=== PATIENT | male | born 1955 | race Caucasian/White ===

== ENCOUNTER → 2022-10-23 14:24 | Outpatient (BNVA) | payer BC, SELFPAY | PROVIDERS: PCP Family Medicine; Visit Provider Family Medicine | DX: E78.2 Mixed hyperlipidemia (principal); E11.9 Type 2 diabetes mellitus without complications; I10 Essential (primary) hypertension; Z76.89 Persons encountering health services in other specified circumstances | CPT/HCPCS: 80053; 80061; 83036; 84153; 85025 ==

== ENCOUNTER 2023-08-19 17:43 | Emergency (ER) | payer MEDICARE, SELFPAY ==
[2023-08-19 17:56] VITALS: BP 171/91; PULSE 72; RESP 17; TEMP 36.4; O2SAT 94; BMI 42.7
[2023-08-19 18:12] LABS: Glucose Point of Care 148 mg/dL (70-110)
--- NOTE | 2023-08-19 19:51 | CTR_ITS ---
PROCEDURE INFORMATION: Exam: CT Head Without Contrast Exam date and time: 08/19/2023 8:36 PM Age: 68 years old Clinical indication: Dizziness; Additional info: Sudden onset vertigo, off balance, lists to left TECHNIQUE: Imaging protocol: Computed tomography of the head without contrast. Radiation optimization: All CT scans at this facility use at least one of these dose optimization techniques: automated exposure control; mA and/or kV adjustment per patient size (includes targeted exams where dose is matched to clinical indication); or iterative reconstruction. REPORTING DATA: Count of CT and Cardiac NM exams in prior 12 months: This patient has received 0 known CTs and 0 known cardiac nuclear medicine studies in the 12 months prior to the current study. COMPARISON: No relevant prior studies available. RADIATION DOSE METRICS: Total DLP (mGy-cm): 1092 FINDINGS: Brain: No hemorrhage. Periventricular white matter lucency representing atherosclerotic encephalopathic changes. No mass effect. Cerebral ventricles: No ventriculomegaly. Ventricular prominence proportionate to the degree of atrophy observed. Paranasal sinuses: Visualized sinuses are unremarkable. No fluid levels. Mastoid air cells: Visualized mastoid air cells are well aerated. Bones/joints: Unremarkable. No acute fracture. Soft tissues: Unremarkable. CT/CT head wo con* [id number] IMPRESSION: No acute intracranial abnormality.
--- NOTE | 2023-08-19 19:51 | ECG_ITS ---
[facility] Test Date: 2023-08-19 Pat Name: Ulisses Bae Department: Room: Gender: Male Glove Stitcher: : 1955 Requested By: Kd Cristina Order Number: [id number] Josh MD: Mia Bhat M.D. Measurements Intervals [place] Rate: 68 P: 223 NM: 146 QRS: 215 QRSD: 89 T: 162 QT: 388 QTc: 415 Interpretive Statements SINUS RHYTHM POSSIBLE RIGHT VENTRICULAR HYPERTROPHY [SOME/ALL OF: PROMINENT R IN V1, LATE TRANSITION, RAD, DOTTIE, SSS] MODERATE ST DEPRESSION [0.05+ mV ST DEPRESSION] No previous ECG available for comparison Electronically Signed On 08-19-2023 23:21:37 JUNIOR BRAND MANAGER by Mia Bhat M.D. [id number]
--- NOTE | 2023-08-19 19:53 | ED_ITS ---
HPI - Dizziness General: Chief Complaint: Dizziness Stated Complaint: dizziness Time Seen by Provider: 08/19/23 19:37 History of Present Illness: HPI Narrative: Patient comes to the ER with complaints of sudden onset dizziness and vertigo when walking or riding his bicycle. Patient says he lists to the left when this happens. Patient says he is a has happened a couple times in the past but went away quickly but this time its been there all day long. Patient said this originally started about 2 to 3 years ago when he had COVID. Patient and his say they have long COVID-like symptoms and are unsure if this has anything to do with this. Patient has no other complaints at this time. Patient denies numbness tingling weakness nausea vomiting diarrhea coughs colds fevers chills etc. Review of Systems General: Reports: 10 or more systems reviewed and unremarkable except in HPI and below PFSH ED PFSH: Social History Smoking and tobacco/nicotine status: never used tobacco/nicotine Alcohol intake: never Substance/Drug Use: never Adopted: No Caregiver/support person: No Lives independently: No Household members: spouse Housing: House Marital status: service: No Physical Exam Const: COMMON NORMALS: no acute distress, average body habitus, patient oriented x3, no limitations, healthy appearing, alert and well nourished HENMT: COMMON NORMALS: normocephalic, atraumatic, hearing grossly normal bilaterally, external ears normal, EAC's normal, Normal external nose present, m oist oral mucous membranes and oropharynx normal; TM's not normal bilaterally (Bilateral serous otitis media) HEAD & SCALP: normocephalic and atraumatic NOSE: Normal external nose present EXTERNAL EAR: Yes external ears normal EXTERNAL AUDITORY CANAL: EAC's normal TYMPANIC MEMBRANE: TM(s) not normal bilaterally (Bilateral serous otitis media) Eye: COMMON NORMALS: Equal, round and reactive pupils present, EOMs intact bilaterally, conjunctivae normal and no scleral icterus CONJUNCTIVA: Yes conjunctivae normal PUPIL: Yes Equal, round and reactive pupils present Neck/C-Spine: COMMON NORMALS: full ROM, no lymphadenopathy, supple, no meningeal signs, no JVD and Thyroid normal THYROID: Thyroid normal Chest: COMMONS NORMALS: normal inspection of the chest and normal palpation of entire chest wall Resp: COMMON NORMALS: normal respiratory effort, No retractions, No use of accessory muscles and clear to auscultation bilaterally AUSCULTATION: clear to auscultation bilaterally Cardio: COMMON NORMALS: no JVD, regular rate, regular rhythm, S1 normal heart sound present, S2 normal heart sound present, No gallops present (Cardio), No clicks present (Cardio), No murmurs present (Cardio) and No rub (Cardio) RATE: regular rate RHYTHM: regular rhythm HEART SOUNDS: S1 normal heart sound present and S2 normal heart sound present GI: COMMON NORMALS: Normal to inspection, nondistended, normoactive bowel sounds present, Soft to palpation, non-tender, No hepatosplenomegaly present and no masses PALPATION: Yes Soft to palpation and Yes No hepatosplenomegaly present Neuro: COMMON NORMALS: patient oriented x3 SENSORIUM/ORIENTATION: Yes alert MENINGEAL SIGNS: Yes no meningeal signs Course Vital Signs: Vital signs: Vital Signs Temperature 97.6 F 08/19/23 17:56 Pulse Rate 66 08/19/23 21:00 Respiratory Rate 17 08/19/23 17:56 Blood Pressure 165/88 08/19/23 21:00 Pulse Oximetry 96 08/19/23 21:00 Oxygen Delivery Me thod Room Air 08/19/23 21:00 MDM - Dizziness Medical Decision Making Patient came to the ER with complaining of vertigo and listing to the left. Patient states had these episodes multiple times before but this time lasted longer. Patient was worked up with blood urine and head CT, EKG all of which are essentially benign and does not show any acute causes of vertigo. Physical exam did show bilateral serous otitis media which could be a cause. Patient will be placed on steroids and referred back to his family physician for further evaluation and treatment. Differential Diagnosis Unlikely adverse reaction to drug, benign paroxysmal positional vertigo, orthostatic hypotension, vertebral basilar insufficiency, cerebrovascular accident, acute vestibular neuronitis or transient cerebral ischemia Medical Records I reviewed the patient's medical records. Lab Data I reviewed the patient's lab results. 08/19/23 20:01 08/19/23 20:[address] 08/19/23 19:51 IMPRESSION: No acute intracranial abnormality. Laboratory Results WBC 10.43 10^3/uL (3.29-11.43) 08/19/23 20:01 RBC 5.70 10^6/uL (3.85-5.65) H 08/19/23 20: Hgb 16.30 g/dL (11.27-16.99) 08/19/23 20: Hct 49.9 % (37-53) 08/19/23 20: MCV 87.5 fl (82-101) 08/19/23 20: MCH 28.6 pg (27-33) 08/19/23 20: MCHC 32.7 g/dL (30-55) 08/19/23 20: RDW 13.5 % (12.1-15.1) 08/19/23 20: Plt Count 233 10^3/cmm (157-399) 08/19/23 20: MPV 9.8 fL (7.4-10.4) 08/19/23 20: Neut % (Auto) 80.1 % 08/19/23 20: Lymph % (Auto) 12.6 % 08/19/23 20: [place] % (Auto) 5.9 % 08/19/23 20: Eos % (Auto) 0.6 % 08/19/23 20: Baso % (Auto) 0.4 % 08/19/23 20: Neut # (Auto) 8.36 10^3/uL (1.8-7.7) H 08/19/23 20: Lymph # (Auto) 1.3 10^3/uL (0.8-4.8) 08/19/23 20: [place] # (Auto) 0.6 10^3/uL (0.2-0.9) 08/19/23 20: Eos # (Auto) 0.1 10^3/uL (0.0-0.8) 08/19/23 20: Baso # (Auto) 0.0 10^3/uL (0.0-0.1) 08/19/23 20: Nucleated RBC % (auto) 0 % 08/19/23 20: Nucleated RBCs # 0.0 /100WBC 08/19/23 20: Sodium 142 mmol/L (136-145) 08/19/23 20: Potassium 4.2 mmol/L (3.5-5.1) 08/19/23 20: Chloride 104 mmol/L (98-107) 08/19/23 20:01 Carbon Dioxide 27 mmol/L (22-29) 08/19/23 20: Anion Gap 15.2 (5-19) 08/19/23 20: BUN 12 mg/dL (8-23) 08/19/23 20: Creatinine 0.8 mg/dL (0.7-1.2) 08/19/23 20: GFR Calculation 96.4 mL/min (90-130) 08/19/23 20: Glucose 163 mg/dL (65-115) H 08/19/23 20: POC Glucose 148 mg/dL (70-110) H 08/19/23 18:09 Calculated Osmolality 297 mOsm/kg (285-295) H 08/19/23 20: Calcium 9.4 mg/dL (8.5-10.5) 08/19/23 20: Total Bilirubin 0.9 mg/dL (0.15-1.2) 08/19/23 20: AST 16 U/L (0-40) 08/19/23 20: ALT 22 U/L (0-41) 08/19/23 20: Alkaline Phosphatase 67 U/L (40-130) 08/19/23 20: Total Protein 7.4 g/dL (6.6-8.7) 08/19/23 20: Albumin 4.4 g/dL (3.5-5.2) 08/19/23 20: Globulin 3.0 g/dL (1.3-4.6) 08/19/23 20: Urine Color Yellow (Yellow) 08/19/23 20: Urine Appearance Clear (CLEAR) 08/19/23 20: Urine pH 6 (5-7) 08/19/23 20: Ur Specific [place] 1.015 (1.005-1.030) 08/19/23 20: Urine Protein Neg (Negative) 08/19/23 20: Urine Glucose (UA) 4+ (Normal) H 08/19/23 20: Urine Ketones 1+ (Negative) H 08/19/23 20: Urine Blood Neg (Negative) 08/19/23 20:22 Urine Nitrate Negative (Negative) 08/19/23 20:22 Urine Bilirubin Neg (Negative) 08/19/23 20:22 Urine Urobilinogen Neg mg/dL (Negative) 08/19/23 20:22 Ur Leukocyte Esterase Negative (Negative) 08/19/23 20:22 All radiology interpretation(s) finalized by discharge EKG Data EKG 1: I personally reviewed and interpreted this EKG as follows: EKG interpretation date: 08/19/23 EKG interpretation time: 20:25 Prior EKG tracings: not available for review Interpretation: EKG showed ventricular rate 60 beats minute, PA interval 146, QRS duration 89, QTc of 406, sinus rhythm, Discharge Plan Discharge Patient Disposition: Home Clinical Impression: Vertigo Bilateral acute serous otitis media Qualifiers: Recurrence: not specified as recurrent Qualified Code(s): H65.03 - Acute serous otitis media, bilateral Condition: Stable Prescriptions: New meclizine 25 mg tablet 25 mg PO QID PRN (Reason: vertigo) Qty: 30 0RF prednisone 20 mg tablet 20 mg PO BID 5 Days Qty: 10 0RF No Action atorvastatin 40 mg tablet 40 mg PO DAILY Qty: 90 2RF glipizide 10 mg tablet 10 mg PO DAILY Qty: 90 3RF lisinopril 20 mg tablet 20 mg PO DAILY Qty: 90 3RF metformin 1,000 mg tablet 1,000 mg PO DAILY Qty: 90 3RF Jardiance 25 mg tablet See Rx Instructions .ROUTE .COMPLEX Qty: 90 0RF Dose Instruction: TAKE 1 TABLET BY MOUTH EVERY DAY Rx Instructions: TAKE 1 TABLET BY MOUTH EVERY DAY Discharge Orders: Discharge ED (Routine); Ordered 08/19/23 Ordered By: Kd Cristina Referrals: Juve Hernandez DO [Primary Care Provider] - 1 week Patient Instructions: Vertigo (DC), Fluid In The Ear (Serous Otitis Media) (ED) Activity Restrictions/Additional Instructions: Please take your prednisone as directed as this will help reduce the inflammation of the inner ear. Please take your meclizine as directed as needed for vertigo. Please follow-up with your family practice physician as you may benefit from further evaluation and treatment. Coding Level of Care Code ED Digital Marketing Program Manager for Chg Yuriy
[2023-08-19 20:08] LABS: Basophils % 0.4 %; Eosinophils # 0.1 10^3/uL (0.0-0.8); Eosinophils % 0.6 %; Hematocrit 49.9 % (37-53); Lymphocytes # 1.3 10^3/uL (0.8-4.8); Lymphocytes % 12.6 %; Mean Corpuscular HGB Conc 32.7 g/dL (30-55); Mean Corpuscular Hemoglobin 28.6 pg (27-33); Mean Corpuscular Volume 87.5 fl (82-101); Mean Platelet Volume 9.8 fL (7.4-10.4); Monocytes # 0.6 10^3/uL (0.2-0.9); Monocytes % 5.9 %; Neutrophils # 8.36 10^3/uL (1.8-7.7); Neutrophils % 80.1 %; Nucleated Red Blood Cells % 0 %; Platelet Count 233 10^3/cmm (157-399); Red Cell Distribution Width 13.5 % (12.1-15.1); White Blood Count 10.43 10^3/uL (3.29-11.43)
[2023-08-19] MEDS: meclizine 25 mg tablet 50 MG PO (20:14)
[2023-08-19] MEDS: dexamethasone 10 mg/mL INJ IM (20:15)
[2023-08-19 20:19] VITALS: BP 179/97; PULSE 70; O2SAT 96
[2023-08-19 20:23] LABS: Alanine Aminotransferase 22 U/L (0-41); Albumin Level 4.4 g/dL (3.5-5.2); Alkaline Phosphatase 67 U/L (40-130); Anion Gap 15.2 (5-19); Aspartate Amino Transferase 16 U/L (0-40); Blood Urea Nitrogen 12 mg/dL (8-23); Calcium 9.4 mg/dL (8.5-10.5); Carbon Dioxide 27 mmol/L (22-29); Chloride 104 mmol/L (98-107); Glomerular Filtration Rate 96.4 mL/min (90-130); Glucose 163 mg/dL (65-115); Osmolality Calculated 297 mOsm/kg (285-295); Potassium 4.2 mmol/L (3.5-5.1); Sodium 142 mmol/L (136-145); Total Bilirubin 0.9 mg/dL (0.15-1.2); Total Protein 7.4 g/dL (6.6-8.7)
[2023-08-19 20:28] LABS: Add Urine Microscopic? NO; Charge for UA Resulting for Rev
[2023-08-19 20:33] LABS: Bilirubin Urine Neg (Negative); Blood Urine Neg (Negative); Glucose Urine UA 4+ (Normal); Ketones Urine 1+ (Negative); Leukocyte Esterase Urine Negative (Negative); Nitrate Urine Negative (Negative); Protein Urine Neg (Negative); Specific Gravity, Urine 1.015 (1.005-1.030); Urine Appearance Clear (CLEAR); Urine Color Yellow (Yellow); Urobilinogen Urine Neg (Negative); pH Urine 6 (5-7)
[2023-08-19 21:00] VITALS: BP 165/88; PULSE 66; O2SAT 96
[2023-08-19 21:21] VITALS: BP 165/88; PULSE 72; RESP 18; TEMP 36.6; O2SAT 96
== END 2023-08-19 21:22 | disposition home or self-care (01) ==
PROVIDERS: Emergency Provider Emergency Medicine; PCP Family Medicine
DX: R42 Dizziness and giddiness (principal); H65.03 Acute serous otitis media, bilateral; Z79.84 Long term (current) use of oral hypoglycemic drugs
CPT/HCPCS: 36415; 36416; 70450; 80053; 81003; 82962; 85025; 93005; 96372; 99285; J1100; J8597

== ENCOUNTER 2023-08-21 12:41 | Inpatient (IN) | payer MEDICARE, SELFPAY ==
[2023-08-21] VITALS (53 sets, daily range): BP systolic 148–203; BP diastolic 67–103; PULSE 75–106; RESP 14–29; TEMP 36.6–37.3; O2SAT 91–100; BMI 41.6
--- NOTE | 2023-08-21 09:57 | USCV_ITS ---
Ulisses Bae Age: 68 Gender: M : 1955 Exam Date: 08/21/2023 22:04 Ordering Phys: Elvi Timmons MD Technologist: IRMA Exam Location: [facility] [place] Indication: stroke. Patient is unresponsive in ICU-7. DM2 x 17 yrs on Metformin. He quit smoking over 40 years ago. Risk Factors: stroke. Patient is unresponsive in ICU-7. DM2 x 17 yrs on Metformin. He quit smoking over 40 years ago. Previous Vascular Surgery: none Right Brachial BP: 161 / 87 Left Brachial BP: / Right Left Velocity (cm/s) Spectral Plaque Velocity (cm/s) Spectral Plaque Syst/Diast Broadening Syst/Diast Broadening 179.90/14.40 None None Prox CCA 114.50/ 8.90 None None 88.10/ 1.80 None None Mid CCA 90.40 / 3.30 None None 102.50/9.00 None None Distal CCA 75.00 / 5.50 None None 68.40/ 7.20 None Homo Prox ICA 57.30 / 6.80 None Hetro 86.30/ 14.40 None None Mid ICA 79.50 / 9.40 None None 150.40/14.60 None None Distal ICA 87.30 / 9.70 None None 154.70 None None ECA 160.00 None None 0.84 ICA/CCA 0.76 Bi- Vertebral Bi- directiona directiona l l 7.70 / 1.00 cm/s 44.10/ 6.60 cm/s Tri Subclavian Tri 91.50 166.2 0 FINDINGS Comparison: none available. Bilateral abnormal waveforms in the carotid arteries, resistive waveform with little diastolic flow. No significant plaque seen. Bidirectional vertebral arteries. CONCLUSIONS Abnormal carotid waveforms without stenosis or plaque. Consider aortic valve stenosis or cardiomyopathy based on the waveform. Echocardigraphy recommended. Also CTA carotid and cerebral arteries for more complete evaluation of distal carotid arteries and COW. Dr. Ileana Esparza DO (Electronically Signed) Final Date: 22 August 2023 09:12 S
--- NOTE | 2023-08-21 12:55 | CT_ITS ---
WS: [id number] CT HEAD TECHNIQUE: Noncontrast CT of the head obtained from the skullbase to the vertex. CLINICAL INFORMATION: AMS COMPARISON: 08/19/2023 DLP: 1129.[address] scans at [facility] use at least one of these dose optimization techniques: automated e xposure control; mA and/or kV adjustment per patient size (includes targeted exams where dose is matc hed to clinical indication); or iterative reconstruction. FINDINGS: No evidence of intracranial hemorrhage or mass effect. Ventricular system and basal cisterns are pizarro nt. Mild small vessel changes with moderate parenchymal volume loss. No extra-axial fluid collections . Intracranial vascular calcification involving the cavernous carotid arteries and basilar artery. No evidence of mass or mass effect. Small amount of low-attenuation change in the anterior RIGHT peralta radiata appears more prominent compared to 08/19/2023 and may represent subacute ischemia. This can be further evaluated with MRI. Mild mucosal thickening in the paranasal sinuses. Mastoid air cells are well aerated. Small amount of fluid in the sphenoid sinuses. Normal posterior nasopharynx. IMPRESSION: 1. No evidence of intracranial hemorrhage or mass effect. 2. Small amount of low-attenuation change in the anterior RIGHT peralta radiata appears more prominen t compared to 08/19/2023 and may represent subacute ischemia. This can be further evaluated with MRI. 3. Intracranial vascular calcification. 4. Mild to moderate small vessel changes with moderate parenchymal volume loss. 5. Sphenoid sinusitis. 6. No acute intracranial findings.
--- NOTE | 2023-08-21 12:55 | XR_ITS ---
WS: [id number] Exam: XR chest 1V portable [id number] Date/Time of Exam: 08/21/2023 12:55 PM Reason For Exam: dyspnea/cough No priors. The lungs are clear and fully expanded. Unremarkable cardiomediastinal silhouette. No pleural effusio ns. Bony structures are intact. IMPRESSION: 1. Negative chest.
--- NOTE | 2023-08-21 12:56 | ED_ITS ---
HPI - General Adult General: Chief complaint: Weakness Stated complaint: Stroke like Time Seen by Provider: 08/21/23 12:47 Source: patient Mode of arrival: ambulatory History of Present Illness: 68-year-old male presents emergency room complaining of generalized weakness and difficulty standing getting around. He was seen 2 days ago and found to have bilateral otitis media. He since then he has continued to have more more di fficulty did not have a specific time where things got worse or concern today he had a stroke. His symptoms do not have a last known well prior to his previous visit according to him EMS could not give a more recent last known well either. Patient denies chest or abdominal pain he is lethargic and needs to be aroused several times during the course of doing his history. Oxygen sats are normal b lood sugar is 193. Onset (ago): minute(s) Relieving factors: none Exacerbating factors: none Associated symptoms: Reports confusion, decreased appetite, malaise and weakness; Deny chest pain, cough, diaphoresis, dyspnea, fevers/chills, headache(s), nausea, rash, palpitations, seizures, short of breath, syncope or vomiting Review of Systems Const: Reports: malaise; Denies: fever(s), chills or diaphoresis Card: Denies: chest pain, palpitations or syncope Resp: Denies: dyspnea GI: Denies: nausea or vomiting : Denies: dysuria, urinary frequency or urinary urgency Musc: Denies: neck pain or back pain Skin/Breast: Denies: rash Neuro: Reports: confusion; Denies: headache(s) [facility] ED PFSH: Social History Smoking and tobacco/nicotine status: never used tobacco/nicotine Alcohol intake: never Substance/Drug Use: never Adopted: No Caregiver/support person: No Lives independently: No Household members: spouse Housing: House Marital status: service: No Physical Exam Const: GENERAL APPEARANCE: cooperative and lethargic ORIENTATION/CONSCIOUS NESS: Yes confused and Yes lethargic HENMT: COMMON NORMALS: normocephalic, atraumatic and hearing grossly normal bilaterally HEAD & SCALP: normocephalic and atraumatic Resp: COMMON NORMALS: normal respiratory effort, No retractions, No use of accessory muscles and clear to auscultation bilaterally AUSCULTATION: clear to auscultation bilaterally Cardio: COMMON NORMALS: regular rate, regular rhythm and No murmurs present (Cardio) RATE: regular rate RHYTHM: regular rhythm GI: COMMON NORMALS: Soft to palpation and No hepatosplenomegaly present AUS CULTATION: Yes normoactive bowel sounds PALPATION: Yes Soft to palpation, No Tenderness to palpation present (GI), No Guarding due to palpation present (GI) and Yes No hepatosplenomegaly present Extremity: COMMON NORMALS: normal to inspection, capillary refill normal, no clubbing, cyanosis or edema, no calf tenderness and no pedal edema Neuro: SENSORIUM/ORIENTATION: Yes lethargic Skin: COMMON NORMALS: no rashes or lesions noted GENERAL SKIN EXAM: no rashes or lesions noted Course Vital Signs: Vital signs: Vital Signs Temperature 98.6 F 09/01/23 04:29 Pulse Rate 67 09/01/23 04:29 Respiratory Rate 16 09/01/23 04:29 Blood Pressure 142/68 09/01/23 04:29 Pulse Oximetry 93 09/01/23 04:29 Oxygen Delivery Me thod Nasal Cannula 08/31/23 21:11 Oxygen Flow Rate 1.5 08/31/23 21:11 Fraction of Inspir ed Oxygen 22 08/29/23 04:00 MDM - General Adult Medical Decision Making Flaccid in his left leg and arm with no last known well time that can be definitively pin down. After discussing with the it has been at least 48 hours. I do suspect he has had a stroke however he is outside the window of any kind of intervention at this point for either thrombolytics or embolectomy. He is hypoxic on arrival and difficult to arouse. Patient was started on BiPAP. CT shows low-attenuation area suggestive for subacute ischemia. Discussed with hospitalist. Medical Records I reviewed the patient's medical records. Lab Data I reviewed the patient's lab results. 09/01/23 05:49 09/01/23 04:37 Radiology Impressions Chest CTA 08/21/23 16:38 IMPRESSION: No acute chest findings. 2 cm right thyroid nodule. Nonemergent thyroid ultrasound recommended for further evaluation. Lumbar Spine CT 08/21/23 17:10 IMPRESSION: Mild degenerative changes without acute findings. Head MRI 08/22/23 09:30 IMPRESSION: Acute/subacute right MCA distribution ischemic changes/infarcts. ADDENDUM: 08/22/23 [id number] THIS REPORT CONTAINS FINDINGS THAT MAY BE CRITICAL TO PATIENT CARE. The findings were verbally communicated via telephone conference at 6:40 PM UNIT CONTROL CLERK on 08/22/2023 with ELVI TIMMONS. The findings were acknowledged and understood. 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 Neck MRA 08/22/23 14:47 IMPRESSION: No severe stenosis or occlusion. REFERENCES: NASCET CRITERIA. The degree of stenosis in the cervical segment of the internal carotid artery is based on NASCET criteria. Normal is no stenosis. Mild is less than 50% stenosis. Moderate is 50-69% stenosis. Severe is 70% to 99% stenosis. Total occlusion is no detectable patent lumen. Chest X-Ray 08/26/23 01:07 IMPRESSION: Linear opacity in the inferior right upper lobe, appears slightly more consolidated on this exam, previously more ground-glass in appearance, could represent layering pleural fluid, consolidation, or atelectasis. Improved aeration of the left retrocardiac lung. No new focal consolidation. Laboratory Results WBC 12.82 10^3/uL (3.29-11.43) H 08/21/23 13:00 RBC 5.92 10^6/uL (3.85-5.65) H 08/21/23 13:00 Hgb 16.90 g/dL (11.27-16.99) 08/21/23 13:00 Hct 52.4 % (37-53) 08/21/23 13:00 MCV 88.5 fl (82-101) 08/21/23 13:00 MCH 28.5 pg (27-33) 08/21/23 13:00 MCHC 32.3 g/dL (30-55) 08/21/23 13:00 RDW 13.7 % (12.1-15.1) 08/21/23 13:00 Plt Count 278 10^3/cmm (157-399) 08/21/23 13:00 MPV 9.8 fL (7.4-10.4) 08/21/23 13:00 Neut % (Auto) 86.7 % 08/21/23 13:00 Lymph % (Auto) 8.0 % 08/21/23 13:00 [place] % (Auto) 4.5 % 08/21/23 13:00 Eos % (Auto) 0.0 % 08/21/23 13:00 Baso % (Auto) 0.2 % 08/21/23 13:00 Neut # (Auto) 11.11 10^3/uL (1.8-7.7) H 08/21/23 13:00 Lymph # (Auto) 1.0 10^3/uL (0.8-4.8) 08/21/23 13:00 [place] # (Auto) 0.6 10^3/uL (0.2-0.9) 08/21/23 13:00 Eos # (Auto) 0.0 10^3/uL (0.0-0.8) 08/21/23 13:00 Baso # (Auto) 0.0 10^3/uL (0.0-0.1) 08/21/23 13:00 Nucleated RBC % (auto) 0 % 08/21/23 13:00 Nucleated RBCs # 0.0 /100WBC 08/21/23 13:00 D-Dimer 0.31 ug/mLFEU (0-0.59) 08/21/23 13:00 Specimen Type Arterial 08/21/23 13:03 Sample Site Radial, left 08/21/23 13:03 ABG pH 7.30 (7.35-7.45) L 08/21/23 13:03 ABG pCO2 32.0 mmHg (35-45) L 08/21/23 13:03 ABG pO2 69.9 mmHg (80.0-100.0) L 08/21/23 13:03 ABG PO2/FiO2 Ratio 0 08/21/23 13:03 ABG HCO3 15.6 mmol/L (22-26) L 08/21/23 13:03 ABG O2 Saturation 93.5 08/21/23 13:03 ABG Base Excess -9.6 mmol/L (-2.0-2.0) L 08/21/23 13:03 Magdiel Test Pos 08/21/23 13:03 A-a O2 Gradient 5.2 mmHg (5-10) 08/21/23 13:03 Hematocrit 50.4 % (42-52) 08/21/23 13:03 Hgb O2 Saturation 92.3 % (95-100) L 08/21/23 13:03 Carboxyhemoglobin 1.0 %THgb (0.4-20.1) 08/21/23 13:03 Methemoglobin 0.3 % (0.4-1.5) L 08/21/23 13:03 Total Hemoglobin 16.4 g/dL (14-18) 08/21/23 13:03 Sodium 139.0 mmol/L (131-143) 08/21/23 13:03 Potassium 4.3 mmol/L (3.5-5.0) 08/21/23 13:03 Glucose 192.0 mg/dL (70-115) H 08/21/23 13:03 Ionized Calcium 1.1 mmol/L (1.1-1.4) 08/21/23 13:03 O2 Delivery Device Room air 08/21/23 13:03 FiO2 21.0 % 08/21/23 13:03 Double Backer ID glc 08/21/23 13:03 Sodium 137 mmol/L (136-145) 08/21/23 13:00 Potassium 4.8 mmol/L (3.5-5.1) 08/21/23 13:00 Chloride 99 mmol/L (98-107) 08/21/23 13:00 Carbon Dioxide 17 mmol/L (22-29) L 08/21/23 13:00 Anion Gap 25.8 (5-19) H 08/21/23 13:00 BUN 15 mg/dL (8-23) 08/21/23 13:00 Creatinine 0.8 mg/dL (0.7-1.2) 08/21/23 13:00 GFR Calculation 96.4 mL/min (90-130) 08/21/23 13:00 Glucose 193 mg/dL (65-115) H 08/21/23 13:00 POC Glucose 178 mg/dL (70-110) H 08/21/23 12:54 Calculated Osmolality 290 mOsm/kg (285-295) 08/21/23 13:00 Lactic Acid 2.2 mmol/L (0.5-2.2) 08/21/23 13:00 Calcium 9.0 mg/dL (8.5-10.5) 08/21/23 13:00 Magnesium 2.2 mg/dL (1.7-2.3) 08/21/23 13:00 Total Bilirubin 1.4 mg/dL (0.15-1.2) H 08/21/23 13:00 AST 17 U/L (0-40) 08/21/23 13:00 ALT 22 U/L (0-41) 08/21/23 13:00 Alkaline Phosphatase 73 U/L (40-130) 08/21/23 13:00 Creatine Kinase 151 U/L (39-308) 08/21/23 13:00 Troponin T Baseline 18 ng/L (0-15) H 08/21/23 13:00 NT-Pro-B Natriuret Pep 334 pg/mL (0-125) H 08/21/23 13:00 Total Protein 7.9 g/dL (6.6-8.7) 08/21/23 13:00 Albumin 4.6 g/dL (3.5-5.2) 08/21/23 13:00 Globulin 3.3 g/dL (1.3-4.6) 08/21/23 13:00 Lipase 18 U/L (13-60) 08/21/23 13:00 TSH 1.72 uIU/mL (0.27-4.20) 08/21/23 13:00 Salicylates < 0.3 mg/dL (3-10) L 08/21/23 13:00 Acetaminophen < 5.0 ug/mL (10-30) L 08/21/23 13:00 Ethyl Alcohol < 10 mg/dL (0-10) 08/21/23 13:00 Serum Ketones Negative (Negative) 08/21/23 13:00 All radiology interpretation(s) finalized by discharge Discharge Plan Discharge Patient Disposition: Admitted As Inpatient Admit Provider: Elvi Timmons Clinical Impression: Stroke, Essential hypertension, Atrial fibrillation Condition: Stable Coding Level of Care Code ED Staff Climate Scientist for Reeseg Yuriy
[2023-08-21 13:05] LABS: Glucose Point of Care 178 mg/dL (70-110)
[2023-08-21 13:12] LABS: Alveolar-Arterial Oxygen Gradi 5.2 mmHg (5-10); Arterial Blood Gas Hematocrit 50.4 % (42-52); Base Excess ABG -9.6 mmol/L (-2.0-2.0); Blood Gas Allen Test Pos; Blood Gas Operator Identificat glc; Blood Gas Sample Site Radial, left; Blood Gas Sample Type Arterial; HCO3 ABG 15.6 mmol/L (22-26); HGB O2 Sat 92.3 % (95-100); Ionized Calcium Level - ABG 1.1 mmol/L (1.1-1.4); Methemoglobin 0.3 % (0.4-1.5); Oxygen Device ROOM AIR; Oxygen Saturation ABG 93.5; PO2 ABG 69.9 mmHg (80.0-100.0); PO2 FiO2 Ratio Arterial Blood 0; Potassium Level - ABG 4.3 mmol/L (3.5-5.0); Total Hemoglobin 16.4 g/dL (14-18)
[2023-08-21 13:14] LABS: Basophils % 0.2 %; Hematocrit 52.4 % (37-53); Mean Corpuscular HGB Conc 32.3 g/dL (30-55); Mean Corpuscular Hemoglobin 28.5 pg (27-33); Mean Corpuscular Volume 88.5 fl (82-101); Mean Platelet Volume 9.8 fL (7.4-10.4); Monocytes # 0.6 10^3/uL (0.2-0.9); Monocytes % 4.5 %; Neutrophils # 11.11 10^3/uL (1.8-7.7); Neutrophils % 86.7 %; Nucleated Red Blood Cells % 0 %; Platelet Count 278 10^3/cmm (157-399); Red Blood Count 5.92 10^6/uL (3.85-5.65); Red Cell Distribution Width 13.7 % (12.1-15.1); White Blood Count 12.82 10^3/uL (3.29-11.43)
[2023-08-21 13:26] LABS: Ketone (Acetest) Serum Negative (Negative)
[2023-08-21 13:37] LABS: Alanine Aminotransferase 22 U/L (0-41); Albumin Level 4.6 g/dL (3.5-5.2); Alkaline Phosphatase 73 U/L (40-130); Anion Gap 25.8 (5-19); Aspartate Amino Transferase 17 U/L (0-40); Blood Urea Nitrogen 15 mg/dL (8-23); Carbon Dioxide 17 mmol/L (22-29); Chloride 99 mmol/L (98-107); Globulin 3.3 g/dL (1.3-4.6); Glomerular Filtration Rate 96.4 mL/min (90-130); Glucose 193 mg/dL (65-115); Lipase 18 U/L (13-60); Magnesium 2.2 mg/dL (1.7-2.3); Osmolality Calculated 290 mOsm/kg (285-295); Potassium 4.8 mmol/L (3.5-5.1); Sodium 137 mmol/L (136-145); Total Bilirubin 1.4 mg/dL (0.15-1.2); Total Protein 7.9 g/dL (6.6-8.7)
[2023-08-21 13:38] LABS: Lactic Sepsis W/Reflex 2.2 mmol/L (0.5-2.2)
[2023-08-21 13:39] LABS: Troponin(5th) Baseline 18 ng/L (0-15)
--- NOTE | 2023-08-21 13:40 | ECG_ITS ---
[facility] Test Date: 2023-08-21 Pat Name: Ulisses Bae Department: Room: Gender: Male Corporation Secretary: : 1955 Requested By: Bebeto Azar Order Number: [id number] Reading MD: Fernando Harmon M.D. Measurements Intervals [place] Rate: 81 P: 52 OK: 156 QRS: -31 QRSD: 102 T: 49 QT: 365 QTc: 424 Interpretive Statements SINUS RHYTHM LEFT AXIS DEVIATION [QRS AXIS < -30] LOW QRS VOLTAGE IN PRECORDIAL LEADS [QRS DEFLECTION < 1.0 mV IN CHEST LEADS] Possible INFERIOR MYOCARDIAL INFARCTION , PROBABLY OLD [40+ ms Q WAVE AND/OR ST/T ABNORMALITY IN II/aVF] Compared to ECG 08/19/2023 20:25:10 Left-axis deviation now present Low QRS voltage now present Myocardial infarct finding now present Atrial abnormality no longer present ST (T wave) deviation no longer present Electronically Signed On 08-22-2023 14:12:38 MOLD CHANGER by Fernando Harmon M.D. [id number]
[2023-08-21] MEDS: promethazine 25 mg/mL SDV 1 mL IM (14:15)
[2023-08-21 14:51] LABS: Creatine Phosphokinase 151 U/L (39-308)
[2023-08-21 14:52] LABS: Salicylate < 0.3 mg/dL (3-10)
[2023-08-21 14:53] LABS: Acetaminophen < 5.0 ug/mL (10-30)
[2023-08-21] MEDS: levofloxacin-dextrose 5 % 750 MG/150 ML PREMIX 100 MG IV (14:56)
[2023-08-21 14:59] LABS: Reflex Lactate Order REFLEX LACTIC ORDERD
[2023-08-21 15:31] LABS: Troponin 5 2HR 13.83 ng/L (0-15); Troponin 5 2HR Delta -4.17 ABS# (0-10)
[2023-08-21 15:32] LABS: Influenza A by IFA negative (Negative); Influenza B by IFA negative (Negative)
--- NOTE | 2023-08-21 15:33 | ECG_ITS ---
[facility] Test Date: 2023-08-21 Pat Name: Ulisses Bae Department: Room: [facility] Gender: Male Director Of Assessing: : 1955 Requested By: Bebeto Azar Order Number: [id number] Reading MD: Fernando Harmon M.D. Measurements Intervals [place] Rate: 69 P: -7 KS: 130 QRS: -20 QRSD: 106 T: 66 QT: 385 QTc: 415 Interpretive Statements SINUS RHYTHM LOW QRS VOLTAGE IN PRECORDIAL LEADS [QRS DEFLECTION < 1.0 mV IN CHEST LEADS] PROBABLE INFERIOR MYOCARDIAL INFARCTION , OF INDETERMINATE AGE [35 ms Q WAVE IN II/aVF] Compared to ECG 08/21/2023 13:40:19 Left-axis deviation no longer present Myocardial infarct finding still present Electronically Signed On 08-22-2023 14:20:16 ROPING MACHINE TENDER by Fernando Harmon M.D. [email or web address].[email or web address]/store/[id number]
--- NOTE | 2023-08-21 16:38 | CTR_ITS ---
PROCEDURE INFORMATION: Exam: CTA Chest With Contrast Exam date and time: 08/21/2023 5:08 PM Age: 68 years old Clinical indication: Shortness of breath; Additional info: Evaluate for pe TECHNIQUE: Imaging protocol: Computed tomographic angiography of the chest with contrast. Exam focused on the arteries. 3D rendering (Not supervised by radiologist): MIP and/or 3D reconstructed images were created by the technologist. Radiation optimization: All CT scans at this facility use at least one of these dose optimization techniques: automated exposure control; mA and/or kV adjustment per patient size (includes targeted exams where dose is matched to clinical indication); or iterative reconstruction. Contrast material: OMNI 350; Contrast volume: 100 ml; Contrast route: INTRAVENOUS (IV); REPORTING DATA: Count of CT and Cardiac NM exams in prior 12 months: This patient has received [address] and 0 known cardiac nuclear medicine studies in the 12 months prior to the current study. COMPARISON: CR XR chest 1V portable [id number] 08/21/2023 2:17 PM RADIATION DOSE METRICS: Total DLP (mGy-cm): 505 FINDINGS: Pulmonary arteries: No central or segmental pulmonary emboli. Aorta: No aortic aneurysm or dissection. Lungs: No consolidation. Pleural spaces: No pneumothorax. No pleural effusion. Heart: Coronary calcifications. No pericardial effusion. Lymph nodes: No enlarged lymph nodes. Bones/joints: No acute findings. Soft tissues: 2 cm right thyroid nodule with calcification. Cholelithiasis. CT/CT angio chest PE protcl [id number] IMPRESSION: No acute chest findings. 2 cm right thyroid nodule. Nonemergent thyroid ultrasound recommended for further evaluation.
--- NOTE | 2023-08-21 16:46 | P.HP_ITS ---
Providers/Chief Complaint Admitting Physician: Elvi Timmons MD Primary Care Provider: Juve Hernandez DO Chief Complaint: Stroke like History of Present Illness Ulisses Bae is a 68 year old male with a past medical history of diabetes mellitus, hypertension, dyslipidemia was brought to the emergency room today with chief complaints of ataxia, dizziness and then developed altered mental status. History is obtained mainly by talking to the as patient is currently confused. Per patient's .Patient was reportedly in his baseline state of health until the morning of August 19, 2023. They were out riding their bike and he developed worsened dizziness. She noticed that he was having a hard time maintaining balance on the bike. By the time she got home he needed assistance with additional people to hold him up. He complained of dizziness and vertigo. It appears patient has some past medical history of dizziness as well which his family attributes to having long COVID however it was much worse on 08/19/2023. He presented to the ER with these complaints and was diagnosed with bilateral otitis media. He received a prescription for meclizine and prednisone and was discharged home. After he returned home his states that patient sustained a fall while going to the bathroom. She was afraid that because of his dizziness he will have multiple falls and she laid a mattress next to him on the floor where he lived for 2 days. Today he started to complain of his left arm feeling tingly and numb. Never concern for a stroke and came to the ER. Per his he attempted to get up on multiple occasions over the past 2 days however was unable to do the same and kept falling back. He complained of Weick pain over his back. Denies any complains of headache. Has not had any noted fever at home. Per he was alert awake and oriented at his baseline mentation although while he was at home. Even when EMS brought him to the ER he was apparently able to talk and joke with them. At the time of my assessment, patient is no longer able to do this. He was unable to answer any questions. It was very difficult to awaken him. He was on a BiPAP reportedly as he was hypoxic initially upon presentation. His ABG did show PO2 of 60 PCO2 of 32. No past history of known COPD. Per his he does have a history of sleep apnea however does not use a CPAP. Last night she did notice episodes of apnea which started after almost 15 years. She reports that because of his constant dizziness he has been laying with his head usually dropping backwards below the level of the bed. No complaints of chest pain dyspnea palpitations or loss of consciousness around the time of onset of symptoms. His blood pressure today is noted to be uncontrolled in the 170s range. Patient states that at home it is normally well controlled with lisinopril 20 mg daily. Review of Systems General: Reports: 10 or more systems reviewed and unremarkable except in HPI and below Const: Denies: fever(s), chills or body aches Eyes: Denies: change in vision, blurry vision or photophobia ENMT: Reports: hoarseness; Denies: throat pain, enlarged tonsils, odynophagia or nasal congestion Card: Denies: chest pain, palpitations, irregular heart rhythm, edema, swel ling of feet/ankles, lightheadedness, pre-syncope, dyspnea on exertion or orthopnea Resp: Denies: dyspnea, productive cough, non-productive cough, wheezing, stridor, pain on inspiration, change in phlegm color, hemoptysis or chest congestion GI: Denies: abdominal pain, nausea, vomiting, hematemesis, coffee ground emesis, dysphagia, heartburn, diarrhea, constipation, GI cramping, change in stool character, hematochezia or melena : Denies: flank pain, dysuria, urinary frequency, urinary urgency, urinary h esitancy or hematuria Musc: Denies: neck pain, back pain, extremity pain, joint swelling, joint warmth or deformity Neuro: Denies: headache(s), numbness in extremities, weakness in extremities, sensory changes, difficulty walking, frequent falls, dizziness, vertigo, behavioral changes, Slurred speech present or seizure-like activity Psych: Denies: anxiety, depression, suicidal ideation or homicidal ideation Endo: Denies: polyuria, polydipsia, tired all the time, cold intolerance or hot flashes Sanya/Lymph: Denies: easy bruising or easy bleeding Medications/Allergies Home Medications Medication Instructions Recorded Confirmed Last Taken Type atorvastatin 40 mg tablet 40 mg PO DAILY #90 tabs 10/23/22 08/21/23 Unknown Rx glipizide 10 mg tablet 10 mg PO DAILY #90 tabs 10/23/22 08/21/23 Unknown Rx lisinopril 20 mg tablet 20 mg PO DAILY #90 tabs 10/23/22 08/21/23 Unknown Rx metformin 1,000 mg tablet 1,000 mg PO DAILY #90 tabs 10/23/22 08/21/23 Unknown Rx meclizine 25 mg tablet 25 mg PO QID PRN vertigo #30 tabs 08/19/23 08/21/23 Unknown Rx prednisone 20 mg tablet 20 mg PO BID 5 days #10 tabs 08/19/23 08/21/23 Unknown Rx empagliflozin 25 mg tablet 25 mg PO DAILY 08/21/23 08/21/23 Unknown History (Jardiance) Allergies Allergy/AdvReac Type Severity Reaction Status Date / Time No Known Allergies Allergy Verified 08/21/23 13:08 PFSH Acute PFSH: Social History Smoking and tobacco/nicotine status: never used tobacco/nicotine Alcohol intake: never Substance/Drug Use: never Adopted: No Caregiver/support person: No Lives independently: No Household members: spouse Housing: House Marital status: service: No Vitals/I&O/Wt Last Vital Signs Pulse 76 08/21/23 16:06 Resp 24 H 08/21/23 16:06 BP 161/87 08/21/23 16:06 Pulse Ox 96 08/21/23 16:06 O2 Del Method BiPAP 08/21/23 16:06 FiO2 40 08/21/23 14:55 Physical Exam Narrative: General: Currently on a BiPAP at the time of assessment in the emergency room. Unable to answer any questions. He is very drowsy. Uncertain if he received any opiates in route to the ER. HEENT: PERRLA, pupils bilaterally equal and reactive, pallors not present Chest: Normal vesicular breath sounds, no added sounds, equal good air entry bilaterally CVS: S1-S2 regular, no murmurs, no tachycardia, no gallops, no rubs Abdomen: Soft, nontender, no organomegaly, bowel sounds present Neuro: Unable to assess at this time as patient is not following any commands. Per he was not moving his left upper extremity and has not been able to get off the floor for the past 2 days. Data 08/21/23 13:00 08/21/23 13:00 Other Labs: Radiology Impressions Chest CTA 08/21/23 16:38 IMPRESSION: No acute chest findings. 2 cm right thyroid nodule. Nonemergent thyroid ultrasound recommended for further evaluation. Lumbar Spine CT 08/21/23 17:10 IMPRESSION: Mild degenerative changes without acute findings. Laboratory Results WBC 12.82 10^3/uL (3.29-11.43) H 08/21/23 13:00 RBC 5.92 10^6/uL (3.85-5.65) H 08/21/23 13:00 Hgb 16.90 g/dL (11.27-16.99) 08/21/23 13:00 Hct 52.4 % (37-53) 08/21/23 13:00 MCV 88.5 fl (82-101) 08/21/23 13:00 MCH 28.5 pg (27-33) 08/21/23 13:00 MCHC 32.3 g/dL (30-55) 08/21/23 13:00 RDW 13.7 % (12.1-15.1) 08/21/23 13:00 Plt Count 278 10^3/cmm (157-399) 08/21/23 13:00 MPV 9.8 fL (7.4-10.4) 08/21/23 13:00 Neut % (Auto) 86.7 % 08/21/23 13:00 Lymph % (Auto) 8.0 % 08/21/23 13:00 Anderson % (Auto) 4.5 % 08/21/23 13:00 Eos % (Auto) 0.0 % 08/21/23 13:00 Baso % (Auto) 0.2 % 08/21/23 13:00 Neut # (Auto) 11.11 10^3/uL (1.8-7.7) H 08/21/23 13:00 Lymph # (Auto) 1.0 10^3/uL (0.8-4.8) 08/21/23 13:00 Anderson # (Auto) 0.6 10^3/uL (0.2-0.9) 08/21/23 13:00 Eos # (Auto) 0.0 10^3/uL (0.0-0.8) 08/21/23 13:00 Baso # (Auto) 0.0 10^3/uL (0.0-0.1) 08/21/23 13:00 Nucleated RBC % (auto) 0 % 08/21/23 13:00 Nucleated RBCs # 0.0 /100WBC 08/21/23 13:00 D-Dimer 0.31 ug/mLFEU (0-0.59) 08/21/23 13:00 Specimen Type Arterial 08/21/23 17:25 Sample Site Radial, right 08/21/23 17:25 ABG pH 7.24 (7.35-7.45) L 08/21/23 17:25 ABG pCO2 33.4 mmHg (35-45) L 08/21/23 17:25 ABG pO2 147.0 mmHg (80.0-100.0) H 08/21/23 17:25 ABG PO2/FiO2 Ratio 0 08/21/23 17:25 ABG HCO3 14.2 mmol/L (22-26) L 08/21/23 17:25 ABG O2 Saturation 93.5 08/21/23 13:03 ABG Base Excess -12.1 mmol/L (-2.0-2.0) L 08/21/23 17:25 Magdiel Test Pos 08/21/23 17:25 A-a O2 Gradient 5.2 mmHg (5-10) 08/21/23 13:03 Hematocrit 49.3 % (42-52) 08/21/23 17:25 Hgb O2 Saturation 92.3 % (95-100) L 08/21/23 13:03 Carboxyhemoglobin 1.0 %THgb (0.4-20.1) 08/21/23 13:03 Methemoglobin 0.3 % (0.4-1.5) L 08/21/23 13:03 Total Hemoglobin 16.4 g/dL (14-18) 08/21/23 13:03 Sodium 139.0 mmol/L (131-143) 08/21/23 13:03 Potassium 4.3 mmol/L (3.5-5.0) 08/21/23 13:03 Glucose 192.0 mg/dL (70-115) H 08/21/23 13:03 Ionized Calcium 1.1 mmol/L (1.1-1.4) 08/21/23 13:03 O2 Delivery Device Bipap 08/21/23 17:25 FiO2 40.0 % 08/21/23 17:25 Clinical Psychology Teacher ID Gd 08/21/23 17:25 Sodium 137 mmol/L (136-145) 08/21/23 13:00 Potassium 4.8 mmol/L (3.5-5.1) 08/21/23 13:00 Chloride 99 mmol/L (98-107) 08/21/23 13:00 Carbon Dioxide 17 mmol/L (22-29) L 08/21/23 13:00 Anion Gap 25.8 (5-19) H 08/21/23 13:00 BUN 15 mg/dL (8-23) 08/21/23 13:00 Creatinine 0.8 mg/dL (0.7-1.2) 08/21/23 13:00 GFR Calculation 96.4 mL/min (90-130) 08/21/23 13:00 Glucose 193 mg/dL (65-115) H 08/21/23 13:00 POC Glucose 178 mg/dL (70-110) H 08/21/23 12:54 Calculated Osmolality 290 mOsm/kg (285-295) 08/21/23 13:00 Lactic Acid 2.2 mmol/L (0.5-2.2) 08/21/23 13:00 Lactic Acid (Sepsis) 2.1 mmol/L (0.5-2.2) 08/21/23 16:14 Calcium 9.0 mg/dL (8.5-10.5) 08/21/23 13:00 Magnesium 2.2 mg/dL (1.7-2.3) 08/21/23 13:00 Total Bilirubin 1.4 mg/dL (0.15-1.2) H 08/21/23 13:00 AST 17 U/L (0-40) 08/21/23 13:00 ALT 22 U/L (0-41) 08/21/23 13:00 Alkaline Phosphatase 73 U/L (40-130) 08/21/23 13:00 Creatine Kinase 151 U/L (39-308) 08/21/23 13:00 Troponin T Baseline 18 ng/L (0-15) H 08/21/23 13:00 Troponin T 120 Minute 13.83 ng/L (0-15) 08/21/23 14:55 Delta Troponin T -4.17 ABS# (0-10) L 08/21/23 14:55 NT-Pro-B Natriuret Pep 334 pg/mL (0-125) H 08/21/23 13:00 Total Protein 7.9 g/dL (6.6-8.7) 08/21/23 13:00 Albumin 4.6 g/dL (3.5-5.2) 08/21/23 13:00 Globulin 3.3 g/dL (1.3-4.6) 08/21/23 13:00 Lipase 18 U/L (13-60) 08/21/23 13:00 TSH 1.72 uIU/mL (0.27-4.20) 08/21/23 13:00 Salicylates < 0.3 mg/dL (3-10) L 08/21/23 13:00 Acetaminophen < 5.0 ug/mL (10-30) L 08/21/23 13:00 Ethyl Alcohol < 10 mg/dL (0-10) 08/21/23 13:00 Serum Ketones Negative (Negative) 08/21/23 13:00 Coronavirus 229E (PCR) Not detected (NOT DETECT) 08/21/23 15:04 Influenza Type A Ag negative (Negative) 08/21/23 15:04 Influenza Type B Ag negative (Negative) 08/21/23 15:04 SARS-CoV-2 (PCR) Not detected (NOT DETECT) 08/21/23 15:04 Micro: Microbiology 08/21/23 14:55 Blood Culture - Preliminary Blood SPECIMEN COLLECTED 08/21/23 14:52 Blood Culture - Preliminary Blood SPECIMEN COLLECTED A&P Assessment and plan (1) Stroke: As noted on CT scan. It appears at home patient was complaining of left-sided upper extremity we akness and also noted slurred speech through the day yesterday. Patient however had remained alert awake and oriented x3 at home. CT head performed today shows low-attenuation change in the anterior right coronary radiata more prominent compared to CT scan from 08/19/2023. MRI is recommended. It appears patient may have had a stroke in evolution over the past 2 days He is not a tPA candidate due As he is well past the treatment window Continue telemetry monitoring on the unit to evaluate for underlying arrhythmias. Echocardiogram ordered and pending Carotid Doppler ordered Start aspirin 81 mg daily Atorvastatin 40 mg daily Resume home dose of antihypertensives to maintain BP PT OT speech therapy assessment (2) Altered mental status: Altered mental status, unclear cause currently. Mid brain stroke can sometimes be a cause of increased somnolence, however earl rothman's CT shows small stroke in the coronary radiator which does not necessarily correlate with his alteration in mental status. Possible differentials at this time include sleep apnea, ABG does show some minor hypoxia, however does not appear significant enough to explain his degree of confusion at this time. He is currently on a BiPAP. We will repeat ABG and reassess Check TSH, ammonia, stat Ethyl alcohol level, urine drug screen, serum acetaminophen and salicylate level. No localizing signs or symptoms of infection currently. Patient has been afebrile. Low suspicion for meningitis at this time. PRES remains a possibility, control BP, check MRI in am check UA CXR without infiltrate blood cx taken and pending (3) Metabolic acidosis: Again unclear cause currently. Fingerstick is at 190. Ketones are negative. Unlikely DKA or HHS. Lactate is normal. Check Ethyl alcohol level, salicylate and acetaminophen levels. Pending urine drug screen. (4) Hypoxia: Check CTA to evaluate for possible PE Suspect this may be related to underlying sleep apnea. Patient has been putting his head below the level of bed rather than being propped up recently to see if it will help with his dizziness. Repeat ABG, attempt to wean off BiPAP. (5) Dizziness: MRI tomorrow to evaluate for possible posterior circulation stroke which would explain his persisting dizziness. Plan DVT ppx: lovenox Attestations Medical Necessity Statement*: Greater than 2 midnight admission is anticipated Coding Level of Care Code Acute Code for g Fwd Diagnoses Stroke I63.9 Altered mental status R41.82 Metabolic acidosis E87.20 Hypoxia R09.02 Dizziness R42
[2023-08-21 16:58] LABS: Adenovirus Not Detected (NOT DETECT); Chlamydia Pneumoniae Not Detected (NOT DETECT); Coronavirus 229E,HKU1,NL63,OC4 Not Detected (NOT DETECT); Human Metapneumovirus Not Detected (NOT DETECT); Human Rhinovirus/Enterovirus Not Detected (NOT DETECT); Influenza A Not Detected (NOT DETECT); Influenza A H1 Not Detected (NOT DETECT); Influenza A H1-2009 Not Detected (NOT DETECT); Influenza A H3 Not Detected (NOT DETECT); Influenza B Not Detected (NOT DETECT); Mycoplasma Pneumoniae Not Detected (NOT DETECT); Parainfluenza Virus Type 1 Not Detected (NOT DETECT); Parainfluenza Virus Type 2 Not Detected (NOT DETECT); Parainfluenza Virus Type 3 Not Detected (NOT DETECT); Parainfluenza Virus Type 4 Not Detected (NOT DETECT); Respiratory Syncytial Virus A Not Detected (NOT DETECT); Respiratory Syncytial Virus B Not Detected (NOT DETECT); SARS-COV-2 Not Detected (NOT DETECT)
[2023-08-21 16:59] LABS: Lactic Acid level (Lactate) 2.1 mmol/L (0.5-2.2)
[2023-08-21 17:00] LABS: D Dimer 0.31 ug/mLFEU (0-0.59)
--- NOTE | 2023-08-21 17:10 | CTR_ITS ---
PROCEDURE INFORMATION: Exam: CT Lumbar Spine Without Contrast Exam date and time: 08/21/2023 5:12 PM Age: 68 years old Clinical indication: Injury or trauma; Fall; Blunt trauma (contusions or hematomas); Additional info: Evaluate for fracture TECHNIQUE: Imaging protocol: Computed tomography of the lumbar spine without contrast. Radiation optimization: All CT scans at this facility use at least one of these dose optimization techniques: automated exposure control; mA and/or kV adjustment per patient size (includes targeted exams where dose is matched to clinical indication); or iterative reconstruction. REPORTING DATA: Count of CT and Cardiac NM exams in prior 12 months: This patient has received [address] and 0 known cardiac nuclear medicine studies in the 12 months prior to the current study. COMPARISON: No relevant prior studies available. RADIATION DOSE METRICS: Total DLP (mGy-cm): 1543 FINDINGS: Bones/joints: Alignment and vertebral body heights are grossly maintained. Mild multilevel spondylosis with marginal osteophytes and anterior vertebral body wedging. No severe canal stenosis. Soft tissues: No acute findings. CT/CT lumbar spine wo con* [id number] IMPRESSION: Mild degenerative changes without acute findings.
[2023-08-21] MEDS: iohexol 350 mg/mL 500 mL Btl (per mL) IV (17:25)
[2023-08-21 17:30] LABS: Alcohol Level < 10 mg/dL (0-10); NT Pro B Type Natriuretic Pept 334 pg/mL (0-125); Thyroid Stimulating Hormone 1.72 uIU/mL (0.27-4.20)
[2023-08-21 17:42] LABS: ABG PCO2 33.4 mmHg (35-45); ABG PH Result 7.24 (7.35-7.45); Arterial Blood Gas Hematocrit 49.3 % (42-52); Base Excess ABG -12.1 mmol/L (-2.0-2.0); Blood Gas Allen Test Pos; Blood Gas Operator Identificat GD; Blood Gas Sample Site Radial, right; Blood Gas Sample Type Arterial; HCO3 ABG 14.2 mmol/L (22-26); Oxygen Device BIPAP; PO2 FiO2 Ratio Arterial Blood 0
--- NOTE | 2023-08-21 17:42 | USCV_ITS ---
Ulisses Bae Age: 68 Gender: M : 1955 Exam Date: 08/21/2023 18:29 Ordering Phys: Elvi Timmons MD Technologist: RAFI [place]am Location[place] [facility] [place] Indication: stroke, weakness, ataxia BP: 161 / 87 HR: 76 Rhythm: Sinus Technical Quality: Adequate with OPTISON MEASUREMENTS (Male / Female) Normal Values 2D ECHO LV Diastolic Diameter PLAX 4.2 cm 4.2 - 5.9 / 3.9 - 5.3 cm LV Systolic Diameter PLAX 2.7 cm IVS Diastolic Thickness 1.6 cm 0.6 - 1.0 / 0.6 - 0.9 cm IVS Systolic Thickness 2.8 cm LVPW Diastolic Thickness 1.8 cm 0.6 - 1.0 / 0.6 - 0.9 cm LVPW Systolic Thickness 2.0 cm LVOT Diameter 2.3 cm LV Ejection Fraction 2D Teich 64.8 % LV Ejection Fraction MOD 2C 57.9 % LV Ejection Fraction 2C AL 58.1 % LA Diameter 4.7 cm LA Width 3.8 cm LA Height 5.2 cm RA Width 4.0 cm RA Height 4.0 cm Aorta at Sinotubular Diameter 3.3 cm IVC Diameter 1.4 cm M-MODE Aortic Annulus Diameter 3.9 cm LA Ao Ratio MM 1.2 MV E Point Septal Separation 0.7 cm DOPPLER AV Peak Velocity 160.0 cm/s LVOT Peak Velocity 117.0 cm/s AV Area Cont Eq vti 2.8 cm squared AV Area Cont Eq pk 3.0 cm squared MV Peak Velocity 103.0 cm/s MV Area PHT 2.9 cm squared Mitral E to A Ratio 0.9 MV E' Velocity 46.0 cm/s Mitral E to MV E' Ratio 12.0 Mitral E to LV E' Lateral Ratio 11.1 Mitral E to LV E' Septal Ratio 13.4 TV Peak E Velocity 47.0 cm/s PV Peak Velocity 113.0 cm/s RV Acceleration Time 0.2 s RV Ejection Time 0.4 s RV AcT/ET 0.4 FINDINGS Left Ventricle The study is poor in quality. Echo contrast was used. The ventricle appears normal in size and function. There are no obvious wall motion disturbances. Grade 1 diastolic dysfunction. Estimated ejection fraction 60%. Right Ventricle Normal right ventricular size and systolic function. Right Atrium The right atrium is normal in size. Left Atrium The left atrium is normal in size. Mitral Valve Mitral valve not adequately seen. No obvious regurgitation or stenosis. Aortic Valve Aortic valve not adequately seen. No obvious stenosis or regurgitation. Tricuspid Valve Structurally normal tricuspid valve. Tricuspid valve not well visualized. No tricuspid valve regurgitation. Pulmonic Valve Pulmonic valve not well visualized. Pericardium Normal pericardium without effusion. Aorta Aorta not well visualized. IVC Inferior vena cava not visualized. CONCLUSIONS The study is poor in quality. Echo contrast was used. The ventricle appears normal in size and function. There are no obvious wall motion disturbances. Grade 1 diastolic dysfunction. Estimated ejection fraction 60%. There are no prior echocardiogram studies to compare. Dr. Fernando Harmon MD (Electronically Signed) Final Date: 22 August 2023 12:38 S
[2023-08-21 17:54] LABS: Glucose Point of Care 208 mg/dL (70-110)
[2023-08-21] MEDS: insulin lispro 100 unit/1 mL SUBCUT ×2 (17:59→20:54)
[2023-08-21] MEDS: enoxaparin 40 mg/0.4 mL Syringe SUBCUT (17:59)
[2023-08-21] MEDS: sodium chloride 0.9% 1,000 ML 100 ML IV (18:25)
--- NOTE | 2023-08-21 18:55 | ECG_ITS ---
[facility] Test Date: 2023-08-21 Pat Name: Ulisses Bae Department: Room: [facility]07 Gender: Male Line Maintainer: : 1955 Requested By: Bebeto Azar Order Number: [id number] Josh MD: Fernando Harmon M.D. Measurements Intervals [place] Rate: 79 P: 52 WI: 150 QRS: -15 QRSD: 91 T: 68 QT: 371 QTc: 428 Interpretive Statements SINUS RHYTHM Compared to ECG 08/21/2023 15:33:56 Myocardial infarct finding no longer present Electronically Signed On 08-22-2023 14:20:37 PAYABLE REPRESENTATIVE by Fernando Harmon M.D. [id number]
[2023-08-21 19:19] LABS: Add Urine Microscopic? YES; Bilirubin Urine Neg (Negative); Blood Urine Neg (Negative); Glucose Urine UA 4+ (Normal); Ketones Urine 3+ (Negative); Leukocyte Esterase Urine Negative (Negative); Nitrate Urine Negative (Negative); Protein Urine Trace (Negative); Urine Appearance Clear (CLEAR); Urine Color Yellow (Yellow); Urobilinogen Urine Norm (Negative); pH Urine 5 (5-7)
[2023-08-21 19:26] LABS: Add Urine Culture? No; Mucus Urine TRACE /hpf; RBC Urine RARE /hpf (0-2); Squamous Epithelial Cell Urine RARE /hpf (0-5)
[2023-08-21 19:30] LABS: Amphetamines Screen Urine Negative (Negative); Barbiturates Screen Urine Negative (Negative); Benzodiazepines Screen Urine Negative (Negative); Cocaine Screen Urine Negative (Negative); Opiate Screen Urine Negative (Negative); PCP Screen Urine Negative (Negative); THC Screen Urine Negative (Negative)
[2023-08-21] MEDS: ondansetron 2 mg/ML SDV 2 mL 4 MG IVP (19:40)
[2023-08-21] MEDS: hyDRALAzine 20 mg/mL INJ 1 mL 10 MG IVP (19:46)
--- NOTE | 2023-08-21 19:50 | PC.NURSE ---
received patient from ER staff at 1735. Patient is alert to self and place. Scores 17 on NIHSS. BP: 173/77, HR: 76, RR: 17, SPO2: 1+97% on room air. BG checked and is 208.
[2023-08-21 20:02] LABS: Troponin 5 6HR 12.81 ng/L (0-15); Troponin 5 6HR Delta -5.19 ng/L (0-12)
[2023-08-21 20:08] LABS: Procalcitonin 0.04 ng/mL (0-0.5)
[2023-08-21 20:21] LABS: Glucose Point of Care 201 mg/dL (70-110)
[2023-08-21 20:51] LABS: Ammonia 16 umol/L (16-60)
[2023-08-22] VITALS (22 sets, daily range): BP systolic 144–194; BP diastolic 63–99; PULSE 76–103; RESP 18–27; TEMP 36.5–37.7; O2SAT 91–97
[2023-08-22] MEDS: pantoprazole 40 mg SDV IVP ×2 (00:11→12:19)
[2023-08-22] MEDS: sodium chloride 0.9% 1,000 ML 100 ML IV ×2 (04:00→14:42)
[2023-08-22 04:55] LABS: Basophils % 0.1 %; Hematocrit 52.6 % (37-53); Lymphocytes # 0.8 10^3/uL (0.8-4.8); Lymphocytes % 4.3 %; Mean Corpuscular HGB Conc 31.2 g/dL (30-55); Mean Corpuscular Hemoglobin 28.6 pg (27-33); Mean Corpuscular Volume 91.6 fl (82-101); Monocytes # 1.9 10^3/uL (0.2-0.9); Monocytes % 10.7 %; Neutrophils # 14.74 10^3/uL (1.8-7.7); Neutrophils % 84.5 %; Nucleated Red Blood Cells % 0 %; Platelet Count 256 10^3/cmm (157-399); Red Blood Count 5.74 10^6/uL (3.85-5.65); Red Cell Distribution Width 14.2 % (12.1-15.1); White Blood Count 17.44 10^3/uL (3.29-11.43)
[2023-08-22 05:19] LABS: Alanine Aminotransferase 20 U/L (0-41); Albumin Level 3.9 g/dL (3.5-5.2); Alkaline Phosphatase 67 U/L (40-130); Anion Gap 27.6 (5-19); Aspartate Amino Transferase 21 U/L (0-40); Blood Urea Nitrogen 19 mg/dL (8-23); Calcium 8.7 mg/dL (8.5-10.5); Carbon Dioxide 12 mmol/L (22-29); Chloride 106 mmol/L (98-107); Globulin 3.1 g/dL (1.3-4.6); Glomerular Filtration Rate 74.5 mL/min (90-130); Glucose 248 mg/dL (65-115); Magnesium 2.4 mg/dL (1.7-2.3); Osmolality Calculated 303 mOsm/kg (285-295); Potassium 4.6 mmol/L (3.5-5.1); Sodium 141 mmol/L (136-145)
[2023-08-22 05:24] LABS: Estmated Average Glucose 192; Hemoglobin A1C 8.3 % (4.0-6.0)
[2023-08-22 05:28] LABS: Chol HDL Ratio 3.19 mg/dL (1.0-5.00); Cholesterol 137 mg/dL (0-200); HDL Cholesterol 43 mg/dL (60-100); LDL Cholesterol Calculated 63 mg/dL (50-129); LDL HDL Ratio 1.47 RATIO (0.00-3.22); Triglycerides 155 mg/dL (0-150)
[2023-08-22] MEDS: perflutren protein-a microsphr 0.22 mg/mL SDV 3 mL IV (05:52)
[2023-08-22] MEDS: hyDRALAzine 20 mg/mL INJ 1 mL 10 MG IVP ×2 (07:51→13:45)
[2023-08-22 08:08] LABS: Glucose Point of Care 216 mg/dL (70-110)
[2023-08-22] MEDS: insulin lispro 100 unit/1 mL SUBCUT ×2 (08:14→12:39)
--- NOTE | 2023-08-22 09:26 | PC.SOCIAL ---
Pg 2 IMM Explained to pt & spouse Pg 2 IMM. No questions voiced. Provided pt a copy. Initialed, dated, & timed a copy & placed in chart.
--- NOTE | 2023-08-22 09:30 | MRR_ITS ---
PROCEDURE INFORMATION: Exam: MR Head Without Contrast Exam date and time: 08/22/2023 4:41 PM Age: 68 years old Clinical indication: Weakness, extremity and weakness, facial; Left; Additional info: Suspect pres, AMS, ataxia, subacute over 2 days TECHNIQUE: Imaging protocol: Magnetic resonance imaging of the head without contrast. COMPARISON: CT head wo con* [id number] 08/21/2023 1:20 PM FINDINGS: Brain: Acute/subacute right MCA territory ischemic changes. Mild chronic white matter changes. Cerebral ventricles: No ventriculomegaly. Bones/joints: No acute findings. Paranasal sinuses: No acute sinusitis. Mastoid air cells: No mastoid effusion. Orbital cavities: Unremarkable. Soft tissues: Unremarkable. MR/MR head wo con* [id number] IMPRESSION: Acute/subacute right MCA distribution ischemic changes/infarcts.
[2023-08-22 12:43] LABS: Glucose Point of Care 244 mg/dL (70-110)
--- NOTE | 2023-08-22 14:00 | PM.PN ---
Subjective Subjective: Patient is able to wake up today to calling name. Correctly tells me his name is Ulisses, tells me his correct date of , recognizes his at bedside. He is able to state that he is in the ICU. Unable to have an extended conversation, however tells me that they had a discussion about finances and which credit card to use this morning. Per nursing report, he was able to sit up at side of bed. At the time of my assessment he is very lethargic. While he is able to answer some simple questions, he goes right back to sleep. Unable to talk in long sentences. It appears his lethargy to some extent is waxing and waning. He is able to follow commands today. He does not move his left upper or lower extremity. 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 He moves his lower extremity on the right side at the level of ankle and knee. Unable to lift right lower extremity at the hip at this time. Shrugs his shoulders but only able to lift the right side. He has noticeable facial asymmetry, unable to complete tongue movements, unable to stay awake long enough for me to assess his ocular movements at this time. Leukocytosis increasing to 17,000. Tmax 100 Fahrenheit. Anion gap worsening at 27, bicarb down to 12. Medications: Reviewed: Yes Vitals/I&O/Wt Last Vital Signs Temp 99.8 F H 08/22/23 16:00 Pulse 97 08/22/23 16:00 Resp 21 H 08/22/23 16:00 BP 161/90 08/22/23 16:00 Pulse Ox 96 08/22/23 16:00 O2 Del Method Room Air 08/22/23 16:00 FiO2 40 08/21/23 17:37 08/22/23 08/22/23 08/22/23 06:59 14:59 22:59 Intake Total 958.333 / 8926.253 9311 / 1000 Output Total 1150 / 1750 675 / 675 Balance -191.667 / -641.667 325 / 325 Weight last 48 hrs Weight 132.993 kg Weight 135.488 kg Physical Exam Narrative: General: Somnolent, able to answer basic questions correctly, unable to hold a conversation, speech is slurred. HEENT: PERRLA, pupils bilaterally equal and reactive, pallors not present Chest: Normal vesicular breath sounds, no added sounds, equal good air entry bilaterally CVS: S1-S2 regular, no murmurs, no tachycardia, no gallops, no rubs Abdomen: Soft, nontender, no organomegaly, bowel sounds present Neuro: As noted above in subjective Urinary Catheter Management: Vuong: Cath Placed During This Visit: yes Reason for Continuing Indwelling Catheter: Acute Urinary Retention or Obstruction Urinary Catheter Date of Insertion: 08/21/23 Urinary Catheter Time of Insertion: 19:35 Data 08/22/23 04:10 08/22/23 04:10 Micro: Microbiology 08/21/23 14:55 Blood Culture - Preliminary Blood NEGATIVE TO DATE 08/21/23 14:52 Blood Culture - Preliminary Blood NEGATIVE TO DATE A&P Assessment and plan (1) Stroke: As noted on CT scan. Today patient follows commands, noted to have dense left hemiplegia with inability to move LUE and LLE, facial asymmetry, dysarthria, inability to swallow CT head showed low-attenuation change in the anterior right coronary radiata MRI pending today, concern forpotential midbrain involvement given patient's degree of somnolence. Neurology consult Patient was not a tPA candidate as onset of symptoms appeared to have been since 08/19/2023 per 's description. Continue telemetry monitoring on the unit to evaluate for underlying arrhythmias. None encountered so far Echocardiogram grossly normal Carotid Doppler ordered, pending Unable to take oral aspirin, changed to rectal aspirin 150 mg daily Atorvastatin 40 mg daily when able to swallow. If continues to fail swallow evaluations may need to consider PEG. Unable to tolerate oral antihypertensives. Currently using hydralazine as needed. PT OT speech therapy assessment (2) Altered mental status: Altered mental status, unclear cause currently. MRI today to assess for potential midbrain involvement. Noted to have hypoxia with PaO2 60 initially upon presentation, CTA ruled out PE. BiPAP did improve oxygenation however did not correlate with improvement in mentation. Weaned off of BiPAP so as not to cause respiratory alkalosis. Normal TSH, ammonia; negative Ethyl alcohol level, urine drug screen, serum acetaminophen and salicylate level. No localizing signs or symptoms of infection currently, however now noted to have low grade fever and also increasing leukocytosis Recently diagnosed with Otitis media therefore possibility of meningitis considered, start empiric coverage with ceftriaxone 2g iv q12h, vancomycin and acyclovir 1mg/kg every 8 hrs. Low probability of Listeria meningitis, holding off on ampicillin for now. Focal stroke symptoms with fever may potentially be associated with VZV vasculopathy, started on empiric antivirals for now. Will await MRI results and neurology assessment before deciding on LP. MRA head/neck in addition to MRI brain today. Check CXR to assess for aspiration UA not consistent with UTI no focal abdominal symptoms. (3) Metabolic acidosis: Again unclear cause. worsening serum bicarb at 12, increasing anion gap at 27, thought to be related to dehydration from poor po intake over past 2-3 days while he was on the floor, however has not corrected with iv hydration ? possibly could be euglycemic DKA given ketones+ on urine , fingersticks less than 250, worsening metabolci acidosis and patient on Jardiance. Negative alcohol, drug and salicylate screen. Start insulin infusion along side D5 NS and assess for correction Lactate is normal. (4) Hypoxia: weaned off bipap, 96% on RA today Plan DVT ppx: lovenox Attestations Medical Necessity Statement*: continued admission for multiple issues as above Coding Level of Care Code Acute Code for Chg Fwd High MDM includes number and complexity of problems actively addressed during encounter, amount and/or complexity of data reviewed/ordered and described risk of complication, morbidity or mortality of management as documented Diagnoses Stroke I63.9 Altered mental status R41.82 Metabolic acidosis E87.20 Hypoxia R09.02
--- NOTE | 2023-08-22 14:47 | MRR_ITS ---
PROCEDURE INFORMATION: Exam: MRA Neck With Contrast Exam date and time: 08/22/2023 5:06 PM Age: 68 years old Clinical indication: Weakness; Additional info: Stroke TECHNIQUE: Imaging protocol: Magnetic resonance angiography of the neck with contrast. Angiographic sequences such as Lgei-rr-lvrzyq (TOF) or Time-resolved contrast techniques were performed. Contrast material: MULTIHANCE; Contrast volume: 20 ml; Contrast route: INTRAVENOUS (IV); COMPARISON: MR angio head wo con [id number] 08/22/2023 4:55 PM FINDINGS: Right common carotid artery: No stenosis. No dissection or occlusion. Right internal carotid artery: No stenosis of the extracranial segment. No dissection or occlusion. Right external carotid artery: No stenosis. No dissection or occlusion of the origin. Right vertebral artery: No stenosis. No dissection or occlusion. Left common carotid artery: No stenosis. No dissection or occlusion. Left internal carotid artery: No stenosis of the extracranial segment. No dissection or occlusion. Left external carotid artery: No stenosis. No dissection or occlusion of the origin. Left vertebral artery: No stenosis. No dissection or occlusion. MR/MR angio neck w con* [id number] IMPRESSION: No severe stenosis or occlusion. REFERENCES: NASCET CRITERIA. The degree of stenosis in the cervical segment of the internal carotid artery is based on NASCET criteria. Normal is no stenosis. Mild is less than 50% stenosis. Moderate is 50-69% stenosis. Severe is 70% to 99% stenosis. Total occlusion is no detectable patent lumen.
--- NOTE | 2023-08-22 14:47 | MRR_ITS ---
PROCEDURE INFORMATION: Exam: MRA Head Without Contrast; Arteriography Exam date and time: 08/22/2023 4:55 PM Age: 68 years old Clinical indication: Weakness; Additional info: Stroke TECHNIQUE: Imaging protocol: Magnetic resonance angiography head without contrast. Ehqq-bx-gpcpau (TOF) technique was utilized for this exam. Exam focused on the arteries. COMPARISON: MR head wo con* [id number] 08/22/2023 4:41 PM FINDINGS: ANTERIOR CIRCULATION: Right internal carotid artery: Intracranial segment is patent with no significant stenosis. No aneurysm. Right middle cerebral artery: Near-complete occlusion of the M1 and M2 segments with asymmetric paucity of contrast enhancement in the right MCA distribution. Right anterior cerebral artery: No occlusion or significant stenosis. No aneurysm. Left internal carotid artery: Intracranial segment is patent with no significant stenosis. No aneurysm. Left middle cerebral artery: No occlusion or significant stenosis. No aneurysm. Left anterior cerebral artery: No occlusion or significant stenosis. No aneurysm. POSTERIOR CIRCULATION: Right vertebral artery: No occlusion or significant stenosis. No aneurysm. Left vertebral artery: No occlusion or significant stenosis. No aneurysm. Basilar artery: No occlusion or significant stenosis. No aneurysm. Right posterior cerebral artery: No occlusion or significant stenosis. No aneurysm. Left posterior cerebral artery: No occlusion or significant stenosis. No aneurysm. MR/MR angio head wo con [id number] IMPRESSION: Near complete occlusion of the right M1/M2 segment MCA with paucity of enhancement distally suggesting at least some level of residual or reperfusion.
--- NOTE | 2023-08-22 14:49 | XR_ITS ---
WS: [id number] Exam: XR chest 1V portable [id number] Date/Time of Exam: 08/22/2023 2:55 PM Reason For Exam: evaluate for aspiration Comparison 08/21/2023. Findings: The lungs are clear and fully expanded. Costophrenic angles are sharp. No infiltrates. Bronchovascula r relief appears normal. Cardiac silhouette is unremarkable. Bony elements are intact. IMPRESSION: Unremarkable chest radiograph.
[2023-08-22] MEDS: acyclovir 1,000 MG in sodium chloride 0.9% 250 ML 270 MG IV ×2 (15:26→22:13)
--- NOTE | 2023-08-22 15:57 | PC.PHAR ---
Pharmacokinetic dosing service Date: 08/22/23 Time: 1600 Objective: Patient: Ulisses Bae Floor: ICU-7 Age: 68 yo Serum creatinine: 1.0 mg/dL Height: 71.0 Inches Weight (kg): 132.993 Diagnosis: Relevant medical/social history: Cultures and sensitivities: Other labs: Assessment: IBW (kg): 75.30 Dosing wt(kg): 132.993 Estimated Creatinine clearance (ml/min): 76.3 CRCL method: Cockcroft and Gault using ibw(default). Drug selected: Vancomycin Loading dose (mg): 0 Vd (liters): 119.7 (factor used: 0.9 L/kg) Lee (hr-1): 0.068 Half life (hrs): 10.19 Recommended dose: 2000 mg Interval: 12 hrs Infusion time (hrs): 1.5 Predicted peak (mcg/mL): 28.5 Predicted trough (mcg/mL): 13.96 Total body weight is being used for vancomycin dosing. Renal function is stable [ ] /unstable [ ] Recommendations: Give Vancomycin 2000 mg q 12 hrs with an expected Cpeak of 28.5 mcg/ml and an expected Ctrough of 13.96 mcg/ml Renal dosing of other antibiotics (review renal dosing of other medications and list guidelines here): Thank you for the consult, will continue to follow. Signature: Lexi Rockwell [facility]
--- NOTE | 2023-08-22 16:49 | PC.NURSE ---
Shift Summary: Uneventful shift. Patient has been very tired, sleeping most of the day. SPeech has improved compared to last night and he has been making his needs known (thirsty, hot/cold, etc). Is able to answer person, place, time, and situation questions, BUt he cannot seem to stay awake for more than 15-20 seconds at a time. Falls asleep in the middle of sentences, could not advance to a diet due to falling asleep in the middle of speech evals and swallow tests. Unable to safely eat or drink as he falls asleep with food or drink in mouth. Patient rested in bed throughout the day. Physical therapy did have patient sitting on side of bed, but only briefly due to flaccid left side and falling asleep during evaluation. Patient taken to MRI, results pending at the time of this note.
[2023-08-22 18:30] LABS: Anion Gap 23.4 (5-19); Blood Urea Nitrogen 24 mg/dL (8-23); Calcium 8.7 mg/dL (8.5-10.5); Carbon Dioxide 13 mmol/L (22-29); Chloride 112 mmol/L (98-107); Glomerular Filtration Rate 74.5 mL/min (90-130); Glucose 230 mg/dL (65-115); Osmolality Calculated 309 mOsm/kg (285-295); Potassium 4.4 mmol/L (3.5-5.1); Sodium 144 mmol/L (136-145)
--- NOTE | 2023-08-22 18:32 | ECG_ITS ---
[facility] Test Date: 2023-08-22 Pat Name: Ulisses Bae Department: Room: ICU07 Gender: Male [employer]: : [id number] Requested By: Elvi Timmons Order Number: [id number] Josh MD: Mia Bhat M.D. Measurements Intervals Paul Rate: 149 P: 0 CT: 0 QRS: -47 QRSD: 93 T: 73 QT: 289 QTc: 455 Interpretive Statements ATRIAL FIBRILLATION WITH RAPID VENTRICULAR RESPONSE PATTERN CONSISTENT WITH PULMONARY DISEASE LEFT ANTERIOR FASCICULAR BLOCK [QRS AXIS <= -45, QR IN I, RS IN II] MODERATE ST DEPRESSION [0.05+ mV ST DEPRESSION] Compared to ECG 08/21/2023 18:12:00 Left anterior fascicular block now present ST (T wave) deviation now present Sinus rhythm no longer present Electronically Signed On 08-23-2023 15:15:24 CHIEF DIVERSITY OFFICER by Mia Bhat M.D. [id number]
[2023-08-22] MEDS: metoprolol tartrate 1 mg/1 mL SDV 5 mL 5 MG IVP (18:35)
[2023-08-22] MEDS: cefTRIAXone 2,000 MG in sodium chloride 0.9% (plus) 50 ML 100 MG IV (19:07)
[2023-08-22] MEDS: vancomycin 2,000 MG/400 ML PIGGYBACK 200 MG IV (19:10)
[2023-08-22] MEDS: enoxaparin 40 mg/0.4 mL Syringe SUBCUT (19:11)
[2023-08-22] MEDS: amiodarone 150 MG/100 ML PREMIX 400 MG IV (19:12)
[2023-08-22] MEDS: dextrose 5%-sod chloride 0.9% 1,000 ML 100 ML IV (19:21)
[2023-08-22 19:37] LABS: Glucose Point of Care 229 mg/dL (70-110)
--- NOTE | 2023-08-22 19:53 | PC.NURSE ---
Upon arrival back in ICU from [facility] at 1830, patient was hooked back up to cardiac monitoring. Cardiac monitoring not available during MRI. Patient found to be in SVT, BLood pressure 108 systolic, compared to 170 systolic before going to MRI. NUrse alerted DR sotomayor and received orders for metoprolol push and EKG. EKG shows afib with RVR. Metoprolol reduced heart rate to 140's still afib with RVR. Recieved orders to start amiodarone. After completion of amiodarone load, rhythm converted to normal sinus. Nurse alerted Dr sotomayor to rhythm conversion. [facility] also called with results, nurse verified with Dr sotomayor that she spoke to [facility].
[2023-08-22] MEDS: insulin regular-human 250 UNIT in sodium chloride 0.9% 250 ML 13.13 UNIT IV (20:04)
[2023-08-22 21:01] LABS: Glucose Point of Care 205 mg/dL (70-110)
[2023-08-22 21:41] LABS: Blood Urea Nitrogen 25 mg/dL (8-23); Calcium 8.6 mg/dL (8.5-10.5); Carbon Dioxide 13 mmol/L (22-29); Chloride 113 mmol/L (98-107); Glomerular Filtration Rate 74.5 mL/min (90-130); Glucose 223 mg/dL (65-115); Osmolality Calculated 307 mOsm/kg (285-295); Sodium 143 mmol/L (136-145)
[2023-08-22 21:43] LABS: Anion Gap 21.3 (5-19); Potassium 4.3 mmol/L (3.5-5.1)
[2023-08-22 22:02] LABS: Glucose Point of Care 179 mg/dL (70-110)
[2023-08-22 22:59] LABS: Glucose Point of Care 165 mg/dL (70-110)
[2023-08-23] VITALS (37 sets, daily range): BP systolic 100–181; BP diastolic 58–98; PULSE 68–137; RESP 19–31; TEMP 36.8–37.3; O2SAT 89–96
[2023-08-23 00:01] LABS: Glucose Point of Care 148 mg/dL (70-110)
[2023-08-23 01:06] LABS: Glucose Point of Care 230 mg/dL (70-110)
[2023-08-23 01:06] LABS: Glucose Point of Care 203 mg/dL (70-110)
[2023-08-23 01:50] LABS: Glucose Point of Care 191 mg/dL (70-110)
[2023-08-23] MEDS: hyDRALAzine 20 mg/mL INJ 1 mL 10 MG IVP ×3 (02:05→17:54)
[2023-08-23 02:19] LABS: Blood Urea Nitrogen 24 mg/dL (8-23); Calcium 8.6 mg/dL (8.5-10.5); Carbon Dioxide 14 mmol/L (22-29); Chloride 115 mmol/L (98-107); Glomerular Filtration Rate 66.8 mL/min (90-130); Glucose 207 mg/dL (65-115); Magnesium 2.7 mg/dL (1.7-2.3); Osmolality Calculated 314 mOsm/kg (285-295); Phosphorus 2.3 mg/dL (2.5-4.5); Sodium 147 mmol/L (136-145)
[2023-08-23 03:08] LABS: Glucose Point of Care 238 mg/dL (70-110)
[2023-08-23] MEDS: cefTRIAXone 2,000 MG in sodium chloride 0.9% (plus) 50 ML 100 MG IV ×2 (03:16→16:20)
[2023-08-23] MEDS: vancomycin 2,000 MG/400 ML PIGGYBACK 200 MG IV ×2 (03:18→16:20)
[2023-08-23] MEDS: dextrose 5%-sod chloride 0.9% 1,000 ML 100 ML IV (03:20)
[2023-08-23 04:09] LABS: Glucose Point of Care 215 mg/dL (70-110)
[2023-08-23 04:18] LABS: Basophils % 0.1 %; Hematocrit 48.8 % (37-53); Lymphocytes # 0.9 10^3/uL (0.8-4.8); Lymphocytes % 6.6 %; Mean Corpuscular HGB Conc 31.8 g/dL (30-55); Mean Corpuscular Hemoglobin 28.9 pg (27-33); Mean Corpuscular Volume 90.9 fl (82-101); Mean Platelet Volume 9.9 fL (7.4-10.4); Monocytes # 1.8 10^3/uL (0.2-0.9); Monocytes % 12.7 %; Neutrophils # 11.26 10^3/uL (1.8-7.7); Neutrophils % 79.8 %; Nucleated Red Blood Cells % 0 %; Platelet Count 258 10^3/cmm (157-399); Red Blood Count 5.37 10^6/uL (3.85-5.65); Red Cell Distribution Width 14.7 % (12.1-15.1); White Blood Count 14.12 10^3/uL (3.29-11.43)
[2023-08-23 04:43] LABS: Magnesium 2.7 mg/dL (1.7-2.3); Phosphorus 2.2 mg/dL (2.5-4.5)
[2023-08-23 05:25] LABS: Glucose Point of Care 220 mg/dL (70-110)
[2023-08-23 05:59] LABS: Glucose Point of Care 204 mg/dL (70-110)
[2023-08-23] MEDS: acyclovir 1,000 MG in sodium chloride 0.9% 250 ML 270 MG IV (06:27)
[2023-08-23 07:05] LABS: Blood Urea Nitrogen 24 mg/dL (8-23); Calcium 8.7 mg/dL (8.5-10.5); Carbon Dioxide 14 mmol/L (22-29); Chloride 114 mmol/L (98-107); Glomerular Filtration Rate 74.5 mL/min (90-130); Glucose 236 mg/dL (65-115); Osmolality Calculated 312 mOsm/kg (285-295); Sodium 145 mmol/L (136-145)
[2023-08-23 07:19] LABS: Anion Gap 20.9 (5-19); Potassium 3.9 mmol/L (3.5-5.1)
[2023-08-23 08:17] LABS: Glucose Point of Care 196 mg/dL (70-110)
[2023-08-23 08:17] LABS: Glucose Point of Care 187 mg/dL (70-110)
[2023-08-23] MEDS: pantoprazole 40 mg SDV IVP (08:25)
[2023-08-23 09:13] LABS: Glucose Point of Care 217 mg/dL (70-110)
[2023-08-23] MEDS: aspirin 300 mg Supp 150 MG PR (10:08)
[2023-08-23 10:21] LABS: Anion Gap 25.1 (5-19); Blood Urea Nitrogen 23 mg/dL (8-23); Calcium 8.4 mg/dL (8.5-10.5); Carbon Dioxide 10 mmol/L (22-29); Chloride 118 mmol/L (98-107); Glomerular Filtration Rate 74.5 mL/min (90-130); Glucose 243 mg/dL (65-115); Osmolality Calculated 320 mOsm/kg (285-295); Potassium 4.1 mmol/L (3.5-5.1); Sodium 149 mmol/L (136-145)
[2023-08-23 10:33] LABS: Magnesium 2.6 mg/dL (1.7-2.3); Phosphorus 2.5 mg/dL (2.5-4.5)
[2023-08-23] MEDS: metoprolol tartrate 1 mg/1 mL SDV 5 mL 5 MG IVP ×3 (11:00→21:30)
--- NOTE | 2023-08-23 11:00 | PC.NURSE ---
Insulin gtt kept at 1unit/hour. Per protocol not to turn off until other insulin on board.
--- NOTE | 2023-08-23 11:10 | PC.NURSE ---
SVT 140-170's noted. Dr Timmons speaking with aware. Metoprolol 5mg IV admin as ordered. Pt converted back to sinus rhythm within 15minutes.
--- NOTE | 2023-08-23 11:16 | P.CONIM_ITS ---
Providers/Reason For Consult Consulting Physician/Specialty*: Dr. Elvi Timmons Reason for Consult*: stroke Attending Physician: Elvi Timmons MD Primary Care Provider: Juve Hernandez DO History of Present Illness History of Present Illness Ulisses Bae is a 68 year old male who initially presented here 10/16/2022 complaining of several days of dizziness. He was seen at urgent care and at that time was urged to go to the ER for symptoms of stroke and he refused. His blood pressure was out of control. He came here 08/19/[address] Cristina. He said that he was dizzy and experienced vertigo while riding his bicycle. He described that his symptoms had happened previously as documented at the urgent care. At that time he was not experiencing any numbness or weakness. His CT of the head was unremarkable. He had bilateral changes suggesting otitis media and Dr. Cristina thought he might have acute vestibular neuronitis. He was concerned about it TIA. The patient was sent home on antibiotics. Over the course of the ensuing several days he became lethargic and less able to move. He presented here at 1247 on 08/21/2023 with confusion and diffuse weakness and he was sleepy. Apparently when he arrived with EMS he was alert and able to speak but by the time he was evaluated by Dr. Timmons, he was hemiplegic on the left. He was not following any commands. He was far past any treatment window by that time as his symptoms have been fluctuating for several days and he been unable to stand up. He was still lethargic yesterday. MR angiogram of the neck vessels with contrast showed no stenosis or occlusion. MR angiogram showed near complete occlusion of the right M1 and M2 segments of the MCA with paucity of enhancement distally suggesting at least some level of residual perfusion. MRI brain performed yesterday showed a right MCA infarct. The most dense involvement is posterior branch right MCA including arcuate fibers. since arrival, he has been found to be in atrial fibrillation Review of Systems General: Reports: 10 or more systems reviewed and unremarkable except in HPI and below Const: Denies: fever(s), chills or body aches Eyes: Denies: change in vision, blurry vision or photophobia ENMT: Reports: hoarseness; Denies: throat pain, enlarged tonsils, odynophagia or nasal congestion Card: Denies: chest pain, palpitations, irregular heart rhythm, edema, swelling of feet/ankles, lightheadedness, pre-syncope, dyspnea on exertion or orthopnea Resp: Denies: dyspnea, productive cough, non-productive cough, wheezing, stridor, pain on inspiration, change in phlegm color, hemoptysis or chest conges tion GI: Denies: abdominal pain, nausea, vomiting, hematemesis, coffee ground emesis, dysphagia, heartburn, diarrhea, constipation, GI cramping, change in stool character, hematochezia or melena : Denies: flank pain, dysuria, urinary frequency, urinary urgency, urinary hesitancy or hematuria Musc: Denies: neck pain, back pain, extremity pain, joint swelling, joint warmth or deformity Neuro: Reports: numbness in extremities, weakness in extremities, difficulty walking, dizziness, vertigo and behavioral changes; Denies: headache(s), sensory changes, frequent falls, Slurred speech present or seizure-like activity Psych: Denies: anxiety, depression, suicidal ideation or homicidal ideation Endo: Denies: polyuria, polydipsia, tired all the time, cold intolerance or hot flashes Sanya/Lymph: Denies: easy bruising or easy bleeding Medications/Allergies Home Medications Medication Instructions Recorded Confirmed Last Taken Type atorvastatin 40 mg tablet 40 mg PO DAILY #90 tabs 10/23/22 08/21/23 Unknown Rx glipizide 10 mg tablet 10 mg PO DAILY #90 tabs 10/23/22 08/21/23 Unknown Rx lisinopril 20 mg tablet 20 mg PO DAILY #90 tabs 10/23/22 08/21/23 Unknown Rx metformin 1,000 mg tablet 1,000 mg PO DAILY #90 tabs 10/23/22 08/21/23 Unknown Rx meclizine 25 mg tablet 25 mg PO QID PRN vertigo #30 tabs 08/19/23 08/21/23 Unknown Rx prednisone 20 mg tablet 20 mg PO BID 5 days #10 tabs 08/19/23 08/21/23 Unknown Rx empagliflozin 25 mg tablet 25 mg PO DAILY 08/21/23 08/21/23 Unknown History (Jardiance) Allergies Allergy/AdvReac Type Severity Reaction Status Date / Time No Known Allergies Allergy Verified 08/21/23 13:08 Current Medications Generic Name Dose Route Start Last Admin Trade Name Freq PRN Reason Stop Dose Admin Aspirin 150 mg 08/23/23 09:00 08/23/23 10:08 Aspirin 300 Mg Supp VT 150 mg DAILY MARK Administration Atorvastatin Calcium 40 mg 08/21/23 21:00 08/22/23 20:14 Atorvastatin 40 Mg Tablet PO Not Given BEDTIME MARK Enoxaparin Sodium 40 mg 08/21/23 16:45 08/22/23 19:11 Enoxaparin 40 Mg/0.4 Ml Syringe SUBCUT 40 mg Q24H MARK Administration Hydralazine HCl 10 mg 08/21/23 17:56 08/23/23 06:07 Hydralazine 20 Mg/Ml Inj 1 Ml IVP 10 mg Q4H PRN Administration SBP > 160 Ceftriaxone Sodium 2,000 mg/ 50 mls @ 100 mls/hr 08/22/23 16:00 08/23/23 0 4:10 Sodium Chloride IV Infused Q12H MARK Infusion Protocol Acyclovir 1,000 mg/ Sodium 270 mls @ 270 mls/hr 08/22/23 15:00 08/23/23 08:16 Chloride IV Infused Q8H MARK Infusion Vancomycin/PEG/NADA/Lysine/Water 2,000 mg in 400 mls @ 200 mls/hr 08/22/23 16:00 08/23/23 05:30 Vancocin IV Infused Q12H MARK Infusion Dextrose/Sodium Chloride 1,000 mls @ 100 mls/hr 08/22/23 17:45 08/23/23 03:20 Dextrose 5%-Sod Chloride 0.9% IV 100 mls/hr .Q10H MARK Administration Insulin Human Regular 250 unit 252.5 mls @ 0 mls/hr 08/22/23 17:45 08/23/23 10:05 / Sodium Chloride IV 1 unit/hr .Q0M MARK 1.01 mls/hr Titration Protocol Per Protocol Metoprolol Tartrate 5 mg 08/23/23 10:30 08/23/23 11:00 Metoprolol Tartrate 1 Mg/1 Ml Sdv 5 Ml IVP 5 mg Q6H MARK Administration Ondansetron HCl 4 mg 08/21/23 17:36 08/21/23 19:40 Ondansetron 2 Mg/Ml Sdv 2 Ml IVP 4 mg Q6H PRN Administration NAUSEA AND VOMITING Pantoprazole Sodium 40 mg 08/22/23 11:30 08/23/23 08:25 Pantoprazole 40 Mg Sdv IVP 40 mg DAILY MARK Administration PFSH Acute PFSH: Social History Smoking and tobacco/nicotine status: never used tobacco/nicotine Alcohol intake: never Substance/Drug Use: never Adopted: No Caregiver/support person: No Lives independently: No Household members: spouse Housing: House Marital status: service: No Vitals/I&O/Wt Last Vital Signs Temp 98.2 F 08/23/23 08:00 Pulse 92 08/23/23 09:30 Resp 26 H 08/23/23 09:30 BP 153/64 08/23/23 09:30 Pulse Ox 90 08/23/23 09:30 O2 Del Method Room Air 08/23/23 09:30 O2 Flow Rate 10 08/23/23 08:00 FiO2 40 08/21/23 17:37 08/22/23 08/23/23 08/23/23 22:59 06:59 14:59 Intake Total 1844.947 / 2844.947 1726.782 / 4571.729 280.930 / 280.930 Output Total 850 / 1525 1000 / 2525 Balance 994.947 / 1319.947 726.782 / 2046.729 280.930 / 280.930 Weight last 48 hrs Weight 292 lb 1.6 oz Weight 293 lb 3.2 oz Weight 298 lb 11.2 oz Physical Exam Narrative: GENERAL: The patient was morbidly obese supine in the ICU bed. MENTAL STATUS: He is severely drowsy. After persistent attention and pinching and moving him about, sitting him up at the edge of the bed, he was able to speak with dysarthric speech. CRANIAL NERVES: No response to threat on the left. He responds appropriately to threat on the right. Spontaneously he looks to the right. He would reach the midline with doll's eyes. Left facial weakness. MOTOR: He has dense left hemiparesis with flaccid left arm. He is not alert enough to identify his left arm but he identified his left leg as belonging to him. No voluntary movement on the left but tone is better in the left leg many days in the arm. SENSATION: He does not respond to nailbed pressure on the left or pinching of the skin of his left chest. COORDINATION: No specific cerebellar signs. DEEP TENDON REFLEXES: Left toe upgoing HEENT: Normocephalic without dysmorphic features. Conjunctivae were not injected and sclerae were nonicteric. NECK: Carotid upstroke was strong bilaterally without bruits. The thyroid was not enlarged and there were no palpable lymph nodes. CHEST: Clear to auscultation. CARDIOVASCULAR: The heart sounds were normal without murmur or gallop. Regular rate and rhythm. He is currently in sinus rhythm. EXTREMITIES: There was no edema or cyanosis. The skin was unremarkable. The spine exhibited normal thoracic kyphosis and normal lumbar lordosis without deformities. Urinary Catheter Management: Vuong: Cath Placed During This Visit: yes Reason for Continuing Indwelling Catheter: Accurate Measurement of Urinary Output in Critically Ill Patients Urinary Catheter Date of Insertion: 08/21/23 Urinary Catheter Time of Insertion: 19:35 Data 08/23/23 03:37 08/23/23 09:54 Micro: Microbiology 08/21/23 14:52 Blood Culture - Preliminary Blood 08/21/23 14:55 Blood Culture - Preliminary Blood NEGATIVE TO DATE A&P Assessment and plan (1) Acute right arterial ischemic stroke, middle cerebral artery (MCA): Unfortunate 68-year-old man who developed stepwise onset of a right middle cerebral artery stroke in the setting of hypertension and diabetes. He has now been discovered to have atrial fibrillation which is presumed to be the cause of his embolic stroke. Current recommendation for initiation of DOAC after stroke with atrial fibrillation in large infarct as this patient has would be 1 to 2 weeks. There was a recent publication from [place] in which patients were treated earlier within day 6 or 7 after a moderate stroke or day 12 through 14 after a major stroke and there was improvement in outcome with earlier treatment. Note that 12 to 14 days after a major stroke was considered to be ea rlier treatment and that would be the case for this patient. ([place] Journal of Medicine 2022; 388: 2411?2421). I took time to talk with his and explained the stroke to her, explaining his symptoms including his dense left homonymous hemianopsia and left-sided neglect. I explained the process of rehab. She has already excepted that he is going to need to gastrostomy tube almost certainly and that will be done on Friday if all goes well. Plan on starting DOAC 12 to 14 days. (2) Atrial fibrillation: (3) Non-insulin dependent type 2 diabetes mellitus: (4) Essential hypertension: Coding Level of Care Code 36710 Diagnoses Acute right arterial ischemic stroke, middle cerebral artery (MCA) I63.511 Atrial fibrillation I48.91 Non-insulin dependent type 2 diabetes mellitus E11.9 Essential hypertension I10
--- NOTE | 2023-08-23 11:21 | PC.SLP ---
Came to see patient 08/23/23 at 11:00AM for bedside swallow evaluation, however patient was unable to alert for speech therapist or nurse. Patient's requested to come in early in the morning when he is more alert. Will return tomorrow 08/24/23 to try swallow study again.
--- NOTE | 2023-08-23 11:22 | PC.NURSE ---
Insulin gtt and D5/0.45NS stopped as ordered by Dr Timmons, whom is at bedside.
[2023-08-23 11:30] LABS: Glucose Point of Care 214 mg/dL (70-110)
[2023-08-23 11:36] LABS: Glucose Point of Care 219 mg/dL (70-110)
--- NOTE | 2023-08-23 12:17 | XRR_ITS ---
PROCEDURE INFORMATION: Exam: XR Chest Exam date and time: 08/23/2023 1:34 PM Age: 68 years old Clinical indication: Device placement; Patient HX: Ng tube confirmation only TECHNIQUE: Imaging protocol: Radiologic exam of the chest. Views: 1 view. COMPARISON: CR XR chest 1V portable [id number] 08/22/2023 4:00 PM FINDINGS: Lungs: The included portions of the lung bases appear clear Pleural spaces: Unremarkable. No pleural effusion. No pneumothorax. Heart/Mediastinum: Unremarkable. No cardiomegaly. Bones/joints: Unremarkable. Intraperitoneal space: Study only includes the upper portion of the abdomen. There is an NG tube present. The tip appears to be in the region of the gastric fundus and the side port is just distal to the GE junction. Gastrointestinal tract: Mildly dilated loops of colon are visible. XR/XR chest 1V portable [id number] IMPRESSION: NG tube as described.
[2023-08-23] MEDS: sodium bicarbonate 150 MEQ in dextrose 5% 1,000 ML 100 MEQ IV (12:42)
[2023-08-23] MEDS: acetaminophen 325 mg Tablet 650 MG PO (15:57)
[2023-08-23] MEDS: enoxaparin 40 mg/0.4 mL Syringe SUBCUT (16:19)
[2023-08-23 17:38] LABS: Glucose Point of Care 237 mg/dL (70-110)
[2023-08-23] MEDS: insulin lispro 100 unit/1 mL SUBCUT ×2 (17:42→21:31)
--- NOTE | 2023-08-23 17:45 | PM.PN ---
Subjective Subjective: Patient continues to be lethargic, extremely somnolent. states that he was able to wake up this morning, had few brief sentences in conversation with her. However speech continues to be slurred and dysarthric. Today he is able to tell me his name is Ulisses but otherwise remains very Somnolent. MRI performed yesterday with right MCA territory infarct. Afebrile. Leukocytosis is currently improving. Interim findings of A-fib with RVR on 08/22/2023 which has been intermittent. He did require initiation of amiodarone infusion to control his heart rate. At this time his heart rate is in sinus rhythm at 74 bpm. Amiodarone infusion has been stopped and transitioned to p.o. metoprolol. Suspect that patient may have had longstanding intermittent atrial fibrillation which may have predisposed him to the stroke and may potentially be an explanation for his dizziness, however no way to be certain of this. Patient's states that he wears a smart watch at most times and has never encountered his heart rate to be more than 110. Medications: Reviewed: Yes Vitals/I&O/Wt Last Vital Signs Temp 98.2 F 08/23/23 08:00 Pulse 80 08/23/23 14:00 Resp 26 H 08/23/23 11:00 BP 153/64 08/23/23 11:00 Pulse Ox 90 08/23/23 09:30 O2 Del Method Room Air 08/23/23 09:30 O2 Flow Rate 10 08/23/23 08:00 FiO2 40 08/21/23 17:37 08/23/23 08/23/23 08/23/23 06:59 14:59 22:59 Intake Total 1726.782 / 4571.729 1087.351 / 1087.351 Output Total 1000 / 2525 Balance 726.782 / 2046.729 1087.351 / 1087.351 Weight last 48 hrs Weight 132.494 kg Weight 132.993 kg Weight 135.488 kg Physical Exam Narrative: General: Somnolent, only able to tell me his name today. Too somnolent to have an extended conversation. Speech is dysarthric. HEENT: PERRLA, pupils bilaterally equal and reactive, pallors not present Chest: Normal vesicular breath sounds, no added sounds, equal good air entry bilaterally CVS: S1-S2 regular, no murmurs, no tachycardia, no gallops, no rubs Abdomen: Soft, nontender, no organomegaly, bowel sounds present Neuro: Left hemiplegia. Urinary Catheter Management: Vuong: Cath Placed During This Visit: yes Reason for Continuing Indwelling Catheter: Accurate Measurement of Urinary Output in Critically Ill Patients Urinary Catheter Date of Insertion: 08/21/23 Urinary Catheter Time of Insertion: 19:35 Data 08/24/23 06:17 08/24/23 06:17 Micro: Microbiology 08/21/23 14:52 Blood Culture - Preliminary Blood 08/21/23 14:55 Blood Culture - Preliminary Blood NEGATIVE TO DATE Other data: Exam: MR Head Without Contrast Exam date and time: 08/22/2023 4:41 PM MR/MR head wo con* [id number] IMPRESSION: Acute/subacute right MCA distribution ischemic changes/infarcts. MR/MR angio head wo con [id number] IMPRESSION: Near complete occlusion of the right M1/M2 segment MCA with paucity of enhancement distally suggesting at least some level of residual or reperfusion. MR/MR angio neck w con* [id number] IMPRESSION: No severe stenosis or occlusion. XR/XR chest 1V portable [id number] IMPRESSION: NG tube as described. FINDINGS: Lungs: The included portions of the lung bases appear clear Pleural spaces: Unremarkable. No pleural effusion. No pneumothorax. Heart/Mediastinum: Unremarkable. No cardiomegaly. Bones/joints: Unremarkable. Intraperitoneal space: Study only includes the upper portion of the abdomen. There is an NG tube present. The tip appears to be in the region of the gastric fundus and the side port is just distal to the GE junction. Gastrointestinal tract: Mildly dilated loops of colon are visible. A&P Assessment and plan (1) Stroke: Near complete occlusion of the right M1/M2 segment MCA Dense left hemiplegia on exam Patient was not a tPA candidate as onset of symptoms appeared to have been since 08/19/2023 per 's description. Telemetry revealed A-fib with RVR on 08/22/2023. He required amiodarone infusion overnight. Heart rate is better controlled today. Patient is in sinus rhythm. Discontinue amiodarone infusion, start metoprolol 5 mg IV every 6 hours. Echocardiogram grossly normal MRA neck without any significant occlusion Unable to take oral aspirin, changed to rectal aspirin 150 mg daily Atorvastatin 40 mg daily when able to swallow. PEG placement on Friday, place NGT in the interim today Unable to tolerate oral antihypertensives. Currently using hydralazine as needed. PT OT speech therapy assessment appreciated. Neurology consult (2) Altered mental status: Altered mental status, likely related to acute stroke. MRI findings as above Normal TSH, ammonia; negative Ethyl alcohol level, urine drug screen, serum acetaminophen and salicylate level. No localizing signs of infection, however noted to have low grade fever and also increasing leukocytosis for which she has been placed on empiric antibiotic coverage with ceftriaxone and vancomycin. Blood culture from 08/21 showing 1 out of 4 positive for GPC's in clusters, unknown at this time if this is Staphylococcus or not. Continue to follow blood cultures, repeat blood cultures tomorrow to ensure clearance. Suspect it may be contamination if turns out to be coag negative staph. He was also on acyclovir to cover for possible meningitis, however this is appearing to be unlikely now given MRI findings revealing acute MCA stroke. Discontinue acyclovir. CXR negative for aspiration UA not consistent with UTI no focal abdominal symptoms. (3) Metabolic acidosis: Unclear cause. Initial consideration for euglycemic DKA likely related to Jardiance. He was on insulin drip on 08/22/2023 through the evening and nighttime. However bicarb continued to worsen at 10 today, without significant improvement in anion high anion gap. Less likely to be DKA given no improvement with insulin. Discontinue insulin drip. Discontinue D5 normal saline given also development of hypernatremia. Start bicarb infusion today and continue serial BMP monitoring. (4) Hypoxia: Likely related to underlying known sleep apnea. Patient does not typically wear a CPAP at night however has noticed increased apneic episodes at home recently. Chest x-ray without consolidation. CTA chest negative for PE. BNP not significantly elevated, echocardiogram without signs of CHF. (5) Hypernatremia: Place NGT today, start free water flushes 500 cc every 6 hrs (6) Diabetes: discontinue insulin drip. transition to sliding scale insulin every 4 hrs Plan DVT ppx: lovenox , will likely need to start full dose anticoagulation once okay per neurology given now interim development of atrial fibrillation and concern for cardioembolic stroke. Full code All updates discussed with at bedside. Attestations Medical Necessity Statement*: Continued admission for poststroke care, A-fib with RVR, needed amiodarone infusion,monitoring HR, control A fib, transitioning to IV medications, bicarb infusion for metabolic acidosis. Critical Care Time: The high probability of a clinically significant, sudden or life threatening deterioration of the patient's [cardiovascular, respiratory, neurology] system(s) required my full and direct attention, intervention and personal management. The critical care time is as shown. This time is in addition to time spent performing any reported procedures but includes the following: [x] Data and vital sign review and interpretation [x] Patient assessment, examination and intervention [x] Documentation [x] Medication orders and management Critical Care Time (min): 50 Coding Level of Care Code Acute Code for [facility] Fwd Diagnoses Stroke I63.9 Altered mental status R41.82 Metabolic acidosis E87.20 Hypoxia R09.02 Hypernatremia E87.0 Diabetes E11.9
[2023-08-23 18:01] LABS: Anion Gap 24.9 (5-19); Blood Urea Nitrogen 23 mg/dL (8-23); Calcium 8.4 mg/dL (8.5-10.5); Carbon Dioxide 12 mmol/L (22-29); Chloride 116 mmol/L (98-107); Glomerular Filtration Rate 74.5 mL/min (90-130); Glucose 255 mg/dL (65-115); Magnesium 2.6 mg/dL (1.7-2.3); Osmolality Calculated 320 mOsm/kg (285-295); Phosphorus 2.9 mg/dL (2.5-4.5); Potassium 3.9 mmol/L (3.5-5.1); Sodium 149 mmol/L (136-145)
--- NOTE | 2023-08-23 18:06 | P.CONIM_ITS ---
Providers/Reason For Consult Consulting Physician/Specialty*: General surgery Reason for Consult*: PEG tube placement Attending Physician: Elvi Timmons MD Primary Care Provider: Juve Hernandez DO History of Present Illness History of Present Illness Ulisses Bae is a 68 year old male with history of recent stroke, on the MCA territory. Patient currently lethargic, with poor mental status, which prevents evaluation of swallowing capacity. Due to focal neurological exam I have been asked to evaluate the patient for possible PEG tube placement. I have seen of the patient at the bedside, currently he is sedated, lethargic. is at the bedside, according to her patient wakes up and is able to communicate briefly. Review of Systems General: Reports: ROS unobtainable due to medical condition Medications/Allergies Home Medications Medication Instructions Recorded Confirmed Last Taken Type atorvastatin 40 mg tablet 40 mg PO DAILY #90 tabs 10/23/22 08/21/23 Unknown Rx glipizide 10 mg tablet 10 mg PO DAILY #90 tabs 10/23/22 08/21/23 Unknown Rx lisinopril 20 mg tablet 20 mg PO DAILY #90 tabs 10/23/22 08/21/23 Unknown Rx metformin 1,000 mg tablet 1,000 mg PO DAILY #90 tabs 10/23/22 08/21/23 Unknown Rx meclizine 25 mg tablet 25 mg PO QID PRN vertigo #30 tabs 08/19/23 08/21/23 Unknown Rx prednisone 20 mg tablet 20 mg PO BID 5 days #10 tabs 08/19/23 08/21/23 Unknown Rx empagliflozin 25 mg tablet 25 mg PO DAILY 08/21/23 08/21/23 Unknown History (Jardiance) Allergies Allergy/AdvReac Type Severity Reaction Status Date / Time No Known Allergies Allergy Verified 08/21/23 13:08 Current Medications Generic Name Dose Route Start Last Admin Trade Name Freq PRN Reason Stop Dose Admin Acetaminophen 650 mg 08/21/23 16:38 08/23/23 15:57 Acetaminophen 325 Mg Tablet PO 650 mg Q6H PRN Administration Mild/Mod Pain Or Temp >/= 101 Aspirin 150 mg 08/23/23 09:00 08/23/23 10:08 Aspirin 300 Mg Supp CO 150 mg DAILY MARK Administration Enoxaparin Sodium 40 mg 08/21/23 16:45 08/23/23 16:19 Enoxaparin 40 Mg/0.4 Ml Syringe SUBCUT 40 mg Q24H MARK Administration Hydralazine HCl 10 mg 08/21/23 17:56 08/23/23 17:54 Hydralazine 20 Mg/Ml Inj 1 Ml IVP 10 mg Q4H PRN Administration SBP > 160 Ceftriaxone Sodium 2,000 mg/ 50 mls @ 100 mls/hr 08/22/23 16:00 08/23/23 16:50 Sodium Chloride IV Infused Q12H MARK Infusion Protocol Vancomycin/PEG/NADA/Lysine/Water 2,000 mg in 400 mls @ 200 mls/hr 08/22/23 16:00 08/23/23 16:20 Vancocin IV 200 mls/hr Q12H MARK Administration Insulin Human Regular 250 unit 252.5 mls @ 0 mls/hr 08/22/23 17:45 08/23/23 12:26 / Sodium Chloride IV Infused .Q0M MARK Titration Protocol Per Protocol Sodium Bicarbonate 150 meq/ 1,150 mls @ 100 mls/hr 08/23/23 11:30 08/23/23 1 2:42 Dextrose IV 100 mls/hr .[id number] MARK Administration Insulin Human Lispro 0 unit 08/23/23 18:00 08/23/23 17:42 Insulin Lispro 100 Unit/1 Ml SUBCUT 8 unit WM&BEDTIME MARK Administration Protocol Metoprolol Tartrate 5 mg 08/23/23 10:30 08/23/23 16:19 Metoprolol Tartrate 1 Mg/1 Ml Sdv 5 Ml IVP 5 mg Q6H MARK Administration Ondansetron HCl 4 mg 08/21/23 17:36 08/21/23 19:40 Ondansetron 2 Mg/Ml Sdv 2 Ml IVP 4 mg Q6H PRN Administration NAUSEA AND VOMITING Pantoprazole Sodium 40 mg 08/22/23 11:30 08/23/23 08:25 Pantoprazole 40 Mg Sdv IVP 40 mg DAILY MARK Administration PFSH Acute PFSH: Social History Smoking and tobacco/nicotine status: never used tobacco/nicotine Alcohol intake: never Substance/Drug Use: never Adopted: No Caregiver/support person: No Lives independently: No Household members: spouse Housing: House Marital status: service: No Vitals/I&O/Wt Last Vital Signs Temp 98.2 F 08/23/23 08:00 Pulse 80 08/23/23 14:00 Resp 26 H 08/23/23 11:00 BP 153/64 08/23/23 11:00 Pulse Ox 90 08/23/23 09:30 O2 Del Method Room Air 08/23/23 09:30 O2 Flow Rate 10 08/23/23 08:00 FiO2 40 08/21/23 17:37 08/23/23 08/23/23 08/23/23 06:59 14:59 22:59 Intake Total 1726.782 / 4571.729 1087.351 / 1087.351 50 / 1137.351 Output Total 1000 / 2525 Balance 726.782 / 2046.729 1087.351 / 1087.351 50 / 1137.351 Weight last 48 hrs Weight 292 lb 1.6 oz Weight 293 lb 3.2 oz Weight 298 lb 11.2 oz Physical Exam Narrative: General : Patient is lethargic Head : Normal cephalic, a-traumatic. Nose : Mucous membranes are without erythema. Lungs : Equal chest rise bilaterally, no use of accessory muscles, trachea is midline. CV : Rate and rhythm are normal. Abdomen : Soft, ND, NT, no g/r/m Urinary Catheter Management: Vuong: Cath Placed During This Visit: yes Reason for Continuing Indwelling Catheter: Accurate Measurement of Urinary Output in Critically Ill Patients Urinary Catheter Date of Insertion: 08/21/23 Urinary Catheter Time of Insertion: 19:35 Data 08/23/23 03:37 08/23/23 17:30 Micro: Microbiology 08/21/23 14:52 Blood Culture - Preliminary Blood 08/21/23 14:55 Blood Culture - Preliminary Blood NEGATIVE TO DATE A&P Assessment and plan (1) Acute right arterial ischemic stroke, middle cerebral artery (MCA): (2) Atrial fibrillation: (3) Metabolic acidosis: (4) Altered mental status: Plan After complete history, physical examination and review of all the current clinical data the following is my assessment. If patient neurological status does not improve, I agree that PEG tube placement will be necessary. I will plan to do this on Friday, in the meantime we will monitor patient clinical status and I will discuss progression with neurology and ICU team. I have discussed all the risk benefits of the PEG tube placement with the family member including the risks of colocutaneous fistula, early displacement of the PEG tube, buried bumper syndrome, PEG tube leakage, infection of the PEG tube site leading to necrotizing soft tissue infection, injury to other intra-abdominal organs. I have also explained to the family member that due to patient increased BMI there is an increased risk of failure which will mandate for an operative gastrostomy tube placement if that is the case. Patient's agrees with the clinical assessment and wishes to proceed. Coding Level of Care Code 60058 Diagnoses Acute right arterial ischemic stroke, middle cerebral artery (MCA) I63.511 Atrial fibrillation I48.91 Metabolic acidosis E87.20 Altered mental status R41.82
--- NOTE | 2023-08-23 18:18 | PC.NURSE ---
Shift summary: Pt has rested in bed throughout shift. PT was able to briefly work with him assisted him to sitting on side of bed. He tolerated for a few minutes. He would speak, mostly in a mumble , to staff but he did not open his eyes during PT. He has snoring respirations. He does arouse to voice and answer occasionally. He responds to his better than staff. He did not awake enough to have a speech eval. NG inserted in to left nostril today, he tolerated that well. He is receiving free water flushes every 6 hours. His anion gap had increased to 25.1 this afternoon. Insulin gtt and amio gtt stopped today. IV fluids changed, bicarb added. Monitor showed sinus rhythm for most of the shift except for the brief SVT episode. No BM or flatulence noted this shift. He did have 1800ml of yellow with sediment urinary output.
[2023-08-23 20:20] LABS: Potassium, Radom Urine 46 mmol/L; Urine Random Sodium 39 mmol/L
[2023-08-23 20:21] LABS: Urine Random Chloride 11 mmol/L
[2023-08-23 20:24] LABS: Add Urine Microscopic? YES; Bilirubin Urine Neg (Negative); Blood Urine 3+ (Negative); Glucose Urine UA 4+ (Normal); Ketones Urine 3+ (Negative); Leukocyte Esterase Urine Negative (Negative); Nitrate Urine Negative (Negative); Protein Urine 1+ (Negative); Squamous Epithelial Cell Urine RARE /hpf (0-5); Urine Appearance Clear (CLEAR); Urine Color Colorless (Yellow); Urobilinogen Urine Neg (Negative); WBC Urine RARE /hpf (0-5); pH Urine 5 (5-7)
[2023-08-23 20:25] LABS: Add Urine Culture? No; Amorphous Sediment Urine 1+ /hpf
[2023-08-23] MEDS: atorvastatin 40 mg Tablet NG-TUBE (20:32)
[2023-08-23 20:54] LABS: Glucose Point of Care 248 mg/dL (70-110)
--- NOTE | 2023-08-23 21:06 | PC.NURSE ---
Dr. Robison wanted 400 ml of free flow water into the NG tube at 2100.
[2023-08-23 23:25] LABS: NT Pro B Type Natriuretic Pept 482 pg/mL (0-125)
[2023-08-23] MEDS: sodium bicarbonate 150 MEQ in dextrose 5% 1,000 ML 125 MEQ IV (23:26)
[2023-08-24] VITALS (45 sets, daily range): BP systolic 120–195; BP diastolic 52–106; PULSE 66–166; RESP 20–39; TEMP 37.1–37.7; O2SAT 88–95
[2023-08-24] MEDS: hyDRALAzine 20 mg/mL INJ 1 mL 10 MG IVP ×2 (00:48→04:52)
[2023-08-24 02:17] LABS: Magnesium 2.7 mg/dL (1.7-2.3); Phosphorus 1.7 mg/dL (2.5-4.5)
[2023-08-24 02:18] LABS: Anion Gap 19.6 (5-19); Blood Urea Nitrogen 21 mg/dL (8-23); Calcium 8.8 mg/dL (8.5-10.5); Carbon Dioxide 19 mmol/L (22-29); Chloride 115 mmol/L (98-107); Glomerular Filtration Rate 74.5 mL/min (90-130); Glucose 213 mg/dL (65-115); Osmolality Calculated 319 mOsm/kg (285-295); Potassium 3.6 mmol/L (3.5-5.1); Sodium 150 mmol/L (136-145)
[2023-08-24] MEDS: cefTRIAXone 2,000 MG in sodium chloride 0.9% (plus) 50 ML 100 MG IV (03:34)
[2023-08-24] MEDS: metoprolol tartrate 1 mg/1 mL SDV 5 mL 5 MG IVP ×5 (03:35→22:07)
[2023-08-24] MEDS: vancomycin 2,000 MG/400 ML PIGGYBACK 200 MG IV ×2 (03:35→16:58)
[2023-08-24 06:43] LABS: Basophils % 0.2 %; Hematocrit 45.2 % (37-53); Lymphocytes % 8.1 %; Mean Corpuscular HGB Conc 32.7 g/dL (30-55); Mean Corpuscular Hemoglobin 28.9 pg (27-33); Mean Corpuscular Volume 88.3 fl (82-101); Mean Platelet Volume 9.6 fL (7.4-10.4); Monocytes # 1.5 10^3/uL (0.2-0.9); Monocytes % 12.4 %; Neutrophils # 9.73 10^3/uL (1.8-7.7); Neutrophils % 78.5 %; Nucleated Red Blood Cells % 0 %; Platelet Count 246 10^3/cmm (157-399); Red Blood Count 5.12 10^6/uL (3.85-5.65); Red Cell Distribution Width 15.2 % (12.1-15.1); White Blood Count 12.39 10^3/uL (3.29-11.43)
[2023-08-24 07:01] LABS: Alanine Aminotransferase 14 U/L (0-41); Albumin Level 3.4 g/dL (3.5-5.2); Alkaline Phosphatase 66 U/L (40-130); Anion Gap 19.3 (5-19); Aspartate Amino Transferase 19 U/L (0-40); Blood Urea Nitrogen 21 mg/dL (8-23); Calcium 8.5 mg/dL (8.5-10.5); Carbon Dioxide 19 mmol/L (22-29); Chloride 113 mmol/L (98-107); Glomerular Filtration Rate 96.4 mL/min (90-130); Glucose 228 mg/dL (65-115); Osmolality Calculated 316 mOsm/kg (285-295); Potassium 3.3 mmol/L (3.5-5.1); Sodium 148 mmol/L (136-145); Total Bilirubin 0.5 mg/dL (0.15-1.2); Total Protein 6.4 g/dL (6.6-8.7)
--- NOTE | 2023-08-24 07:47 | PC.NURSE ---
Pt more alert this am. He answered name, , and month. He was aware of his left hand being touched. He lifted his right arm and waved at this nurse and mumbled 'good morning in reply to nurse's good morning.
[2023-08-24 08:21] LABS: Glucose Point of Care 194 mg/dL (70-110)
[2023-08-24] MEDS: aspirin 300 mg Supp 150 MG PR (09:23)
[2023-08-24] MEDS: insulin lispro 100 unit/1 mL SUBCUT ×4 (09:36→20:18)
[2023-08-24] MEDS: pantoprazole 40 mg SDV IVP (09:45)
--- NOTE | 2023-08-24 10:19 | PM.PN ---
Subjective Subjective: Afebrile, leukocytosis trending down, GPC's from 08/21 identified as coag negative staph. Medications: Reviewed: Yes Vitals/I&O/Wt Last Vital Signs Temp 98.8 F 08/24/23 08:00 Pulse 81 08/24/23 08:00 Resp 22 H 08/24/23 08:00 BP 169/64 08/24/23 08:00 Pulse Ox 94 08/24/23 07:30 O2 Del Method Room Air 08/24/23 07:30 08/23/23 08/24/23 08/24/23 22:59 06:59 14:59 Intake Total 1988.333 / 3075.684 1361.667 / 4437.351 Output Total 2750 / 2750 1450 / 4200 Balance -761.667 / 325.684 -88.333 / 237.351 Weight last 48 hrs Weight 136.078 kg Weight 132.494 kg Physical Exam Narrative: General: No acute distress, AO x3 HEENT: PERRLA, pupils bilaterally equal and reactive, pallors not present Chest: Normal vesicular breath sounds, no added sounds, equal good air entry bilaterally CVS: S1-S2 regular, no murmurs, no tachycardia, no gallops, no rubs Abdomen: Soft, nontender, no organomegaly, bowel sounds present Neuro: No focal deficits, no facial deformity, AO x3, power 5/5 in all limbs Urinary Catheter Management: Vuong: Cath Placed During This Visit: yes Reason for Continuing Indwelling Catheter: Accurate Measurement of Urinary Output in Critically Ill Patients Urinary Catheter Date of Insertion: 08/21/23 Urinary Catheter Time of Insertion: 19:35 Data 08/24/23 06:17 08/24/23 06:17 Micro: Microbiology 08/21/23 14:52 Blood Culture - Preliminary Blood Coagulase negativ staphylococc A&P Assessment and plan (1) Stroke: Near complete occlusion of the right M1/M2 segment MCA Dense left hemiplegia on exam Patient was not a tPA candidate as onset of symptoms appeared to have been since 08/19/2023 per 's description. Telemetry revealed A-fib with RVR on 08/22/2023.Currenlt rate controlled Echocardiogram grossly normal MRA neck without any significant occlusion ASA 81 and Atorvastatin 40 mg daily via NG Start a/c after 12-14 days per neuro recommendations, okay to continue ppx dosing for now PEG placement on Friday, currently NGT in the interim starting glucerna tube feeding today Neurology consult appreciated (2) Atrial fibrillation with RVR: now rate controlled continue metorpolol 5mg iv every 6 hrs holding off a/c next 12-14 days to minimize risk of hemorrhagic conversion (3) Hypertension: start amlodipine 10 mg daily can likely resume lisinopril over next 24 hrs continue prn hydralazine (4) Altered mental status: Altered mental status, likely related to acute stroke. MRI findings as above Normal TSH, ammonia; negative Ethyl alcohol level, urine drug screen, serum acetaminophen and salicylate level. No localizing signs of infection, however noted to have low grade fever and also increasing leukocytosis for which she has been placed on empiric antibiotic coverage with ceftriaxone and vancomycin which can continue for now Blood culture from 08/21 showing 1 out of 4 positive for GPC's in clusters,now identified as CONS, likely contaminant Continue to follow blood cultures, repeat blood cultures tomorrow to ensure clearance. Suspect it may be. CXR negative for aspiration UA not consistent with UTI no focal abdominal symptoms. (5) Metabolic acidosis: Unclear cause. Initial consideration for euglycemic DKA likely related to Jardiance. He was on insulin drip on 08/22/2023 through the evening and nighttime. However bicarb continued to worsen without significant improvement in anion high anion gap. Less likely to be DKA given no improvement with insulin. May be 2/2 dehydration Currently on bicarb infusion, to continue, aim to check CMP this evening and likely D/c bicarb drip given hypernatremia (6) Hypoxia: Likely related to underlying known sleep apnea. Patient does not typically wear a CPAP at night however has noticed increased apneic episodes at home recently. Chest x-ray without consolidation. CTA chest negative for PE. BNP not significantly elevated, echocardiogram without signs of CHF. (7) Hypernatremia: continue free water flushes via NGT (8) Diabetes: moderate insulin sliding scale Plan DVT ppx: lovenox , will likely need to start full dose anticoagulation once okay per neurology given now interim development of atrial fibrillation and concern for cardioembolic stroke. PEG tube on friday Full code All updates discussed with at bedside. Attestations Medical Necessity Statement*: Planned PEG, monitor HR, continue bicarb infusion, closely monitor neuro status Coding Level of Care Code Acute Code for [facility] Fwd High MDM includes number and complexity of problems actively addressed during encounter, amount and/or complexity of data reviewed/ordered and described risk of complication, morbidity or mortality of management as documented Diagnoses Stroke I63.9 Atrial fibrillation with RVR I48.91 Hypertension I10 Altered mental status R41.82 Metabolic acidosis E87.20 Hypoxia R09.02 Hypernatremia E87.0 Diabetes E11.9
[2023-08-24 10:43] LABS: Anion Gap 24.1 (5-19); Blood Urea Nitrogen 20 mg/dL (8-23); Calcium 8.4 mg/dL (8.5-10.5); Carbon Dioxide 16 mmol/L (22-29); Chloride 113 mmol/L (98-107); Glomerular Filtration Rate 96.4 mL/min (90-130); Glucose 239 mg/dL (65-115); Magnesium 2.6 mg/dL (1.7-2.3); Osmolality Calculated 320 mOsm/kg (285-295); Phosphorus 2.3 mg/dL (2.5-4.5); Potassium 3.1 mmol/L (3.5-5.1); Sodium 150 mmol/L (136-145)
--- NOTE | 2023-08-24 10:47 | PC.NUTR ---
For tube feed regimen, see most recent RD assessment
[2023-08-24 11:59] LABS: Glucose Point of Care 196 mg/dL (70-110)
[2023-08-24] MEDS: amlodipine 10 mg Tablet PO (11:59)
[2023-08-24] MEDS: cefTRIAXone 1,000 MG in sodium chloride 0.9% (plus) 50 ML 100 MG IV (11:59)
[2023-08-24] MEDS: sodium bicarbonate 150 MEQ in dextrose 5% 1,000 ML 125 MEQ IV (12:00)
[2023-08-24 15:46] LABS: Alanine Aminotransferase 14 U/L (0-41); Albumin Level 3.2 g/dL (3.5-5.2); Alkaline Phosphatase 68 U/L (40-130); Aspartate Amino Transferase 18 U/L (0-40); Blood Urea Nitrogen 20 mg/dL (8-23); Calcium 8.6 mg/dL (8.5-10.5); Carbon Dioxide 18 mmol/L (22-29); Chloride 116 mmol/L (98-107); Globulin 3.1 g/dL (1.3-4.6); Glomerular Filtration Rate 96.4 mL/min (90-130); Glucose 170 mg/dL (65-115); Osmolality Calculated 319 mOsm/kg (285-295); Sodium 151 mmol/L (136-145); Total Bilirubin 0.7 mg/dL (0.15-1.2); Total Protein 6.3 g/dL (6.6-8.7); Vancomycin Trough 13.5 ug/mL (10-15)
[2023-08-24] MEDS: enoxaparin 40 mg/0.4 mL Syringe SUBCUT (16:59)
[2023-08-24 17:37] LABS: Glucose Point of Care 186 mg/dL (70-110)
--- NOTE | 2023-08-24 18:49 | PC.NURSE ---
[facility] notified at 1832, immediately after order enter that this needs verified for elevated heart rate.
--- NOTE | 2023-08-24 18:52 | PC.NURSE ---
Pt converted to sinus rhtyhm, heart rate of 89. No Cardizem admin.
--- NOTE | 2023-08-24 19:44 | PC.NURSE ---
Shift summary: Pt rested in bed throughout the shift. He still rested with his eyes closed most of the shift but he is much more responsive verbally today. PT was able to help him sit on side of bed and patient tried to participate but tired quickly. He was even teasing his per the . He still mumbles at times, with his thick accent it is difficulty to understand at times. He helped bathe his abdomen today. He was started on Glucerna tube feedings at 10ml/hr, to have no change in rate. He is to have PEG placement tomorrow. He is still having bicarb IVF infusing. His sodium level has increased to 151. He has had 1200ml of clear yellow urine output. NO Bowel movements noted. He had a run of SVT, right at the time of scheduled metoprolol IVP, that was gvien but no heart rhythm/rate change. Dr Timmons notified, another 5mg Metoprolol IVP admin, it did not seem to hel at 25minutes later, notifshabana again and an order ofr IVP Cardizem 10mg received. While awaiting verification from pharmacy, pt finally converted back to sinus rhtyhm. Pt denies pain through this episode. Dr Timmons aware.
[2023-08-24 19:52] LABS: Glucose Point of Care 144 mg/dL (70-110)
[2023-08-24] MEDS: amiodarone 200 mg Tablet 400 MG PO (20:17)
[2023-08-24] MEDS: atorvastatin 40 mg Tablet NG-TUBE (20:18)
[2023-08-24] MEDS: dextrose 5% 1,000 ML 75 ML IV (20:18)
[2023-08-24] MEDS: lidocaine 1% 5 ML in potassium chloride premix 100 ML 26.25 ML IV (22:12)
[2023-08-24 23:55] LABS: Glucose Point of Care 165 mg/dL (70-110)
[2023-08-25] VITALS (52 sets, daily range): BP systolic 111–188; BP diastolic 49–120; PULSE 79–118; RESP 19–46; TEMP 37–38.3; O2SAT 84–98
[2023-08-25] MEDS: hyDRALAzine 20 mg/mL INJ 1 mL 10 MG IVP ×2 (03:06→18:35)
[2023-08-25] MEDS: lidocaine 1% 5 ML in potassium chloride premix 100 ML 26.25 ML IV (03:06)
[2023-08-25] MEDS: metoprolol tartrate 1 mg/1 mL SDV 5 mL 5 MG IVP ×5 (03:54→22:40)
[2023-08-25] MEDS: vancomycin 2,000 MG/400 ML PIGGYBACK 200 MG IV ×2 (04:01→16:49)
[2023-08-25 05:31] LABS: Basophils % 0.3 %; Hematocrit 48.1 % (37-53); Lymphocytes # 0.8 10^3/uL (0.8-4.8); Lymphocytes % 7.8 %; Mean Corpuscular Hemoglobin 28.7 pg (27-33); Mean Corpuscular Volume 89.7 fl (82-101); Monocytes % 9.9 %; Neutrophils # 7.99 10^3/uL (1.8-7.7); Neutrophils % 80.9 %; Nucleated Red Blood Cells % 0 %; Platelet Count 264 10^3/cmm (157-399); Red Blood Count 5.36 10^6/uL (3.85-5.65); Red Cell Distribution Width 15.4 % (12.1-15.1); White Blood Count 9.88 10^3/uL (3.29-11.43)
[2023-08-25 05:50] LABS: Alanine Aminotransferase 13 U/L (0-41); Albumin Level 3.3 g/dL (3.5-5.2); Alkaline Phosphatase 76 U/L (40-130); Anion Gap 26.5 (5-19); Aspartate Amino Transferase 20 U/L (0-40); Blood Urea Nitrogen 22 mg/dL (8-23); Calcium 8.4 mg/dL (8.5-10.5); Carbon Dioxide 16 mmol/L (22-29); Chloride 112 mmol/L (98-107); Globulin 3.1 g/dL (1.3-4.6); Glomerular Filtration Rate 96.4 mL/min (90-130); Glucose 239 mg/dL (65-115); Osmolality Calculated 323 mOsm/kg (285-295); Potassium 3.5 mmol/L (3.5-5.1); Sodium 151 mmol/L (136-145); Total Bilirubin 0.9 mg/dL (0.15-1.2); Total Protein 6.4 g/dL (6.6-8.7)
[2023-08-25 06:36] LABS: Glucose Point of Care 218 mg/dL (70-110)
[2023-08-25] MEDS: amiodarone 200 mg Tablet 400 MG PO ×2 (06:43→18:35)
[2023-08-25] MEDS: acetaminophen 325 mg Tablet 650 MG PO (06:54)
--- NOTE | 2023-08-25 08:41 | PM.PN ---
Subjective Subjective: Is a 68-year-old male with a MCA territory stroke who is known to my service for possible PEG tube placement. Patient was planned for PEG tube this morning, I evaluated patient at the bedside today, per bedside nursing report and family report patient has been noted to be severely lethargic, with increased work of breathing and febrile. Vitals/I&O/Wt Last Vital Signs Temp 98.6 F 08/25/23 08:00 Pulse 93 08/25/23 08:36 Resp 38 H 08/25/23 08:00 BP 124/49 08/25/23 08:00 Pulse Ox 91 08/25/23 08:36 O2 Del Method Nasal Cannula 08/25/23 08:36 O2 Flow Rate 2 08/25/23 08:36 FiO2 40 08/21/23 17:37 08/24/23 08/25/23 08/25/23 22:59 06:59 14:59 Intake Total 400 / 2800 621 / 3421 Output Total 1200 / 1200 2850 / 4050 Balance -800 / 1600 -2229 / -629 Weight last 48 hrs Weight 295 lb 6.4 oz Weight 300 lb Physical Exam Narrative: Patient is lethargic, nonresponsive to stimuli at the moment, he is tachypneic, with increased work of breathing. Noted to be febrile and tachycardic on phototypesetting equipment monitor. Urinary Catheter Management: Vuong: Cath Placed During This Visit: yes Reason for Continuing Indwelling Catheter: Accurate Measurement of Urinary Output in Critically Ill Patients Urinary Catheter Date of Insertion: 08/21/23 Urinary Catheter Time of Insertion: 19:35 Data 08/25/23 04:45 08/25/23 04:45 Micro: Microbiology 08/24/23 10:22 Blood Culture - Preliminary Blood SPECIMEN COLLECTED 08/24/23 10:27 Blood Culture - Preliminary Blood SPECIMEN COLLECTED 08/21/23 14:52 Blood Culture - Preliminary Blood Coagulase negativ staphylococc A&P Assessment and plan (1) Atrial fibrillation with RVR: (2) Acute right arterial ischemic stroke, middle cerebral artery (MCA): Plan After a complete history physical examination and review of all new clinical data the following is my assessment. Patient noted to have deterioration of his clinical status, at this point and after discussion with primary team we have decided to defer PEG tube placement until clinical status improves and work-up is done. In the meantime primary team can continue to feeding through NG tube. General surgery will remain available and we can plan on percutaneous gastrostomy at the later date once patient is stable. Attestations Medical Necessity Statement*: Patient will continue to require hospital care due to acute stroke, this is anticipated to be more than 2 midnight Coding Level of Care Code 08605 Diagnoses Atrial fibrillation with RVR I48.91 Acute right arterial ischemic stroke, middle cerebral artery (MCA) I63.511
--- NOTE | 2023-08-25 08:45 | PC.NURSE ---
SVT ate 170's noted on monitor. Dr Fajardo notified. Orders for metoprolol 5mg IVP received and admin. Approx 15 min later pateint converted back to sinus rhythm.
[2023-08-25] MEDS: insulin lispro 100 unit/1 mL SUBCUT (09:08)
[2023-08-25] MEDS: pantoprazole 40 mg SDV IVP ×2 (09:08→20:40)
[2023-08-25] MEDS: citric acid-sodium citrate 30 mL UDC PEG-TUBE ×4 (09:15→20:40)
[2023-08-25] MEDS: aspirin 81 mg Chew Tablet NG-TUBE (09:15)
--- NOTE | 2023-08-25 09:30 | PC.NURSE ---
Pt have short runs of SVT again, flipping in and out of SVT to sinus rhythm. Dr nunes notified that pt just received his 1030 dose of metoprolol 5mg IVP. He is sustaining snus rhythm now. Pt's O2 sats dropped to 84% suddenly, RT was notified.Respiratory rate high. He is doing worse. Dr Nunes to enter orders.
--- NOTE | 2023-08-25 09:39 | XRR_ITS ---
PROCEDURE INFORMATION: Exam: XR Chest Exam date and time: 08/25/2023 10:46 AM Age: 68 years old Clinical indication: Other: Hypoxia TECHNIQUE: Imaging protocol: Radiologic exam of the chest. Views: 1 view. COMPARISON: Chest x-ray August 22, 2023. FINDINGS: Lungs: New right upper lung and left lower lung pneumonia. New NG tube terminates in the body of the stomach. Pleural spaces: Unremarkable. No pleural effusion. No pneumothorax. Heart/Mediastinum: Unremarkable. No cardiomegaly. Bones/joints: Unchanged mild multilevel spondylosis. XR/XR chest 1V portable [id number] IMPRESSION: New right upper lung and left lower lung pneumonia.
[2023-08-25] MEDS: levalbuterol 0.63 mg/3 mL Neb INHALATION (09:52)
[2023-08-25 10:13] LABS: ABG PCO2 44.1 mmHg (35-45); Alveolar-Arterial Oxygen Gradi 2.4 mmHg (5-10); Arterial Blood Gas Hematocrit 47.7 % (42-52); Base Excess ABG -12.7 mmol/L (-2.0-2.0); Blood Gas Allen Test Pos; Blood Gas Operator Identificat GD; Blood Gas Sample Site Radial, left; Blood Gas Sample Type Arterial; Carboxyhemoglobin 0.9 %THgb (0.4-20.1); HCO3 ABG 15.8 mmol/L (22-26); HGB O2 Sat 91.6 % (95-100); Ionized Calcium Level - ABG 1.2 mmol/L (1.1-1.4); Methemoglobin 0.6 % (0.4-1.5); Oxygen Device OXY MASK; PO2 ABG 75.9 mmHg (80.0-100.0); Potassium Level - ABG 3.8 mmol/L (3.5-5.0); Total Hemoglobin 15.6 g/dL (14-18)
[2023-08-25 10:14] LABS: ABG PH Result 7.16 (7.35-7.45)
--- NOTE | 2023-08-25 10:22 | PC.SLP ---
Attempted WEB CONTENT DIRECTOR evaluation. Nursing stated on hold due to high heart rate; No therapy requested today.
[2023-08-25] MEDS: dextrose 5% 1,000 ML 75 ML IV (10:25)
[2023-08-25 10:28] LABS: Urine Appearance SL Hazy (CLEAR); Urine Color Yellow (Yellow)
[2023-08-25 10:29] LABS: Add Urine Microscopic? YES; Bilirubin Urine Neg (Negative); Blood Urine 3+ (Negative); Glucose Urine UA 4+ (Normal); Ketones Urine 2+ (Negative); Leukocyte Esterase Urine Negative (Negative); Nitrate Urine Negative (Negative); Protein Urine Trace (Negative); Specific Gravity, Urine 1.015 (1.005-1.030); Urobilinogen Urine Norm (Negative); pH Urine 5 (5-7)
[2023-08-25 10:32] LABS: Add Urine Culture? No; Amorphous Sediment Urine 1+ /hpf; Bacteria Urine TRACE /hpf; Hyaline Casts Urine 0-4 /lpf; Mucus Urine 1+ /hpf; Squamous Epithelial Cell Urine RARE /hpf (0-5); WBC Urine RARE /hpf (0-5)
[2023-08-25] MEDS: piperacillin-tazobactam 3.375 GM in sodium chloride 0.9% (plus) 50 ML IV (10:45)
[2023-08-25 11:11] LABS: Magnesium 2.7 mg/dL (1.7-2.3)
[2023-08-25 11:18] LABS: Glucose Point of Care 304 mg/dL (70-110)
[2023-08-25] MEDS: potassium chloride premix 100 ML 25 MEQ IV ×2 (11:30→20:40)
[2023-08-25] MEDS: insulin regular-human 250 UNIT in sodium chloride 0.9% 250 ML 13.13 UNIT IV (11:33)
--- NOTE | 2023-08-25 11:58 | PM.CONSULT ---
Providers/Reason For Consult Consulting Physician/Specialty*: Deepa Mays DO, telenephrology Reason for Consult*: Metabolic acidosis, hypernatremia Attending Physician: William Fajardo Primary Care Provider: Juve Hernandez DO History of Present Illness History of Present Illness Ulisses Bae is a 68 year old male admitted with CVA. + acidosis on admission. History of DM, on SGLT2i Review of Systems Narrative: unable to obtain Medications/Allergies Home Medications Medication Instructions Recorded Confirmed Last Taken Type atorvastatin 40 mg tablet 40 mg PO DAILY #90 tabs 10/23/22 08/21/23 Unknown Rx glipizide 10 mg tablet 10 mg PO DAILY #90 tabs 10/23/22 08/21/23 Unknown Rx lisinopril 20 mg tablet 20 mg PO DAILY #90 tabs 10/23/22 08/21/23 Unknown Rx metformin 1,000 mg tablet 1,000 mg PO DAILY #90 tabs 10/23/22 08/21/23 Unknown Rx meclizine 25 mg tablet 25 mg PO QID PRN vertigo #30 tabs 08/19/23 08/21/23 Unknown Rx prednisone 20 mg tablet 20 mg PO BID 5 days #10 tabs 08/19/23 08/21/23 Unknown Rx empagliflozin 25 mg tablet 25 mg PO DAILY 08/21/23 08/21/23 Unknown History (Jardiance) Allergies Allergy/AdvReac Type Severity Reaction Status Date / Time No Known Allergies Allergy Verified 08/21/23 13:08 Current Medications Generic Name Dose Route Start Last Admin Trade Name Freq PRN Reason Stop Dose Admin Acetaminophen 650 mg 08/21/23 16:38 08/25/23 06:54 Acetaminophen 325 Mg Tablet PO 650 mg Q6H PRN Administration Mild/Mod Pain Or Temp >/= 101 Amiodarone HCl 400 mg 08/24/23 19:00 08/25/23 06:43 Amiodarone 200 Mg Tablet PO 400 mg Q12H MARK Administration Amlodipine Besylate 10 mg 08/24/23 10:40 08/25/23 08:12 Amlodipine 10 Mg Tablet PO Not Given DAILY MARK Aspirin 81 mg 08/25/23 09:00 08/25/23 09:15 Aspirin 81 Mg Chew Tablet NG-TUBE 81 mg DAILY MARK Administration Atorvastatin Calcium 40 mg 08/23/23 21:00 08/24/23 20:18 Atorvastatin 40 Mg Tablet NG-TUBE 40 mg BEDTIME MARK Administration Citric Acid/Sodium Citrate 30 ml 08/25/23 09:00 08/25/23 09:15 Citric Acid-Sodium Citrate 30 Ml Udc PEG-TUBE 30 ml QID MARK Administration Enoxaparin Sodium 40 mg 08/21/23 16:45 08/24/23 16:59 Enoxaparin 40 Mg/0.4 Ml Syringe SUBCUT 40 mg Q24H MARK Administration Hydralazine HCl 10 mg 08/21/23 17:56 08/25/23 03:06 Hydralazine 20 Mg/Ml Inj 1 Ml IVP 10 mg Q4H PRN Administration SBP > 160 Vancomycin/PEG/NADA/Lysine/Water 2,000 mg in 400 mls @ 200 mls/hr 08/22/23 16:00 08/25/23 07:10 Vancocin IV Infused Q12H MARK Infusion Dextrose 1,000 mls @ 75 mls/hr 08/24/23 19:00 08/25/23 10:25 D5w IV 75 mls/hr .[id number] MARK Administration Piperacillin Sod/Tazobactam 50 mls @ 12.5 mls/hr 08/25/23 09:45 08/25/23 10:45 Sod 3.375 gm/ Sodium Chloride IV 08/25/23 14:45 12.5 mls/hr Q8H MARK Administration Protocol Insulin Human Regular 250 unit 252.5 mls @ 0 mls/hr 08/25/23 11:00 08/25/23 11:33 / Sodium Chloride IV 13 unit/hr .Q0M MARK 13.13 mls/hr Administration Protocol Per Protocol Potassium Chloride 100 mls @ 25 mls/hr 08/25/23 10:48 08/25/23 11:30 K-Conor IV 08/25/23 14:47 25 mls/hr ONCE ONE Administration Insulin Human Lispro 0 unit 08/23/23 18:00 08/25/23 09:08 Insulin Lispro 100 Unit/1 Ml SUBCUT 6 unit WM&BEDTIME MARK Administration Protocol Levalbuterol HCl 0.63 mg 08/25/23 09:41 08/25/23 09:52 Levalbuterol 0.63 Mg/3 Ml Neb INHALATION 0.63 mg Q4H.RESPIRATORY PRN Administration SHORTNESS OF BREATH Metoprolol Tartrate 5 mg 08/23/23 10:30 08/25/23 09:31 Metoprolol Tartrate 1 Mg/1 Ml Sdv 5 Ml IVP 5 mg Q6H MARK Administration Ondansetron HCl 4 mg 08/21/23 17:36 08/21/23 19:40 Ondansetron 2 Mg/Ml Sdv 2 Ml IVP 4 mg Q6H PRN Administration NAUSEA AND VOMITING Pantoprazole Sodium 40 mg 08/22/23 11:30 08/25/23 09:08 Pantoprazole 40 Mg Sdv IVP 40 mg DAILY MARK Administration PFSH Acute PFSH: Social History Smoking and tobacco/nicotine status: never used tobacco/nicotine Alcohol intake: never Substance/Drug Use: never Adopted: No Caregiver/support person: No Lives independently: No Household members: spouse Housing: House Marital status: service: No Vitals/I&O/Wt Last Vital Signs Temp 98.6 F 08/25/23 08:00 Pulse 84 08/25/23 10:06 Resp 31 H 08/25/23 09:50 BP 124/49 08/25/23 08:00 Pulse Ox 98 08/25/23 09:50 O2 Del Method Oxymask 08/25/23 09:50 O2 Flow Rate 10 08/25/23 09:50 FiO2 40 08/21/23 17:37 08/24/23 08/25/23 08/25/23 22:59 06:59 14:59 Intake Total 400 / 2800 621 / 3421 1400 / 1400 Output Total 1200 / 1200 2850 / 4050 Balance -800 / 1600 -2229 / -629 1400 / 1400 Weight last 48 hrs Weight 133.991 kg Weight 136.078 kg Physical Exam Const: OTHER: opens eyes Extremity: COMMON NORMALS: no pedal edema Urinary Catheter Management: Vuong: Cath Placed During This Visit: yes Reason for Continuing Indwelling Catheter: Accurate Measurement of Urinary Output in Critically Ill Patients Urinary Catheter Date of Insertion: 08/21/23 Urinary Catheter Time of Insertion: 19:35 Data 08/25/23 04:45 08/25/23 04:45 Other Labs: + serum and urine ketones lactate 1.8 alb 3.3, Ca 8.4, phos 2.3, Mg 2.7 Micro: Microbiology 08/24/23 10:22 Blood Culture - Preliminary Blood NEGATIVE TO DATE 08/24/23 10:27 Blood Culture - Preliminary Blood NEGATIVE TO DATE 08/21/23 14:52 Blood Culture - Preliminary Blood Coagulase negativ staphylococc ABG Interpretation 1: 08/21/23 08/21/23 08/25/23 13:03 17:25 10:00 ABG pH 7.30 L 7.24 L 7.16 L* ABG pCO2 32.0 L 33.4 L 44.1 ABG pO2 69.9 L 147.0 H 75.9 L ABG HCO3 15.6 L 14.2 L 15.8 L ABG O2 Saturation 93.5 93.0 ABG Base Excess -9.6 L -12.1 L -12.7 L My Interpretation: combination metabolic and respiratory acidosis Other data: seen via telemedicine with assistance of RN at bedside A&P Assessment and plan (1) Hypernatremia: Plan 1. Increased anion gap metabolic acidosis at this time appears to be due to diabetic ketoacidosis. 2. Respiratory acidosis, pneumonia 3. Hypernatremia due to administration IV sodium bicarbonate. Currently on D5W and insulin infusion. Repeat BMP this afternoon 4. Hypokalemia improved, replace as Kphos if additional K riders needed Rec: resume water via NGT if no contraindication. Started on bicitra 30 ml QID. Repeat labs, may need to add bicarbonate to IV D5W Consult Attestations Medical Necessity Statement: see above Time Spent in Patient Care: 16 - 35 minutes Coding Level of Care Code Acute Code for g Fwd Diagnoses Hypernatremia E87.0
[2023-08-25 12:25] LABS: Lactate (Lactic Acid level) 1.8 mmol/L (0.5-2.2)
[2023-08-25 12:26] LABS: Ketone (Acetest) Serum Positive (Negative)
[2023-08-25 12:36] LABS: Glucose Point of Care 291 mg/dL (70-110)
--- NOTE | 2023-08-25 12:48 | P.PN_ITS ---
Subjective Subjective: This morning tachypnea, and a fever spike. Lethargic. Vitals/I&O/Wt Last Vital Signs Temp 98.6 F 08/25/23 08:00 Pulse 84 08/25/23 10:06 Resp 31 H 08/25/23 09:50 BP 124/49 08/25/23 08:00 Pulse Ox 98 08/25/23 09:50 O2 Del Method Oxymask 08/25/23 09:50 O2 Flow Rate 10 08/25/23 09:50 FiO2 40 08/21/23 17:37 08/24/23 08/25/23 08/25/23 22:59 06:59 14:59 Intake Total 400 / 2800 621 / 3421 1415.318 / 1415.318 Output Total 1200 / 1200 2850 / 4050 Balance -800 / 1600 -2229 / -629 1415.318 / 1415.318 Weight last 48 hrs Weight 133.991 kg Weight 136.078 kg Physical Exam Const: GENERAL APPEARANCE: lethargic; not cooperative ORIENTATION/CONSCIOUSNESS: Yes lethargic; not awake HENMT: COMMON NORMALS: oropharynx normal Neck/C-Spine: COMMON NORMALS: no JVD Resp: COMMON NORMALS: normal respiratory effort and clear to auscultation bilaterally EFFORT & INSPECTION: Yes tachypneic AUSCULTATION: clear to auscultation bilaterally Cardio: COMMON NORMALS: no JVD, regular rhythm, S1 normal heart sound present, S2 normal heart sound present and No murmurs present (Cardio) RHYTHM: regular rhythm HEART SOUNDS: S1 normal heart sound present and S2 normal heart sound present GI: COMMON NORMALS: Normal to inspection, nondistended, normoactive bowel sounds present, Soft to palpation and non-tender PALPATION: Yes Soft to palpation Extremity: COMMON NORMALS: no joint enlargement and no pedal edema Neuro: COMMON NORMALS: moves all extremities SENSORIUM/ORIENTATION: Yes lethargic Skin: COMMON NORMALS: no rashes or lesions noted GENERAL SKIN EXAM: no rashes or lesions noted Urinary Catheter Management: Vuong: Cath Placed During This Visit: no Data 08/25/23 04:45 08/25/23 04:45 Micro: Microbiology 08/24/23 10:22 Blood Culture - Preliminary Blood NEGATIVE TO DATE 08/24/23 10:27 Blood Culture - Preliminary Blood NEGATIVE TO DATE 08/21/23 14:52 Blood Culture - Preliminary Blood Coagulase negativ staphylococc A&P Assessment and plan (1) Metabolic acidosis: This morning tachypnea, Persistent acidosis, noted to anion gap, bicarb decreased, ABG obtained, noted metabolic acidosis 7.16/44.1/75.9. Serum awesome 323. Requested lactic acid, ketones, UA, chest x-ray. Noted in persistent ketoacidosis/HHS. Discussed his condition with his . Discussed difficult condition, risk of additional complications. Risk of mortality. Discussed restarting insulin drip. She is agreeable. Replace potassium. Resume insulin drip. Recheck chemistry. Appreciate nephrology reassessment, input. He has been started on citric acid. (2) Altered mental status: Acute metabolic encephalopathy with persistent metabolic acidosis, DKA, HHS. As well as CVA. Currently also noted pneumonia. Broaden antibiotic coverage to Zosyn, vancomycin. UA repeated. (3) Hypoxia: Noted some worsening hypoxia today, required increase in oxygen supply. Additi onally persistent metabolic encephalopathy. Worsened acidosis today. Fever this morning 100.9 Fahrenheit. Chest x-ray obtained, noted new opacity suggestive of pneumonia. Broaden antibiotic coverage with Zosyn and vancomycin. Stop ceftriaxone. Collect MRSA PCR. Collect urine bacterial antigens. Legionella antigen. Likely related to underlying known sleep apnea. Patient does not typically wear a CPAP at night however has noticed increased apneic episodes at home recently. Chest x-ray without consolidation. CTA chest negative for PE. BNP not significantly elevated, echocardiogram without signs of CHF. (4) Atrial fibrillation with RVR: 2 episodes of SVT this morning, responsive to IV metoprolol push 5 mg. Magnesium requested. Supplement potassium. Treat pneumonia. Treat DKA/HHS. Monitor on telemetry. Holding off a/c next 12-14 days to minimize risk of hemorrhagic conversion (5) Stroke: Near complete occlusion of the right M1/M2 segment MCA Dense left hemiplegia on exam Patient was not a tPA candidate as onset of symptoms appeared to have been since 08/19/2023 per 's description. Telemetry revealed A-fib with RVR on 08/22/2023.Currenlt rate controlled Echocardiogram grossly normal MRA neck without any significant occlusion ASA 81 and Atorvastatin 40 mg daily via NG Start a/c after 12-14 days per neuro recommendations, okay to continue ppx dosing for now PEG placement on Friday, currently NGT in the interim starting glucerna tube feeding today Follow-up with neuro after discharge. (6) Hypertension: Amlodipine 10 mg daily can likely resume lisinopril over next 24 hrs continue prn hydralazine (7) Hypernatremia: continue free water flushes via NGT (8) Diabetes: moderate insulin sliding scale (9) Goals of care, counseling/discussion: On goals of care discussion with his , she states that he had previously stated and had documents signed that he would not want CPR in case of c ardiopulmonary arrest. She feels in case of arrhythmia defibrillation would be appropriate if needed. Plan DVT ppx: lovenox , will likely need to start full dose anticoagulation once okay per neurology given now interim development of atrial fibrillation and concern for cardioembolic stroke. PEG tube postponed for now due to worsening his condition. Discussed with surgery. Full code Discussed with at bedside. Attestations Medical Necessity Statement*: Continue admission for assessment management of metabolic acidosis, pneumonia, DKA/HHS, acute encephalopathy, SVT, other medical problems. Coding Level of Care Code Critical Care >/= 30 minutes Critical care time (in minutes): 45 The high probability of a clinically significant, sudden or life threatening deterioration, as referenced in this documentation, required my full and direct attention, intervention and personal management. The critical care time shown is in addition to time spent performing any reported separately billable procedures and includes the following: [x] Data and vital sign review and interpretation [x ] Patient assessment, examination and intervention [x] Medication orders and management [x] Patient/Family updates as able [x] Care Coordination and Documentation. Diagnoses Metabolic acidosis E87.20 Altered mental status R41.82 Hypoxia R09.02 Atrial fibrillation with RVR I48.91 Stroke I63.9 Hypertension I10 Hypernatremia E87.0 Diabetes E11.9 Goals of care, counseling/discussion Z71.89
--- NOTE | 2023-08-25 13:29 | PC.SOCIAL ---
IMM Update pg 2 of IMM updated and reviewed w/ patient. Copy provided and copy dated, initialed and placed in chart.
[2023-08-25 13:38] LABS: Glucose Point of Care 252 mg/dL (70-110)
--- NOTE | 2023-08-25 14:18 | PC.OT ---
HOLD OT AT THIS TIME DUE TO WORSENING PATIENT CONDITION PER CHART. WILL ATTEMPT AGAIN TOMORROW.
--- NOTE | 2023-08-25 14:46 | PC.NURSE ---
Insulin gtt: no change in rate.
[2023-08-25 14:57] LABS: Glucose Point of Care 201 mg/dL (70-110)
[2023-08-25 15:46] LABS: Glucose Point of Care 162 mg/dL (70-110)
[2023-08-25] MEDS: enoxaparin 40 mg/0.4 mL Syringe SUBCUT (16:49)
[2023-08-25 16:53] LABS: Glucose Point of Care 151 mg/dL (70-110)
--- NOTE | 2023-08-25 17:30 | PC.NURSE ---
Dr Fajardo notified that pt is stirring around, he said oww when lab here working with him. His last blood sugar was 151mg/dl. HIs i nsulin is at the lowest rate of 1u/hour. Lab had difficulty drawing his BMP.
--- NOTE | 2023-08-25 17:39 | PC.NURSE ---
Insulin gtt 137mg/dl. Rate already 1u/hour. Dr Fajardo notified.
[2023-08-25 17:53] LABS: Glucose Point of Care 137 mg/dL (70-110)
[2023-08-25 18:03] LABS: Anion Gap 17.4 (5-19); Blood Urea Nitrogen 27 mg/dL (8-23); Calcium 8.7 mg/dL (8.5-10.5); Carbon Dioxide 22 mmol/L (22-29); Chloride 120 mmol/L (98-107); Glomerular Filtration Rate 74.5 mL/min (90-130); Glucose 153 mg/dL (65-115); Osmolality Calculated 330 mOsm/kg (285-295); Potassium 3.4 mmol/L (3.5-5.1); Sodium 156 mmol/L (136-145)
[2023-08-25 18:31] LABS: Glucose Point of Care 133 mg/dL (70-110)
[2023-08-25] MEDS: D5-NS 0.45% + KCL 20 mEq 20 MEQ/1,000 ML BAG 75 MEQ IV (18:34)
[2023-08-25] MEDS: piperacillin-tazobactam 3.375 GM in dextrose 5% (plus) 50 ML IV (18:35)
--- NOTE | 2023-08-25 18:52 | PC.NURSE ---
Dr Fajardo notified pt has reddish brown drainage in NG, it looks bloody. This is this nurse's third day with patient and he has not had a bowel movement yet. thanked nurse.
[2023-08-25 19:28] LABS: Anion Gap 15.4 (5-19); Blood Urea Nitrogen 25 mg/dL (8-23); Calcium 8.4 mg/dL (8.5-10.5); Carbon Dioxide 23 mmol/L (22-29); Chloride 119 mmol/L (98-107); Glomerular Filtration Rate 84.2 mL/min (90-130); Glucose 131 mg/dL (65-115); Osmolality Calculated 324 mOsm/kg (285-295); Potassium 3.4 mmol/L (3.5-5.1); Sodium 154 mmol/L (136-145)
[2023-08-25 19:34] LABS: Glucose Point of Care 140 mg/dL (70-110)
[2023-08-25] MEDS: lactulose oral liq 20 gm/30 mL UDC PO (20:40)
[2023-08-25] MEDS: bisacodyl 10 mg Supp PR (20:40)
[2023-08-25] MEDS: atorvastatin 40 mg Tablet NG-TUBE (20:41)
[2023-08-25 21:35] LABS: Glucose Point of Care 204 mg/dL (70-110)
[2023-08-25 22:30] LABS: Glucose Point of Care 233 mg/dL (70-110)
[2023-08-25 23:07] LABS: Glucose Point of Care 228 mg/dL (70-110)
[2023-08-26] VITALS (45 sets, daily range): BP systolic 117–181; BP diastolic 60–112; PULSE 63–167; RESP 13–37; TEMP 37.1–37.2; O2SAT 84–100
[2023-08-26 00:07] LABS: Glucose Point of Care 274 mg/dL (70-110)
--- NOTE | 2023-08-26 01:07 | XRR_ITS ---
PROCEDURE INFORMATION: Exam: XR Chest Exam date and time: 08/26/2023 2:37 AM Age: 68 years old Clinical indication: Shortness of breath; Additional info: Respiratory decline TECHNIQUE: Imaging protocol: Radiologic exam of the chest. Views: 1 view. COMPARISON: CR (CHEST, ) 08/25/2023 10:46 AM FINDINGS: Tubes, catheters and devices: Nasogastric tube with side hole just distal to the gastroesophageal junction and tip in the stomach. Lungs: Linear opacity in the inferior right upper lobe, appears slightly more consolidated on this exam, previously more ground-glass in appearance. Improved aeration of the left retrocardiac lung. No new focal consolidation. Pleural spaces: No large pleural effusion. No pneumothorax. Heart/Mediastinum: Unremarkable cardiomediastinal silhouette. Bones/joints: No acute abnormality. XR/XR chest 1V portable [id number] IMPRESSION: Linear opacity in the inferior right upper lobe, appears slightly more consolidated on this exam, previously more ground-glass in appearance, could represent layering pleural fluid, consolidation, or atelectasis. Improved aeration of the left retrocardiac lung. No new focal consolidation.
[2023-08-26 01:14] LABS: Glucose Point of Care 224 mg/dL (70-110)
[2023-08-26 02:15] LABS: Glucose Point of Care 245 mg/dL (70-110)
[2023-08-26] MEDS: piperacillin-tazobactam 3.375 GM in dextrose 5% (plus) 50 ML IV ×3 (02:42→18:11)
[2023-08-26] MEDS: lactulose oral liq 20 gm/30 mL UDC PO ×4 (02:43→18:11)
[2023-08-26 03:12] LABS: Glucose Point of Care 223 mg/dL (70-110)
[2023-08-26 04:17] LABS: Glucose Point of Care 203 mg/dL (70-110)
[2023-08-26] MEDS: metoprolol tartrate 1 mg/1 mL SDV 5 mL 5 MG IVP ×4 (04:26→23:11)
[2023-08-26] MEDS: vancomycin 2,000 MG/400 ML PIGGYBACK 200 MG IV ×2 (04:26→16:43)
[2023-08-26 05:04] LABS: ABG PCO2 45.8 mmHg (35-45); Alveolar-Arterial Oxygen Gradi 14.5 mmHg (5-10); Arterial Blood Gas Hematocrit 45.4 % (42-52); Base Excess ABG 2.6 mmol/L (-2.0-2.0); Blood Gas Allen Test Pos; Blood Gas Sample Site Radial, left; Blood Gas Sample Type Arterial; Carboxyhemoglobin 0.8 %THgb (0.4-20.1); HCO3 ABG 28.2 mmol/L (22-26); HGB O2 Sat 98.2 % (95-100); Ionized Calcium Level - ABG 1.2 mmol/L (1.1-1.4); Oxygen Device BIPAP; Oxygen Saturation ABG 98.9; PO2 FiO2 Ratio Arterial Blood 0; Potassium Level - ABG 3.9 mmol/L (3.5-5.0); Total Hemoglobin 14.8 g/dL (14-18)
[2023-08-26 05:14] LABS: Glucose Point of Care 196 mg/dL (70-110)
[2023-08-26 05:53] LABS: Basophils % 0.2 %; Hematocrit 46.7 % (37-53); Lymphocytes # 0.8 10^3/uL (0.8-4.8); Lymphocytes % 8.1 %; Mean Corpuscular HGB Conc 31.3 g/dL (30-55); Mean Corpuscular Hemoglobin 28.8 pg (27-33); Mean Corpuscular Volume 92.1 fl (82-101); Mean Platelet Volume 9.7 fL (7.4-10.4); Monocytes # 1.1 10^3/uL (0.2-0.9); Monocytes % 11.6 %; Neutrophils % 79.2 %; Nucleated Red Blood Cells % 0 %; Platelet Count 209 10^3/cmm (157-399); Red Blood Count 5.07 10^6/uL (3.85-5.65); Red Cell Distribution Width 15.9 % (12.1-15.1)
[2023-08-26 06:14] LABS: Glucose Point of Care 200 mg/dL (70-110)
[2023-08-26] MEDS: amiodarone 200 mg Tablet 400 MG PO ×2 (06:23→18:10)
[2023-08-26 06:35] LABS: Alanine Aminotransferase 27 U/L (0-41); Albumin Level 2.9 g/dL (3.5-5.2); Alkaline Phosphatase 59 U/L (40-130); Anion Gap 18.2 (5-19); Aspartate Amino Transferase 59 U/L (0-40); Blood Urea Nitrogen 26 mg/dL (8-23); Calcium 8.1 mg/dL (8.5-10.5); Carbon Dioxide 21 mmol/L (22-29); Chloride 123 mmol/L (98-107); Globulin 2.1 g/dL (1.3-4.6); Glomerular Filtration Rate 84.2 mL/min (90-130); Glucose 251 mg/dL (65-115); Magnesium 2.7 mg/dL (1.7-2.3); Osmolality Calculated 339 mOsm/kg (285-295); Potassium 4.2 mmol/L (3.5-5.1); Sodium 158 mmol/L (136-145); Total Bilirubin 0.6 mg/dL (0.15-1.2)
[2023-08-26 07:19] LABS: Glucose Point of Care 186 mg/dL (70-110)
--- NOTE | 2023-08-26 08:00 | PC.NURSE ---
No electrolyte replacements indicated by labs at this time.
[2023-08-26 08:10] LABS: Glucose Point of Care 208 mg/dL (70-110)
[2023-08-26] MEDS: amlodipine 10 mg Tablet PO (09:00)
[2023-08-26] MEDS: citric acid-sodium citrate 30 mL UDC PEG-TUBE ×2 (09:00→14:02)
[2023-08-26] MEDS: aspirin 81 mg Chew Tablet NG-TUBE (09:00)
[2023-08-26] MEDS: pantoprazole 40 mg SDV IVP ×2 (09:00→18:11)
[2023-08-26 09:08] LABS: Glucose Point of Care 205 mg/dL (70-110)
[2023-08-26] MEDS: dextrose 10% 1,000 ML 50 ML IV (09:50)
[2023-08-26 10:13] LABS: Glucose Point of Care 216 mg/dL (70-110)
[2023-08-26 11:10] LABS: Glucose Point of Care 221 mg/dL (70-110)
[2023-08-26 12:07] LABS: Glucose Point of Care 209 mg/dL (70-110)
[2023-08-26 13:07] LABS: Glucose Point of Care 242 mg/dL (70-110)
--- NOTE | 2023-08-26 13:15 | PC.NURSE ---
Blood sugar since 0800 remaining between 201-250. NO change indicated to rate.
[2023-08-26 14:18] LABS: Glucose Point of Care 234 mg/dL (70-110)
[2023-08-26 14:35] LABS: Anion Gap 19.8 (5-19); Blood Urea Nitrogen 25 mg/dL (8-23); Calcium 8.6 mg/dL (8.5-10.5); Carbon Dioxide 23 mmol/L (22-29); Chloride 125 mmol/L (98-107); Glomerular Filtration Rate 74.5 mL/min (90-130); Glucose 287 mg/dL (65-115); Osmolality Calculated 353 mOsm/kg (285-295); Potassium 3.8 mmol/L (3.5-5.1)
[2023-08-26 14:39] LABS: Sodium 164 mmol/L (136-145)
[2023-08-26 15:23] LABS: Glucose Point of Care 230 mg/dL (70-110)
--- NOTE | 2023-08-26 15:48 | PM.PN ---
Subjective Subjective: no significant clnical change Vitals/I&O/Wt Last Vital Signs Temp 98.6 F 08/25/23 08:00 Pulse 87 08/26/23 15:01 Resp 24 H 08/26/23 04:00 BP 164/85 08/26/23 04:00 Pulse Ox 99 08/26/23 15:01 O2 Del Method Oxymask 08/25/23 17:00 O2 Flow Rate 10 08/25/23 17:00 FiO2 40 08/26/23 15:01 08/26/23 08/26/23 08/26/23 06:59 14:59 22:59 Intake Total 467.473 / 2420.850 2.256 / 2.256 Output Total 1700 / 3000 Balance -1232.527 / -579.150 2.256 / 2.256 urine output today 1500 ml/10 hrs 1/O neg about 1500 ml/3 days Weight last 48 hrs Weight 133.81 kg Weight 133.991 kg Physical Exam Urinary Catheter Management: Vuong: Cath Placed During This Visit: yes Reason for Continuing Indwelling Catheter: Accurate Measurement of Urinary Output in Critically Ill Patients Urinary Catheter Date of Insertion: 08/21/23 Urinary Catheter Time of Insertion: 19:35 Data 08/26/23 05:05 08/26/23 14:07 Other Labs: phos 2, Mg 2.7, Ca 8.6 Micro: Microbiology 08/21/23 14:55 Blood Culture - Final Blood NO GROWTH AFTER 5 DAYS 08/25/23 14:52 Bacterial Antigens - Final Urine,Clean Catch 08/25/23 09:51 Legionella Urinary Antigen - Final Urine Catheterized 08/24/23 10:22 Blood Culture - Preliminary Blood NEGATIVE TO DATE 08/24/23 10:27 Blood Culture - Preliminary Blood NEGATIVE TO DATE ABG Interpretation 1: 08/21/23 08/21/23 08/25/23 13:03 17:25 10:00 ABG pH 7.30 L 7.24 L 7.16 L* ABG pCO2 32.0 L 33.4 L 44.1 ABG pO2 69.9 L 147.0 H 75.9 L ABG HCO3 15.6 L 14.2 L 15.8 L ABG O2 Saturation 93.5 93.0 ABG Base Excess -9.6 L -12.1 L -12.7 L 08/26/23 04:45 ABG pH 7.40 ABG pCO2 45.8 H ABG pO2 116.0 H ABG HCO3 28.2 H ABG O2 Saturation 98.9 ABG Base Excess 2.6 H Other data: seen via telemedicine with assistance of RN at bedside A&P Assessment and plan (1) Hypernatremia: Plan 1.Hypernatremia, worse. He has not achieved positive fluid balance with hypotonic fluid. Resume water via NGT 200 ml Q4h, change IVF to d5W 250 ml bolus, then 125 ml/hr. Unlikely to have diabetes insipidus. May have osmotic diuresis due to hyperglycemia. BS much better today on insulin drip. Unable to obtain real-time urine or serum osmolality. vasopressin is available if polyuria worsens. 2. Increased anion gap metabolic acidosis, resolved, discontinue bicitra 3. Hypokalemia improved, hypophosphatemia, improved. continue replacement as needed Q8 hour BMP Attestations Medical Necessity Statement*: see above Time Spent in Patient Care: 16 - 35 minutes Coding Level of Care Code Acute Code for Chg Fwd Diagnoses Hypernatremia E87.0
[2023-08-26 16:16] LABS: Glucose Point of Care 232 mg/dL (70-110)
[2023-08-26] MEDS: enoxaparin 40 mg/0.4 mL Syringe SUBCUT (16:42)
[2023-08-26] MEDS: dextrose 5% 1,000 ML 150 ML IV ×2 (16:43→23:22)
[2023-08-26 17:13] LABS: Osmolality Urine 814 mOsm/kg (50-1200)
[2023-08-26 17:20] LABS: Glucose Point of Care 230 mg/dL (70-110)
[2023-08-26 18:10] LABS: Glucose Point of Care 215 mg/dL (70-110)
[2023-08-26] MEDS: hyDRALAzine 20 mg/mL INJ 1 mL 10 MG IVP (18:11)
--- NOTE | 2023-08-26 18:22 | P.PN_ITS ---
Subjective Subjective: He is more alert this morning. Squeezes his right hand. Attempts to open eyes. Nods that he can hear me. Still lethargic, falling back asleep. Vitals/I&O/Wt Last Vital Signs Temp 98.6 F 08/25/23 08:00 Pulse 87 08/26/23 15:01 Resp 24 H 08/26/23 04:00 BP 164/85 08/26/23 04:00 Pulse Ox 99 08/26/23 15:01 O2 Del Method Oxymask 08/25/23 17:00 O2 Flow Rate 10 08/25/23 17:00 FiO2 40 08/26/23 15:01 08/26/23 08/26/23 08/26/23 06:59 14:59 22:59 Intake Total 467.473 / 2420.850 1002.256 / 1002.256 395 / 1397.256 Output Total 1700 / 3000 Balance -1232.527 / -905.719 2341.256 / 1002.256 395 / 1397.256 Weight last 48 hrs Weight 133.81 kg Weight 133.991 kg Physical Exam Const: GENERAL APPEARANCE: cooperative and lethargic ORIENTATION/CONSCIOUSNESS: Yes lethargic; not awake HENMT: COMMON NORMALS: oropharynx normal Neck/C-Spine: COMMON NORMALS: no JVD Resp: COMMON NORMALS: normal respiratory effort and clear to auscultation bilaterally EFFORT & INSPECTION: Yes tachypneic AUSCULTATION: clear to auscultation bilaterally Cardio: COMMON NORMALS: no JVD, regular rhythm, S1 normal heart sound present, S2 normal heart sound present and No murmurs present (Cardio) RHYTHM: regular rhythm HEART SOUNDS: S1 normal heart sound present and S2 normal heart sound present GI: COMMON NORMALS: Normal to inspection, nondistended, normoactive bowel sounds present, Soft to palpation and non-tender PALPATION: Yes Soft to palpation Extremity: COMMON NORMALS: no joint enlargement and no pedal edema Neuro: COMMON NORMALS: moves all extremities SENSORIUM/ORIENTATION: Yes lethargic Skin: COMMON NORMALS: no rashes or lesions noted GENERAL SKIN EXAM: no rashes or lesions noted Urinary Catheter Management: Vuong: Cath Placed During This Visit: yes Reason for Continuing Indwelling Catheter: Accurate Measurement of Urinary Output in Critically Ill Patients Urinary Catheter Date of Insertion: 08/21/23 Urinary Catheter Time of Insertion: 19:35 Data 08/26/23 05:05 08/26/23 14:07 Micro: Microbiology 08/21/23 14:55 Blood Culture - Final Blood NO GROWTH AFTER 5 DAYS 08/25/23 14:52 Bacterial Antigens - Final Urine,Clean Catch 08/25/23 09:51 Legionella Urinary Antigen - Final Urine Catheterized A&P Assessment and plan (1) Hypernatremia: This morning hyponatremia slightly worse up to 159, stop [id number], switch ed fluid to D10 to reduce sodium load. Chemistry followed up, additional worsening of sodium up to 164. Discussed with nephrology, discussed noted to have quite robust urine output, 3000 mL. Possible component of DI, appreciate nephrology assessment, note reviewed, considered unlikely at the moment, but monitor. IV fluids switched to D5. Follow-up chemistries requested. Follow-up for the morning as well. (2) Altered mental status: Mental status with slight improvement today, lethargic but now responding to some queries. Squeezing his right hand. Trying to open his eyes. DKA appears has resolved. Still suspected possible component of HHS. Multifactorial suspected secondary to acute metabolic encephalopathy. Continue management as above and below. Acute metabolic encephalopathy with persistent metabolic acidosis, DKA, HHS. Hypernatremia. As well as CVA. Also noted pneumonia. Broadeed antibiotic coverage to Zosyn, vancomycin. UA repeated, reviewed, not suggestive of UTI. (3) Metabolic acidosis: Improved. DKA resolved. Continue insulin drip for now. ABG reviewed. Acidosis is resolved. Did not start bicarbonate drip. Has been on citric acid. Noted in persistent ketoacidosis/HHS. Discussed his condition with his . Discussed difficult condition, risk of additional complications. Risk of mortality. Discussed restarting insulin drip. She is agreeable. Replace potassium. Resume insulin drip. Recheck chemistry. Appreciate nephrology reassessment, input. (4) Hypoxia: Overnight started on BiPAP, however, this morning he is waking up a bit more. Transition to OxyMask. BiPAP with sleep. Continue to treat pneumonia. DVT prophylaxis. PPI prophylaxis. Requested MRSA PCR. Reviewed urine bacterial antigens. Reviewed legionella antigen. Negative. Likely related to underlying known sleep apnea. Patient does not typically wear a CPAP at night however has noticed increased apneic episodes at home recently. Chest x-ray without consolidation. CTA chest negative for PE. BNP not significantly elevated, echocardiogram without signs of CHF. (5) Atrial fibrillation with RVR: Heart rates improved with improvement in metabolic acidosis. Magnesium reviewed. Received potassium. Repeat potassium 3.8. Treat pneumonia. Treat DKA/HHS. Monitor on telemetry. Holding off a/c next 12-14 days to minimize risk of hemorrhagic conversion (6) Stroke: Near complete occlusion of the right M1/M2 segment MCA Dense left hemiplegia on exam Patient was not a tPA candidate as onset of symptoms appeared to have been since 08/19/2023 per 's description. Telemetry revealed A-fib with RVR on 08/22/2023.Currenlt rate controlled Echocardiogram grossly normal MRA neck without any significant occlusion ASA 81 and Atorvastatin 40 mg daily via NG Start a/c after 12-14 days per neuro recommendations, okay to continue ppx dosing for now PEG placement on Friday, currently NGT in the interim starting glucerna tube feeding today Follow-up with neuro after discharge. (7) Hypertension: Blood pressure is better today. Continue to monitor. BiPAP with sleep. Amlodipine 10 mg daily continue prn hydralazine (8) Diabetes: moderate insulin sliding scale (9) Goals of care, counseling/discussion: On goals of care discussion with his , she states that he had previously stated and had documents signed that he would not want CPR in case of cardiopulmonary arrest. She feels in case of arrhythmia defibrillation would be appropriate if needed. Plan DVT ppx: lovenox , will likely need to start full dose anticoagulation once okay per neurology given now interim development of atrial fibrillation and concern for cardioembolic stroke. PEG tube postponed for now due to worsening his condition. Discussed with surgery. Attestations Medical Necessity Statement*: Continue admission for assessment management of acute encephalopathy, severe hyponatremia, possible HHS, pneumonia, status post CVA. Coding Level of Care Code Critical Care >/= 30 minutes Critical care time (in minutes): 40 The high probability of a clinically significant, sudden or life threatening deterioration, as referenced in this documentation, required my full and direct attention, intervention and personal management. The critical care time shown is in addition to time spent performing any reported separately billable procedures and includes the following: [x] Data and vital sign review and interpretation [x ] Patient assessment, examination and intervention [x] Medication orders and management [x] Patient/Family updates as able [x] Care Coordination and Documentation. Diagnoses Hypernatremia E87.0 Altered mental status R41.82 Metabolic acidosis E87.20 Hypoxia R09.02 Atrial fibrillation with RVR I48.91 Stroke I63.9 Hypertension I10 Diabetes E11.9 Goals of care, counseling/discussion Z71.89
[2023-08-26 19:13] LABS: Glucose Point of Care 229 mg/dL (70-110)
--- NOTE | 2023-08-26 19:50 | PC.NURSE ---
Shift summary: Pt continued to ret in bed throughout shift the shift. He communicated by squeezing hands today, mostly his 's hand. He remains on insulin gtt with D5% infusing. Free water NG flushes restarted. Lactulose started. He has used the BiPap at 40% for most of the shift. He was placed on Nasal cannula at end of shift, his resp rate did increased at shift change. His lung sounds were extremely diminished this am. He only needed the PRn hydralazine at brad of shift. He has maintained sinus rhythm throughout this shift. He has had 2050 ml urinary otuput. No bowel movements noted.
[2023-08-26 20:06] LABS: Glucose Point of Care 255 mg/dL (70-110)
[2023-08-26] MEDS: atorvastatin 40 mg Tablet NG-TUBE (21:07)
--- NOTE | 2023-08-26 21:14 | ECG_ITS ---
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 Measurements Intervals [place] Rate: 173 P: 0 DE: 0 QRS: -41 QRSD: 88 T: 99 QT: 218 QTc: 370 Interpretive Statements ATRIAL FIBRILLATION WITH RAPID VENTRICULAR RESPONSE WITH ABERRANT CONDUCTION OR VENTRICULAR PREMATURE COMPLEXES LEFT AXIS DEVIATION [QRS AXIS < -30] Nonspecific ST changes Compared to ECG 08/22/2023 18:36:00 Ventricular premature complex(es) now present Aberrant conduction of supraventricular beat(s) now present Electronically Signed On 08-28-2023 13:27:55 SOLE ROUGHER by Genevieve Sanchez M.D. [email or web address]
[2023-08-26] MEDS: dilTIAZem 5 mg/mL SDV 5 mL IVP (21:21)
[2023-08-26 21:24] LABS: Anion Gap 19.5 (5-19); Blood Urea Nitrogen 23 mg/dL (8-23); Calcium 8.7 mg/dL (8.5-10.5); Carbon Dioxide 23 mmol/L (22-29); Chloride 124 mmol/L (98-107); Glomerular Filtration Rate 84.2 mL/min (90-130); Glucose 288 mg/dL (65-115); Osmolality Calculated 350 mOsm/kg (285-295); Potassium 3.5 mmol/L (3.5-5.1)
[2023-08-26 21:25] LABS: Sodium 163 mmol/L (136-145)
[2023-08-26] MEDS: amiodarone 150 MG/100 ML PREMIX 400 MG IV (21:44)
[2023-08-26 22:06] LABS: Glucose Point of Care 278 mg/dL (70-110)
--- NOTE | 2023-08-26 22:09 | PC.NURSE ---
HR 180: At approximately 2114 Hr increased to 180 on monitor. No verbal response but pt will open eyes to verbal command. Zoll pads placed on chest and crash cart brought to bedside. BiPAP at bedside placed. Dr. Garcia called shortly after. New order for 5mg IVP Cardizem to be given NOW and obtain EKG. EKG taken @2118, HR 173. Cardizem given @2120. Dr. Garcia called @2125 to update on HR, BP, and critically high sodium. New order for Amio drip w/ 150 loading dose first. Order to called nephrology w/ sodium. Dr. Mays called @2128. New order for 250ml D5 to be given over 1hr and continue current D5 drip @150ml/hr. See MAR for administration of medication. at bedside.
[2023-08-26 22:17] LABS: Glucose Point of Care 247 mg/dL (70-110)
[2023-08-26 23:00] LABS: Glucose Point of Care 272 mg/dL (70-110)
[2023-08-26] MEDS: dextrose 5% 250 ML IV (23:27)
[2023-08-27] VITALS (98 sets, daily range): BP systolic 112–218; BP diastolic 54–116; PULSE 57–106; RESP 11–40; TEMP 37–37.5; O2SAT 87–100
[2023-08-27 00:03] LABS: Glucose Point of Care 225 mg/dL (70-110)
[2023-08-27] MEDS: lactulose oral liq 20 gm/30 mL UDC PO ×3 (00:10→13:10)
[2023-08-27 01:05] LABS: Glucose Point of Care 267 mg/dL (70-110)
[2023-08-27 02:10] LABS: Glucose Point of Care 268 mg/dL (70-110)
[2023-08-27] MEDS: piperacillin-tazobactam 3.375 GM in dextrose 5% (plus) 50 ML IV ×3 (02:10→18:36)
[2023-08-27 02:18] LABS: Basophils % 0.2 %; Hematocrit 48.5 % (37-53); Lymphocytes % 10.3 %; Mean Corpuscular HGB Conc 30.7 g/dL (30-55); Mean Corpuscular Hemoglobin 28.7 pg (27-33); Mean Corpuscular Volume 93.4 fl (82-101); Mean Platelet Volume 10.1 fL (7.4-10.4); Monocytes # 1.1 10^3/uL (0.2-0.9); Monocytes % 10.7 %; Neutrophils # 7.62 10^3/uL (1.8-7.7); Nucleated Red Blood Cells % 0 %; Platelet Count 207 10^3/cmm (157-399); Red Blood Count 5.19 10^6/uL (3.85-5.65); White Blood Count 9.78 10^3/uL (3.29-11.43)
[2023-08-27 02:39] LABS: Anion Gap 16.3 (5-19); Blood Urea Nitrogen 23 mg/dL (8-23); Calcium 8.6 mg/dL (8.5-10.5); Carbon Dioxide 24 mmol/L (22-29); Chloride 124 mmol/L (98-107); Glomerular Filtration Rate 74.5 mL/min (90-130); Glucose 286 mg/dL (65-115); Osmolality Calculated 346 mOsm/kg (285-295); Potassium 3.3 mmol/L (3.5-5.1)
[2023-08-27 02:48] LABS: Sodium 161 mmol/L (136-145)
[2023-08-27 03:02] LABS: Glucose Point of Care 217 mg/dL (70-110)
[2023-08-27] MEDS: vancomycin 2,000 MG/400 ML PIGGYBACK 200 MG IV ×2 (03:35→16:58)
--- NOTE | 2023-08-27 03:44 | PC.NURSE ---
Addendum entered by Donna Boateng RN 08/27/23 03:50: Additional order @0349 to decreased d5 @150ml/hr to 100ml/hr. Original Note: Stop insulin drip: New order from Dr. Garcia @0340 to stop insulin drip and give 40meq IV Potassium.
[2023-08-27 04:09] LABS: Glucose Point of Care 216 mg/dL (70-110)
[2023-08-27] MEDS: metoprolol tartrate 1 mg/1 mL SDV 5 mL 5 MG IVP ×4 (04:09→22:15)
[2023-08-27] MEDS: lidocaine 1% 5 ML in potassium chloride premix 100 ML 26.25 ML IV ×2 (04:27→23:57)
[2023-08-27 05:11] LABS: Glucose Point of Care 268 mg/dL (70-110)
[2023-08-27 06:00] LABS: Alanine Aminotransferase 23 U/L (0-41); Alkaline Phosphatase 66 U/L (40-130); Anion Gap 15.5 (5-19); Aspartate Amino Transferase 29 U/L (0-40); Blood Urea Nitrogen 21 mg/dL (8-23); Calcium 8.5 mg/dL (8.5-10.5); Carbon Dioxide 26 mmol/L (22-29); Globulin 2.7 g/dL (1.3-4.6); Potassium 3.5 mmol/L (3.5-5.1); Total Bilirubin 0.6 mg/dL (0.15-1.2)
[2023-08-27 06:03] LABS: Albumin Level 2.8 g/dL (3.5-5.2); Chloride 123 mmol/L (98-107); Glucose 271 mg/dL (65-115); Osmolality Calculated 345 mOsm/kg (285-295); Total Protein 5.5 g/dL (6.6-8.7)
[2023-08-27 06:06] LABS: Glomerular Filtration Rate 84.2 mL/min (90-130)
[2023-08-27 06:07] LABS: Glucose Point of Care 243 mg/dL (70-110)
[2023-08-27 06:07] LABS: Sodium 161 mmol/L (136-145)
--- NOTE | 2023-08-27 06:10 | PC.NURSE ---
Dr. Mays called unit for update on pt. New order to increase D5 from 100ml/hr to 150ml/hr.
[2023-08-27] MEDS: dextrose 5% 1,000 ML 150 ML IV ×3 (06:31→20:17)
--- NOTE | 2023-08-27 08:11 | PC.OT ---
HOLD OT TREATMENT THIS DATE DUE TO DECLINE IN STATUS. WILL CONTINUE TO MONITOR
[2023-08-27] MEDS: aspirin 81 mg Chew Tablet NG-TUBE (08:25)
[2023-08-27] MEDS: amlodipine 10 mg Tablet PO (08:25)
[2023-08-27] MEDS: pantoprazole 40 mg SDV IVP ×2 (08:26→18:36)
[2023-08-27 08:46] LABS: Glucose Point of Care 235 mg/dL (70-110)
--- NOTE | 2023-08-27 09:01 | PC.SOCIAL ---
IMM Update pg 2 of IMM updated w/ patients . Copy provided and Copy dated, initialed and placed in chart.
[2023-08-27] MEDS: insulin lispro 100 unit/1 mL SUBCUT ×3 (09:51→18:36)
[2023-08-27] MEDS: insulin glargine 100 units/1 mL 25 UNIT SUBCUT (09:52)
--- NOTE | 2023-08-27 10:19 | P.PN_ITS ---
Subjective Subjective: I have alerted the patient at the bedside during the last 2 days, has been improvement on his clinical status, he is no longer tachycardic and is more responsive. Despite this he continues to require BiPAP 100% of the time, yesterday a holiday was planned but patient shows symptoms of systemic d ecompensation with increased heart rate and therefore BiPAP had to be reinstated. At the moment we continue to hold on of PEG tube placement until clinical status improves or decision to proceed with intubation is made. Vitals/I&O/Wt Last Vital Signs Temp 99.2 F 08/27/23 04:30 Pulse 89 08/27/23 10:00 Resp 20 H 08/27/23 07:36 BP 127/57 08/27/23 07:36 Pulse Ox 99 08/27/23 10:00 O2 Del Method BiPAP 08/27/23 06:00 O2 Flow Rate 4 08/26/23 21:15 FiO2 30 08/27/23 10:00 08/26/23 08/27/23 08/27/23 22:59 06:59 14:59 Intake Total 2364.351 / 3456.607 2457.307 / 5913.914 400 / 400 Output Total 2049 / 2049 2150 / 4200 Balance 314.351 / 1406.607 307.307 / 1713.914 400 / 400 Weight last 48 hrs Weight 294 lb 4.8 oz Weight 295 lb Physical Exam Narrative: Patient continues to be somnolent, obeys basic commands, is able to open the eyes, is able to squeeze my hand with the right upper extremity. Abdominal exam is benign. Urinary Catheter Management: Vuong: Cath Placed During This Visit: yes Reason for Continuing Indwelling Catheter: Accurate Measurement of Urinary Output in Critically Ill Patients Urinary Catheter Date of Insertion: 08/21/23 Urinary Catheter Time of Insertion: 19:35 Data 08/27/23 02:08 08/27/23 05:10 Micro: Microbiology 08/21/23 14:55 Blood Culture - Final Blood NO GROWTH AFTER 5 DAYS 08/25/23 14:52 Bacterial Antigens - Final Urine,Clean Catch A&P Assessment and plan (1) Stroke: Plan I have reassessed the patient this morning for the possible PEG tube placement. His clinical condition appears to be improving, but he is still requires BiPAP 100% of the time. I will be willing to proceed with PEG tube placement once the patient considered to be stable from the medical standpoint and the respiratory Standpoint. This can be either improvement of his symptoms allowing for discontinuation of the BiPAP or decision to intubate for airway protection. All other management per medical ICU team. Attestations Medical Necessity Statement*: Length of stay to be determined by ICU team. Coding Level of Care Code Acute Code for [facility] Diagnoses Stroke I63.9
[2023-08-27 11:50] LABS: Glucose Point of Care 270 mg/dL (70-110)
--- NOTE | 2023-08-27 12:11 | PM.PN ---
Subjective Subjective: A fib, rapid rate last evening more alert today Vitals/I&O/Wt Last Vital Signs Temp 99.2 F 08/27/23 04:30 Pulse 89 08/27/23 10:00 Resp 20 H 08/27/23 07:36 BP 127/57 08/27/23 07:36 Pulse Ox 99 08/27/23 10:00 O2 Del Method BiPAP 08/27/23 06:00 O2 Flow Rate 4 08/26/23 21:15 FiO2 30 08/27/23 10:00 08/26/23 08/27/23 08/27/23 22:59 06:59 14:59 Intake Total 2364.351 / 3456.607 2457.307 / 5913.914 400 / 400 Output Total 2049 / 2049 2150 / 4200 Balance 314.351 / 1406.607 307.307 / 1713.914 400 / 400 Weight last 48 hrs Weight 133.492 kg Weight 133.81 kg Physical Exam Urinary Catheter Management: Vuong: Cath Placed During This Visit: yes Reason for Continuing Indwelling Catheter: Accurate Measurement of Urinary Output in Critically Ill Patients Urinary Catheter Date of Insertion: 08/21/23 Urinary Catheter Time of Insertion: 19:35 Data 08/27/23 02:08 08/27/23 13:17 Micro: Microbiology 08/21/23 14:55 Blood Culture - Final Blood NO GROWTH AFTER 5 DAYS 08/25/23 14:52 Bacterial Antigens - Final Urine,Clean Catch Other data: seen via telemedicine with assistance of RN at bedside A&P Assessment and plan (1) Hypernatremia: Plan 1. Hypernatremia. positive fluid balance yesterday 1 liter. urine output 4200. Remains hyperglycemic. Recommend continue insulin gtt, goal BS < 200, continue D5W 150 ml/hr, increase water to 250 ml Q4h. desmopressin 2 mcg SC x 1 dose, Q4 h electrolytes. Unlikely to have diabetes insipidus. May have osmotic diuresis due to hyperglycemia. Unable to obtain real-time urine or serum osmolality. vasopressin is available if polyuria worsens. 2. Hypokalemia improved, hypophosphatemia, improved. continue replacement as needed Q8 hour BMP Attestations Medical Necessity Statement*: see above Time Spent in Patient Care: Greater than 35 minutes Coding Level of Care Code Acute Code for [facility] Diagnoses Hypernatremia E87.0
--- NOTE | 2023-08-27 12:25 | PC.NUTR ---
Begin protein modular supplementation of 60ml ProSource q6 with FWFs via NG
[2023-08-27] MEDS: desmopressin 4 mcg/mL INJ 2 MCG SUBCUT (13:11)
[2023-08-27 13:42] LABS: Anion Gap 16.4 (5-19); Blood Urea Nitrogen 23 mg/dL (8-23); Calcium 8.4 mg/dL (8.5-10.5); Carbon Dioxide 23 mmol/L (22-29); Chloride 123 mmol/L (98-107); Glomerular Filtration Rate 84.2 mL/min (90-130); Glucose 297 mg/dL (65-115); Magnesium 2.8 mg/dL (1.7-2.3); Osmolality Calculated 343 mOsm/kg (285-295); Phosphorus 3.2 mg/dL (2.5-4.5); Potassium 3.4 mmol/L (3.5-5.1); Sodium 159 mmol/L (136-145)
[2023-08-27] MEDS: hyDRALAzine 20 mg/mL INJ 1 mL 10 MG IVP (14:03)
[2023-08-27] MEDS: enoxaparin 40 mg/0.4 mL Syringe SUBCUT (16:58)
[2023-08-27 17:57] LABS: Glucose Point of Care 256 mg/dL (70-110)
--- NOTE | 2023-08-27 18:53 | PM.PN ---
Subjective Subjective: More alert this morning. Answering yes/no questions. Denies pain. Not answering orientation questions. Follows directions. Vitals/I&O/Wt Last Vital Signs Temp 99.5 F 08/27/23 13:15 Pulse 72 08/27/23 17:15 Resp 23 H 08/27/23 17:15 BP 167/86 08/27/23 17:15 Pulse Ox 99 08/27/23 17:15 O2 Del Method BiPAP 08/27/23 17:15 O2 Flow Rate 4 08/27/23 16:15 FiO2 40 08/27/23 17:15 08/27/23 08/27/23 08/27/23 06:59 14:59 22:59 Intake Total 2457.307 / 5913.914 1800 / 1800 217.216 / 2017.216 Output Total 2150 / 4200 1800 / 1800 Balance 307.307 / 2230.445 0437 / 1800 -1582.784 / 217.216 Weight last 48 hrs Weight 133.492 kg Weight 133.81 kg Physical Exam Const: GENERAL APPEARANCE: cooperative ORIENTATION/CONSCIOUSNESS: Yes awake HENMT: COMMON NORMALS: oropharynx normal Neck/C-Spine: COMMON NORMALS: no JVD Resp: COMMON NORMALS: normal respiratory effort and clear to auscultation bilaterally EFFORT & INSPECTION: Yes tachypneic AUSCULTATION: clear to auscultation bilaterally Cardio: COMMON NORMALS: no JVD, regular rhythm, S1 normal heart sound present, S2 normal heart sound present and No murmurs present (Cardio) RHYTHM: regular rhythm HEART SOUNDS: S1 normal heart sound present and S2 normal heart sound present GI: COMMON NORMALS: Normal to inspection, nondistended, normoactive bowel sounds present, Soft to palpation and non-tender PALPATION: Yes Soft to palpation Extremity: COMMON NORMALS: no joint enlargement and no pedal edema Neuro: OTHER: L side hemiplegia. Skin: COMMON NORMALS: no rashes or lesions noted GENERAL SKIN EXAM: no rashes or lesions noted Urinary Catheter Management: Vuong: Cath Placed During This Visit: yes Reason for Continuing Indwelling Catheter: Accurate Measurement of Urinary Output in Critically Ill Patients Urinary Catheter Date of Insertion: 08/21/23 Urinary Catheter Time of Insertion: 19:35 Data 08/27/23 02:08 08/27/23 13:17 Micro: Microbiology 08/21/23 14:55 Blood Culture - Final Blood NO GROWTH AFTER 5 DAYS A&P Assessment and plan (1) Hypernatremia: This morning noted IV was adjusted with increase the rate of D5. Recheck sodium reviewed with the afternoon, noted with some improvement down to 159. Reviewed nephrology documentation. Concern for increased diuresis secondary to hyperglycemia with recommendation to continue insulin drip. This morning was transition to subcu insulin, held, discussed with nursing staff resume insulin drip. No initial bolus. Reassess chemistry tonight and in the morning. (2) Altered mental status: With improvement, improving metabolic encephalopathy, he is more alert, following directions. Answers yes/no questions. Not answering orientation questions. Continue to treat metabolic abnormalities. Continue to reorient. Worked with PT today. Discussed with physical therapist. Discussed with showcase trimmer. DKA appears has resolved. Multifactorial suspected secondary to acute metabolic encephalopathy. Continue management as above and below. Acute metabolic encephalopathy with persistent metabolic acidosis, DKA, HHS. Hypernatremia. As well as CVA. Also noted pneumonia. Broadeed antibiotic coverage to Zosyn, vancomycin. UA repeated, reviewed, not suggestive of UTI. (3) Metabolic acidosis: Improved. DKA resolved. Continue insulin drip for now as per nephrology recommendation. Noted in persistent ketoacidosis/HHS. Discussed his condition with his . Discussed difficult condition, risk of additional complications. Risk of mortality. Discussed restarting insulin drip. She is agreeable. Replace potassium. Resume insulin drip. Recheck chemistry. Appreciate nephrology reassessment, input. (4) Hypoxia: Continue treatment of pneumonia. Continue oxygen support. BiPAP with sleep. Continue to treat pneumonia. DVT prophylaxis. PPI prophylaxis. Requested MRSA PCR. Reviewed urine bacterial antigens. Reviewed legionella antigen. Negative. Likely related to underlying known sleep apnea. Patient does not typically wear a CPAP at night however has noticed increased apneic episodes at home recently. Chest x-ray without consolidation. CTA chest negative for PE. BNP not significantly elevated, echocardiogram without signs of CHF. (5) Atrial fibrillation with RVR: A-fib with RVR overnight, started on amiodarone drip. Held p.o. amnio for now. Continue drip. Treat pneumonia. Treat DKA/HHS. Monitor on telemetry. Holding off a/c next 12-14 days to minimize risk of hemorrhagic conversion (6) Stroke: Near complete occlusion of the right M1/M2 segment MCA Dense left hemiplegia on exam Patient was not a tPA candidate as onset of symptoms appeared to have been since 08/19/2023 per 's description. Telemetry revealed A-fib with RVR on 08/22/2023.Currenlt rate controlled Echocardiogram grossly normal MRA neck without any significant occlusion ASA 81 and Atorvastatin 40 mg daily via NG Start a/c after 12-14 days per neuro recommendations, okay to continue ppx dosing for now PEG placement on Friday, currently NGT in the interim starting glucerna tube feeding today Follow-up with neuro after discharge. (7) Hypertension: Blood pressure is better today. Continue to monitor. BiPAP with sleep. Amlodipine 10 mg daily continue prn hydralazine (8) Diabetes: moderate insulin sliding scale (9) Goals of care, counseling/discussion: On goals of care discussion with his , she states that he had previously stated and had documents signed that he would not want CPR in case of cardiopulmonary arrest. She feels in case of arrhythmia defibrillation would be appropriate if needed. Plan DVT ppx: lovenox , will likely need to start full dose anticoagulation once okay per neurology given now interim development of atrial fibrillation and concern for cardioembolic stroke. PEG tube postponed for now due to worsening his condition. Discussed with surgery. Attestations Medical Necessity Statement*: Continue admission for assessment management of acute encephalopathy, severe hyponatremia, possible HHS, pneumonia, status post CVA. Coding Level of Care Code Critical Care >/= 30 minutes Critical care time (in minutes): 40 The high probability of a clinically significant, sudden or life threatening deterioration, as referenced in this documentation, required my full and direct attention, intervention and personal management. The critical care time shown is in addition to time spent performing any reported separately billable procedures and includes the following: [x] Data and vital sign review and interpretation [x] Patient assessment, examination and intervention [x] Medication orders and management [x] Patient/Family updates as able [x] Care Coordination and Documentation. Diagnoses Hypernatremia E87.0 Altered mental status R41.82 Metabolic acidosis E87.20 Hypoxia R09.02 Atrial fibrillation with RVR I48.91 Stroke I63.9 Hypertension I10 Diabetes E11.9 Goals of care, counseling/discussion Z71.89
--- NOTE | 2023-08-27 19:32 | PC.NURSE ---
Insulin Drip: Dr. Fajardo called unit @4810, new order to restart insulin drip per protocol. Pharmacy notified of need for drip @1930. Pharmacy reported they will deliver drip to the unit.
[2023-08-27 19:42] LABS: Glucose Point of Care 251 mg/dL (70-110)
[2023-08-27] MEDS: insulin regular-human 250 UNIT in sodium chloride 0.9% 250 ML 5.05 UNIT IV (19:46)
[2023-08-27] MEDS: atorvastatin 40 mg Tablet NG-TUBE (20:11)
--- NOTE | 2023-08-27 20:12 | PC.NURSE ---
Shift summary: Pt rested in bed throughout the shift. He used BiPap in the morning, was place on 4 lpm/NC. He was able to use NC until around 1500. His respirations were in the 30's, his heart rate and BP elevated. The PRN hydralazine did not seem to help. Putting him back on BiPap, his heart rate, respirations slowed down and his BP improved. The free water flushes per NG were increased to 250ml and a protein source was stare every 6 hours. The insulin gtt was off at beginning of shift. He was started on Lantus and a sliding scale, see MAR. Desmopressin admin today. He remains on an amiodarone gtt that was started last night. No ectopy or elevated rates noted this shift. He has had 2 pasty bowel movements this shift. Lactulose discontinued. Urinary output of 1800 noted. has remained attentive at the beside hs entire stay in ICU. He had a bath an 2 linen changes today.
[2023-08-27 20:55] LABS: Glucose Point of Care 222 mg/dL (70-110)
[2023-08-27 21:55] LABS: Glucose Point of Care 222 mg/dL (70-110)
[2023-08-27 22:37] LABS: Anion Gap 12.4 (5-19); Blood Urea Nitrogen 24 mg/dL (8-23); Calcium 8.4 mg/dL (8.5-10.5); Carbon Dioxide 27 mmol/L (22-29); Chloride 121 mmol/L (98-107); Glomerular Filtration Rate 96.4 mL/min (90-130); Glucose 268 mg/dL (65-115); Osmolality Calculated 337 mOsm/kg (285-295); Potassium 3.4 mmol/L (3.5-5.1); Sodium 157 mmol/L (136-145)
--- NOTE | 2023-08-27 22:56 | PC.NURSE ---
Addendum entered by Donna Boateng RN 08/28/23 02:40: 0200 BMP resulted, K+ 3.8, New order to resume insulin drip. Original Note: Pause Insulin Drip: Notified Dr. Garcia of Potassium 3.4 on insulin drip. New order to give 40Meq IV Potassium and pause insulin drip until new 0200 BMP results.
[2023-08-27 22:57] LABS: Glucose Point of Care 211 mg/dL (70-110)
[2023-08-28] VITALS (92 sets, daily range): BP systolic 124–184; BP diastolic 58–111; PULSE 55–82; RESP 7–32; TEMP 37–37.5; O2SAT 93–99
[2023-08-28 00:40] LABS: Glucose Point of Care 220 mg/dL (70-110)
[2023-08-28] MEDS: piperacillin-tazobactam 3.375 GM in dextrose 5% (plus) 50 ML IV ×3 (02:29→17:33)
[2023-08-28 02:38] LABS: Anion Gap 12.8 (5-19); Blood Urea Nitrogen 26 mg/dL (8-23); Calcium 8.2 mg/dL (8.5-10.5); Carbon Dioxide 27 mmol/L (22-29); Chloride 118 mmol/L (98-107); Glomerular Filtration Rate 96.4 mL/min (90-130); Glucose 285 mg/dL (65-115); Osmolality Calculated 333 mOsm/kg (285-295); Potassium 3.8 mmol/L (3.5-5.1); Sodium 154 mmol/L (136-145)
[2023-08-28 02:50] LABS: Glucose Point of Care 276 mg/dL (70-110)
[2023-08-28] MEDS: dextrose 5% 1,000 ML 150 ML IV ×2 (03:26→09:31)
[2023-08-28 03:53] LABS: Glucose Point of Care 254 mg/dL (70-110)
--- NOTE | 2023-08-28 03:59 | PC.NURSE ---
Addendum entered by Donna Boateng RN 08/28/23 05:50: Reported vanc trough of 19 to Nicole, pharmacist. Nicole recommended to given this dose of vanc and reported she will enter next vanc trough. Original Note: Vanc Trough: Contacted pharmacy @[phone] with concerns of need for vanc trough. Pharmacy reported that they will look into this and to hold off on giving vanc dose.
[2023-08-28] MEDS: metoprolol tartrate 1 mg/1 mL SDV 5 mL 5 MG IVP ×4 (04:32→21:50)
[2023-08-28 04:57] LABS: Glucose Point of Care 267 mg/dL (70-110)
[2023-08-28 05:41] LABS: Alanine Aminotransferase 20 U/L (0-41); Albumin Level 2.8 g/dL (3.5-5.2); Alkaline Phosphatase 61 U/L (40-130); Anion Gap 15.2 (5-19); Aspartate Amino Transferase 21 U/L (0-40); Blood Urea Nitrogen 28 mg/dL (8-23); Carbon Dioxide 23 mmol/L (22-29); Chloride 119 mmol/L (98-107); Globulin 2.1 g/dL (1.3-4.6); Glomerular Filtration Rate 96.4 mL/min (90-130); Glucose 292 mg/dL (65-115); Osmolality Calculated 332 mOsm/kg (285-295); Potassium 4.2 mmol/L (3.5-5.1); Sodium 153 mmol/L (136-145); Total Bilirubin 0.8 mg/dL (0.15-1.2); Total Protein 4.9 g/dL (6.6-8.7)
[2023-08-28] MEDS: vancomycin 2,000 MG/400 ML PIGGYBACK 200 MG IV ×2 (06:01→19:21)
[2023-08-28 06:18] LABS: Glucose Point of Care 243 mg/dL (70-110)
[2023-08-28 06:28] LABS: Basophils % 0.3 %; Eosinophils % 0.3 %; Hematocrit 44.4 % (37-53); Lymphocytes # 1.6 10^3/uL (0.8-4.8); Lymphocytes % 19.6 %; Mean Corpuscular HGB Conc 30.6 g/dL (30-55); Mean Corpuscular Hemoglobin 28.7 pg (27-33); Mean Corpuscular Volume 93.7 fl (82-101); Monocytes # 0.7 10^3/uL (0.2-0.9); Monocytes % 9.3 %; Neutrophils # 5.51 10^3/uL (1.8-7.7); Neutrophils % 69.7 %; Nucleated Red Blood Cells % 0 %; Platelet Count 152 10^3/cmm (157-399); Red Blood Count 4.74 10^6/uL (3.85-5.65); Red Cell Distribution Width 15.8 % (12.1-15.1); White Blood Count 7.89 10^3/uL (3.29-11.43)
[2023-08-28 07:09] LABS: Glucose Point of Care 222 mg/dL (70-110)
[2023-08-28] MEDS: aspirin 81 mg Chew Tablet NG-TUBE (08:13)
[2023-08-28] MEDS: amlodipine 10 mg Tablet PO (08:13)
[2023-08-28] MEDS: pantoprazole 40 mg SDV IVP ×2 (08:19→17:33)
[2023-08-28 08:42] LABS: Glucose Point of Care 176 mg/dL (70-110)
[2023-08-28 09:22] LABS: Anion Gap 11.5 (5-19); Blood Urea Nitrogen 26 mg/dL (8-23); Calcium 8.2 mg/dL (8.5-10.5); Carbon Dioxide 28 mmol/L (22-29); Chloride 118 mmol/L (98-107); Glomerular Filtration Rate 112.5 mL/min (90-130); Glucose 209 mg/dL (65-115); Osmolality Calculated 329 mOsm/kg (285-295); Potassium 3.5 mmol/L (3.5-5.1); Sodium 154 mmol/L (136-145)
[2023-08-28 09:29] LABS: Glucose Point of Care 161 mg/dL (70-110)
[2023-08-28] MEDS: acetaminophen 325 mg Tablet 650 MG PO (11:19)
[2023-08-28 12:26] LABS: Glucose Point of Care 201 mg/dL (70-110)
[2023-08-28 14:00] LABS: Methicillin-Resist S.aureu PCR NOT DETECTED (NOT DETECTED)
[2023-08-28 14:23] LABS: Glucose Point of Care 190 mg/dL (70-110)
[2023-08-28] MEDS: enoxaparin 40 mg/0.4 mL Syringe SUBCUT (15:38)
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
[2023-08-28 15:50] LABS: Glucose Point of Care 198 mg/dL (70-110)
[2023-08-28] MEDS: dextrose 5% 1,000 ML 100 ML IV (17:33)
[2023-08-28 17:44] LABS: Glucose Point of Care 200 mg/dL (70-110)
[2023-08-28 19:14] LABS: Glucose Point of Care 207 mg/dL (70-110)
--- NOTE | 2023-08-28 19:49 | PM.PN ---
Subjective Subjective: more alert, on NC oxygen Vitals/I&O/Wt Last Vital Signs Temp 98.9 F 08/28/23 19:17 Pulse 76 08/28/23 19:17 Resp 28 H 08/28/23 19:17 BP 154/77 08/28/23 19:17 Pulse Ox 97 08/28/23 19:17 O2 Del Method Nasal Cannula 08/28/23 19:17 O2 Flow Rate 2 08/28/23 19:17 FiO2 30 08/28/23 11:10 08/28/23 08/28/23 08/28/23 06:59 14:59 22:59 Intake Total 2117.258 / 6433.381 1939.194 / 2223.863 3897.133 / 2983.327 Output Total 1300 / 3100 1650 / 1650 Balance 817.258 / 3333.381 1939.194 / 1939.194 -605.867 / 1333.327 Weight last 48 hrs Weight 134.173 kg Weight 133.492 kg Physical Exam Urinary Catheter Management: Vuong: Cath Placed During This Visit: yes Reason for Continuing Indwelling Catheter: Accurate Measurement of Urinary Output in Critically Ill Patients Urinary Catheter Date of Insertion: 08/21/23 Urinary Catheter Time of Insertion: 19:35 Data 08/28/23 06:16 08/28/23 08:47 Micro: Microbiology 08/21/23 14:52 Blood Culture - Final Blood Staph capitis sub ureolyticus Other data: seen via telemedicine with assitance of RN at bedside A&P Assessment and plan (1) Hypernatremia: Plan 1. Hypernatremia. Improving, continue insulin gtt, goal BS < 200, continue D5W 100 ml/hr, NGT water 250 ml Q4h. Unable to obtain real-time urine or serum osmolality. vasopressin is available if polyuria worsens. 2. Hypokalemia improved, hypophosphatemia, improved. continue replacement as needed Attestations Medical Necessity Statement*: see above Time Spent in Patient Care: 16 - 35 minutes Coding Level of Care Code Acute Code for Chg Fwd Diagnoses Hypernatremia E87.0
[2023-08-28 20:11] LABS: Glucose Point of Care 194 mg/dL (70-110)
[2023-08-28] MEDS: atorvastatin 40 mg Tablet NG-TUBE (20:15)
[2023-08-28] MEDS: hyDRALAzine 20 mg/mL INJ 1 mL 10 MG IVP (20:16)
[2023-08-28] MEDS: potassium chloride oral liq 20 mEq/15 mL UDC PO (20:16)
[2023-08-28 20:56] LABS: Blood Urea Nitrogen 20 mg/dL (8-23); Calcium 7.9 mg/dL (8.5-10.5); Carbon Dioxide 25 mmol/L (22-29); Chloride 115 mmol/L (98-107); Glomerular Filtration Rate 165.9 mL/min (90-130); Glucose 232 mg/dL (65-115); Magnesium 2.4 mg/dL (1.7-2.3); Osmolality Calculated 324 mOsm/kg (285-295); Phosphorus 3.3 mg/dL (2.5-4.5); Sodium 152 mmol/L (136-145)
[2023-08-28 20:57] LABS: Anion Gap 15.6 (5-19); Potassium 3.6 mmol/L (3.5-5.1)
[2023-08-28 21:08] LABS: Glucose Point of Care 204 mg/dL (70-110)
[2023-08-28 22:05] LABS: Glucose Point of Care 198 mg/dL (70-110)
[2023-08-28 23:09] LABS: Glucose Point of Care 203 mg/dL (70-110)
[2023-08-28 23:58] LABS: Glucose Point of Care 189 mg/dL (70-110)
[2023-08-29] VITALS (27 sets, daily range): BP systolic 136–176; BP diastolic 59–94; PULSE 55–76; RESP 17–28; TEMP 36.6–37.4; O2SAT 94–98
[2023-08-29 01:03] LABS: Glucose Point of Care 195 mg/dL (70-110)
[2023-08-29] MEDS: piperacillin-tazobactam 3.375 GM in dextrose 5% (plus) 50 ML IV ×3 (02:07→17:01)
[2023-08-29 02:13] LABS: Glucose Point of Care 184 mg/dL (70-110)
[2023-08-29] MEDS: dextrose 5% 1,000 ML 100 ML IV ×2 (03:04→14:34)
[2023-08-29 03:09] LABS: Glucose Point of Care 176 mg/dL (70-110)
[2023-08-29] MEDS: metoprolol tartrate 1 mg/1 mL SDV 5 mL 5 MG IVP ×4 (03:59→22:11)
[2023-08-29 04:10] LABS: Glucose Point of Care 172 mg/dL (70-110)
[2023-08-29 05:07] LABS: Glucose Point of Care 197 mg/dL (70-110)
[2023-08-29 05:57] LABS: Basophils % 0.3 %; Eosinophils # 0.1 10^3/uL (0.0-0.8); Eosinophils % 1.4 %; Hematocrit 42.8 % (37-53); Lymphocytes # 1.7 10^3/uL (0.8-4.8); Lymphocytes % 18.3 %; Mean Corpuscular HGB Conc 31.3 g/dL (30-55); Mean Corpuscular Hemoglobin 28.7 pg (27-33); Mean Corpuscular Volume 91.6 fl (82-101); Mean Platelet Volume 10.7 fL (7.4-10.4); Monocytes # 0.7 10^3/uL (0.2-0.9); Neutrophils % 71.1 %; Nucleated Red Blood Cells % 0 %; Platelet Count 154 10^3/cmm (157-399); Red Blood Count 4.67 10^6/uL (3.85-5.65); Red Cell Distribution Width 14.6 % (12.1-15.1); White Blood Count 9.01 10^3/uL (3.29-11.43)
[2023-08-29 06:03] LABS: Glucose Point of Care 216 mg/dL (70-110)
[2023-08-29] MEDS: vancomycin 2,000 MG/400 ML PIGGYBACK 200 MG IV ×2 (06:04→19:25)
[2023-08-29] MEDS: hyDRALAzine 20 mg/mL INJ 1 mL 10 MG IVP (06:05)
[2023-08-29 06:10] LABS: Alanine Aminotransferase 16 U/L (0-41); Albumin Level 2.6 g/dL (3.5-5.2); Alkaline Phosphatase 56 U/L (40-130); Anion Gap 14.8 (5-19); Aspartate Amino Transferase 18 U/L (0-40); Blood Urea Nitrogen 18 mg/dL (8-23); Calcium 7.8 mg/dL (8.5-10.5); Carbon Dioxide 25 mmol/L (22-29); Chloride 112 mmol/L (98-107); Globulin 2.3 g/dL (1.3-4.6); Glomerular Filtration Rate 165.9 mL/min (90-130); Glucose 216 mg/dL (65-115); Osmolality Calculated 314 mOsm/kg (285-295); Phosphorus 3.4 mg/dL (2.5-4.5); Potassium 3.8 mmol/L (3.5-5.1); Sodium 148 mmol/L (136-145); Total Bilirubin 1.1 mg/dL (0.15-1.2); Total Protein 4.9 g/dL (6.6-8.7)
[2023-08-29 07:23] LABS: Glucose Point of Care 182 mg/dL (70-110)
[2023-08-29 07:53] LABS: Glucose Point of Care 181 mg/dL (70-110)
--- NOTE | 2023-08-29 07:58 | PC.NURSE ---
repositioned at this time in room responds with few verbal response no c/o pain at this time
[2023-08-29] MEDS: potassium chloride oral liq 20 mEq/15 mL UDC PO (08:06)
[2023-08-29] MEDS: amlodipine 10 mg Tablet PO (08:06)
[2023-08-29] MEDS: pantoprazole 40 mg SDV IVP ×2 (08:06→17:01)
[2023-08-29] MEDS: aspirin 81 mg Chew Tablet NG-TUBE (08:06)
--- NOTE | 2023-08-29 08:56 | PC.SOCIAL ---
IMM Update pg 2 of IMM updated and reviewed w/ patient's . Copy provided and copy dated, initialed and placed in chart.
[2023-08-29 09:02] LABS: Glucose Point of Care 208 mg/dL (70-110)
--- NOTE | 2023-08-29 09:08 | P.PN_ITS ---
Subjective Subjective: na improving Medications: Reviewed: Yes Vitals/I&O/Wt Last Vital Signs Temp 98.3 F 08/29/23 04:00 Pulse 65 08/29/23 08:23 Resp 25 H 08/29/23 08:00 BP 145/63 08/29/23 08:00 Pulse Ox 96 08/29/23 08:23 O2 Del Method Nasal Cannula 08/29/23 08:23 O2 Flow Rate 2 08/29/23 08:23 FiO2 22 08/29/23 04:00 08/28/23 08/29/23 08/29/23 22:59 06:59 14:59 Intake Total 1494.133 / 3433.327 1738.093 / 5171.420 450 / 450 Output Total 2350 / 2350 900 / 3250 Balance -855.867 / 1083.327 838.093 / 1921.420 450 / 450 Weight last 48 hrs Weight 136.985 kg Weight 134.173 kg Physical Exam Narrative: no distress Urinary Catheter Management: Vuong: Cath Placed During This Visit: yes Reason for Continuing Indwelling Catheter: Accurate Measurement of Urinary Output in Critically Ill Patients Urinary Catheter Date of Insertion: 08/21/23 Urinary Catheter Time of Insertion: 19:35 Data 08/29/23 05:00 08/29/23 05:00 Micro: Microbiology 08/21/23 14:52 Blood Culture - Final Blood Staph capitis sub ureolyticus A&P Assessment and plan (1) Hypernatremia: Plan 1. Hypernatremia. Improving, on insulin gtt for goal BS < 200, on D5W 100 ml/hr- decrease to 75 cc/hr , NGT water 250 ml Q4h. Unable to obtain real-time urine or serum osmolality. s/p SC vasopressin on 08/27. Can give another dose vasopressin if polyuria worsens. 2. Hypokalemia improved, hypophosphatemia, improved. continue replacement as nee ded 3. AMS 4. CVA 5. s/p DKA Attestations Medical Necessity Statement*: per medicien team Coding Level of Care Code Acute Code for Chg Fwd Diagnoses Hypernatremia E87.0
[2023-08-29 09:54] LABS: Glucose Point of Care 210 mg/dL (70-110)
[2023-08-29] MEDS: amiodarone 200 mg Tablet 400 MG NG-TUBE ×2 (10:21→17:02)
--- NOTE | 2023-08-29 11:16 | PM.PN ---
Subjective Subjective: Except to voice. Nods answers to questions. Denies pain or discomfort. Vitals/I&O/Wt Last Vital Signs Temp 98.3 F 08/29/23 04:00 Pulse 76 08/29/23 10:00 Resp 22 H 08/29/23 10:00 BP 150/64 08/29/23 10:00 Pulse Ox 98 08/29/23 10:00 O2 Del Method Nasal Cannula 08/29/23 08:23 O2 Flow Rate 2 08/29/23 08:23 FiO2 22 08/29/23 04:00 08/28/23 08/29/23 08/29/23 22:59 06:59 14:59 Intake Total 1494.133 / 3433.327 1738.093 / 5171.420 690 / 690 Output Total 2350 / 2350 900 / 3250 Balance -855.867 / 1083.327 838.093 / 1921.420 690 / 690 Weight last 48 hrs Weight 136.985 kg Weight 134.173 kg Physical Exam Narrative: Accompanied by his at bedside. Const: GENERAL APPEARANCE: cooperative and lethargic ORIENTATION/CONSCIOUSNESS: Yes awake and Yes lethargic HENMT: COMMON NORMALS: oropharynx normal Neck/C-Spine: COMMON NORMALS: no JVD Resp: COMMON NORMALS: normal respiratory effort and clear to auscultation bilaterally EFFORT & INSPECTION: Yes tachypneic AUSCULTATION: clear to auscultation bilaterally Cardio: COMMON NORMALS: no JVD, regular rhythm, S1 normal heart sound present, S2 normal heart sound present and No murmurs present (Cardio) RHYTHM: regular rhythm HEART SOUNDS: S1 normal heart sound present and S2 normal heart sound present GI: COMMON NORMALS: Normal to inspection, nondistended, normoactive bowel sounds present, Soft to palpation and non-tender PALPATION: Yes Soft to palpation Extremity: COMMON NORMALS: no joint enlargement and no pedal edema NARRATIVE EXTREMITY EXAM: Swelling of the right forearm, hand, elevated on pillow. Neuro: COMMON NORMALS: moves all extremities SENSORIUM/ORIENTATION: Yes lethargic OTHER: L side hemiplegia. Skin: COMMON NORMALS: no rashes or lesions noted GENERAL SKIN EXAM: no rashes or lesions noted Urinary Catheter Management: Vuong: Cath Placed During This Visit: yes Reason for Continuing Indwelling Catheter: Accurate Measurement of Urinary Output in Critically Ill Patients Urinary Catheter Date of Insertion: 08/21/23 Urinary Catheter Time of Insertion: 19:35 Data 08/29/23 05:00 08/29/23 05:00 Micro: Microbiology 08/24/23 10:22 Blood Culture - Final Blood NO GROWTH AFTER 5 DAYS 08/24/23 10:27 Blood Culture - Final Blood NO GROWTH AFTER 5 DAYS 08/21/23 14:52 Blood Culture - Final Blood Staph capitis sub ureolyticus A&P Assessment and plan (1) Hypernatremia: With no improvement. Still with polyuria. Appreciate nephrology assessment, reviewed documentation. Given desmopressin. Continue to monitor urine output. Reassess chemistries. Insulin demand has come down, currently down to 1 unit/h. Will switch to subcutaneous insulin at this time. Continue to monitor blood glucose. Reviewed vitals, CBC, CMP. Reviewed nephrology documentation. Continues with D5W. Increased urine output. Risk of fluid overload, risk of hyponatremia. Monitor electrolytes. Volume status. (2) Altered mental status: With improvement, improving metabolic encephalopathy, he is more alert, following directions. Metabolic abnormalities have been gradually improving, although not yet ready for discharge. Needing significant support. Discussed with case management director, working on plans for placement after hospitalization. Answers yes/no questions. Not answering orientation questions. Continue to treat metabolic abnormalities. Continue to reorient. Continue treatment of severe hypernatremia, pneumonia. DKA appears has resolved. Multifactorial suspected secondary to acute metabolic encephalopathy. Continue management as above and below. Acute metabolic encephalopathy with persistent metabolic acidosis, DKA, HHS. Hypernatremia. As well as CVA. Also noted pneumonia. Broadeed antibiotic coverage to Zosyn, vancomycin. UA repeated, reviewed, not suggestive of UTI. (3) Metabolic acidosis: Improved. DKA resolved. Continue insulin drip for now as per nephrology recommendation. Noted in persistent ketoacidosis/HHS. Discussed his condition with his . Discussed difficult condition, risk of additional complications. Risk of mortality. Discussed restarting insulin drip. She is agreeable. Replace potassium. Resume insulin drip. Recheck chemistry. Appreciate nephrology reassessment, input. (4) Hypoxia: Continue treatment of pneumonia. Continue oxygen support. BiPAP with sleep. Continue to treat pneumonia. DVT prophylaxis. PPI prophylaxis. Requested MRSA PCR. Reviewed urine bacterial antigens. Reviewed legionella antigen. Negative. Likely related to underlying known sleep apnea. Patient does not typically wear a CPAP at night however has noticed increased apneic episodes at home recently. Chest x-ray without consolidation. CTA chest negative for PE. BNP not significantly elevated, echocardiogram without signs of CHF. (5) Atrial fibrillation with RVR: A-fib with RVR on amiodarone drip. Held p.o. amnio for now. Continue drip. Treat pneumonia and metabolic abnormality. Monitor on telemetry. Holding off a/c next 12-14 days to minimize risk of hemorrhagic conversion (6) Stroke: Unable to tolerate oral intake at this time. Discussed with e business consultantJustin via NGT. 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 Telemetry revealed A-fib with RVR on 08/22/2023.Currenlt rate controlled Echocardiogram grossly normal MRA neck without any significant occlusion ASA 81 and Atorvastatin 40 mg daily via NG Start a/c after 12-14 days per neuro recommendations, okay to continue ppx dosing for now PEG placement on Friday, currently NGT in the interim starting glucerna tube feeding today Follow-up with neuro after discharge. (7) Hypertension: Blood pressure is better today. Continue to monitor. BiPAP with sleep. Amlodipine 10 mg daily continue prn hydralazine (8) Diabetes: moderate insulin sliding scale (9) Goals of care, counseling/discussion: On goals of care discussion with his , she states that he had previously stated and had documents signed that he would not want CPR in case of cardiopulmonary arrest. She feels in case of arrhythmia defibrillation would be appropriate if needed. Plan DVT ppx: lovenox , will likely need to start full dose anticoagulation once okay per neurology given now interim development of atrial fibrillation and concern for cardioembolic stroke. Reassessed by surgery, PEG tube has been for now postponed. Reviewed surgery documentation. Attestations Medical Necessity Statement*: Continue admission for assessment management of acute encephalopathy, severe hyponatremia, possible HHS, pneumonia, status post CVA. Diagnoses Hypernatremia E87.0 Altered mental status R41.82 Metabolic acidosis E87.20 Hypoxia R09.02 Atrial fibrillation with RVR I48.91 Stroke I63.9 Hypertension I10 Diabetes E11.9 Goals of care, counseling/discussion Z71.89
[2023-08-29 11:24] LABS: Glucose Point of Care 202 mg/dL (70-110)
[2023-08-29] MEDS: insulin glargine 100 units/1 mL 25 UNIT SUBCUT (11:50)
[2023-08-29 13:16] LABS: Glucose Point of Care 197 mg/dL (70-110)
[2023-08-29 14:13] LABS: Glucose Point of Care 192 mg/dL (70-110)
--- NOTE | 2023-08-29 14:45 | PC.NURSE ---
repositioned and linen changed under pt pablo care done at this time noted discolored areas on bottom optifoam applied to help prevent pressure to area urine emptied one liter out... ammio gtt off and monitor blood sugars at this time at bedside and lotion applied to dry areas legs
[2023-08-29 16:06] LABS: Anion Gap 14.8 (5-19); Blood Urea Nitrogen 17 mg/dL (8-23); Calcium 8.1 mg/dL (8.5-10.5); Carbon Dioxide 23 mmol/L (22-29); Chloride 110 mmol/L (98-107); Glomerular Filtration Rate 165.9 mL/min (90-130); Glucose 219 mg/dL (65-115); Osmolality Calculated 306 mOsm/kg (285-295); Potassium 3.8 mmol/L (3.5-5.1); Sodium 144 mmol/L (136-145)
[2023-08-29] MEDS: enoxaparin 40 mg/0.4 mL Syringe SUBCUT (17:02)
[2023-08-29 17:17] LABS: Glucose Point of Care 184 mg/dL (70-110)
[2023-08-29] MEDS: insulin lispro 100 unit/1 mL SUBCUT ×2 (18:22→23:11)
[2023-08-29 19:34] LABS: Vancomycin Trough 14.9 ug/mL (10-15)
[2023-08-29] MEDS: atorvastatin 40 mg Tablet NG-TUBE (20:54)
[2023-08-30] VITALS (21 sets, daily range): BP systolic 143–174; BP diastolic 70–79; PULSE 59–83; RESP 16–31; TEMP 36.3–36.9; O2SAT 93–97
[2023-08-30] MEDS: piperacillin-tazobactam 3.375 GM in dextrose 5% (plus) 50 ML IV ×3 (01:05→19:02)
[2023-08-30] MEDS: dextrose 5% 1,000 ML 100 ML IV ×2 (01:06→13:42)
[2023-08-30] MEDS: metoprolol tartrate 1 mg/1 mL SDV 5 mL 5 MG IVP ×3 (04:01→16:26)
[2023-08-30 04:09] LABS: Basophils % 0.3 %; Eosinophils # 0.2 10^3/uL (0.0-0.8); Eosinophils % 2.6 %; Hematocrit 42.2 % (37-53); Lymphocytes # 1.7 10^3/uL (0.8-4.8); Mean Corpuscular HGB Conc 32.5 g/dL (30-55); Mean Corpuscular Hemoglobin 28.7 pg (27-33); Mean Corpuscular Volume 88.3 fl (82-101); Mean Platelet Volume 10.2 fL (7.4-10.4); Monocytes # 0.8 10^3/uL (0.2-0.9); Monocytes % 8.8 %; Neutrophils # 5.94 10^3/uL (1.8-7.7); Neutrophils % 67.5 %; Nucleated Red Blood Cells % 0 %; Platelet Count 151 10^3/cmm (157-399); Red Blood Count 4.78 10^6/uL (3.85-5.65); Red Cell Distribution Width 14.1 % (12.1-15.1); White Blood Count 8.82 10^3/uL (3.29-11.43)
[2023-08-30 04:29] LABS: Blood Urea Nitrogen 15 mg/dL (8-23); Carbon Dioxide 24 mmol/L (22-29); Chloride 109 mmol/L (98-107); Glomerular Filtration Rate 165.9 mL/min (90-130); Glucose 161 mg/dL (65-115); Osmolality Calculated 302 mOsm/kg (285-295); Sodium 144 mmol/L (136-145)
[2023-08-30 04:31] LABS: Anion Gap 14.5 (5-19); Potassium 3.5 mmol/L (3.5-5.1)
[2023-08-30 04:34] LABS: Magnesium 2.4 mg/dL (1.7-2.3)
[2023-08-30 05:59] LABS: Glucose Point of Care 143 mg/dL (70-110)
[2023-08-30] MEDS: vancomycin 2,000 MG/400 ML PIGGYBACK 200 MG IV ×2 (06:03→19:03)
[2023-08-30] MEDS: insulin lispro 100 unit/1 mL SUBCUT ×3 (06:03→18:37)
[2023-08-30] MEDS: aspirin 81 mg Chew Tablet NG-TUBE (08:49)
[2023-08-30] MEDS: amiodarone 200 mg Tablet 400 MG NG-TUBE ×2 (08:49→18:37)
[2023-08-30] MEDS: amlodipine 10 mg Tablet PO (08:49)
[2023-08-30] MEDS: potassium chloride oral liq 20 mEq/15 mL UDC PO (08:49)
[2023-08-30] MEDS: pantoprazole 40 mg SDV IVP ×2 (08:50→18:44)
--- NOTE | 2023-08-30 10:50 | PM.PN ---
Subjective Subjective: pt stable Medications: Reviewed: Yes Vitals/I&O/Wt Last Vital Signs Temp 98.5 F 08/30/23 08:00 Pulse 68 08/30/23 10:00 Resp 26 H 08/30/23 10:00 BP 161/71 08/30/23 10:00 Pulse Ox 97 08/30/23 10:00 O2 Del Method Nasal Cannula 08/30/23 09:36 O2 Flow Rate 2 08/30/23 09:36 FiO2 22 08/29/23 04:00 08/29/23 08/30/23 08/30/23 22:59 06:59 14:59 Intake Total 1025.469 / 3015.469 1800 / 4815.469 400 / 400 Output Total 1600 / 1600 1000 / 2600 Balance -574.531 / 1415.469 800 / 2215.469 400 / 400 Weight last 48 hrs Weight 138.981 kg Weight 136.985 kg Weight 140.977 kg Physical Exam Narrative: no distress Urinary Catheter Management: Vuong: Cath Placed During This Visit: yes Reason for Continuing Indwelling Catheter: Accurate Measurement of Urinary Output in Critically Ill Patients Urinary Catheter Date of Insertion: 08/21/23 Urinary Catheter Time of Insertion: 19:35 Data 08/30/23 03:33 08/30/23 03:33 Micro: Microbiology 08/24/23 10:22 Blood Culture - Final Blood NO GROWTH AFTER 5 DAYS 08/24/23 10:27 Blood Culture - Final Blood NO GROWTH AFTER 5 DAYS A&P Assessment and plan (1) Hypernatremia: Plan 1. Hypernatremia. Improving, on insulin gtt for goal BS < 200, on D5W 75 cc/hr , NGT water 250 ml Q4h. Unable to obtain real-time urine or serum osmolality. s/p SC vasopressin on 08/27. Can give another dose vasopressin if polyuria worsens. 2. Hypokalemia improved, hypophosphatemia, improved. continue replacement as needed 3. AMS 4. CVA 5. s/p DKA Attestations Medical Necessity Statement*: per medicine team Coding Level of Care Code Acute Code for Chg Fwd Diagnoses Hypernatremia E87.0
[2023-08-30 12:06] LABS: Glucose Point of Care 144 mg/dL (70-110)
--- NOTE | 2023-08-30 15:35 | PC.NURSE ---
report given to 2nd floor and transfered to 262 on bed
[2023-08-30] MEDS: enoxaparin 40 mg/0.4 mL Syringe SUBCUT (16:25)
[2023-08-30 17:15] LABS: Glucose Point of Care 142 mg/dL (70-110)
[2023-08-30 20:00] LABS: Glucose Point of Care 150 mg/dL (70-110)
[2023-08-30 21:17] LABS: Glucose Point of Care 328 mg/dL (70-110)
[2023-08-30] MEDS: atorvastatin 40 mg Tablet NG-TUBE (21:36)
--- NOTE | 2023-08-30 22:39 | P.PN_ITS ---
Subjective Subjective: Wakes up to voice. Denies pain or discomfort other than feels some pain in his right ear, feels like he may be developing an ear infection. Vitals/I&O/Wt Last Vital Signs Temp 97.9 F 08/30/23 19:32 Pulse 60 08/30/23 19:32 Resp 16 08/30/23 19:32 BP 151/72 08/30/23 19:32 Pulse Ox 93 08/30/23 19:32 O2 Del Method Nasal Cannula 08/30/23 19:32 O2 Flow Rate 1 08/30/23 19:32 FiO2 22 08/29/23 04:00 08/30/23 08/30/23 08/30/23 06:59 14:59 22:59 Intake Total 1800 / 4815.469 2690 / 2690 580 / 3270 Output Total 1000 / 2600 1600 / 1600 850 / 2450 Balance 800 / 2215.469 1090 / 1090 -270 / 820 Weight last 48 hrs Weight 138.981 kg Weight 136.985 kg Weight 140.977 kg Physical Exam Narrative: Accompanied by his at bedside. Const: GENERAL APPEARANCE: cooperative and lethargic ORIENTATION/CONSCIOUSNESS: Yes awake and Yes lethargic HENMT: COMMON NORMALS: oropharynx normal OTHER: Tympanic membranes opacified bilaterally. There is perhaps slight irritation in the EAM on the right side, but I was not able to see any obvious signs of infection. No Yoandy tympanic fluid collection or perforation. Neck/C-Spine: COMMON NORMALS: no JVD Resp: COMMON NORMALS: normal respiratory effort and clear to auscultation bilaterally EFFORT & INSPECTION: Yes tachypneic AUSCULTATION: clear to auscultation bilaterally Cardio: COMMON NORMALS: no JVD, regular rhythm, S1 normal heart sound present, S2 normal heart sound present and No murmurs present (Cardio) RHYTHM: regular rhythm HEART SOUNDS: S1 normal heart sound present and S2 normal heart sound present GI: COMMON NORMALS: Normal to inspection, nondistended, normoactive bowel sounds present, Soft to palpation and non-tender PALPATION: Yes Soft to palpation Extremity: COMMON NORMALS: no joint enlargement and no pedal edema NARRATIVE EXTREMITY EXAM: Swelling of the right forearm, hand, elevated on pillow. Neuro: COMMON NORMALS: moves all extremities SENSORIUM/ORIENTATION: Yes lethargic OTHER: L side hemiplegia. Skin: COMMON NORMALS: no rashes or lesions noted GENERAL SKIN EXAM: no rashes or lesions noted Urinary Catheter Management: Vuong: Cath Placed During This Visit: yes Reason for Continuing Indwelling Catheter: Accurate Measurement of Urinary Output in Critically Ill Patients Urinary Catheter Date of Insertion: 08/21/23 Urinary Catheter Time of Insertion: 19:35 Data 08/30/23 03:33 08/30/23 03:33 A&P Assessment and plan (1) Hypernatremia: So far improved and with improvement encephalopathy. Sodium reviewed, noted down to 144. For now continues on IV fluid. Polyuria appears with slight improvement. Continue IV fluid for now. At risk of further hyponatremia. Reassess chemistry. Discussed with nephrology, appreciate follow-up. Reviewed nephrology note. Had received desmopressin. Continue to monitor urine output. Reassess chemistries. Insulin switch to subcutaneous. Transfer out of ICU. (2) Altered mental status: With significant improvement, he is more alert, interactive, today he is able to verbalize some statements about his condition, complains of some discomfort in the right ear. Continue treatment of metabolic abnormalities as above. Continue supportive care. Continue treatment of pneumonia. Reorient. Work with therapy. Post discharge planning and arrangements. DKA appears has resolved. Multifactorial suspected secondary to acute metabolic encephalopathy. Continue management as above and below. Acute metabolic encephalopathy with persistent metabolic acidosis, DKA, HHS. Hypernatremia. As well as CVA. Also noted pneumonia. Broadeed antibiotic coverage to Zosyn, vancomycin. UA repeated, reviewed, not suggestive of UTI. (3) Metabolic acidosis: Improved. DKA resolved. Continue insulin drip for now as per nephrology recommendation. Noted in persistent ketoacidosis/HHS. Discussed his condition with his . Discussed difficult condition, risk of additional complications. Risk of mortality. Discussed restarting insulin drip. She is agreeable. Replace potassium. R esume insulin drip. Recheck chemistry. Appreciate nephrology reassessment, input. (4) Hypoxia: Continue treatment of pneumonia. Continue oxygen support. BiPAP with sleep. Continue to treat pneumonia. DVT prophylaxis. PPI prophylaxis. Requested MRSA PCR. Reviewed urine bacterial antigens. Reviewed legionella antigen. Negative. Likely related to underlying known sleep apnea. Patient does not typically wear a CPAP at night however has noticed increased apneic episodes at home recently. Chest x-ray without consolidation. CTA chest negative for PE. BNP not significantly elevated, echocardiogram without signs of CHF. (5) Atrial fibrillation with RVR: Switched to p.o. amiodarone. Continue to monitor heart rate. Transfer to [facility]. Treat pneumonia and metabolic abnormality. Monitor on telemetry. Holding off a/c next 12-14 days to minimize risk of hemorrhagic conversion (6) Stroke: Unable to tolerate oral intake at this time. Discussed with special education itinerant teacherJustin via NGT. 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 Telemetry revealed A-fib with RVR on 08/22/2023.Currenlt rate controlled Echocardiogram grossly normal MRA neck without any significant occlusion ASA 81 and Atorvastatin 40 mg daily via NG Start a/c after 12-14 days per neuro recommendations, okay to continue ppx dosing for now PEG placement on Friday, currently NGT in the interim starting glucerna tube feeding today Follow-up with neuro after discharge. (7) Hypertension: Blood pressure is better today. Continue to monitor. BiPAP with sleep. Amlodipine 10 mg daily continue prn hydralazine (8) Diabetes: moderate insulin sliding scale (9) Goals of care, counseling/discussion: On goals of care discussion with his , she states that he had previously stated and had documents signed that he would not want CPR in case of cardiopulmonary arrest. She feels in case of arrhythmia defibrillation would be appropriate if needed. Plan Right ear discomfort: On exam without signs of otitis media. Perhaps mild irrit ation in EAM on the right side. Very mild. he will let us know if there is any change in symptoms. DVT ppx: lovenox , will likely need to start full dose anticoagulation once okay per neurology given now interim development of atrial fibrillation and concern for cardioembolic stroke. Reassessed by surgery, PEG tube has been for now postponed. Reviewed surgery documentation. Attestations Medical Necessity Statement*: Continue admission for assessment management of acute encephalopathy, severe hyp onatremia, possible HHS, pneumonia, status post CVA. and High MDM includes amount and/or complexity of data reviewed/ordered [ previous or external records, resulted lab(s)/test(s), ordered lab(s)/test(s) and other healthcare professional discussion] and described risk of complication, morbidity or mortality of management as documented Diagnoses Hypernatremia E87.0 Altered mental status R41.82 Metabolic acidosis E87.20 Hypoxia R09.02 Atrial fibrillation with RVR I48.91 Stroke I63.9 Hypertension I10 Diabetes E11.9 Goals of care, counseling/discussion Z71.89
[2023-08-31] VITALS (11 sets, daily range): BP systolic 157–172; BP diastolic 65–79; PULSE 54–66; RESP 15–19; TEMP 36.3–37.1; O2SAT 91–97
[2023-08-31 00:10] LABS: Glucose Point of Care 119 mg/dL (70-110)
[2023-08-31] MEDS: piperacillin-tazobactam 3.375 GM in dextrose 5% (plus) 50 ML IV ×3 (02:05→17:52)
[2023-08-31] MEDS: metoprolol tartrate 1 mg/1 mL SDV 5 mL 5 MG IVP ×4 (05:13→23:25)
[2023-08-31 05:26] LABS: Basophils % 0.4 %; Eosinophils # 0.3 10^3/uL (0.0-0.8); Eosinophils % 2.7 %; Hematocrit 41.2 % (37-53); Lymphocytes # 1.5 10^3/uL (0.8-4.8); Lymphocytes % 16.6 %; Mean Corpuscular HGB Conc 32.3 g/dL (30-55); Mean Corpuscular Hemoglobin 28.5 pg (27-33); Mean Corpuscular Volume 88.4 fl (82-101); Mean Platelet Volume 10.6 fL (7.4-10.4); Monocytes # 0.9 10^3/uL (0.2-0.9); Monocytes % 9.9 %; Neutrophils # 6.29 10^3/uL (1.8-7.7); Neutrophils % 68.4 %; Nucleated Red Blood Cells % 0 %; Platelet Count 147 10^3/cmm (157-399); Red Blood Count 4.66 10^6/uL (3.85-5.65); Red Cell Distribution Width 13.5 % (12.1-15.1)
[2023-08-31 05:49] LABS: Anion Gap 14.6 (5-19); Blood Urea Nitrogen 12 mg/dL (8-23); Calcium 7.9 mg/dL (8.5-10.5); Carbon Dioxide 23 mmol/L (22-29); Chloride 107 mmol/L (98-107); Glomerular Filtration Rate 165.9 mL/min (90-130); Glucose 146 mg/dL (65-115); Osmolality Calculated 294 mOsm/kg (285-295); Potassium 3.6 mmol/L (3.5-5.1); Sodium 141 mmol/L (136-145)
[2023-08-31 05:56] LABS: Vancomycin Trough 17.2 ug/mL (10-15)
[2023-08-31 06:20] LABS: Glucose Point of Care 134 mg/dL (70-110)
[2023-08-31] MEDS: dextrose 5% 1,000 ML 75 ML IV (06:41)
[2023-08-31] MEDS: vancomycin 2,000 MG/400 ML PIGGYBACK 200 MG IV ×2 (06:41→18:24)
[2023-08-31] MEDS: amiodarone 200 mg Tablet 400 MG NG-TUBE ×2 (08:57→17:52)
[2023-08-31] MEDS: aspirin 81 mg Chew Tablet NG-TUBE (08:57)
[2023-08-31] MEDS: amlodipine 10 mg Tablet PO (08:57)
[2023-08-31] MEDS: potassium chloride oral liq 20 mEq/15 mL UDC PO (08:57)
[2023-08-31] MEDS: insulin glargine 100 units/1 mL 27 UNIT SUBCUT (08:58)
[2023-08-31] MEDS: pantoprazole 40 mg SDV IVP ×2 (09:23→17:52)
[2023-08-31 11:46] LABS: Glucose Point of Care 135 mg/dL (70-110)
[2023-08-31] MEDS: enoxaparin 40 mg/0.4 mL Syringe SUBCUT (16:10)
--- NOTE | 2023-08-31 16:30 | PM.PN ---
Subjective Subjective: no new complaints Medications: Reviewed: Yes Vitals/I&O/Wt Last Vital Signs Temp 98.2 F 08/31/23 16:14 Pulse 62 08/31/23 16:14 Resp 17 08/31/23 16:14 BP 172/72 08/31/23 16:14 Pulse Ox 95 08/31/23 16:14 O2 Del Method Nasal Cannula 08/31/23 16:14 O2 Flow Rate 1.5 08/31/23 07:46 FiO2 22 08/29/23 04:00 08/31/23 08/31/23 08/31/23 06:59 14:59 22:59 Intake Total 1950 / 5220 1200 / 1200 Output Total 1600 / 4050 1400 / 1400 Balance 350 / 1170 -200 / -200 Weight last 48 hrs Weight 138.799 kg Weight 138.981 kg Physical Exam Narrative: no distress Urinary Catheter Management: Vuong: Cath Placed During This Visit: yes Reason for Continuing Indwelling Catheter: Other Urinary Catheter Date of Insertion: 08/21/23 Urinary Catheter Time of Insertion: 19:35 Data 08/31/23 04:59 08/31/23 04:59 A&P Assessment and plan (1) Hypernatremia: Plan 1. Hypernatremia. Improving, on insulin gtt for goal BS < 200, on D5W 50 cc/hr , NGT water 250 ml Q4h. Unable to obtain real-time urine or serum osmolality. s/p SC vasopressin on 08/27. Can give another dose vasopressin if polyuria worsens. 2. Hypokalemia improved, hypophosphatemia, improved. continue replacement as needed 3. AMS 4. CVA 5. s/p DKA Attestations Medical Necessity Statement*: per medine team Coding Level of Care Code Acute Code for Chg Fwd Diagnoses Hypernatremia E87.0
[2023-08-31 17:02] LABS: Glucose Point of Care 135 mg/dL (70-110)
[2023-08-31] MEDS: sodium chloride 0.9% 1,000 ML 30 ML IV (17:53)
--- NOTE | 2023-08-31 21:49 | P.PN_ITS ---
Subjective Subjective: Working with physical therapy. Not in discomfort. Vitals/I&O/Wt Last Vital Signs Temp 98.6 F 08/31/23 19:19 Pulse 59 L 08/31/23 21:11 Resp 18 08/31/23 21:11 BP 170/65 08/31/23 19:19 Pulse Ox 93 08/31/23 21:11 O2 Del Method Nasal Cannula 08/31/23 21:11 O2 Flow Rate 1.5 08/31/23 21:11 FiO2 22 08/29/23 04:00 08/31/23 08/31/23 08/31/23 06:59 14:59 22:59 Intake Total 1950 / 5220 1200 / 1200 300 / 1500 Output Total 1600 / 4050 1400 / 1400 Balance 350 / 1170 -200 / -200 300 / 100 Weight last 48 hrs Weight 138.799 kg Weight 138.981 kg Physical Exam Narrative: Accompanied by his at bedside. Const: GENERAL APPEARANCE: cooperative and lethargic CASA ENTATION/CONSCIOUSNESS: Yes awake and Yes lethargic HENMT: COMMON NORMALS: oropharynx normal OTHER: Tympanic membranes opacified bilaterally. There is perhaps slight irritation in the EAM on the right side, but I was not able to see any obvious signs of infection. No Yoandy tympanic fluid collection or perforation. Neck/C-Spine: COMMON NORMALS: no JVD Resp: COMMON NORMALS: normal respiratory effort and clear to auscultation bilaterally EFFORT & INSPECTION: Yes tachypneic AUSCULTATION: clear to auscultation bilaterally Cardio: COMMON NORMALS: no JVD, regular rhythm, S1 normal heart sound present, S2 normal heart sound present and No murmurs present (Cardio) RHYTHM: regular rhythm HEART SOUNDS: S1 normal heart sound present and S2 normal heart sound present GI: COMMON NORMALS: Normal to inspection, nondistended, normoactive bowel sounds present, Soft to palpation and non-tender PALPATION: Yes Soft to palpation Extremity: COMMON NORMALS: no joint enlargement and no pedal edema NARRATIVE EXTREMITY EXAM: Swelling of the right forearm, hand, elevated on pillow. Neuro: COMMON NORMALS: moves all extremities SENSORIUM/ORIENTATION: Yes lethargic OTHER: L side hemiplegia. Skin: COMMON NORMALS: no rashes or lesions noted GENERAL SKIN EXAM: no rashes or lesions noted Urinary Catheter Management: Vuong: Cath Placed During This Visit: yes Reason for Continuing Indwelling Catheter: Other Urinary Catheter Date of Insertion: 08/21/23 Urinary Catheter Time of Insertion: 19:35 Data 08/31/23 04:59 08/31/23 04:59 A&P Assessment and plan (1) Hypernatremia: So far resolved but at risk of additional hypernatremia given is still having robust urine output. So far continues on IV hydration, decreased rate to 65 mill per hour. Continue flushes. Continue to wean down IV hydration. Reviewed CBC, CMP. Recheck chemistry. Reviewed nephrology note, monitoring his condition, repeat vasopressin may be given if polyuria worsens. Encephalopathy has improved. Had received desmopressin. Continue to monitor urine output. Reassess chemistries. (2) Altered mental status: Encephalopathy has improved. Continue to reorient, PT, OT, ST. Post discharge planning arrangements. Will benefit from rehabilitation following CVA, deconditioning. With significant improvement, he is more alert, interactive, today he is able to verbalize some statements about his condition, complains of some discomfort in the right ear. Continue treatment of metabolic abnormalities as above. Continue supportive care. Continue treatment of pneumonia. Reorient. Work with therapy. Post discharge planning and arrangements. DKA appears has resolved. Multifactorial suspected secondary to acute metabolic encephalopathy. Continue management as above and below. Acute metabolic encephalopathy with persistent metabolic acidosis, DKA, HHS. Hypernatremia. As well as CVA. Also noted pneumonia. Broadeed antibiotic coverage to Zosyn, vancomycin. UA repeated, reviewed, not suggestive of UTI. (3) Stroke: Unable to tolerate oral intake at this time. Discussed with surgery, As he is doing better they are planning PEG tube for tomorrow. Continue PT, OT, ST, case management follow-up for post discharge planning. Discussed with physical therapist. 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 Telemetry revealed A-fib with RVR on 08/22/2023.Currenlt rate controlled Echocardiogram grossly normal MRA neck without any significant occlusion ASA 81 and Atorvastatin 40 mg daily via NG Start a/c after 12-14 days per neuro recommendations, okay to continue ppx dosing for now PEG placement on Friday, currently NGT in the interim starting glucerna tube feeding today Follow-up with neuro after discharge. 2 (4) Metabolic acidosis: Improved. DKA resolved. Continue insulin drip for now as per nephrology recommendation. Noted in persistent ketoacidosis/HHS. Discussed his condition with his . Discussed difficult condition, risk of additional complications. Risk of mortality. Discussed restarting insulin drip. She is agreeable. Replace potassium. Resume insulin drip. Recheck chemistry. Appreciate nephrology reassessment, input. (5) Hypoxia: Continue treatment of pneumonia. Continue oxygen support. BiPAP with sleep. Continue to treat pneumonia. DVT prophylaxis. PPI prophylaxis. Requested MRSA PCR. Reviewed urine bacterial antigens. Reviewed legionella antigen. Negative. Likely related to underlying known sleep apnea. Patient does not typically wear a CPAP at night however has noticed increased apneic episodes at home recently. Chest x-ray without consolidation. CTA chest negative for PE. BNP not significantly elevated, echocardiogram without signs of CHF. (6) Atrial fibrillation with RVR: p.o. amiodarone. So far rates remain controlled. Continue to monitor heart rate. Treat pneumonia and metabolic abnormality. Monitor on telemetry. Holding off a/c next 12-14 days poststroke to minimize risk of hemorrhagic conversion (7) Hypertension: Blood pressure is better today. Continue to monitor. BiPAP with sleep. Amlodipine 10 mg daily continue prn hydralazine (8) Diabetes: moderate insulin sliding scale (9) Goals of care, counseling/discussion: On goals of care discussion with his , she states that he had previously stated and had documents signed that he would not want CPR in case of cardiopu lmonary arrest. She feels in case of arrhythmia defibrillation would be appropriate if needed. Plan Right ear discomfort: On exam without signs of otitis media. Perhaps mild irritation in EAM on the right side. Very mild. he will let us know if there is any change in symptoms. DVT ppx: lovenox , will likely need to start full dose anticoagulation once okay per neurology given now interim development of atrial fibrillation and concern for cardioembolic stroke. Reassessed by surgery, PEG tube has been for now postponed. Reviewed surgery documentation. Attestations Medical Necessity Statement*: Continue admission for assessment management of acute encephalopathy, severe hyponatremia, possible HHS, pneumonia, status post CVA. Diagnoses Hypernatremia E87.0 Altered mental status R41.82 Stroke I63.9 Metabolic acidosis E87.20 Hypoxia R09.02 Atrial fibrillation with RVR I48.91 Hypertension I10 Diabetes E11.9 Goals of care, counseling/discussion Z71.89
[2023-08-31] MEDS: atorvastatin 40 mg Tablet NG-TUBE (22:16)
[2023-08-31 22:29] LABS: Glucose Point of Care 127 mg/dL (70-110)
[2023-08-31] MEDS: dextrose 5%-sod chloride 0.9% 1,000 ML 50 ML IV (23:44)
[2023-09-01] VITALS (18 sets, daily range): BP systolic 133–161; BP diastolic 62–73; PULSE 51–73; RESP 16–22; TEMP 36.1–37; O2SAT 92–100; BMI 42.7
[2023-09-01 00:12] LABS: Glucose Point of Care 118 mg/dL (70-110)
[2023-09-01] MEDS: piperacillin-tazobactam 3.375 GM in dextrose 5% (plus) 50 ML IV ×3 (03:33→23:14)
[2023-09-01] MEDS: metoprolol tartrate 1 mg/1 mL SDV 5 mL 5 MG IVP ×2 (05:04→11:29)
[2023-09-01 05:13] LABS: Anion Gap 15.9 (5-19); Blood Urea Nitrogen 11 mg/dL (8-23); Calcium 7.7 mg/dL (8.5-10.5); Carbon Dioxide 20 mmol/L (22-29); Chloride 107 mmol/L (98-107); Glomerular Filtration Rate 165.9 mL/min (90-130); Glucose 130 mg/dL (65-115); Osmolality Calculated 289 mOsm/kg (285-295); Potassium 3.9 mmol/L (3.5-5.1); Sodium 139 mmol/L (136-145)
[2023-09-01 05:55] LABS: Basophils % 0.4 %; Eosinophils # 0.3 10^3/uL (0.0-0.8); Eosinophils % 2.5 %; Hematocrit 40.2 % (37-53); Lymphocytes # 1.5 10^3/uL (0.8-4.8); Lymphocytes % 14.7 %; Mean Corpuscular HGB Conc 31.8 g/dL (30-55); Mean Corpuscular Hemoglobin 28.6 pg (27-33); Mean Corpuscular Volume 89.7 fl (82-101); Mean Platelet Volume 10.1 fL (7.4-10.4); Monocytes % 9.4 %; Neutrophils # 7.31 10^3/uL (1.8-7.7); Neutrophils % 71.6 %; Nucleated Red Blood Cells % 0 %; Platelet Count 162 10^3/cmm (157-399); Red Blood Count 4.48 10^6/uL (3.85-5.65); Red Cell Distribution Width 13.3 % (12.1-15.1)
[2023-09-01 05:57] LABS: Glucose Point of Care 126 mg/dL (70-110)
[2023-09-01] MEDS: vancomycin 2,000 MG/400 ML PIGGYBACK 200 MG IV ×2 (06:50→18:46)
[2023-09-01] MEDS: amiodarone 200 mg Tablet 400 MG NG-TUBE (08:00)
[2023-09-01] MEDS: pantoprazole 40 mg SDV IVP ×2 (08:00→17:53)
[2023-09-01] MEDS: potassium chloride oral liq 20 mEq/15 mL UDC PO (08:00)
[2023-09-01] MEDS: acetaminophen 325 mg Tablet 650 MG PO (08:00)
[2023-09-01] MEDS: amlodipine 10 mg Tablet PO (08:00)
[2023-09-01] MEDS: aspirin 81 mg Chew Tablet NG-TUBE (08:01)
[2023-09-01] MEDS: insulin glargine 100 units/1 mL 10 UNIT SUBCUT (10:20)
[2023-09-01] MEDS: sodium chloride 0.9% 1,000 ML 30 ML IV (11:54)
--- NOTE | 2023-09-01 11:58 | PC.OT ---
OT TREATMENT HELD THIS DATE DUE TO PROCEDURE
--- NOTE | 2023-09-01 12:01 | ANES.PREANE2 ---
Pre-Anesthetic Assessment Height/Weight: Height 1.8 m Weight 138.799 kg Temp Pulse Resp BP Pulse Ox O2 Del Method O2 Flow Rate 97 F L 56 L 20 H 150/69 97 Nasal Cannula 2 09/01/23 11:47 09/01/23 11:47 09/01/23 11:47 09/01/23 11:47 09/01/23 11:47 09/01/23 11:47 09/01/23 11:47 FiO2 22 08/29/23 04:00 Preop Diagnosis: Stroke Operation Date: 08/25/23 12:00 Proposed Procedures p EGD(Not Applicable) - Jasmeet Moncada MD s PEG Tube Insertion(Not Applicable) - Jasmeet Moncada MD Operation Date: 09/01/23 12:15 Proposed Procedures p EGD(Not Applicable) - Jasmeet Moncada MD s PEG Tube Insertion(Not Applicable) - Jasmeet Moncada MD Familial anesthetic complications: None Was Beta Marysol taken within 24 hours: N/A Was Clonidine taken within 24 hours: N/A Last intake: > 8hrs Social No alcohol and No tobacco Exam alert, clear to auscultation bilaterally and regular rate & rhythm Airway Mallampati: Class IV Pulmonary pneumonia CV/HEM Atrial Fibrillation and Hypertension Metabolic Diabetes Mellitus, Hyperlipidemia and Morbid Obesity Neuropsych Cerebrovascular Accident Anesthetic Plan ASA status: 4 Anesthesia: Choice Risk of > 500 ml blood loss (7ml/kg in children): No Medications/Allergies Home Medications Medication Instructions Recorded Confirmed Last Taken Type atorvastatin 40 mg tablet 40 mg PO DAILY #90 tabs 10/23/22 08/21/23 Unknown Rx glipizide 10 mg tablet 10 mg PO DAILY #90 tabs 10/23/22 08/21/23 Unknown Rx lisinopril 20 mg tablet 20 mg PO DAILY #90 tabs 10/23/22 08/21/23 Unknown Rx metformin 1,000 mg tablet 1,000 mg PO DAILY #90 tabs 10/23/22 08/21/23 Unknown Rx meclizine 25 mg tablet 25 mg PO QID PRN vertigo #30 tabs 08/19/23 08/21/23 Unknown Rx prednisone 20 mg tablet 20 mg PO BID 5 days #10 tabs 08/19/23 08/21/23 Unknown Rx empagliflozin 25 mg tablet 25 mg PO DAILY 08/21/23 08/21/23 Unknown History (Jardiance) Allergies Allergy/AdvReac Type Severity Reaction Status Date / Time No Known Allergies Allergy Verified 08/21/23 13:08 Current Medications Generic Name Dose Route Start Last Admin Trade Name Freq PRN Reason Stop Dose Admin Acetaminophen 650 mg 08/21/23 16:38 09/01/23 08:00 Acetaminophen 325 Mg Tablet PO 650 mg Q6H PRN Administration Mild/Mod Pain Or Temp >/= 101 Amiodarone HCl 400 mg 08/29/23 09:00 09/01/23 08:00 Amiodarone 200 Mg Tablet NG-TUBE 400 mg BID MARK Administration Amlodipine Besylate 10 mg 08/24/23 10:40 09/01/23 08:00 Amlodipine 10 Mg Tablet PO 10 mg DAILY MARK Administration Aspirin 81 mg 08/25/23 09:00 09/01/23 08:01 Aspirin 81 Mg Chew Tablet NG-TUBE 81 mg DAILY MARK Administration Atorvastatin Calcium 40 mg 08/23/23 21:00 08/31/23 22:16 Atorvastatin 40 Mg Tablet NG-TUBE 40 mg BEDTIME MARK Administration Enoxaparin Sodium 40 mg 08/21/23 16:45 08/31/23 16:10 Enoxaparin 40 Mg/0.4 Ml Syringe SUBCUT 40 mg Q24H MARK Administration Hydralazine HCl 10 mg 08/21/23 17:56 08/29/23 06:05 Hydralazine 20 Mg/Ml Inj 1 Ml IVP 10 mg Q4H PRN Administration SBP > 160 Piperacillin Sod/Tazobactam 50 mls @ 12.5 mls/hr 08/25/23 18:30 09/01/23 09:09 Sod 3.375 gm/ Dextrose IV Infused Q8H MARK Infusion Protocol Dextrose 1,000 mls @ 65 mls/hr 08/26/23 16:00 09/01/23 00:36 D5w IV Infused .[id number] MARK Infusion Lidocaine HCl 5 ml/ Potassium 105 mls @ 26.25 mls/hr 08/27/23 03:49 08/27/23 19:00 Chloride IV Infused ONCE ONE Infusion Lidocaine HCl 5 ml/ Potassium 105 mls @ 26.25 mls/hr 08/27/23 22:58 08/28/23 04:09 Chloride IV Infused ONCE ONE Infusion Vancomycin/PEG/NADA/Lysine/Water 2,000 mg in 400 mls @ 200 mls/hr 08/28/23 07:00 09/01/23 11:39 Vancocin IV Infused Q12H MARK Infusion Sodium Chloride 1,000 mls @ 30 mls/hr 08/31/23 16:57 08/31/23 23:48 Sodium Chloride 0.9% IV 09/01/23 16:56 0 mls/hr .Q24H ONE Infusion Dextrose/Sodium Chloride 1,000 mls @ 50 mls/hr 08/31/23 23:00 08/31/23 23:44 Dextrose 5%-Sod Chloride 0.9% IV 50 mls/hr .Q20H MARK Administration Sodium Chloride 1,000 mls @ 30 mls/hr 09/01/23 12:00 09/01/23 11:54 Sodium Chloride 0.9% IV 09/02/23 11:59 30 mls/hr .Q24H MARK Administration Insulin Glargine 27 unit 08/31/23 09:00 09/01/23 09:41 Insulin Glargine 100 Units/1 Ml SUBCUT Not Given DAILY [facility] Insulin Human Lispro 0 unit 08/27/23 18:00 09/01/23 06:46 Insulin Lispro 100 Unit/1 Ml SUBCUT Not Given Q6H [facility] Protocol Levalbuterol HCl 0.63 mg 08/25/23 09:41 08/25/23 09:52 Levalbuterol 0.63 Mg/3 Ml Neb INHALATION 0.63 mg Q4H.RESPIRATORY PRN Administration SHORTNESS OF BREATH Metoprolol Tartrate 5 mg 08/23/23 10:30 09/01/23 11:29 Metoprolol Tartrate 1 Mg/1 Ml Sdv 5 Ml IVP 5 mg Q6H MARK Administration Non-Formulary Medication 250 ml 08/27/23 16:00 09/01/23 09:08 Water Enteral NG-TUBE Not Given 6XD [facility] Ondansetron HCl 4 mg 08/21/23 17:36 08/21/23 19:40 Ondansetron 2 Mg/Ml Sdv 2 Ml IVP 4 mg Q6H PRN Administration NAUSEA AND VOMITING Pantoprazole Sodium 40 mg 08/25/23 18:45 09/01/23 08:00 Pantoprazole 40 Mg Sdv IVP 40 mg BID MARK Administration Potassium Chloride 20 meq 08/28/23 21:00 09/01/23 08:00 Potassium Chloride Oral Liq 20 Meq/15 Ml Udc PO 20 meq DAILY MARK Administration PFSH Anesthesia Social History Smoking and tobacco/nicotine status: never used tobacco/nicotine Alcohol intake: never Substance/Drug Use: never Adopted: No Caregiver/support person: No Lives independently: No Household members: spouse Housing: House Marital status: service: No Data Anesthesia 09/01/23 05:49 09/01/23 04:37 Short CBC 08/31/23 09/01/23 09/01/23 Range/Units 04:59 04:37 05:49 WBC 9.20 Cancelled 10.20 (3.29-11.43) 10^3/uL Hgb 13.30 Cancelled 12.80 (11.27-16.99) g/dL Hct 41.2 Cancelled 40.2 (37-53) % MCV 88.4 Cancelled 89.7 (82-101) fl Plt Count 147 L Cancelled 162 (157-399) 10^3/cmm Neut % (Auto) 68.4 Cancelled 71.6 % Neut # (Auto) 6.29 Cancelled 7.31 (1.8-7.7) 10^3/uL BMP 08/31/23 09/01/23 04:59 04:37 Sodium 141 139 Potassium 3.6 3.9 Chloride 107 107 Carbon Dioxide 23 20 L BUN 12 11 Creatinine 0.5 L 0.5 L Glucose 146 H 130 H Calcium 7.9 L 7.7 L Cardiac Studies: Echocardiogram 08/21/23
--- NOTE | 2023-09-01 12:33 | P.HPUD_ITS ---
Surgery/Procedure H&P Update DATE OF PROCEDURE: September 01, 2023 DATE H&P PERFORMED: 08/23/23 H&P UPDATE INFORMATION: I have reviewed H&P completed within last 30 days, I have examined patient prior to procedure, No changes to prior documentation and [place] [facility] [place] indicated PREOP DIAGNOSIS: Stroke PLANNED PROCEDURE: Operation Date: 08/25/23 12:00 Proposed Procedures p EGD(Not Applicable) - Jasmeet Moncada MD s PEG Tube Insertion(Not Applicable) - Jasmeet Moncada MD Operation Date: 09/01/23 12:15 Proposed Procedures p EGD(Not Applicable) - Jasmeet Moncada MD s PEG Tube Insertion(Not Applicable) - Jasmeet Moncada MD
--- NOTE | 2023-09-01 13:25 | SUR.OPER ---
NG tube removed prior to EGD with PEG placement. 10 mL Lidocaine used by provider prior to PEG placement for local.
--- NOTE | 2023-09-01 13:28 | PM.MISC ---
Miscellaneous Note Purpose of Documentation: Update in patient care Note: PEG tube placed, it can be used tomorrow afternoon. after 24 hours from placement had passed.
--- NOTE | 2023-09-01 13:50 | ANE.PACU2 ---
Inpatient post-anesthesia follow up: Airway intact: Yes Vital signs: Temperature 97.8 F Pulse Rate 62 Respiratory Rate 20 Blood Pressure 136/65 Pulse Oximetry 97 Oxygen Delivery Me thod [ Nasal Cannula Current Rate & Del kyrie] Oxygen Delivery Me thod Nasal Cannula Oxygen Flow Rate [ Current Rate 2 & Delivery] Oxygen Flow Rate 2 Fraction of Inspir ed Oxygen 22 Hydration adequate: Yes Nausea and vomiting: No Pain level: 1 Mental status: Baseline
--- NOTE | 2023-09-01 15:37 | PM.PN ---
Subjective Subjective: s/p G tube Medications: Reviewed: Yes Vitals/I&O/Wt Last Vital Signs Temp 97.9 F 09/01/23 14:50 Pulse 59 L 09/01/23 14:50 Resp 18 09/01/23 14:50 BP 139/69 09/01/23 14:50 Pulse Ox 94 09/01/23 14:50 O2 Del Method Nasal Cannula 09/01/23 14:50 O2 Flow Rate 2 09/01/23 14:50 FiO2 22 08/29/23 04:00 09/01/23 09/01/23 09/01/23 06:59 14:59 22:59 Intake Total 1177.5 / 3217.5 1050 / 1050 Output Total 1999 / 5 Balance -822.5 / -607.5 1050 / 1050 Weight last 48 hrs Weight 138.799 kg Weight 138.799 kg Physical Exam Narrative: deferred Urinary Catheter Management: Vuong: Cath Placed During This Visit: yes Reason for Continuing Indwelling Catheter: Other Urinary Catheter Date of Insertion: 08/21/23 Urinary Catheter Time of Insertion: 19:35 Data 09/01/23 05:49 09/01/23 04:37 A&P Assessment and plan (1) Hypernatremia: Plan 1. Hypernatremia. Improving, on D5W 50 cc/hr TF started - can DC when , Continue water 250 ml Q4h. . s/p SC vasopressin on 08/27. 2. Hypokalemia improved, hypophosphatemia, improved. continue replacement as needed 3. AMS 4. CVA 5. s/p DKA 6.Dysphagia , s/p G tube Attestations Medical Necessity Statement*: per mediicen team Coding Level of Care Code Acute Code for Chg Fwd Diagnoses Hypernatremia E87.0
--- NOTE | 2023-09-01 15:40 | PC.SOCIAL ---
IMM Updated Updated pt's family on IMM. No questions voiced. Provided pt a copy. Initialed, dated, & timed copy in chart.
--- NOTE | 2023-09-01 16:31 | P.PN_ITS ---
Subjective Subjective: Hospital course, labs appreciated. Plan for PEG tube placement today. Patient otherwise has remained hemodynamically stable and afebrile. Bloodwork appreciate for stable CBC, CMP showing stable sodium of 139, creatinine 0.5. Medications: Reviewed: Yes Vitals/I&O/Wt Last Vital Signs Temp 97.9 F 09/01/23 14:50 Pulse 59 L 09/01/23 14:50 Resp 18 09/01/23 14:50 BP 139/69 09/01/23 14:50 Pulse Ox 94 09/01/23 14:50 O2 Del Method Nasal Cannula 09/01/23 14:50 O2 Flow Rate 2 09/01/23 14:50 FiO2 22 08/29/23 04:00 09/01/23 09/01/23 09/01/23 06:59 14:59 22:59 Intake Total 1177.5 / 3217.5 1050 / 1050 Output Total 1999 / 3825 Balance -822.5 / -607.5 1050 / 1050 Weight last 48 hrs Weight 138.799 kg Weight 138.799 kg Physical Exam Narrative: Accompanied by his at bedside. Const: GENERAL APPEARANCE: cooperative and lethargic ORIENTATION/CONSCIOUSNESS: Yes awake and Yes lethargic HENMT: COMMON NORMALS: oropharynx normal OTHER: Tympanic membranes opacified bilaterally. There is perhaps slight irritation in the EAM on the right side, but I was not able to see any obvious signs of infec tion. No Yoandy tympanic fluid collection or perforation. Neck/C-Spine: COMMON NORMALS: no JVD Resp: COMMON NORMALS: normal respiratory effort and clear to auscultation bilaterally EFFORT & INSPECTION: Yes tachypneic AUSCULTATION: clear to auscultation bilaterally Cardio: COMMON NORMALS: no JVD, regular rhythm, S1 normal heart sound present, S2 normal heart sound present and No murmurs present (Cardio) RHYTHM: regular rhythm HEART SOUNDS: S1 normal heart sound present and S2 normal heart sound present GI: COMMON NORMALS: Normal to inspection, nondistended, normoactive bowel sounds present, Soft to palpation and non-tender PALPATION: Yes Soft to palpation Extremity: COMMON NORMALS: no joint enlargement and no pedal edema NARRATIVE EXTREMITY EXAM: Swelling of the right forearm, hand, elevated on pillow. Neuro: COMMON NORMALS: moves all extremities SENSORIUM/ORIENTATION: Yes lethargic OTHER: L side hemiplegia. Skin: COMMON NORMALS: no rashes or lesions noted GENERAL SKIN EXAM: no rashes or lesions noted Urinary Catheter Management: Vuong: Cath Placed During This Visit: yes Reason for Continuing Indwelling Catheter: Other Urinary Catheter Date of Insertion: 08/21/23 Urinary Catheter Time of Insertion: 19:35 Data 09/01/23 05:49 09/01/23 04:37 A&P Assessment and plan (1) Hypernatremia: Resolved. High risk for reoccurrence. Appreciate nephrology recommendations. Post vasopressin on 08/27. Continues to be polyuric. For now continue D5W at 50 cc/h. Recheck serum osmole lites as per nephrology. Monitor BMP daily. (2) Altered mental status: In setting of recent stroke along with hypernatremia. Encephalopathy has improved. Continue to reorient, PT, OT, ST. Post discharge planning arra ngements with plan to discharge to SNF. (3) Stroke: Seen on admission. Not a tPA candidate. Appreciate echocardiogram, MRI and MRI results. Continue baby aspirin, atorvastatin through NG tube. Patient continues to not able to swallow. Plan for PEG tube placement today. CODE STATUS Limited resuscitation. (4) Metabolic acidosis: In setting of DKA on admission. Resolved. (5) Hypoxia: Continue treatment of aspiration pneumonia. Continue with IV Zosyn to finish a 7-day course. Oxygen supplementation keeping saturation over 90%. DuoNebs as needed. (6) Atrial fibrillation with RVR: Heart rate controlled to bradycardia. Decrease metoprolol to 2.5 mg IV every 6 hourly. Change amiodarone to 200 mg twice daily. (7) Hypertension: Goal blood pressure less than 140/90 mmHg. Blood pressure for now better controlled. Continue with 10 mg of amlodipine, IV metoprolol as above. IV hydralazine 10 mg every 4 hours as needed for systolic blood pressure of more than 160 mmHg. (8) Diabetes: moderate insulin sliding scale. On admission had DKA. Continue with Lantus at 27 units daily. (9) Goals of care, counseling/discussion: On goals of care discussion with his , she states that he had previously stated and had documents signed that he would not want CPR in case of cardiopulmonary arrest. She feels in case of arrhythmia defibrillation would be appropriate if needed. Plan Lovenox for DVT prophylaxis. N.p.o. for now. Plan for PEG tube placement today. Protonix for PUD prophylaxis. Discharge plan: Plan to discharge to SNF for rehabitation post PEG tube p lacement and tolerating PEG tube feeds for 24 hours. Attestations Medical Necessity Statement*: Requires further hospitalization for PEG tube placement and the patient was admitted for acute stroke, hypernatremia in setting of polyuria, metabolic encephalopathy Diagnoses Hypernatremia E87.0 Altered mental status R41.82 Stroke I63.9 Metabolic acidosis E87.20 Hypoxia R09.02 Atrial fibrillation with RVR I48.91 Hypertension I10 Diabetes E11.9 Goals of care, counseling/discussion Z71.89
[2023-09-01] MEDS: enoxaparin 40 mg/0.4 mL Syringe SUBCUT (16:51)
[2023-09-01 17:51] LABS: Glucose Point of Care 154 mg/dL (70-110)
[2023-09-01] MEDS: metoprolol tartrate 1 mg/1 mL SDV 5 mL 2.5 MG IVP ×2 (17:53→23:46)
[2023-09-01] MEDS: amiodarone 200 mg Tablet NG-TUBE (17:54)
[2023-09-01] MEDS: dextrose 5%-sod chloride 0.9% 1,000 ML 75 ML IV (17:54)
[2023-09-01] MEDS: atorvastatin 40 mg Tablet NG-TUBE (20:24)
[2023-09-01 23:45] LABS: Glucose Point of Care 165 mg/dL (70-110)
[2023-09-02] VITALS (10 sets, daily range): BP systolic 122–165; BP diastolic 54–73; PULSE 59–69; RESP 16–18; TEMP 36.8–37; O2SAT 93–98
[2023-09-02] MEDS: acetaminophen 325 mg Tablet 650 MG PO ×3 (02:01→22:52)
[2023-09-02] MEDS: vancomycin 2,000 MG/400 ML PIGGYBACK 200 MG IV (06:00)
[2023-09-02] MEDS: metoprolol tartrate 1 mg/1 mL SDV 5 mL 2.5 MG IVP (06:30)
[2023-09-02 08:22] LABS: Glucose Point of Care 180 mg/dL (70-110)
[2023-09-02] MEDS: pantoprazole 40 mg SDV IVP ×2 (08:41→17:35)
[2023-09-02] MEDS: potassium chloride oral liq 20 mEq/15 mL UDC PO (08:41)
[2023-09-02] MEDS: amlodipine 10 mg Tablet PO (08:42)
[2023-09-02] MEDS: aspirin 81 mg Chew Tablet NG-TUBE (08:42)
[2023-09-02] MEDS: amiodarone 200 mg Tablet NG-TUBE ×2 (08:42→17:36)
[2023-09-02] MEDS: dextrose 5%-sod chloride 0.9% 1,000 ML 75 ML IV (08:45)
--- NOTE | 2023-09-02 08:51 | PC.NUTR ---
PEG placement for nutrition support following RD recs below once medically appropriate - Glucerna 1.2 @ 55 ml/hr x24 hours - 30ml ProSource bolus TID - FWF 200 ml TID See details in most recent RD assessment
--- NOTE | 2023-09-02 10:13 | P.PN_ITS ---
Subjective 2 Subjective: no new complaints Medications: Reviewed: Yes Vitals/I&O/Wt Last Vital Signs Temp 98.6 F 09/02/23 00:00 Pulse 66 09/02/23 00:00 Resp 18 09/02/23 00:00 BP 165/73 09/02/23 00:00 Pulse Ox 96 09/02/23 00:00 O2 Del Method Nasal Cannula 09/01/23 18:50 O2 Flow Rate 3 09/01/23 19:22 FiO2 22 08/29/23 04:00 09/01/23 09/02/23 09/02/23 22:59 06:59 14:59 Intake Total 450 / 1500 50 / 1550 1000 / 1000 Output Total 1200 / 1200 Balance -750 / 300 50 / 350 1000 / 1000 Weight last 48 hrs Weight 138.799 kg Physical Exam 2 Narrative: awake , no distress Urinary Catheter Management: Vuong: Cath Placed During This Visit: yes Reason for Continuing Indwelling Catheter: Accurate Measurement of Urinary Output in Critically Ill Patients Urinary Catheter Date of Insertion: 08/21/23 Urinary Catheter Time of Insertion: 19:35 Data 09/01/23 05:49 09/01/23 04:37 A&P Assessment and plan (1) Hypernatremia: Plan 1. Hypernatremia. Improved , TF started , , Continue free water 250 ml Q4h. . s/p SC vasopressin on 08/27. 2. Hypokalemia improved, hypophosphatemia, improved. continue replacement as needed 3. AMS 4. CVA 5. s/p DKA 6.Dysphagia , s/p G tube Attestations 2 Medical Necessity Statement*: per medicine team Coding Level of Care Code Acute Code for Chg Fwd Diagnoses Hypernatremia E87.0
[2023-09-02 11:01] LABS: Basophils % 0.3 %; Eosinophils % 0.3 %; Hematocrit 40.2 % (37-53); Lymphocytes # 1.1 10^3/uL (0.8-4.8); Mean Corpuscular HGB Conc 31.6 g/dL (30-55); Mean Corpuscular Hemoglobin 28.7 pg (27-33); Mean Platelet Volume 10.8 fL (7.4-10.4); Monocytes # 1.3 10^3/uL (0.2-0.9); Neutrophils # 9.93 10^3/uL (1.8-7.7); Neutrophils % 79.2 %; Nucleated Red Blood Cells % 0 %; Platelet Count 189 10^3/cmm (157-399); Red Blood Count 4.42 10^6/uL (3.85-5.65); Red Cell Distribution Width 13.5 % (12.1-15.1); White Blood Count 12.55 10^3/uL (3.29-11.43)
[2023-09-02] MEDS: losartan 50 mg Tablet 25 MG PO (11:06)
[2023-09-02] MEDS: insulin glargine 100 units/1 mL 27 UNIT SUBCUT (11:07)
[2023-09-02 11:18] LABS: Alanine Aminotransferase 20 U/L (0-41); Albumin Level 2.5 g/dL (3.5-5.2); Alkaline Phosphatase 58 U/L (40-130); Anion Gap 16.5 (5-19); Aspartate Amino Transferase 21 U/L (0-40); Blood Urea Nitrogen 15 mg/dL (8-23); Calcium 8.1 mg/dL (8.5-10.5); Carbon Dioxide 20 mmol/L (22-29); Chloride 108 mmol/L (98-107); Globulin 2.5 g/dL (1.3-4.6); Glomerular Filtration Rate 134.4 mL/min (90-130); Glucose 169 mg/dL (65-115); Osmolality Calculated 295 mOsm/kg (285-295); Potassium 4.5 mmol/L (3.5-5.1); Sodium 140 mmol/L (136-145); Total Bilirubin 0.5 mg/dL (0.15-1.2)
[2023-09-02 11:21] LABS: Glucose Point of Care 151 mg/dL (70-110)
[2023-09-02] MEDS: insulin lispro 100 unit/1 mL SUBCUT ×2 (12:21→18:28)
--- NOTE | 2023-09-02 13:45 | P.PN_ITS ---
Subjective 2 Subjective: No acute events overnight. Patient has remained hemodynamically stable and afebrile. Underwent PEG tube placement yesterday successfully. PEG tubes are to be started today. No reported episodes of nausea or vomiting. Appreciate blood work with mild worsening of leukocytosis up to 12, stable hemoglobin, creatinine and sodium levels to be stable Medications: Reviewed: Yes Vitals/I&O/Wt Last Vital Signs Temp 98.6 F 09/02/23 11:18 Pulse 60 09/02/23 11:18 Resp 17 09/02/23 11:18 BP 122/60 09/02/23 11:18 Pulse Ox 97 09/02/23 11:18 O2 Del Method Nasal Cannula 09/02/23 11:13 O2 Flow Rate 2 09/02/23 11:13 FiO2 22 08/29/23 04:00 09/01/23 09/02/23 09/02/23 22:59 06:59 14:59 Intake Total 450 / 1500 50 / 1550 1000 / 1000 Output Total 1200 / 1200 1500 / 1500 Balance -750 / 300 50 / 350 -500 / -500 Weight last 48 hrs Weight 138.799 kg Physical Exam 2 Narrative: Accompanied by his at bedside. Const: GENERAL APPEARANCE: cooperative and lethargic O RIENTATION/CONSCIOUSNESS: Yes awake and Yes lethargic HENMT: COMMON NORMALS: oropharynx normal OTHER: Tympanic membranes opacified bilaterally. There is perhaps slight irritation in the EAM on the right side, but I was not able to see any obvious signs of infection. No Yoandy tympanic fluid collection or perforation. Neck/C-Spine: COMMON NORMALS: no JVD Resp: COMMON NORMALS: normal respiratory effort and clear to auscultation bilaterally EFFORT & INSPECTION: Yes tachypneic AUSCULTATION: clear to auscultation bilaterally Cardio: COMMON NORMALS: no JVD, regular rhythm, S1 normal heart sound present, S2 normal heart sound present and No murmurs present (Cardio) RHYTHM: regular rhythm HEART SOUNDS: S1 normal heart sound present and S2 normal heart sound present GI: COMMON NORMALS: Normal to inspection, nondistended, normoactive bowel sounds present, Soft to palpation and non-tender PALPATION: Yes Soft to palpation Extremity: COMMON NORMALS: no joint enlargement and no pedal edema N ARRATIVE EXTREMITY EXAM: Swelling of the right forearm, hand, elevated on pillow. Neuro: COMMON NORMALS: moves all extremities SENSORIUM/ORIENTATION: Yes lethargic OTHER: L side hemiplegia. Skin: COMMON NORMALS: no rashes or lesions noted GENERAL SKIN EXAM: no rashes or lesions noted Urinary Catheter Management: Vuong: Cath Placed During This Visit: yes Reason for Continuing Indwelling Catheter: Accurate Measurement of Urinary Output in Critically Ill Patients Urinary Catheter Date of Insertion: 08/21/23 Urinary Catheter Time of Insertion: 19:35 Data 09/02/23 10:53 09/02/23 10:53 A&P Assessment and plan (1) Hypernatremia: Resolved. High risk for reoccurrence. Appreciate nephrology recommendations. Post vasopressin on 08/27. Continues to be polyuric. Stop IV fluids as per nephrology recommendations. Patient has been started on PEG tube feeds and free water flushes today. (2) Hypoxia: Resolved. Patient is on room air to 2 L of oxygen supplementation. Continue treatment of aspiration pneumonia. Continue with IV Zosyn to finish a 7-day course. MRSA swab negative so we will discontinue vancomycin. Patient has had vancomycin for last 5 days. Oxygen supplementation keeping saturation over 90%. DuoNebs as needed. (3) Atrial fibrillation with RVR: Heart rate better controlled. Medications are being turned over to through PEG tube from IV. Patient currently on metoprolol 2.5 mg IV every 6 hour. For now we will discontinue metoprolol. Continue with amiodarone 200 mg twice daily for next 7 days followed by 200 mg daily. Plan for initiation of anticoagulation 14 days post stroke which should be September 05. (4) Hypertension: Goal blood pressure less than 140/90 mmHg. Blood pressure still elevated. Continue with amlodipine 10 mg oral daily, add losartan 25 mg daily. Metoprolol withheld as above. IV hydralazine 10 mg every 4 hours as needed for systolic blood pressure of more than 160 mmHg. (5) Altered mental status: In setting of recent stroke along with hypernatremia. Encephalopathy has improved. Continue to reorient, PT, OT, ST. Post discharge planning arrangements with plan to discharge to SNF. (6) Stroke: Seen on admission. Not a tPA candidate. Appreciate echocardiogram, MRI and MRI results. Continue baby aspirin, atorvastatin through NG tube. Patient continues to not able to swallow. Plan for PEG tube placement today. CODE STATUS Limited resuscitation. (7) Metabolic acidosis: In setting of DKA on admission. Resolved. (8) Diabetes: moderate insulin sliding scale. On admission had DKA. Continue with Lantus at 27 units daily. (9) Goals of care, counseling/discussion: On goals of care discussion with his , she states that he had previously stated and had documents signed that he would not want CPR in case of cardiopulmonary arrest. She feels in case of arrhythmia defibrillation would be appropriate if needed. Plan Lovenox for DVT prophylaxis. Plan for switching over to DOAC 14 days poststroke. PEG tube feeds with Glucerna at 10 cc/h, increasing 10 cc every 4 hours goal at 50 cc/h. Free water flushes as per nephrology. Plan for discharge on bolus feeds if tolerating diet Protonix for PUD prophylaxis. Discharge plan: Plan to discharge to SNF for rehabitation post PEG tube placement and tolerating PEG tube feeds for 24 hours. Attestations 2 Medical Necessity Statement*: Requires further hospitalization for poststroke management while PEG tube feeds are started, hypernatremia in setting of polyuria Diagnoses Hypernatremia E87.0 Hypoxia R09.02 Atrial fibrillation with RVR I48.91 Hypertension I10 Altered mental status R41.82 Stroke I63.9 Metabolic acidosis E87.20 Diabetes E11.9 Goals of care, counseling/discussion Z71.89
--- NOTE | 2023-09-02 14:12 | P.PN_ITS ---
Subjective 2 Subjective: Post postprocedure day 1 after PEG tube insertion. Patient is doing well, tube feedings have been initiated at 10 cc/h. No leakage around the PEG tube no abdominal pain. Vitals/I&O/Wt Last Vital Signs Temp 98.6 F 09/02/23 11:18 Pulse 60 09/02/23 11:18 Resp 17 09/02/23 11:18 BP 122/60 09/02/23 11:18 Pulse Ox 97 09/02/23 11:18 O2 Del Method Nasal Cannula 09/02/23 11:13 O2 Flow Rate 2 09/02/23 11:13 FiO2 22 08/29/23 04:00 09/01/23 09/02/23 09/02/23 22:59 06:59 14:59 Intake Total 450 / 1500 50 / 1550 1000 / 1000 Output Total 1200 / 1200 1500 / 1500 Balance -750 / 300 50 / 350 -500 / -500 Weight last 48 hrs Weight 306 lb Physical Exam 2 GI: OTHER: Abdomen is soft and nontender, PEG tube insertion site is clean and dry, no evidence of leakage Urinary Catheter Management: Vuong: Cath Placed During This Visit: yes Reason for Continuing Indwelling Catheter: Accurate Measurement of Urinary Output in Critically Ill Patients Urinary Catheter Date of Insertion: 08/21/23 Urinary Catheter Time of Insertion: 19:35 Data 09/02/23 10:53 09/02/23 10:53 A&P Assessment and plan (1) Acute right arterial ischemic stroke, middle cerebral artery (MCA): Plan This is a 68-year-old male with recent stroke and deficit precluding him from eating. A PEG tube placement was done yesterday. Patient is doing okay, tube feedings have been initiated. Patient is tolerating well. Okay to increase tube feedings to goal rate. Patient is cleared from discharge from the general surgery standpoint. At 2-week follow-up can be obtained with my clinic in order to verify progression. Attestations 2 Medical Necessity Statement*: Patient is cleared for discharge from the general surgery standpoint. Coding Level of Care Code Acute Code for Chg Fwd Diagnoses Acute right arterial ischemic stroke, middle cerebral artery (MCA) I63.511
[2023-09-02] MEDS: piperacillin-tazobactam 3.375 GM in dextrose 5% (plus) 50 ML IV ×2 (14:13→22:17)
[2023-09-02 15:35] LABS: Osmolality Serum 303 mOsm/kg (278-305)
[2023-09-02] MEDS: enoxaparin 40 mg/0.4 mL Syringe SUBCUT (16:15)
[2023-09-02 18:11] LABS: Glucose Point of Care 156 mg/dL (70-110)
[2023-09-02] MEDS: magnesium hydroxide 30 mL UDC PO (18:29)
[2023-09-02] MEDS: atorvastatin 40 mg Tablet NG-TUBE (20:42)
[2023-09-02 23:38] LABS: Glucose Point of Care 131 mg/dL (70-110)
[2023-09-03] VITALS (12 sets, daily range): BP systolic 146–165; BP diastolic 57–71; PULSE 64–76; RESP 16–20; TEMP 36.4–37; O2SAT 91–97; BMI 42.7
[2023-09-03 05:51] LABS: Glucose Point of Care 126 mg/dL (70-110)
[2023-09-03] MEDS: piperacillin-tazobactam 3.375 GM in dextrose 5% (plus) 50 ML IV (06:05)
[2023-09-03] MEDS: acetaminophen 325 mg Tablet 650 MG PO ×3 (06:07→17:28)
[2023-09-03 10:13] LABS: SARS Covid-2 Antigen negative (Negative)
--- NOTE | 2023-09-03 10:16 | P.PN_ITS ---
Subjective 2 Subjective: no new complaints on TF Medications: Reviewed: Yes Vitals/I&O/Wt Last Vital Signs Temp 97.5 F L 09/03/23 08:00 Pulse 70 09/03/23 09:14 Resp 16 09/03/23 09:14 BP 163/57 09/03/23 08:00 Pulse Ox 92 09/03/23 09:14 O2 Del Method Nasal Cannula 09/03/23 09:14 O2 Flow Rate 2 09/03/23 09:14 FiO2 22 08/29/23 04:00 09/02/23 09/03/23 09/03/23 22:59 06:59 14:59 Intake Total 450 / 1550 50 / 1600 Output Total 1800 / 3300 Balance 450 / 50 -1750 / -1700 Weight last 48 hrs Weight 138.799 kg Physical Exam 2 Narrative: awake , no distress Urinary Catheter Management: Vuong: Cath Placed During This Visit: yes Reason for Continuing Indwelling Catheter: Accurate Measurement of Urinary Output in Critically Ill Patients Urinary Catheter Date of Insertion: 08/21/23 Urinary Catheter Time of Insertion: 19:35 Data 09/02/23 10:53 09/02/23 10:53 A&P Assessment and plan (1) Hypernatremia: Plan 1. Hypernatremia. Improved , TF started , , Continue free water 250 ml Q4h. . s/p SC vasopressin on 08/27. 2. Hypokalemia improved, hypophosphatemia, improved. continue replacement as needed 3. AMS 4. CVA 5. s/p DKA 6.Dysphagia , s/p G tube Attestations 2 Medical Necessity Statement*: PER MEDICIEN TEAM Coding Level of Care Code Acute Code for Chg Fwd Diagnoses Hypernatremia E87.0
[2023-09-03] MEDS: pantoprazole 40 mg SDV IVP ×2 (10:29→17:28)
[2023-09-03] MEDS: potassium chloride oral liq 20 mEq/15 mL UDC PO (10:29)
[2023-09-03] MEDS: insulin glargine 100 units/1 mL 27 UNIT SUBCUT (10:30)
[2023-09-03] MEDS: losartan 50 mg Tablet 75 MG PO (10:30)
[2023-09-03] MEDS: amlodipine 10 mg Tablet PO (10:30)
[2023-09-03 10:31] LABS: Basophils % 0.4 %; Eosinophils # 0.2 10^3/uL (0.0-0.8); Eosinophils % 1.8 %; Hematocrit 39.5 % (37-53); Lymphocytes # 1.3 10^3/uL (0.8-4.8); Lymphocytes % 14.3 %; Mean Corpuscular HGB Conc 31.4 g/dL (30-55); Mean Corpuscular Hemoglobin 28.4 pg (27-33); Mean Corpuscular Volume 90.4 fl (82-101); Mean Platelet Volume 10.2 fL (7.4-10.4); Monocytes # 1.2 10^3/uL (0.2-0.9); Monocytes % 12.5 %; Neutrophils # 6.48 10^3/uL (1.8-7.7); Neutrophils % 69.8 %; Nucleated Red Blood Cells % 0 %; Platelet Count 210 10^3/cmm (157-399); Red Blood Count 4.37 10^6/uL (3.85-5.65); Red Cell Distribution Width 13.3 % (12.1-15.1); White Blood Count 9.29 10^3/uL (3.29-11.43)
[2023-09-03] MEDS: aspirin 81 mg Chew Tablet NG-TUBE (10:31)
[2023-09-03] MEDS: amiodarone 200 mg Tablet NG-TUBE ×2 (10:31→17:28)
[2023-09-03 10:53] LABS: Alanine Aminotransferase 16 U/L (0-41); Albumin Level 2.3 g/dL (3.5-5.2); Alkaline Phosphatase 56 U/L (40-130); Aspartate Amino Transferase 21 U/L (0-40); Blood Urea Nitrogen 11 mg/dL (8-23); Calcium 7.7 mg/dL (8.5-10.5); Carbon Dioxide 21 mmol/L (22-29); Chloride 105 mmol/L (98-107); Globulin 2.8 g/dL (1.3-4.6); Glomerular Filtration Rate 165.9 mL/min (90-130); Glucose 146 mg/dL (65-115); Osmolality Calculated 288 mOsm/kg (285-295); Sodium 138 mmol/L (136-145); Total Bilirubin 0.6 mg/dL (0.15-1.2); Total Protein 5.1 g/dL (6.6-8.7)
--- NOTE | 2023-09-03 10:57 | PC.NUTR ---
Recommended bolus PEG tube feeding regimen using Jevity 1.5 with 60 mls FWF before and 60 mls after feedinam: 480 mls or 2 cartons Jevity 1.5 Noon: 240 mls or 1 carton Jevity 1.5 4pm: 240 mls or 1 carton Jevity 1.5 8pm: 480 mls or 2 cartons Jevity 1.[address].
[2023-09-03 12:37] LABS: Glucose Point of Care 128 mg/dL (70-110)
--- NOTE | 2023-09-03 13:06 | P.PN_ITS ---
Subjective 2 Subjective: No acute events overnight. Patient was started on PEG tube feeds yesterday. Patient did have high residuals for which PEG tube feeds were stopped and he was given milk of magnesia for bowel regimen. He did have a bowel movement today morning after which PEG tube feeds were restarted and he is able to tolerate better. Otherwise has remained hemodynamically stable and afebrile. Blood pressure slightly elevated. Seen with at bedside. Medications: Reviewed: Yes Vitals/I&O/Wt Last Vital Signs Temp 98.2 F 09/03/23 12:00 Pulse 68 09/03/23 12:00 Resp 19 H 09/03/23 12:00 BP 165/67 09/03/23 12:00 Pulse Ox 95 09/03/23 12:00 O2 Del Method Nasal Cannula 09/03/23 12:00 O2 Flow Rate 2 09/03/23 09:14 FiO2 22 08/29/23 04:00 09/02/23 09/03/23 09/03/23 22:59 06:59 14:59 Intake Total 450 / 1550 50 / 1600 Output Total 1800 / 3300 Balance 450 / 50 -1750 / -1700 Weight last 48 hrs Weight 138.799 kg Physical Exam 2 Narrative: Accompanied by his at bedside. Const: GENERAL APPEARANCE: cooperative and lethargic O RIENTATION/CONSCIOUSNESS: Yes awake and Yes lethargic HENMT: COMMON NORMALS: oropharynx normal Neck/C-Spine: COMMON NORMALS: no JVD Resp: COMMON NORMALS: normal respiratory effort and clear to auscultation bilaterally EFFORT & INSPECTION: Yes tachypneic AUSCULTATION: clear to auscultation bilaterally Cardio: COMMON NORMALS: no JVD, regular rhythm, S1 normal heart sound present, S2 normal heart sound present and No murmurs present (Cardio) RHYTHM: regular rhythm HEART SOUNDS: S1 normal heart sound present and S2 normal heart sound present GI: COMMON NORMALS: Normal to inspection, nondistended, normoactive bowel sounds present, Soft to palpation and non-tender PALPATION: Yes Soft to palpation Extremity: COMMON NORMALS: no joint enlargement and no pedal edema N ARRATIVE EXTREMITY EXAM: Swelling of the right forearm, hand, elevated on pillow. Neuro: COMMON NORMALS: moves all extremities SENSORIUM/ORIENTATION: Yes lethargic OTHER: L side hemiplegia. Skin: COMMON NORMALS: no rashes or lesions noted GENERAL SKIN EXAM: no rashes or lesions noted Urinary Catheter Management: Vuong: Cath Placed During This Visit: yes Reason for Continuing Indwelling Catheter: Accurate Measurement of Urinary Output in Critically Ill Patients Urinary Catheter Date of Insertion: 08/21/23 Urinary Catheter Time of Insertion: 19:35 Data 09/03/23 10:18 09/03/23 10:18 A&P Assessment and plan (1) Hypernatremia: Resolved. High risk for reoccurrence. Appreciate nephrology recommendations. Post vasopressin on 08/27. Continues to be polyuric. Stop IV fluids as per nephrology recommendations. Patient has been started on PEG tube feeds and free water flushes today. (2) Hypoxia: Resolved. Patient is on room air to 2 L of oxygen supplementation. Continue treatment of aspiration pneumonia. Continue with IV Zosyn to finish a 7-day course. MRSA swab negative so we will discontinue vancomycin. Patient has had vancomycin for last 5 days. Oxygen supplementation keeping saturation over 90%. DuoNebs as needed. (3) Atrial fibrillation with RVR: Heart rate better controlled. Medications are being turned over to through PEG tube from IV. Patient currently on metoprolol 2.5 mg IV every 6 hour. For now we will discontinue metoprolol. Continue with amiodarone 200 mg twice daily for next 7 days followed by 200 mg daily. Plan for initiation of anticoagulation 14 days post stroke which should be September 05. (4) Hypertension: Goal blood pressure less than 140/90 mmHg. Blood pressure still elevated. Continue with amlodipine 10 mg oral daily, add losartan 25 mg daily. Metoprolol withheld as above. IV hydralazine 10 mg every 4 hours as needed for systolic blood pressure of more than 160 mmHg. (5) Altered mental status: In setting of recent stroke along with hypernatremia. Encephalopathy has improved. Continue to reorient, PT, OT, ST. Post discharge planning arrangements with plan to discharge to SNF. (6) Stroke: Seen on admission. Not a tPA candidate. Appreciate echocardiogram, MRI and MRI results. Continue baby aspirin, atorvastatin through NG tube. Patient continues to not able to swallow. Plan for PEG tube placement today. CODE STATUS Limited resuscitation. (7) Metabolic acidosis: In setting of DKA on admission. Resolved. (8) Diabetes: moderate insulin sliding scale. On admission had DKA. Continue with Lantus at 27 units daily. (9) Goals of care, counseling/discussion: On goals of care discussion with his , she states that he had previously stated and had documents signed that he would not want CPR in case of cardiopulmonary arrest. She feels in case of arrhythmia defibrillation would be appropriate if needed. Plan Lovenox for DVT prophylaxis. Plan for switching over to DOAC 14 days poststroke. PEG tube feeds with Glucerna at 10 cc/h, increasing 10 cc every 4 hours goal at 50 cc/h. Free water flushes as per nephrology. Plan for discharge on bolus feeds if tolerating diet Protonix for PUD prophylaxis. Plan for the day: Started back on tube feeds. Increase the tube feeds to reach goal. Continue with free water flushes as per nephrology. Repeat BMP in AM. If patient is able to tolerate tube feeds at goal rate will transition over to bolus feeds and plan to discharge in next 24 hours. Goal blood pressure less than 140/90 mmHg. Continue with amlodipine. Dose of losartan increased to 75 mg daily. Metoprolol discontinued for bradycardia. Heart rate better. Continue with amiodarone 200 mg twice daily. Plan to transition to 100 mg daily after completion of 7-day. Plan for restarting anticoagulation tomorrow which would be 14 days post stroke. Discussed in detail with patient's and she is agreeable. Discharge plan: Plan to discharge to SNF for rehabitation post PEG tube placement and tolerating PEG tube feeds for 24 hours. Attestations 2 Medical Necessity Statement*: Requires further hospitalization as PEG tube feeds are increased to reach goal before transitioning to SNF and bolus feeds. Diagnoses Hypernatremia E87.0 Hypoxia R09.02 Atrial fibrillation with RVR I48.91 Hypertension I10 Altered mental status R41.82 Stroke I63.9 Metabolic acidosis E87.20 Diabetes E11.9 Goals of care, counseling/discussion Z71.89
--- NOTE | 2023-09-03 13:24 | PC.SOCIAL ---
IMM Update pg 2 of IMM updated and reviewed w/ patient's . Copy provided and copy dated, initialed and placed in chart.
[2023-09-03] MEDS: enoxaparin 40 mg/0.4 mL Syringe SUBCUT (16:02)
[2023-09-03] MEDS: piperacillin-tazobactam 3.375 GM in sodium chloride 0.9% (plus) 50 ML IV (16:02)
--- NOTE | 2023-09-03 16:18 | PC.NURSE ---
PEG residual 50ml. Tube feeding increased to 40ml per hour. Will recheck residual at 1999.
[2023-09-03 17:18] LABS: Glucose Point of Care 141 mg/dL (70-110)
[2023-09-03] MEDS: atorvastatin 40 mg Tablet NG-TUBE (20:20)
--- NOTE | 2023-09-03 20:45 | PC.NURSE ---
Patient had 50ml of residual, peg flushed with 250ml of water and rate turned up to 50ml/hr, tubing and bag changed at 2030.
[2023-09-04] VITALS (8 sets, daily range): BP systolic 144–176; BP diastolic 70–76; PULSE 60–94; RESP 16–20; TEMP 36.4–36.6; O2SAT 90–100
[2023-09-04 00:05] LABS: Glucose Point of Care 143 mg/dL (70-110)
[2023-09-04] MEDS: insulin lispro 100 unit/1 mL SUBCUT (00:26)
[2023-09-04] MEDS: piperacillin-tazobactam 3.375 GM in sodium chloride 0.9% (plus) 50 ML IV ×2 (00:27→12:19)
--- NOTE | 2023-09-04 00:40 | PC.NURSE ---
Peg tube had residual of 60ml, rate increased to goal of 55ml/hr.
[2023-09-04] MEDS: acetaminophen 325 mg Tablet 650 MG PO (02:49)
[2023-09-04 05:43] LABS: Basophils % 0.4 %; Eosinophils # 0.2 10^3/uL (0.0-0.8); Eosinophils % 1.9 %; Hematocrit 39.9 % (37-53); Lymphocytes # 1.3 10^3/uL (0.8-4.8); Lymphocytes % 15.5 %; Mean Corpuscular HGB Conc 32.1 g/dL (30-55); Mean Corpuscular Hemoglobin 28.6 pg (27-33); Mean Corpuscular Volume 89.1 fl (82-101); Mean Platelet Volume 10.6 fL (7.4-10.4); Monocytes % 12.4 %; Neutrophils # 5.67 10^3/uL (1.8-7.7); Neutrophils % 68.5 %; Nucleated Red Blood Cells % 0 %; Platelet Count 221 10^3/cmm (157-399); Red Blood Count 4.48 10^6/uL (3.85-5.65); Red Cell Distribution Width 13.3 % (12.1-15.1); White Blood Count 8.28 10^3/uL (3.29-11.43)
[2023-09-04 05:57] LABS: Glucose Point of Care 140 mg/dL (70-110)
[2023-09-04 06:48] LABS: Alanine Aminotransferase 14 U/L (0-41); Albumin Level 2.3 g/dL (3.5-5.2); Alkaline Phosphatase 68 U/L (40-130); Anion Gap 14.9 (5-19); Aspartate Amino Transferase 19 U/L (0-40); Blood Urea Nitrogen 12 mg/dL (8-23); Calcium 8.2 mg/dL (8.5-10.5); Carbon Dioxide 25 mmol/L (22-29); Chloride 104 mmol/L (98-107); Globulin 2.9 g/dL (1.3-4.6); Glomerular Filtration Rate 165.9 mL/min (90-130); Glucose 147 mg/dL (65-115); Osmolality Calculated 292 mOsm/kg (285-295); Potassium 3.9 mmol/L (3.5-5.1); Sodium 140 mmol/L (136-145); Total Bilirubin 0.5 mg/dL (0.15-1.2); Total Protein 5.2 g/dL (6.6-8.7)
--- NOTE | 2023-09-04 09:48 | PM.DCS ---
Discharge Providers Date of Admission: 08/21/23 14:44 Date of Discharge: September 04, 2023 Attending Provider at Admission: Elvi Silver MD Attending Provider at Discharge: Aiden Robison MD Consults: Neurology: Dr. Valencia Surgery: Dr. Drew Albarado Nephrology Primary Care Provider: Juve Hernandez DO Diagnoses at Discharge Discharge Diagnosis (1) Hypernatremia: Status: Acute (2) Hypoxia: Status: Acute (3) Atrial fibrillation with RVR: Status: Acute (4) Hypertension: Status: Acute (5) Altered mental status: Status: Acute (6) Stroke: Status: Acute (7) Metabolic acidosis: Status: Acute (8) Diabetes: Status: Acute (9) Goals of care, counseling/discussion: Status: Acute Reason for Visit Reason for Visit: Stroke like Brief History: History as per HPI: Ulisses Bae is a 68 year old male with a past medical history of diabetes mellitus, hypertension, dyslipidemia was brought to the emergency room today with chief complaints of ataxia, dizziness and then developed altered mental status. History is obtained mainly by talking to the as patient is currently confused. Per patient's .Patient was reportedly in his baseline state of health until the morning of August 19, 2023. They were out riding their bike and he developed worsened dizziness. She noticed that he was having a hard time maintaining balance on the bike. By the time she got home he needed assistance with additional people to hold him up. He complained of dizziness and vertigo. It appears patient has some past medical history of dizziness as well which his family attributes to having long COVID however it was much worse on 08/19/2023. He presented to the ER with these complaints and was diagnosed with bilateral otitis media. He received a prescription for meclizine and prednisone and was discharged home. After he returned home his states that patient sustained a fall while going to the bathroom. She was afraid that because of his dizziness he will have multiple falls and she laid a mattress next to him on the floor where he lived for 2 days. Today he started to complain of his left arm feeling tingly and numb. Never concern for a stroke and came to the ER. Per his he attempted to get up on multiple occasions over the past 2 days however was unable to do the same and kept falling back. He complained of Weick pain over his back. Denies any complains of headache. Has not had any noted fever at home. Per he was alert awake and oriented at his baseline mentation although while he was at home. Even when EMS brought him to the ER he was apparently able to talk and joke with them. At the time of my assessment, patient is no longer able to do this. He was unable to answer any questions. It was very difficult to awaken him. He was on a BiPAP reportedly as he was hypoxic initially upon presentation. His ABG did show PO2 of 60 PCO2 of 32. No past history of known COPD. Per his he does have a history of sleep apnea however does not use a CPAP. Last night she did notice episodes of apnea which started after almost 15 years. She reports that because of his constant dizziness he has been laying with his head usually dropping backwards below the level of the bed. No complaints of chest pain dyspnea palpitations or loss of consciousness around the time of onset of symptoms. His blood pressure today is noted to be uncontrolled in the 170s range. Patient states that at home it is normally well controlled with lisinopril 20 mg daily. Hospital Course Hospital Course Patient was admitted to the ICU for further evaluation and management of acute encephalopathy in setting of stroke, DKA. On admission he was also found to have elevated blood pressures along with metabolic acidosis. Neurology was consulted in the ER. MRI brain was done which showed right MCA infarct. Patient's hospitalization was complicated by him developing significant persistent hypernatremia, diabetic ketoacidosis, significant deficit with stroke. He also had new onset atrial fibrillation during hospitalization. Patient had a multifactorial here for which neurology, nephrology and surgery were consulted. He was managed with fluid resuscitation. Given prolonged hospitalization, significant deficit poststroke multiple goals of care discussions were done with patient's . decided to go ahead with limited resuscitation, plan to discharge to SNF for further rehab and PEG tube placement for nutrition. Eventually patient had PEG tube placement on 09/01. He is able to tolerate PEG tube feeds at goal. He has been started on anticoagulation for further stroke prevention given baseline atrial fibrillation 14 days after the stroke. He has been discharged in hemodynamically stable condition with advised to follow-up with his primary care provider within next 1 week and with neurology within 2 weeks. He is to monitor his blood sugars and blood pressure at the [facility] and medications are to be adjusted accordingly. He has been discharged on 25 units of Lantus and insulin sliding scale premeals. Physical Exam Narrative: Accompanied by his at bedside. Const: GENERAL APPEARANCE: cooperative and lethargic ORIENTATION/CONSCIOUSNESS: Yes awake and Yes lethargic HENMT: COMMON NORMALS: oropharynx normal OTHER: Tympanic membranes opacified bilaterally. There is perhaps slight irritation in the EAM on the right side, but I was not able to see any obvious signs of infection. No [place] tympanic fluid collection or perforation. Neck/C-Spine: COMMON NORMALS: no JVD Resp: COMMON NORMALS: normal respiratory effort and clear to auscultation bilaterally EFFORT & INSPECTION: Yes tachypneic AUSCULTATION: clear to auscultation bilaterally Cardio: COMMON NORMALS: no JVD, regular rhythm, S1 normal heart sound present, S2 normal heart sound present and No murmurs present (Cardio) RHYTHM: regular rhythm HEART SOUNDS: S1 normal heart sound present and S2 normal heart sound present GI: COMMON NORMALS: Normal to inspection, nondistended, normoactive bowel sounds present, Soft to palpation and non-tender PALPATION: Yes Soft to palpation Extremity: COMMON NORMALS: no joint enlargement and no pedal edema NARRATIVE EXTREMITY EXAM: Swelling of the right forearm, hand, elevated on pillow. Neuro: COMMON NORMALS: moves all extremities SENSORIUM/ORIENTATION: Yes lethargic OTHER: L side hemiplegia. Skin: COMMON NORMALS: no rashes or lesions noted GENERAL SKIN EXAM: no rashes or lesions noted Urinary Catheter Management: Vuong: Cath Placed During This Visit: yes, but has since been removed by the nurse Reason for Continuing Indwelling Catheter: Accurate Measurement of Urinary Output in Critically Ill Patients Urinary Catheter Date of Insertion: 08/21/23 Urinary Catheter Time of Insertion: 19:35 Date Urinary Catheter Removed: 09/03/23 Time Urinary Catheter Discontinued: 17:24 Vuong Latex: Cath Placed During This Visit: yes Reason for Continuing Indwelling Catheter: Acute Urinary Retention or Obstruction Urinary Catheter Date of Insertion: 09/03/23 Urinary Catheter Time of Insertion: 17:39 Discharge Data Studies Completed and Pending Completed Studies During Hospitalization Category Date Time Status CT head wo con* [id number] Stat Cat Scan 08/21/23 12:[address] lumbar spine wo con* [id number] Routine Cat Scan 08/21/23 17:10 Completed CTA PE [CT angio chest PE protcl [id number]] Routine Cat Scan 08/21/23 16:38 Completed CXRP [XR chest 1V portable [id number]] Routine Exams 08/22/23 14:49 Completed CXRP [XR chest 1V portable [id number]] Stat Exams 08/25/23 09:39 Completed XR chest 1V portable [id number] Stat Exams 08/21/23 12:55 Completed XR chest 1V portable [id number] Stat Exams 08/23/23 12:17 Completed XR chest 1V portable [id number] Stat Exams 08/26/23 01:07 Completed MR head wo con* [id number] Routine MRI 08/22/23 09:30 Completed MRA head [MR angio head wo con 53531] Routine MRI 08/22/23 14:47 Completed MRA neck [MR angio neck w con* [id number]] Routine MRI 08/22/23 14:47 Completed CV carotid duplex BI* [id number] Routine Ultrasound 08/21/23 09:57 Completed CV. echo wo/w contrast [id number] Routine Ultrasound 08/21/23 17:42 Completed Radiology Impressions Chest CTA 08/21/23 16:38 IMPRESSION: No acute chest findings. 2 cm right thyroid nodule. Nonemergent thyroid ultrasound recommended for further evaluation. Lumbar Spine CT 08/21/23 17:10 IMPRESSION: Mild degenerative changes without acute findings. Head MRI 08/22/23 09:30 IMPRESSION: Acute/subacute right MCA distribution ischemic changes/infarcts. ADDENDUM: 08/22/23 3790 THIS REPORT CONTAINS FINDINGS THAT MAY BE CRITICAL TO PATIENT CARE. The findings were verbally communicated via telephone conference at 6:40 PM LINOLEUM TILE LAYER on 08/22/2023 with ELVI SILVER. The findings were acknowledged and understood. 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 Neck MRA 08/22/23 14:47 IMPRESSION: No severe stenosis or occlusion. REFERENCES: NASCET CRITERIA. The degree of stenosis in the cervical segment of the internal carotid artery is based on NASCET criteria. Normal is no stenosis. Mild is less than 50% stenosis. Moderate is 50-69% stenosis. Severe is 70% to 99% stenosis. Total occlusion is no detectable patent lumen. Chest X-Ray 08/26/23 01:07 IMPRESSION: Linear opacity in the inferior right upper lobe, appears slightly more consolidated on this exam, previously more ground-glass in appearance, could represent layering pleural fluid, consolidation, or atelectasis. Improved aeration of the left retrocardiac lung. No new focal consolidation. Laboratory Results WBC 8.28 10^3/uL (3.29-11.43) 09/04/23 05:07 Corrected WBC Cancelled 09/01/23 04:37 RBC 4.48 10^6/uL (3.85-5.65) 09/04/23 05:07 Hgb 12.80 g/dL (11.27-16.99) 09/04/23 05:07 Hct 39.9 % (37-53) 09/04/23 05:07 MCV 89.1 fl (82-101) 09/04/23 05:07 MCH 28.6 pg (27-33) 09/04/23 05:07 MCHC 32.1 g/dL (30-55) 09/04/23 05:07 RDW 13.3 % (12.1-15.1) 09/04/23 05:07 Plt Count 221 10^3/cmm (157-399) 09/04/23 05:07 MPV 10.6 fL (7.4-10.4) H 09/04/23 05:07 Gran % Cancelled 09/01/23 04:37 Neut % (Auto) 68.5 % 09/04/23 05:07 Lymph % (Auto) 15.5 % 09/04/23 05:07 [place] % (Auto) 12.4 % 09/04/23 05:07 Eos % (Auto) 1.9 % 09/04/23 05:07 Baso % (Auto) 0.4 % 09/04/23 05:07 Neut # (Auto) 5.67 10^3/uL (1.8-7.7) 09/04/23 05:07 Lymph # (Auto) 1.3 10^3/uL (0.8-4.8) 09/04/23 05:07 [place] # (Auto) 1.0 10^3/uL (0.2-0.9) H 09/04/23 05:07 Eos # (Auto) 0.2 10^3/uL (0.0-0.8) 09/04/23 05:07 Baso # (Auto) 0.0 10^3/uL (0.0-0.1) 09/04/23 05:07 Absolute Gran (auto) Cancelled 09/01/23 04:37 Nucleated RBC % (auto) 0 % 09/04/23 05:07 Nucleated RBCs # 0.0 /100WBC 09/04/23 05:07 D-Dimer 0.31 ug/mLFEU (0-0.59) 08/21/23 13:00 Specimen Type Arterial 08/26/23 04:45 Sample Site Radial, left 08/26/23 04:45 ABG pH 7.40 (7.35-7.45) 08/26/23 04:45 ABG pCO2 45.8 mmHg (35-45) H 08/26/23 04:45 ABG pO2 116.0 mmHg (80.0-100.0) H 08/26/23 04:45 ABG PO2/FiO2 Ratio 0 08/26/23 04:45 ABG HCO3 28.2 mmol/L (22-26) H 08/26/23 04:45 ABG O2 Saturation 98.9 08/26/23 04:45 ABG Base Excess 2.6 mmol/L (-2.0-2.0) H 08/26/23 04:45 Magdiel Test Pos 08/26/23 04:45 A-a O2 Gradient 14.5 mmHg (5-10) H 08/26/23 04:45 Hematocrit 45.4 % (42-52) 08/26/23 04:45 Hgb O2 Saturation 98.2 % (95-100) 08/26/23 04:45 Carboxyhemoglobin 0.8 %THgb (0.4-20.1) 08/26/23 04:45 Methemoglobin 0.0 % (0.4-1.5) L 08/26/23 04:45 Total Hemoglobin 14.8 g/dL (14-18) 08/26/23 04:45 Sodium 162.0 mmol/L (131-143) H 08/26/23 04:45 Potassium 3.9 mmol/L (3.5-5.0) 08/26/23 04:45 Glucose 228.0 mg/dL (70-115) H 08/26/23 04:45 Ionized Calcium 1.2 mmol/L (1.1-1.4) 08/26/23 04:45 O2 Delivery Device Bipap 08/26/23 04:45 O2 Liters/Min 10.0 % 08/25/23 10:00 FiO2 40.0 % 08/26/23 04:45 Barn Worker ID [email or web address] 08/26/23 04:45 Sodium 140 mmol/L (136-145) 09/04/23 05:07 Potassium 3.9 mmol/L (3.5-5.1) 09/04/23 05:07 Chloride 104 mmol/L (98-107) 09/04/23 05:07 Carbon Dioxide 25 mmol/L (22-29) 09/04/23 05:07 Anion Gap 14.9 (5-19) 09/04/23 05:07 BUN 12 mg/dL (8-23) 09/04/23 05:07 Creatinine 0.5 mg/dL (0.7-1.2) L 09/04/23 05:07 GFR Calculation 165.9 mL/min (90-130) H 09/04/23 05:07 Glucose 147 mg/dL (65-115) H 09/04/23 05:07 POC Glucose 140 mg/dL (70-110) H 09/04/23 05:54 Estimat Average Glucose 192 08/22/23 04:10 Hemoglobin A1c 8.3 % (4.0-6.0) H 08/22/23 04:10 Serum Osmolality 303 mOsm/kg (278-305) 09/01/23 14:50 Calculated Osmolality 292 mOsm/kg (285-295) 09/04/23 05:07 Lactic Acid 2.2 mmol/L (0.5-2.2) 08/21/23 13:00 Lactic Acid (Sepsis) 2.1 mmol/L (0.5-2.2) 08/21/23 16:14 Lactate 1.8 mmol/L (0.5-2.2) 08/25/23 11:55 Calcium 8.2 mg/dL (8.5-10.5) L 09/04/23 05:07 Phosphorus 3.4 mg/dL (2.5-4.5) 08/29/23 05:00 Magnesium 2.4 mg/dL (1.7-2.3) H 08/30/23 03:33 Total Bilirubin 0.5 mg/dL (0.15-1.2) 09/04/23 05:07 AST 19 U/L (0-40) 09/04/23 05:07 ALT 14 U/L (0-41) 09/04/23 05:07 Alkaline Phosphatase 68 U/L (40-130) 09/04/23 05:07 Ammonia 16 umol/L (16-60) 08/21/23 20:25 Creatine Kinase 151 U/L (39-308) 08/21/23 13:00 Troponin T Baseline 18 ng/L (0-15) H 08/21/23 13:00 Troponin T 120 Minute 13.83 ng/L (0-15) 08/21/23 14:55 Delta Troponin T -4.17 ABS# (0-10) L 08/21/23 14:55 Troponin T Hi Sens 6Hr 12.81 ng/L (0-15) 08/21/23 19:12 Troponin T Hi Sens 6Hr Delta -5.19 ng/L (0-12) L 08/21/23 19:12 NT-Pro-B Natriuret Pep 482 pg/mL (0-125) H 08/23/23 22:01 Total Protein 5.2 g/dL (6.6-8.7) L 09/04/23 05:07 Albumin 2.3 g/dL (3.5-5.2) L 09/04/23 05:07 Globulin 2.9 g/dL (1.3-4.6) 09/04/23 05:07 Triglycerides 155 mg/dL (0-150) H 08/22/23 04:10 Cholesterol 137 mg/dL (0-200) 08/22/23 04:10 LDL Cholesterol, Calc 63 mg/dL (50-129) 08/22/23 04:10 HDL Cholesterol 43 mg/dL (60-100) L 08/22/23 04:10 LDL/HDL Ratio 1.47 RATIO (0.00-3.22) 08/22/23 04:10 Cholesterol/HDL Ratio 3.19 mg/dL (1.0-5.00) 08/22/23 04:10 Lipase 18 U/L (13-60) 08/21/23 13:00 Procalcitonin 0.04 ng/mL (0-0.5) 08/21/23 14:55 TSH 1.72 uIU/mL (0.27-4.20) 08/21/23 13:00 Urine Color Yellow (Yellow) 08/25/23 09:51 Urine Appearance Sl hazy (CLEAR) A 08/25/23 09:51 Urine pH 5 (5-7) 08/25/23 09:51 Ur Specific [place] 1.015 (1.005-1.030) 08/25/23 09:51 Urine Protein Trace (Negative) 08/25/23 09:51 Urine Glucose (UA) 4+ (Normal) H 08/25/23 09:51 Urine Ketones 2+ (Negative) H 08/25/23 09:51 Urine Blood 3+ (Negative) H 08/25/23 09:51 Urine Nitrate Negative (Negative) 08/25/23 09:51 Urine Bilirubin Neg (Negative) 08/25/23 09:51 Urine Urobilinogen Norm mg/dL (Negative) 08/25/23 09:51 Ur Leukocyte Esterase Negative (Negative) 08/25/23 09:51 Urine RBC 5-10 /hpf (0-2) H 08/25/23 09:51 Urine WBC Rare /hpf (0-5) 08/25/23 09:51 Ur Squamous Epith Cells Rare /hpf (0-5) 08/25/23 09:51 Amorphous Sediment 1+ /hpf 08/25/23 09:51 Urine Bacteria Trace /hpf (NONE) 08/25/23 09:51 Hyaline Casts 0-4 /lpf H 08/25/23 09:51 Fine Granular Casts 5-10 /lpf H 08/25/23 09:51 Urine Mucus 1+ /hpf 08/25/23 09:51 Urine Osmolality 814 mOsm/kg (50-1200) 08/23/23 19:27 Ur Random Sodium 39 mmol/L 08/23/23 19:27 Ur Random Potassium 46 mmol/L 08/23/23 19:27 Ur Random Chloride 11 mmol/L 08/23/23 19:27 Vancomycin Trough 17.2 ug/mL (10-15) H 08/31/23 04:59 Salicylates < 0.3 mg/dL (3-10) L 08/21/23 13:00 Urine Opiates Screen Negative ng/mL (Negative) 08/21/23 17:48 Acetaminophen < 5.0 ug/mL (10-30) L 08/21/23 13:00 Ur Barbiturates Screen Negative ng/mL (Negative) 08/21/23 17:48 Ur Phencyclidine Scrn Negative ng/mL (Negative) 08/21/23 17:48 Ur Amphetamines Screen Negative ng/mL (Negative) 08/21/23 17:48 U Benzodiazepines Scrn Negative ng/mL (Negative) 08/21/23 17:48 Urine Cocaine Screen Negative ng/mL (Negative) 08/21/23 17:48 U Marijuana (THC) Screen Negative ng/mL (Negative) 08/21/23 17:48 Ethyl Alcohol < 10 mg/dL (0-10) 08/21/23 13:00 Serum Ketones Positive (Negative) H 08/25/23 11:55 Coronavirus 229E (PCR) Not detected (NOT DETECT) 08/21/23 15:04 Influenza Type A Ag negative (Negative) 08/21/23 15:04 Influenza Type B Ag negative (Negative) 08/21/23 15:04 SARS-CoV-2 (PCR) Not detected (NOT DETECT) 08/21/23 15:04 SARS-CoV-2 Ag (Rapid) negative (Negative) 09/03/23 09:40 MRSA (PCR) Not detected (NOT DETECTED) 08/26/23 09:30 Vitals Last Vital Signs Temp 97.6 F 09/04/23 08:27 Pulse 60 09/04/23 08:27 Resp 16 09/04/23 08:27 BP 176/76 09/04/23 08:27 Pulse Ox 100 09/04/23 08:27 O2 Del Method Room Air 09/04/23 09:27 O2 Flow Rate 1 09/04/23 04:09 FiO2 22 08/29/23 04:00 Discharge Plan Discharge Patient Disposition: Xfer SNF Condition: Stable Prescriptions: New Pacerone 200 mg Tablet 200 mg ng-tube Q24H Qty: 30 0RF losartan 50 mg Tablet 75 mg PO DAILY 30 Days Qty: 45 0RF amlodipine 10 mg Tablet 10 mg PO DAILY Qty: 30 0RF aspirin 81 mg Tablet,Chewable 81 mg ng-tube DAILY Qty: 30 0RF Lantus Solostar U-100 Insulin 100 unit/mL (3 mL) insulin pen 25 unit SUBCUT DAILY Qty: 15 0RF Eliquis 5 mg tablet 5 mg PO BID Qty: 60 0RF Protonix 40 mg tablet,delayed release (DR/EC) 40 mg PO DAILY Qty: 30 0RF Humalog KwikPen Insulin 100 unit/mL insulin pen 3 unit SUBCUT TID Qty: 15 0RF Continued atorvastatin 40 mg tablet 40 mg PO DAILY Qty: 90 2RF meclizine 25 mg tablet 25 mg PO QID PRN (Reason: vertigo) Qty: 30 0RF Jardiance 25 mg tablet 25 mg PO DAILY Discontinued glipizide 10 mg tablet 10 mg PO DAILY Qty: 90 3RF lisinopril 20 mg tablet 20 mg PO DAILY Qty: 90 3RF metformin 1,000 mg tablet 1,000 mg PO DAILY Qty: 90 3RF prednisone 20 mg tablet 20 mg PO BID 5 Days Qty: 10 0RF Discharge Orders: Discharge Order (Routine); Ordered 09/04/23 Ordered By: Aiden Robison Referrals: [facility] [Outside] Juve Hernandez DO [Primary Care Provider] - 4-7 days Gloria Valencia MD [Physician] - 2 weeks Discharge Diet: Start new tube feeds as directed Discharge Activity: Increase activity as tolerated Patient Instructions: GI Discharge Instructions, Opioid Safety Activity Restrictions/Additional Instructions: Bolus PEG feeding as below. 8 AM: 480 mL or 2 cartons Jevity 1.5 Noon: 240 mL or 1 carton Jevity 1.5 4 PM 240 mL or 1 carton Jevity 1.5 8 PM for 80 units or 2 carton Jevity 1.5 Free water flushes of 250 cc after each meal. Repeat BMP in 1 week. Monitor blood sugars and blood pressures and change medications accordingly. Please follow-up with neurology in 2 weeks. Discharge Attestations Time Spent in Discharge Care*: greater than 30 min Specific Discharge Activities: educating and/or supporting family/caregiver, discussing with pcp/other providers, discussing with telephonic case manager/social workers/dc planners, documenting/other paperwork and evaluating patient/reviewing data Quality Metrics Clinical Quality Measures [ No reported AMI, CVA or VTE this stay] Coding Level of Care Code 49417 Total time (in minutes) for Discharge: 70 Diagnoses Hypernatremia E87.0 Hypoxia R09.02 Atrial fibrillation with RVR I48.91 Hypertension I10 Altered mental status R41.82 Stroke I63.9 Metabolic acidosis E87.20 Diabetes E11.9 Goals of care, counseling/discussion Z71.89
--- NOTE | 2023-09-04 11:22 | P.PN_ITS ---
Subjective 2 Subjective: no new complaints Medications: Reviewed: Yes Vitals/I&O/Wt Last Vital Signs Temp 97.6 F 09/04/23 08:27 Pulse 60 09/04/23 08:27 Resp 16 09/04/23 08:27 BP 176/76 09/04/23 08:27 Pulse Ox 100 09/04/23 08:27 O2 Del Method Room Air 09/04/23 09:27 O2 Flow Rate 1 09/04/23 04:09 FiO2 22 08/29/23 04:00 09/03/23 09/04/23 09/04/23 22:59 06:59 14:59 Intake Total 1440 / 1490 950 / 2440 Output Total 1500 / 1500 Balance 1440 / 1490 -550 / 940 Weight last 48 hrs Weight 130.72 kg Weight 138.799 kg Physical Exam 2 Narrative: awake , no distress Urinary Catheter Management: Vuong: Cath Placed During This Visit: yes, but has since been removed by the nurse Reason for Continuing Indwelling Catheter: Accurate Measurement of Urinary Output in Critically Ill Patients Urinary Catheter Date of Insertion: 08/21/23 Urinary Catheter Time of Insertion: 19:35 Date Urinary Catheter Removed: 09/03/23 Time Urinary Catheter Discontinued: 17:24 Vuong Latex: Cath Placed During This Visit: yes Reason for Continuing Indwelling Catheter: Acute Urinary Retention or Obstruction Urinary Catheter Date of Insertion: 09/03/23 Urinary Catheter Time of Insertion: 17:39 Data 09/04/23 05:07 09/04/23 05:07 A&P Assessment and plan (1) Hypernatremia: Plan 1. Hypernatremia. Improved , TF started , , Continue free water 250 ml Q4h. . s/p SC vasopressin on 08/27. 2. Hypokalemia improved, hypophosphatemia, improved. continue replacement as needed 3. AMS 4. CVA 5. s/p DKA 6.Dysphagia , s/p G tube Attestations 2 Medical Necessity Statement*: per medicien team Coding Level of Care Code Acute Code for Chg Fwd Diagnoses Hypernatremia E87.0
[2023-09-04] MEDS: amiodarone 200 mg Tablet NG-TUBE (12:17)
[2023-09-04] MEDS: losartan 50 mg Tablet 75 MG PO (12:18)
[2023-09-04] MEDS: amlodipine 10 mg Tablet PO (12:18)
[2023-09-04] MEDS: aspirin 81 mg Chew Tablet NG-TUBE (12:18)
[2023-09-04] MEDS: potassium chloride oral liq 20 mEq/15 mL UDC PO (12:19)
[2023-09-04] MEDS: pantoprazole 40 mg SDV IVP (12:19)
[2023-09-04] MEDS: insulin glargine 100 units/1 mL 27 UNIT SUBCUT (12:19)
--- NOTE | 2023-09-04 12:27 | P.PN_ITS ---
Subjective 2 Subjective: 68-year-old male status post PEG tube pl acement for nutrition after stroke. Patient is doing well, now tolerating tube feeds at goal rate. No significant complaints from the family member. Vitals/I&O/Wt Last Vital Signs Temp 97.8 F 09/04/23 11:56 Pulse 94 09/04/23 11:56 Resp 20 H 09/04/23 11:56 BP 173/76 09/04/23 12:18 Pulse Ox 90 09/04/23 11:56 O2 Del Method Room Air 09/04/23 09:27 O2 Flow Rate 1 09/04/23 04:09 FiO2 22 08/29/23 04:00 09/03/23 09/04/23 09/04/23 22:59 06:59 14:59 Intake Total 1440 / 1490 950 / 2440 Output Total 1500 / 1500 Balance 1440 / 1490 -550 / 940 Weight last 48 hrs Weight 288 lb 3 oz Weight 306 lb Physical Exam 2 GI: OTHER: Abdomen is soft, nontender, nondistended, PEG tube insertion site is clean, dry, no erythema on the skin. Urinary Catheter Management: Vuong: Cath Placed During This Visit: yes, but has since been removed by the nurse Reason for Continuing Indwelling Catheter: Accurate Measurement of Urinary Output in Critically Ill Patients Urinary Catheter Date of Insertion: 08/21/23 Urinary Catheter Time of Insertion: 19:35 Date Urinary Catheter Removed: 09/03/23 Time Urinary Catheter Discontinued: 17:24 Vuong Latex: Cath Placed During This Visit: yes Reason for Continuing Indwelling Catheter: Acute Urinary Retention or Obstruction Urinary Catheter Date of Insertion: 09/03/23 Urinary Catheter Time of Insertion: 17:39 Data 09/04/23 05:07 09/04/23 05:07 A&P Assessment and plan (1) Acute right arterial ischemic stroke, middle cerebral artery (MCA): Plan Excellent progression after PEG tube placement. Family member was given care instructions as well as instructed him warning precautions regarding possible PEG dislodgment. Wound is healing fine, patient can follow-up with my clinic in about a month to ensure that there is occasional with wound healing and additional appointments can be made if there is any issues with the PEG. Attestations 2 Medical Necessity Statement*: Patient is cleared for discharge from the general surgery standpoint. Coding Level of Care Code Acute Code for Chg Fwd Diagnoses Acute right arterial ischemic stroke, middle cerebral artery (MCA) I63.511
[2023-09-04 13:45] LABS: Glucose Point of Care 220 mg/dL (70-110)
== END 2023-09-04 14:59 | disposition skilled nursing facility (03) | DRG 65 ==
LOC: ER 14:01 → ICU 14:44 → MEDSURG 08-30 15:42
PROVIDERS: Hospitalist; Internal Medicine; Surgery; Admitting Provider Student in an Organized Health Care Education/Training Program; Emergency Provider Family Medicine; PCP Family Medicine; Visit Provider Student in an Organized Health Care Education/Training Program
PROC: 0DJ08ZZ Inspection of Upper Intestinal Tract, Via Natural or Artificial Opening Endoscopic (ICD-10-PCS; CPT 43235; principal; 2023-09-01 12:15)
PROC: 0DH63UZ Insertion of Feeding Device into Stomach, Percutaneous Approach (ICD-10-PCS; CPT 43246; 2023-09-01 12:15)
DX: I63.511 Cerebral infarction due to unspecified occlusion or stenosis of right middle cerebral artery (principal); E87.0 Hyperosmolality and hypernatremia; E11.10 Type 2 diabetes mellitus with ketoacidosis without coma; E87.4 Mixed disorder of acid-base balance; G93.49 Other encephalopathy; G81.94 Hemiplegia, unspecified affecting left nondominant side; R27.0 Ataxia, unspecified; R29.810 Facial weakness; R13.10 Dysphagia, unspecified; R47.81 Slurred speech; R29.717 NIHSS score 17; E87.6 Hypokalemia; E83.39 Other disorders of phosphorus metabolism; R09.02 Hypoxemia; I48.91 Unspecified atrial fibrillation; I10 Essential (primary) hypertension; E78.5 Hyperlipidemia, unspecified; U09.9 Post COVID-19 condition, unspecified; W18.30XA Fall on same level, unspecified, initial encounter; G47.30 Sleep apnea, unspecified; Z11.52 Encounter for screening for COVID-19; Z79.84 Long term (current) use of oral hypoglycemic drugs
CPT/HCPCS: 36415; 36416; 36600; 43246; 51702; 70450; 70544; 70548; 70551; 71045; 71275; 72131; 80048; 80051; 80053; 80061; 80202; 80306; 80307; 81001; 81003; 81015; 82009; 82140; 82330; 82436; 82550; 82803; 82805; 82962; 83036; 83605; 83690; 83735; 83880; 83930; 83935; 84100; 84133; 84145; 84300; 84443; 84484; 85025; 85378; 86403; 87040; 87077; 87150; 87186; 87205; 87426; 87449; 87635; 87641; 87804; 92523; 93005; 93010; 93880; 94640; 94660; 94664; 96365; 96372; 96376; 97110; 97112; 97163; 97167; 97530; 97535; 99285; A4222; C8929; C9113; J0133; J0283; J0330; J0360; J0696; J1100; J1650; J1815; J1956; J2405; J2543; J2550; J2597; J2704; J3372; J3480; J3490; J7030; J7042; J7050; J7060; J7070; J7614; J8597; Q3014; Q9956; Q9967

== ENCOUNTER 2024-03-20 03:47 | Inpatient (IN) | payer MEDICARE, SELFPAY ==
[2024-03-20] VITALS (69 sets, daily range): BP systolic 81–176; BP diastolic 53–104; PULSE 57–105; RESP 16–20; TEMP 36.4–37.2; O2SAT 90–100; BMI 29.7; BMI 31.5
--- NOTE | 2024-03-20 03:55 | ECG_ITS ---
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 Measurements Intervals [place] Rate: 75 P: 9 [place]: 148 QRS: -28 QRSD: 116 T: 55 QT: 381 QTc: 428 Interpretive Statements SINUS RHYTHM BORDERLINE LEFT AXIS DEVIATION [QRS AXIS < -20] MODERATE INTRAVENTRICULAR CONDUCTION DELAY [110+ ms QRS DURATION] Compared to ECG 08/26/2023 21:19:08 Intraventricular conduction delay now present Atrial fibrillation no longer present Aberrant conduction of supraventricular beat(s) no longer present Ventricular premature complex(es) no longer present ST (T wave) deviation no longer present Electronically Signed On 03-20-2024 21:33:52 CDT by Mukesh Mcgee M.D. [id number]
[2024-03-20] MEDS: etomidate 2 mg/mL INJ SDV 10 mL 30 MG IVP (04:03)
[2024-03-20] MEDS: succinylcholine 20 mg/mL SDV 10mL 100 MG IVP (04:04)
--- NOTE | 2024-03-20 04:12 | XRR_ITS ---
PROCEDURE INFORMATION: Exam: XR Chest Exam date and time: 03/20/2024 4:43 AM Age: 68 years old Clinical indication: Device placement; Ett placement (vent status); Patient HX: EMS arrival for seizure with loss of airway. Check S/P et and central line placement; Additional info: Maryuri TECHNIQUE: Imaging protocol: Radiologic exam of the chest. Views: 1 view. COMPARISON: CR XR chest 1V portable [id number] 08/26/2023 2:37 AM FINDINGS: Tubes, catheters and devices: The endotracheal tube terminates 10 mm above the preston. It would be more optimally position if withdrawn 3 cm. The right IJ catheter terminates in the SVC. Lungs: Hypoventilatory changes in the left lower lobe. Pleural spaces: Unremarkable. No pleural effusion. No pneumothorax. Heart/Mediastinum: Unremarkable. No cardiomegaly. Bones/joints: Unremarkable. XR/XR chest 1V portable [id number] IMPRESSION: The ET tube terminates just above the preston.
--- NOTE | 2024-03-20 04:12 | CTR_ITS ---
PROCEDURE INFORMATION: Exam: CT Head Without Contrast Exam date and time: 03/20/2024 5:04 AM Age: 68 years old Clinical indication: Patient HX: EMS arrival for multiple seizures. History of RT sided CVA. Intubated. ; Additional info: Sz TECHNIQUE: Imaging protocol: Computed tomography of the head without contrast. Radiation optimization: All CT scans at this facility use at least one of these dose optimization techniques: automated exposure control; mA and/or kV adjustment per patient size (includes targeted exams where dose is matched to clinical indication); or iterative reconstruction. COMPARISON: MR angio head wo con [id number] 08/22/2023 4:55 PM RADIATION DOSE METRICS: Total DLP (mGy-cm): 1160.48 FINDINGS: Brain: . No hemorrhage. Periventricular white matter lucency representing atherosclerotic encephalopathic changes. Areas of encephalomalacia extensively present in the right supra tentorial brain. No mass effect. Cerebral ventricles: No ventriculomegaly. Ventricular prominence proportionate to the degree of atrophy observed. Paranasal sinuses: Visualized sinuses are unremarkable. No fluid levels. Mastoid air cells: Visualized mastoid air cells are well aerated. Bones: Unremarkable. No acute fracture. Soft tissues: Unremarkable. CT/CT head wo con* [id number] IMPRESSION: 1. No acute intracranial abnormality. 2. Extensive old right infarct.
[2024-03-20] MEDS: levETIRAcetam 2,000 MG/200 ML PREMIX 400 MG IV (04:29)
[2024-03-20] MEDS: fentaNYL 1,000 MCG/100 ML BAG 2.5 MCG IV (04:29)
[2024-03-20] MEDS: propofol 1,000 MG/100 ML INJ 2.89999999999999991 MG IV (04:29)
[2024-03-20 04:30] LABS: ABG PCO2 35.2 mmHg (35-45); ABG PH Result 7.35 (7.35-7.45); Arterial Blood Gas Hematocrit 45.2 % (42-52); Base Excess ABG -5.6 mmol/L (-2.0-2.0); Blood Gas Allen Test Pos; Blood Gas Sample Site Radial, right; Blood Gas Sample Type Arterial; HCO3 ABG 19.3 mmol/L (22-26); Oxygen Device VENT; PO2 FiO2 Ratio Arterial Blood 0
[2024-03-20 04:48] LABS: Basophils % 0.4 %; Eosinophils # 0.2 10^3/uL (0.0-0.8); Eosinophils % 1.6 %; Hematocrit 40.4 % (37-53); Lymphocytes # 1.5 10^3/uL (0.8-4.8); Lymphocytes % 15.4 %; Mean Corpuscular HGB Conc 33.2 g/dL (30-55); Mean Corpuscular Hemoglobin 28.7 pg (27-33); Mean Corpuscular Volume 86.5 fl (82-101); Monocytes # 0.5 10^3/uL (0.2-0.9); Neutrophils # 7.76 10^3/uL (1.8-7.7); Neutrophils % 77.3 %; Nucleated Red Blood Cells % 0 %; Platelet Count 310 10^3/cmm (157-399); Red Blood Count 4.67 10^6/uL (3.85-5.65); Red Cell Distribution Width 15.7 % (12.1-15.1); White Blood Count 10.03 10^3/uL (3.29-11.43)
[2024-03-20 04:58] LABS: Add Urine Microscopic? YES; Bilirubin Urine Neg (Negative); Blood Urine Neg (Negative); Glucose Urine UA Norm (Normal); Ketones Urine 1+ (Negative); Leukocyte Esterase Urine Negative (Negative); Nitrate Urine Negative (Negative); Protein Urine 1+ (Negative); Urine Appearance Clear (CLEAR); Urine Color Yellow (Yellow); Urobilinogen Urine Neg (Negative); pH Urine 6 (5-7)
--- NOTE | 2024-03-20 04:58 | W.ED.SEIZURE ---
HPI - Seizure General: Chief Complaint: Seizure Stated Complaint: seizure Time Seen by Provider: 03/20/24 03:50 History of Present Illness: HPI Narrative: 68-year-old male halfway patient with a history of stroke back in August 28. He presents after a seizure, evidently 45 minutes prior to EMS arrival. Seizure had stopped prior to EMS arrival. He was found to be postictal at that point, and not responding to verbal stimuli. By EMS report, the patient had another brief episode of seizure while pulling into the ambulance bay, for which she was given Ativan. He presents nonresponsive, with snoring respirations. Saturations are 96%. He is unable to give a history in his condition. Review of Systems General: Reports: ROS unobtainable due to medical condition PFSH ED PFSH: Medical History (Updated 03/20/24 @ 14:55 by Aiden Robison MD) History of cerebrovascular accident (CVA) due to ischemia Atrial fibrillation with RVR Atrial fibrillation Acute right arterial ischemic stroke, middle cerebral artery (MCA) Mixed dyslipidemia Essential hypertension Diabetes Social History Smoking and tobacco/nicotine status: never used tobacco/nicotine Alcohol intake: never Substance/Drug Use: never Adopted: No Caregiver/support person: No Lives independently: No Household members: spouse Housing: House Marital status: service: No Physical Exam Const: EXAM LIMITATIONS: altered mental status GENERAL APPEARANCE: ill appearing ORIENTATION/CONSCIOUSNESS: Yes Other orientation findings (Nonresponsive) HENMT: COMMON NORMALS: normocephalic, atraumatic and Normal external nose present HEAD & SCALP: normocephalic and atraumatic NOSE: Normal external nose present MOUTH: tongue abnormal (Abrasion causing bleeding) Eye: PUPIL: Yes Other pupil findings (Quite small, minimally reactive) Neck/C-Spine: GENERAL: Yes trachea midline Chest: CHEST: Yes Symmetrical chest wall rise Resp: EFFORT & INSPECTION: Yes tachypneic, Yes labored and Yes retractions Cardio: COMMON NORMALS: regular rate and regular rhythm RATE: regular rate RHYTHM: regular rhythm GI: COMMON NORMALS: Soft to palpation PALPATION: Yes Soft to palpation Extremity: OTHER: Skin thickening, chronic stasis Neuro: ELIZABETH COMA SCALE: document GCS findings [place] coma scale eye opening: None Elizabeth coma scale verbal response: None Elizabeth coma scale motor response: None Elizabeth coma scale total score: 3 Procedures Central Line Placement Right IJ: Time Out Performed: No Patient Placed on Monitor/Pulse Ox: Yes MD Prep: mask, gown and gloves Central Line Prep: Chlorhexidine scrub Local Anesthetic: lidocaine 1% Amount of anesthesia used (mL): 3 Ultrasound Used for Placement: Yes Central Line Lumen Inserted: triple Post Procedure: sutured in place, good blood return, all ports aspirated, flushed, capped and sterile dressing applied Post Procedure X-Ray: tip of catheter in good position and no pneumothorax seen Patient Tolerated Procedure: well and no complications Complications: none Intubation Time out performed: No sedative: Etomidate Mg Given: 30 paralytic: Succinylcholine Mg Given: 100 Laryngoscope: fiber optic video scope Assist Device Used: fiber optic device ET Tube Size: 8 ET Tube Uncuffed: No Tube Secured Depth (cm): 23 Tube Secured Location: lips Tube Placement Confirmation: visualized tube passing through cords, equal breath sounds bilaterally and confirmation by capnometry Patient Tolerated Procedure: well and no complications Intubation Complications: none Course Vital Signs: Vital signs: Vital Signs Temperature 97.5 F L 03/20/24 16:00 Pulse Rate 74 03/20/24 16:30 Respiratory Rate 16 03/20/24 19:58 Blood Pressure 106/56 03/20/24 16:30 Pulse Oximetry 100 03/20/24 19:58 Oxygen Delivery Me thod Mechanical Ventil ation 03/20/24 08:30 Oxygen Flow Rate 15 03/20/24 03:49 Fraction of Inspir ed Oxygen 40 03/20/24 19:58 MDM - Seizure MDM Narrative Medical decision making narrative: 68-year-old male patient with a history of stroke. He had a seizure in the halfway. He presents nonresponsive. He is nonresponsive to verbal, or noxious stimuli. He has snoring respirations. He is intubated on arrival. Central line is placed. Blood pressure was normal on arrival. He is afebrile. He is anticoagulated, with Eliquis, which is relative contraindication to thrombolytic therapy. We are awaiting CT scan of the head currently. CT scan of the head shows the patient's old infarct. No hemorrhage or mass effect. The patient has not shown signs of status epilepticus at this point. At points of low sedation, he overbreathing the vent, and coughs. He seems to move his right side at least to some degree. Spoke with the hospitalist service. We do not have neurology coverage until Friday. With the significant findings of the patient's old stroke, it would not be unheard of for the patient to develop delayed secondary seizures. He has been loaded with Keppra and is on propofol and fentanyl for sedation on the vent. As a working plan for now, we will plan for admit to the ICU with medical treatment. Lab Data 03/20/24 03:50 03/20/24 03:50 Labs: Radiology Impressions Chest X-Ray 03/20/24 04:12 IMPRESSION: The ET tube terminates just above the preston. Head CT 03/20/24 04:12 IMPRESSION: 1. No acute intracranial abnormality. 2. Extensive old right infarct. Laboratory Results WBC 10.03 10^3/uL (3.29-11.43) 03/20/24 03:50 RBC 4.67 10^6/uL (3.85-5.65) 03/20/24 03:50 Hgb 13.40 g/dL (11.27-16.99) 03/20/24 03:50 Hct 40.4 % (37-53) 03/20/24 03:50 MCV 86.5 fl (82-101) 03/20/24 03:50 MCH 28.7 pg (27-33) 03/20/24 03:50 MCHC 33.2 g/dL (30-55) 03/20/24 03:50 RDW 15.7 % (12.1-15.1) H 03/20/24 03:50 Plt Count 310 10^3/cmm (157-399) 03/20/24 03:50 MPV 9.0 fL (7.4-10.4) 03/20/24 03:50 Neut % (Auto) 77.3 % 03/20/24 03:50 Lymph % (Auto) 15.4 % 03/20/24 03:50 Sherman % (Auto) 5.0 % 03/20/24 03:50 Eos % (Auto) 1.6 % 03/20/24 03:50 Baso % (Auto) 0.4 % 03/20/24 03:50 Neut # (Auto) 7.76 10^3/uL (1.8-7.7) H 03/20/24 03:50 Lymph # (Auto) 1.5 10^3/uL (0.8-4.8) 03/20/24 03:50 Sherman # (Auto) 0.5 10^3/uL (0.2-0.9) 03/20/24 03:50 Eos # (Auto) 0.2 10^3/uL (0.0-0.8) 03/20/24 03:50 Baso # (Auto) 0.0 10^3/uL (0.0-0.1) 03/20/24 03:50 Nucleated RBC % (auto) 0 % 03/20/24 03:50 Nucleated RBCs # 0.0 /100WBC 03/20/24 03:50 PT 15.80 SECONDS (12.1-14.9) H 03/20/24 03:50 INR 1.22 (0.8-1.2) H 03/20/24 03:50 APTT 32.4 SECONDS (23.9-36.7) 03/20/24 03:50 Specimen Type Arterial 03/20/24 04:19 Sample Site Radial, right 03/20/24 04:19 ABG pH 7.35 (7.35-7.45) 03/20/24 04:19 ABG pCO2 35.2 mmHg (35-45) 03/20/24 04:19 ABG pO2 242.0 mmHg (80.0-100.0) H 03/20/24 04:19 ABG PO2/FiO2 Ratio 0 03/20/24 04:19 ABG HCO3 19.3 mmol/L (22-26) L 03/20/24 04:19 ABG Base Excess -5.6 mmol/L (-2.0-2.0) L 03/20/24 04:19 Magdiel Test Pos 03/20/24 04:19 Hematocrit 45.2 % (42-52) 03/20/24 04:19 O2 Delivery Device Vent 03/20/24 04:19 FiO2 100.0 % 03/20/24 04:19 Tidal Volume 0.50 03/20/24 04:19 PEEP 6.0 cmH20 03/20/24 04:19 Gas Refrigerator Servicer ID [email or web address] 03/20/24 04:19 Sodium 135 mmol/L (136-145) L 03/20/24 03:50 Potassium 4.1 mmol/L (3.5-5.1) 03/20/24 03:50 Chloride 98 mmol/L (98-107) 03/20/24 03:50 Carbon Dioxide 21 mmol/L (22-29) L 03/20/24 03:50 Anion Gap 20.1 (5-19) H 03/20/24 03:50 BUN 13 mg/dL (8-23) 03/20/24 03:50 Creatinine 0.5 mg/dL (0.7-1.2) L 03/20/24 03:50 GFR Calculation 165.9 mL/min (90-130) H 03/20/24 03:50 Glucose 216 mg/dL (65-115) H 03/20/24 03:50 Calculated Osmolality 287 mOsm/kg (285-295) 03/20/24 03:50 Lactic Acid 6.7 mmol/L (0.5-2.2) H* 03/20/24 03:50 Calcium 9.0 mg/dL (8.5-10.5) 03/20/24 03:50 Phosphorus 4.3 mg/dL (2.5-4.5) 03/20/24 03:50 Magnesium 1.7 mg/dL (1.7-2.3) 03/20/24 03:50 Total Bilirubin 1.0 mg/dL (0.15-1.2) 03/20/24 03:50 AST 14 U/L (0-40) 03/20/24 03:50 ALT 20 U/L (0-41) 03/20/24 03:50 Alkaline Phosphatase 68 U/L (40-130) 03/20/24 03:50 Creatine Kinase 40 U/L (39-308) 03/20/24 03:50 Troponin T Baseline 30 ng/L (0-15) H 03/20/24 03:50 Troponin T 120 Minute 31.39 ng/L (0-15) H 03/20/24 06:12 Delta Troponin T 1.39 ABS# (0-10) 03/20/24 06:12 C-Reactive Protein 3.0 mg/L (0.0-4.9) 03/20/24 03:50 NT-Pro-B Natriuret Pep < 36 pg/mL (0-125) 03/20/24 03:50 Total Protein 5.7 g/dL (6.6-8.7) L 03/20/24 03:50 Albumin 3.6 g/dL (3.5-5.2) 03/20/24 03:50 Globulin 2.1 g/dL (1.3-4.6) 03/20/24 03:50 Urine Color Yellow (Yellow) 03/20/24 04:36 Urine Appearance Clear (CLEAR) 03/20/24 04:36 Urine pH 6 (5-7) 03/20/24 04:36 Ur Specific [place] 1.010 (1.005-1.030) 03/20/24 04:36 Urine Protein 1+ (Negative) H 03/20/24 04:36 Urine Glucose (UA) Norm (Normal) 03/20/24 04:36 Urine Ketones 1+ (Negative) H 03/20/24 04:36 Urine Blood Neg (Negative) 03/20/24 04:36 Urine Nitrate Negative (Negative) 03/20/24 04:36 Urine Bilirubin Neg (Negative) 03/20/24 04:36 Urine Urobilinogen Neg mg/dL (Negative) 03/20/24 04:36 Ur Leukocyte Esterase Negative (Negative) 03/20/24 04:36 Urine RBC 0-4 /hpf (0-2) H 03/20/24 04:36 Urine WBC 0-4 /hpf (0-5) H 03/20/24 04:36 Ur Squamous Epith Cells 0-4 /hpf (0-5) H 03/20/24 04:36 Amorphous Sediment Not Reportable 03/20/24 04:36 Urine Bacteria Trace /hpf (NONE) 03/20/24 04:36 All radiology interpretation(s) finalized by discharge Critical Care Time Critical Care Time: Critical Care Time: Yes Total Critical Care Time: 45 Attestation: This case had a high probability of a clinically significant, sudden, or life threatening deterioration of this patient's condition which required my full and direct attention, intervention and personal management. Time is independent of any procedures performed Discharge Plan Discharge Patient Disposition: Admitted As Inpatient Admit Provider: Elvi Timmons Clinical Impression: New onset seizure, History of cerebrovascular accident (CVA) due to ischemia Condition: Critical Coding Level of Care Code ED Hospital Fellow for Teresa Yan
[2024-03-20 04:59] LABS: Bacteria Urine TRACE /hpf; RBC Urine 0-4 /hpf (0-2); Squamous Epithelial Cell Urine 0-4 /hpf (0-5); WBC Urine 0-4 /hpf (0-5)
[2024-03-20 04:59] LABS: INR 1.22 (0.8-1.2)
[2024-03-20 05:01] LABS: Partial Thromboplastin Time 32.4 SECONDS (23.9-36.7)
[2024-03-20 05:13] LABS: Troponin(5th) Baseline 30 ng/L (0-15)
[2024-03-20 05:20] LABS: Alanine Aminotransferase 20 U/L (0-41); Albumin Level 3.6 g/dL (3.5-5.2); Alkaline Phosphatase 68 U/L (40-130); Blood Urea Nitrogen 13 mg/dL (8-23); Carbon Dioxide 21 mmol/L (22-29); Chloride 98 mmol/L (98-107); Creatine Phosphokinase 40 U/L (39-308); Creatinine Clr Calc Pharmacy 106.2378; Globulin 2.1 g/dL (1.3-4.6); Glomerular Filtration Rate 165.9 mL/min (90-130); Glucose 216 mg/dL (65-115); Magnesium 1.7 mg/dL (1.7-2.3); NT Pro B Type Natriuretic Pept < 36 pg/mL (0-125); Osmolality Calculated 287 mOsm/kg (285-295); Phosphorus 4.3 mg/dL (2.5-4.5); Sodium 135 mmol/L (136-145); Total Protein 5.7 g/dL (6.6-8.7)
[2024-03-20 05:21] LABS: Anion Gap 20.1 (5-19); Aspartate Amino Transferase 14 U/L (0-40); Potassium 4.1 mmol/L (3.5-5.1)
[2024-03-20 05:22] LABS: Lactic Sepsis W/Reflex 6.7 mmol/L (0.5-2.2)
--- NOTE | 2024-03-20 05:22 | PC.NURSE ---
This nurse updated SUE Torres at [facility] on patient status.
[2024-03-20] MEDS: piperacillin-tazobactam 4.5 GM in sodium chloride 0.9% (plus) 50 ML IV (05:55)
--- NOTE | 2024-03-20 06:13 | ECG_ITS ---
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 Measurements Intervals Nolan Rate: 78 P: -10 SD: 110 QRS: -5 QRSD: 99 T: 0 QT: 391 QTc: 446 Interpretive Statements SINUS RHYTHM WITH SHORT SD INTERVAL LOW QRS VOLTAGE IN EXTREMITY LEADS [QRS DEFLECTION < 0.5 mV IN LIMB LEADS] POSSIBLE INFERIOR MYOCARDIAL INFARCTION , PROBABLY OLD [30 ms Q WAVE IN II/aVF] Compared to ECG 03/20/2024 10:40:37 Low QRS voltage now present Myocardial infarct finding now present Electronically Signed On 03-20-2024 21:35:56 CDT by Mukesh Mcgee M.D. [id number]
[2024-03-20 06:33] LABS: Reflex Lactate Order REFLEX LACTIC ORDERD
[2024-03-20 06:33] LABS: Troponin 5 2HR 31.39 ng/L (0-15); Troponin 5 2HR Delta 1.39 ABS# (0-10)
[2024-03-20 09:40] LABS: ABG PH Result 7.44 (7.35-7.45); Alveolar-Arterial Oxygen Gradi 25.6 mmHg (5-10); Arterial Blood Gas Hematocrit 42.2 % (42-52); Base Excess ABG 0.3 mmol/L (-2.0-2.0); Blood Gas Allen Test Pos; Blood Gas Operator Identificat MONRO; Blood Gas Sample Site Radial, right; Blood Gas Sample Type Arterial; Carboxyhemoglobin 0.6 %THgb (0.4-20.1); HCO3 ABG 24.2 mmol/L (22-26); HGB O2 Sat 97.8 % (95-100); Ionized Calcium Level - ABG 1.2 mmol/L (1.1-1.4); Methemoglobin 0.4 % (0.4-1.5); Oxygen Device VENT; Oxygen Saturation ABG 98.8; PO2 FiO2 Ratio Arterial Blood 0; Potassium Level - ABG 3.6 mmol/L (3.5-5.0); Total Hemoglobin 13.8 g/dL (14-18)
--- NOTE | 2024-03-20 10:40 | ECG_ITS ---
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 Measurements Intervals Remus Rate: 76 P: -7 DE: 111 QRS: 5 QRSD: 101 T: 23 QT: 394 QTc: 445 Interpretive Statements SINUS RHYTHM WITH SHORT DE INTERVAL Compared to ECG 03/20/2024 03:55:46 Short DE interval now present Intraventricular conduction delay no longer present Electronically Signed On 03-20-2024 21:36:51 CDT by Mukesh Mcgee M.D. [id number]
[2024-03-20 11:54] LABS: Lactic Acid level (Lactate) 1.7 mmol/L (0.5-2.2)
[2024-03-20 11:55] LABS: Troponin 5 6HR 26.99 ng/L (0-15)
[2024-03-20 11:56] LABS: Troponin 5 6HR Delta -3.01 ng/L (0-12)
[2024-03-20] MEDS: pantoprazole 40 mg SDV IVP (11:58)
[2024-03-20] MEDS: amiodarone 200 mg Tablet NG-TUBE (11:59)
[2024-03-20] MEDS: atorvastatin 40 mg Tablet PO (11:59)
[2024-03-20] MEDS: aspirin 81 mg Chew Tablet NG-TUBE (11:59)
[2024-03-20] MEDS: sodium chloride 0.9% 1,000 ML 75 ML IV (12:15)
[2024-03-20] MEDS: insulin lispro 100 unit/1 mL SUBCUT (12:15)
[2024-03-20] MEDS: fentaNYL 1,000 MCG/100 ML BAG 7.5 MCG IV (13:52)
--- NOTE | 2024-03-20 14:49 | P.HP_ITS ---
Providers/Chief Complaint 2 Admitting Physician: Elvi Timmons MD Primary Care Provider: Prosper Deleon DO Chief Complaint: seizure History of Present Illness Ulisses Bae is a 68 year old male with past medical history of atrial fibrillation, hypertension, type 2 diabetes mellitus, recent diagnosis of right MCA stroke when he was discharged to SNF for further rehabilitation was brought into the ER today because of 1 episode of possible seizure. As per the who is at bedside patient has been more awake at the [facility] has been doing bedside exercises, he is able to feed by himself. At first he was not able to get enough physical therapy because he had lost his insurance and developed bedsores but recently bedsores has healed within the last 2 weeks and he was started to do more physical therapy. Patient at baseline currently is able to drink liquid diet. He is able to tolerate more solid diet but he develops hiccups and nausea secondary to history of GERD as per the . Overnight was at bedside. She heard gurgling sound so she woke up and then saw the patient this patient to be having seizures because of stiffening of his body hence was brought to the ER. Seizure had apparently stopped before EMS arrived. Patient was found in postictal state and was not responding to verbal stimulus. As per EMS he had another episode of brief seizure while being moved to the ambulance for which she was given Ativan. On presentation to the ER he was saturating 96%. Patient was intubated with to protect airway in the ER. Currently on examination in ICU patient is on fentanyl of 50, propofol of 10, sedated, saturating 100% on ventilator settings of FiO2 40%, PEEP 6, tidal volume 500. Review of Systems 2 General: Reports: ROS unobtainable due to endotracheal tube Medications/Allergies Home Medications Medication Instructions Recorded Confirmed Last Taken Type atorvastatin 40 mg tablet 40 mg PO DAILY #90 tabs 10/23/22 03/20/24 Unknown Rx meclizine 25 mg tablet 25 mg PO QID PRN vertigo #30 tabs 08/19/23 03/20/24 Unknown Rx amiodarone 200 mg tablet (Pacerone) 200 mg ng-tube Q24H #30 tabs 09/04/23 03/20/24 Unknown Rx amlodipine 10 mg tablet 10 mg PO DAILY #30 tabs 09/04/23 03/20/24 Unknown Rx apixaban 5 mg tablet (Eliquis) 5 mg PO BID #60 tabs 09/04/23 03/20/24 Unknown Rx aspirin 81 mg chewable tablet 81 mg ng-tube DAILY #30 tabs 09/04/23 03/20/24 Unknown Rx pantoprazole 40 mg tablet,delayed 40 mg PO DAILY #30 tabs 09/04/23 03/20/24 Unknown Rx release (Protonix) duloxetine 20 mg capsule,delayed 30 mg PO 1XD 03/20/24 03/20/24 Unknown History release insulin glargine 100 unit/mL (3 36 unit SUBCUT DAILY 03/20/24 03/20/24 Unknown History mL) subcutaneous pen (Lantus Solostar U-100 Insulin) losartan 50 mg tablet 50 mg PO 1XD 03/20/24 03/20/24 Unknown History Allergies Allergy/AdvReac Type Severity Reaction Status Date / Time No Known Allergies Allergy Verified 08/21/23 13:08 PFSH Acute 2 PFSH: Medical History (Updated 03/20/24 @ 14:55 by Aiden Robison MD) History of cerebrovascular accident (CVA) due to ischemia Atrial fibrillation with RVR Atrial fibrillation Acute right arterial ischemic stroke, middle cerebral artery (MCA) Mixed dyslipidemia Essential hypertension Diabetes Social History Smoking and tobacco/nicotine status: never used tobacco/nicotine Alcohol intake: never Substance/Drug Use: never Adopted: No Caregiver/support person: No Lives independently: No Household members: spouse Housing: House Marital status: service: No Vitals/I&O/Wt Last Vital Signs Temp 97.9 F 03/20/24 03:49 Pulse 88 03/20/24 14:00 Resp 03/20/24 14:21 BP 107/60 03/20/24 13:00 Pulse Ox 100 03/20/24 14:21 O2 Del Method Mechanical Ventilation 03/20/24 08:30 O2 Flow Rate 03/20/24 03:49 FiO2 40 03/20/24 14:21 03/19/24 03/20/24 03/20/24 22:59 06:59 14:59 Intake Total 205.490 / 435.057 3502.20 / 3061.20 Balance 205.490 / 068.108 8797.20 / 3061.20 Weight last 48 hrs Weight 102.54 kg Weight 96.615 kg Physical Exam 2 Urinary Catheter Management: Vuong: Cath Placed During This Visit: yes Reason for Continuing Indwelling Catheter: Accurate Measurement of Urinary Output in Critically Ill Patients Urinary Catheter Date of Insertion: 03/20/24 Urinary Catheter Time of Insertion: 04:25 Data 03/20/24 03:50 03/20/24 03:50 Micro: Microbiology 03/20/24 10:45 Gram Stain - Final Sputum - Endotracheal Tube Aspirate 03/20/24 03:50 Blood Culture - Preliminary Blood SPECIMEN COLLECTED 03/20/24 04:15 Blood Culture - Preliminary Blood SPECIMEN COLLECTED A&P Assessment and plan (1) New onset seizure: No history of seizures in the past. Received Keppra 2 g in the ER. History of recent stroke. No acute abnormality on CT head. No electrolyte abnormality except mild hyponatremia with sodium down to 135. Currently intubated to protect airway. Keep sedated with propofol and fentanyl for now. Plan to wean sedation tomorrow and monitor mentation. Hold off on any further seizure medications for now. (2) History of cerebrovascular accident (CVA) due to ischemia: History of right MCA stroke. Undergoing physical therapy at [facility]. Continue with home dose of aspirin and Eliquis. (3) Hypoxia: In setting of postictal state. Currently mechanically ventilated. Oxygen supplementation keeping saturation over 90%. No concerns for pneumonia for now. Appreciate chest x-ray. Repeat ABG and chest x-ray in AM. Hold off on antibiotics for now. Follow-up sputum culture. Current sedation. Plan to wean tomorrow. Plan Type 2 diabetes mellitus: Appreciate recent A1c. Insulin sliding scale at low-dose protocol every 6 hours. Takes 36 units of Lantus at [facility]. For now start on 10 units daily. Atrial fibrillation: Currently rate controlled. Continue with home dose of amiodarone and Eliquis. Hypertension: Goal blood pressure less than 140/90 mmHg. Continue with home dose of Eliquis, amlodipine. Holding off on losartan for now. Sedation: Fentanyl and propofol Glycemic control:Sliding scale low-dose protocol every 6 hourly, Lantus 10 units nightly Nutrition: N.p.o. for now. Fluid: Normal saline at 75 cc/h CODE STATUS: Limited resuscitation. Okay for mechanical ventilation and pacemaker. confirms no CPR. PUD prophylaxis: Protonix DVT prophylaxis: Home dose of Eliquis Discharge planning: Back to [facility] for further rehabitation once patient is medically stable. Admit to ICU. This documentation was created by Raise monogram machine operator software. Every effort was made to ensure accuracy of monogram machine operator. Any obvious errors or omissions should be clarified with the author of the document. Attestations 2 Medical Necessity Statement*: Admission for more than 2 midnights for management of new onset seizures in a patient with recent history of CVA was currently mechanically ventilated to protect airway Critical Care Time: The high probability of a clinically significant, sudden or life threatening deterioration of the patient's [neurological, respiratory] system(s) required my full and direct attention, intervention and personal management. The critical care time is as shown. This time is in addition to time spent performing any reported procedures but includes the following: [x] Data and vital sign review and interpretation [x] Patient assessment, examination and intervention [x] Documentation [x] Medication orders and management Critical Care Time (min): 70 Coding Level of Care Code Critical Care >/= 30 minutes Critical care time (in minutes): 70 The high probability of a clinically significant, sudden or life threatening deterioration, as referenced in this documentation, required my full and direct attention, intervention and personal management. The critical care time shown is in addition to time spent performing any reported separately billable procedures and includes the following: [x] Data and vital sign review and interpretation [x ] Patient assessment, examination and intervention [x] Medication orders and management [x] Patient/Family updates as able [x] Care Coordination and Documentation. Diagnoses New onset seizure R56.9 History of cerebrovascular accident (CVA) due to ischemia Z86.73 Hypoxia R09.02
[2024-03-20 17:09] LABS: Glucose Point of Care 196 mg/dL (70-110)
[2024-03-20 17:09] LABS: Glucose Point of Care 142 mg/dL (70-110)
[2024-03-20] MEDS: apixaban 5 mg Tablet PO (17:09)
[2024-03-20] MEDS: docusate sodium 100 mg Capsule PO (17:09)
[2024-03-20 20:32] LABS: Glucose Point of Care 173 mg/dL (70-110)
[2024-03-20] MEDS: propofol 1,000 MG/100 ML INJ 11.5899999999999999 MG IV (20:34)
[2024-03-20] MEDS: insulin glargine 100 units/1 mL 10 UNIT SUBCUT (20:36)
[2024-03-20 21:01] LABS: Bacillus cereus group Not Detected (NOT DETECT); Bacillus subtillis group Not Detected (NOT DETECT); Corynebacterium Not Detected (NOT DETECT); Cutibacterium acnes (P.acnes) Not Detected (NOT DETECT); Enterococcus Not Detected (NOT DETECT); Enterococcus faecalis Not Detected (NOT DETECT); Enterococcus faecium Not Detected (NOT DETECT); Lactobacillus species Not Detected (NOT DETECT); Listeria Not Detected (NOT DETECT); Listeria monocytogenes Not Detected (NOT DETECT); Micrococcus Not Detected (NOT DETECT); Pan Candida Not Detected (NOT DETECT); Pan Gram-Negative Not Detected (NOT DETECT); Staphylococcus epidermidis Detected (NOT DETECT); Staphylococcus lugdunensis Not Detected (NOT DETECT); Staphylococcus species Detected (NOT DETECT); Streptococcus agalactiae Not Detected (NOT DETECT); Streptococcus anginosus group Not Detected (NOT DETECT); Streptococcus pneumoniae Not Detected (NOT DETECT); Streptococcus pyogenes Not Detected (NOT DETECT); Streptococcus species Not Detected (NOT DETECT); mecA Detected (NOT DETECT); mecC Not Detected (NOT DETECT)
--- NOTE | 2024-03-20 21:35 | PC.NURSE ---
Patient's states she saw patient shaking. She says he has more pain when lying on his left side. I did not witness any shaking but did increease his sedation and pain medicine.
[2024-03-20] MEDS: fentaNYL 1,000 MCG/100 ML BAG 12.5 MCG IV (22:40)
[2024-03-20 23:30] LABS: Glucose Point of Care 153 mg/dL (70-110)
[2024-03-21] VITALS (92 sets, daily range): BP systolic 91–157; BP diastolic 49–117; PULSE 68–94; RESP 12–17; TEMP 36.7–37.7; O2SAT 55–100
[2024-03-21] MEDS: sodium chloride 0.9% 1,000 ML 75 ML IV ×2 (00:02→14:23)
[2024-03-21] MEDS: propofol 1,000 MG/100 ML INJ 14.4900000000000002 MG IV (03:11)
[2024-03-21 04:07] LABS: Basophils % 0.3 %; Eosinophils # 0.1 10^3/uL (0.0-0.8); Eosinophils % 0.6 %; Hematocrit 35.5 % (37-53); Lymphocytes # 2.2 10^3/uL (0.8-4.8); Lymphocytes % 18.4 %; Mean Corpuscular HGB Conc 33.8 g/dL (30-55); Mean Corpuscular Hemoglobin 28.7 pg (27-33); Mean Corpuscular Volume 84.9 fl (82-101); Mean Platelet Volume 9.1 fL (7.4-10.4); Monocytes # 0.9 10^3/uL (0.2-0.9); Monocytes % 7.2 %; Neutrophils # 8.77 10^3/uL (1.8-7.7); Neutrophils % 73.1 %; Nucleated Red Blood Cells % 0 %; Platelet Count 291 10^3/cmm (157-399); Red Blood Count 4.18 10^6/uL (3.85-5.65); White Blood Count 12.01 10^3/uL (3.29-11.43)
[2024-03-21 04:24] LABS: Alanine Aminotransferase 13 U/L (0-41); Albumin Level 3.1 g/dL (3.5-5.2); Alkaline Phosphatase 66 U/L (40-130); Anion Gap 14.8 (5-19); Aspartate Amino Transferase 11 U/L (0-40); Blood Urea Nitrogen 12 mg/dL (8-23); Calcium 8.5 mg/dL (8.5-10.5); Carbon Dioxide 23 mmol/L (22-29); Chloride 103 mmol/L (98-107); Creatinine Clr Calc Pharmacy 109.2415; Globulin 2.6 g/dL (1.3-4.6); Glomerular Filtration Rate 165.9 mL/min (90-130); Glucose 147 mg/dL (65-115); Magnesium 1.5 mg/dL (1.7-2.3); Osmolality Calculated 286 mOsm/kg (285-295); Phosphorus 3.1 mg/dL (2.5-4.5); Potassium 3.8 mmol/L (3.5-5.1); Sodium 137 mmol/L (136-145); Total Bilirubin 1.3 mg/dL (0.15-1.2); Total Protein 5.7 g/dL (6.6-8.7)
[2024-03-21 05:34] LABS: Glucose Point of Care 132 mg/dL (70-110)
[2024-03-21] MEDS: fentaNYL 1,000 MCG/100 ML BAG 10 MCG IV (07:35)
--- NOTE | 2024-03-21 08:13 | PC.NURSE ---
recieved this morning resting on vent fentynl weaned aftab 100mcg this am at report and weaned to 50 for possible extubation
[2024-03-21] MEDS: aspirin 81 mg Chew Tablet NG-TUBE (09:22)
[2024-03-21] MEDS: apixaban 5 mg Tablet PO ×2 (09:22→17:16)
[2024-03-21] MEDS: docusate sodium 100 mg Capsule PO ×2 (09:22→17:16)
[2024-03-21] MEDS: amlodipine 10 mg Tablet PO (09:22)
[2024-03-21] MEDS: atorvastatin 40 mg Tablet PO (09:22)
--- NOTE | 2024-03-21 10:26 | XRR_ITS ---
PROCEDURE INFORMATION: Exam: XR Chest Exam date and time: 03/21/2024 12:26 PM Age: 68 years old Clinical indication: Patient HX: Respiratory distress; Vent maintenance TECHNIQUE: Imaging protocol: Radiologic exam of the chest. Views: 1 view. COMPARISON: CR (CHEST, ) 03/20/2024 4:43 AM FINDINGS: Tubes, catheters and devices: Endotracheal tube 33 mm above the preston. Right central line in the right atrium. NG tube extends into the stomach Lungs: Unremarkable. No consolidation. Pleural spaces: Unremarkable. No pleural effusion. No pneumothorax. Heart/Mediastinum: Unremarkable. No cardiomegaly. Bones/joints: Unremarkable. XR/XR chest 1V portable [id number] IMPRESSION: 1. No acute findings. 2. Endotracheal tube is above the preston 3. NG tube is in the stomach. 4. Right central line is in the right atrium
[2024-03-21 11:09] LABS: Glucose Point of Care 138 mg/dL (70-110)
[2024-03-21] MEDS: pantoprazole 40 mg SDV IVP (11:09)
[2024-03-21] MEDS: amiodarone 200 mg Tablet NG-TUBE (11:09)
[2024-03-21 11:18] LABS: ABG PCO2 34.2 mmHg (35-45); ABG PH Result 7.42 (7.35-7.45); Arterial Blood Gas Hematocrit 37.7 % (42-52); Base Excess ABG -1.6 mmol/L (-2.0-2.0); Blood Gas Allen Test Pos; Blood Gas Sample Type Arterial; Carboxyhemoglobin 1.1 %THgb (0.4-20.1); HCO3 ABG 22.3 mmol/L (22-26); HGB O2 Sat 96.8 % (95-100); Ionized Calcium Level - ABG 1.2 mmol/L (1.1-1.4); Methemoglobin 0.7 % (0.4-1.5); Oxygen Saturation ABG 98.5; Potassium Level - ABG 3.4 mmol/L (3.5-5.0); Total Hemoglobin 12.3 g/dL (14-18)
[2024-03-21 11:20] LABS: Alveolar-Arterial Oxygen Gradi 14.2 mmHg (5-10); Blood Gas Operator Identificat MONRO; Blood Gas Sample Site Radial, right; Oxygen Device VENT; PO2 FiO2 Ratio Arterial Blood 0
--- NOTE | 2024-03-21 15:47 | P.PN_ITS ---
Subjective 2 Subjective: No acute events overnight. Patient has remained hemodynamically stable and afebrile. Currently when seen off sedation. Patient is waking up but not following directions completely. Able to nod his head and open his eyes. Seems weak. Secretions through ET tube. No further seizures noted. Vitals/I&O/Wt Last Vital Signs Temp 98.8 F 03/21/24 06:00 Pulse 84 03/21/24 14:00 Resp 13 03/21/24 14:14 BP 131/63 03/21/24 12:15 Pulse Ox 98 03/21/24 14:14 O2 Del Method Mechanical Ventilation 03/20/24 08:30 O2 Flow Rate 15 03/20/24 03:49 FiO2 35 03/21/24 14:14 03/21/24 03/21/24 03/21/24 06:59 14:59 22:59 Intake Total 1027.129 / 4271.823 1139.160 / 1139.160 Output Total 500 / 500 Balance 1027.129 / 3771.823 639.160 / 639.160 Weight last 48 hrs Weight 104.009 kg Weight 102.54 kg Weight 96.615 kg Physical Exam 2 Narrative: General: Intubated, not on sedation currently, following simple commands HEENT: PERRLA, pupils bilaterally equal and reactive Chest: Normal vesicular breath sounds, no added sounds, equal good air entry bilaterally CVS: S1-S2 regular, no murmurs, no tachycardia, no gallops, no rubs Abdomen: Soft, nontender, no organomegaly, bowel sounds present Neuro: No focal deficits, no facial deformity, intubated Urinary Catheter Management: Vuong: Cath Placed During This Visit: yes Reason for Continuing Indwelling Catheter: Accurate Measurement of Urinary Output in Critically Ill Patients Urinary Catheter Date of Insertion: 03/20/24 Urinary Catheter Time of Insertion: 04:25 Data 03/21/24 03:53 03/21/24 03:53 Micro: Microbiology 03/20/24 10:45 Gram Stain - Final Sputum - Endotracheal Tube Aspirate Sputum Culture - Preliminary 03/20/24 03:50 Blood Culture - Preliminary Blood NEGATIVE TO DATE 03/20/24 04:15 Blood Culture - Preliminary Blood A&P Assessment and plan (1) New onset seizure: No history of seizures in the past. Received Keppra 2 g in the ER. History of recent stroke. No acute abnormality on CT head. No electrolyte abnormality except mild hyponatremia with sodium down to 135. Currently intubated to protect airway. Keep sedated with propofol and fentanyl for now. Plan to wean sedation tomorrow and monitor mentation. Hold off on any further seizure medications for now. (2) History of cerebrovascular accident (CVA) due to ischemia: History of right MCA stroke. Undergoing physical therapy at retirement. Continue with home dose of aspirin and Eliquis. (3) Hypoxia: In setting of postictal state. Currently mechanically ventilated. Oxygen supplementation keeping saturation over 90%. No concerns for pneumonia for now. Appreciate chest x-ray. Repeat ABG and chest x-ray in AM. Hold off on antibiotics for now. Follow-up sputum culture. Current sedation. Plan to wean tomorrow. Plan Type 2 diabetes mellitus: Appreciate recent A1c. Insulin sliding scale at low-dose protocol every 6 hours. Takes 36 units of Lantus at retirement. For now start on 10 units daily. Atrial fibrillation: Currently rate controlled. Continue with home dose of amiodarone and Eliquis. Hypertension: Goal blood pressure less than 140/90 mmHg. Continue with home dose of Eliquis, amlodipine. Holding off on losartan for now. Sedation: Fentanyl and propofol Glycemic control:Sliding scale low-dose protocol every 6 hourly, Lantus 10 units nightly Nutrition: N.p.o. for now. Fluid: Normal saline at 75 cc/h CODE STATUS: Limited resuscitation. Okay for mechanical ventilation and pacemaker. confirms no CPR. PUD prophylaxis: Protonix DVT prophylaxis: Home dose of Eliquis Discharge planning: Back to [facility] for further rehabitation once patient is medically stable. Plan for the day: Weaned off sedation. Patient woke up appropriately but seemed weak with increasing oral secretion hence decided not to extubate. Plan to keep sedation off till the evening with minimal fentanyl currently. Overnight will put on complete sedation Plan for weaning of sedation again tomorrow for possible extubation. No further episodes of seizure. Continue to monitor. Continue with IV fluids. Strict input charting. Blood culture and sputum cultures so far negative. Repeat chest x-ray and ABG in AM. Appreciate ABG from today. Blood sugar stable. Continue with Lantus 10 units nightly and sliding scale every 6 hours. Blood pressure stable. Continue with home dose of amlodipine. Holding off on losartan for now. This documentation was created by [employer] returned item clerk software. Every effort was made to ensure accuracy of returned item clerk. Any obvious errors or omissions should be clarified with the author of the document. Attestations 2 Medical Necessity Statement*: Requires further hospitalization for management of mechanical ventilation in a patient who was initially admitted for seizure and was intubated to protect airway ventilator was weaned off Critical Care Time: The high probability of a clinically significant, sudden or life threatening deterioration of the patient's [pulmonary, neurology] system(s) required my full and direct attention, intervention and personal management. The critical care time is as shown. This time is in addition to time spent performing any reported procedures but includes the following: [x] Data and vital sign review and interpretation [x] Patient assessment, examination and intervention [x] Documentation [x] Medication orders and management Critical Care Time (min): 60 Coding Level of Care Code Critical Care >/= 30 minutes Critical care time (in minutes): 60 The high probability of a clinically significant, sudden or life threatening deterioration, as referenced in this documentation, required my full and direct attention, intervention and personal management. The critical care time shown is in addition to time spent performing any reported separately billable procedures and includes the following: [x] Data and vital sign review and interpretation [x ] Patient assessment, examination and intervention [x] Medication orders and management [x] Patient/Family updates as able [x] Care Coordination and Documentation. Diagnoses New onset seizure R56.9 History of cerebrovascular accident (CVA) due to ischemia Z86.73 Hypoxia R09.02
[2024-03-21 17:12] LABS: Glucose Point of Care 162 mg/dL (70-110)
[2024-03-21] MEDS: insulin lispro 100 unit/1 mL SUBCUT (17:16)
[2024-03-21] MEDS: nystatin powder 15 gm Btl 1 APPLIC TOPICAL (17:16)
[2024-03-21] MEDS: piperacillin-tazobactam 3.375 GM in sodium chloride 0.9% (plus) 50 ML IV (20:45)
[2024-03-21] MEDS: insulin glargine 100 units/1 mL 10 UNIT SUBCUT (20:46)
--- NOTE | 2024-03-21 21:31 | PC.NURSE ---
Fentanyl Drip: At the beginning of this nurse's shift, the fentanyl drip was running at 5mls/hr. MAR was updated to reflect this.
[2024-03-21 23:56] LABS: Glucose Point of Care 138 mg/dL (70-110)
[2024-03-21 23:56] LABS: Glucose Point of Care 131 mg/dL (70-110)
[2024-03-22] VITALS (105 sets, daily range): BP systolic 106–154; BP diastolic 55–95; PULSE 58–128; RESP 7–16; TEMP 36.9–38.4; O2SAT 96–100; BMI 32.3
--- NOTE | 2024-03-22 04:00 | XRR_ITS ---
PROCEDURE INFORMATION: Exam: XR Chest Exam date and time: 03/22/2024 7:14 AM Age: 68 years old Clinical indication: Device placement; Ett placement (vent status); Additional info: Intubated TECHNIQUE: Imaging protocol: Radiologic exam of the chest. Views: 1 view. COMPARISON: CR XR chest 1V portable [id number] 03/21/2024 12:26 PM FINDINGS: Tubes, catheters and devices: Endotracheal tube measures 3.1 cm from the preston. Enteric tube traverses midline, catheter tip and side port not within field of view. Right internal jugular central venous catheter with tip at the superior cavoatrial junction. Lungs: Mild bilateral hypoventilatory changes. No focal consolidation. Pleural spaces: Unremarkable. No pleural effusion. No pneumothorax. Heart/Mediastinum: Unremarkable. No cardiomegaly. Bones/joints: Unremarkable. XR/XR chest 1V portable [id number] IMPRESSION: Stable examination from 03/21/2024
[2024-03-22] MEDS: piperacillin-tazobactam 3.375 GM in sodium chloride 0.9% (plus) 50 ML IV ×3 (04:19→20:16)
[2024-03-22] MEDS: sodium chloride 0.9% 1,000 ML 75 ML IV (04:19)
[2024-03-22] MEDS: fentaNYL 1,000 MCG/100 ML BAG 10 MCG IV (04:19)
[2024-03-22 04:34] LABS: ABG PCO2 30.2 mmHg (35-45); ABG PH Result 7.45 (7.35-7.45); Alveolar-Arterial Oxygen Gradi 15.1 mmHg (5-10); Arterial Blood Gas Hematocrit 36.5 % (42-52); Base Excess ABG -1.9 mmol/L (-2.0-2.0); Blood Gas Allen Test Pos; Blood Gas Sample Site Radial, right; Blood Gas Sample Type Arterial; Carboxyhemoglobin 1.1 %THgb (0.4-20.1); HCO3 ABG 21.2 mmol/L (22-26); HGB O2 Sat 97.1 % (95-100); Ionized Calcium Level - ABG 1.2 mmol/L (1.1-1.4); Methemoglobin 0.6 % (0.4-1.5); Oxygen Device VENT; Oxygen Saturation ABG 98.7; PO2 ABG 93.2 mmHg (80.0-100.0); PO2 FiO2 Ratio Arterial Blood 0; Potassium Level - ABG 3.2 mmol/L (3.5-5.0); Total Hemoglobin 11.9 g/dL (14-18)
[2024-03-22 05:21] LABS: Glucose Point of Care 120 mg/dL (70-110)
[2024-03-22 05:27] LABS: Basophils % 0.4 %; Eosinophils % 0.4 %; Hematocrit 32.5 % (37-53); Lymphocytes # 1.4 10^3/uL (0.8-4.8); Lymphocytes % 13.8 %; Mean Corpuscular HGB Conc 33.8 g/dL (30-55); Mean Corpuscular Volume 85.8 fl (82-101); Mean Platelet Volume 8.9 fL (7.4-10.4); Monocytes % 9.6 %; Neutrophils # 7.67 10^3/uL (1.8-7.7); Neutrophils % 75.4 %; Nucleated Red Blood Cells % 0 %; Platelet Count 270 10^3/cmm (157-399); Red Blood Count 3.79 10^6/uL (3.85-5.65); Red Cell Distribution Width 16.2 % (12.1-15.1); White Blood Count 10.17 10^3/uL (3.29-11.43)
[2024-03-22 05:53] LABS: Alanine Aminotransferase 12 U/L (0-41); Albumin Level 2.9 g/dL (3.5-5.2); Alkaline Phosphatase 55 U/L (40-130); Anion Gap 14.4 (5-19); Aspartate Amino Transferase 8 U/L (0-40); Blood Urea Nitrogen 10 mg/dL (8-23); Calcium 8.5 mg/dL (8.5-10.5); Carbon Dioxide 20 mmol/L (22-29); Chloride 109 mmol/L (98-107); Creatinine Clr Calc Pharmacy 109.9862; Globulin 2.5 g/dL (1.3-4.6); Glomerular Filtration Rate 214.6 mL/min (90-130); Glucose 130 mg/dL (65-115); Magnesium 1.5 mg/dL (1.7-2.3); Osmolality Calculated 291 mOsm/kg (285-295); Phosphorus 3.4 mg/dL (2.5-4.5); Potassium 3.4 mmol/L (3.5-5.1); Sodium 140 mmol/L (136-145); Total Bilirubin 1.4 mg/dL (0.15-1.2); Total Protein 5.4 g/dL (6.6-8.7)
[2024-03-22] MEDS: acetaminophen 325 mg Tablet 650 MG PO ×2 (08:06→17:13)
[2024-03-22] MEDS: aspirin 81 mg Chew Tablet NG-TUBE (09:37)
[2024-03-22] MEDS: apixaban 5 mg Tablet PO ×2 (09:37→17:13)
[2024-03-22] MEDS: atorvastatin 40 mg Tablet PO (09:37)
[2024-03-22] MEDS: amlodipine 10 mg Tablet PO (09:37)
[2024-03-22] MEDS: nystatin powder 15 gm Btl 1 APPLIC TOPICAL ×2 (09:38→17:23)
[2024-03-22] MEDS: pantoprazole 40 mg SDV IVP (11:02)
[2024-03-22] MEDS: amiodarone 200 mg Tablet NG-TUBE (11:02)
[2024-03-22 11:33] LABS: Glucose Point of Care 108 mg/dL (70-110)
--- NOTE | 2024-03-22 14:18 | PM.PN ---
Subjective Subjective: seen today pt following some commands having few apneic events on breathing trial propofol has been off fentanyl at 25, will turn off as well to assess breathing, mental status slow to respond but does nod head, unsure if fully understanding ct head neg for bleed RT working with patient pt unable to fully hold breath on exp hold. Vitals/I&O/Wt Last Vital Signs Temp 99.7 F H 03/22/24 12:30 Pulse 67 03/22/24 13:00 Resp 14 03/22/24 13:22 BP 154/65 03/22/24 13:00 Pulse Ox 98 03/22/24 13:22 O2 Del Method Mechanical Ventilation 03/22/24 12:30 O2 Flow Rate 35 03/22/24 07:15 FiO2 30 03/22/24 13:22 03/21/24 03/22/24 03/22/24 22:59 06:59 14:59 Intake Total 12.75 / 1947.496 2068 / 2286.910 736.708 / 736.708 Output Total 175 / 675 175 / 850 100 / 100 Balance -162.25 / 476.910 960 / 1436.910 636.708 / 636.708 Weight last 48 hrs Weight 105.375 kg Weight 104.009 kg Physical Exam Narrative: General: awake, follows simple commands HEENT: PERRLA, pupils bilaterally equal and reactive Chest: Normal vesicular breath sounds, no added sounds, equal good air entry bilaterally CVS: S1-S2 regular, no murmurs, no tachycardia, no gallops, no rubs Abdomen: Soft, nontender, no organomegaly, bowel sounds present Neuro: No focal deficits, no facial deformity, Urinary Catheter Management: Vuong: Cath Placed During This Visit: yes Reason for Continuing Indwelling Catheter: Accurate Measurement of Urinary Output in Critically Ill Patients Urinary Catheter Date of Insertion: 03/20/24 Urinary Catheter Time of Insertion: 04:25 Data 03/22/24 05:18 03/22/24 05:18 Micro: Microbiology 03/20/24 10:45 Gram Stain - Final Sputum - Endotracheal Tube Aspirate Sputum Culture - Final 03/20/24 03:50 Blood Culture - Preliminary Blood Staphylococcus epidermidis 03/20/24 04:15 Blood Culture - Preliminary Blood Staphylococcus epidermidis 03/21/24 16:47 Gram Stain - Final Sputum - Endotracheal Tube Aspirate Sputum Culture - Preliminary Gram Negative Rods A&P Assessment and plan (1) New onset seizure: No history of seizures in the past. Received Keppra 2 g in the ER. History of recent stroke. No acute abnormality on CT head. No electrolyte abnormality except mild hyponatremia with sodium down to 135. Currently intubated to protect airway. Keep sedated with propofol and fentanyl for now. Plan to wean sedation tomorrow and monitor mentation. Hold off on any further seizure medications for now. (2) History of cerebrovascular accident (CVA) due to ischemia: History of right MCA stroke. Undergoing physical therapy at group home. Continue with home dose of aspirin and Eliquis. (3) Hypoxia: In setting of postictal state. Currently mechanically ventilated. Oxygen supplementation keeping saturation over 90%. No concerns for pneumonia for now. Appreciate chest x-ray. Repeat ABG and chest x-ray in AM. Hold off on antibiotics for now. Follow-up sputum culture. Current sedation. Plan to wean tomorrow. Plan Type 2 diabetes mellitus: Appreciate recent A1c. Insulin sliding scale at low-dose protocol every 6 hours. Takes 36 units of Lantus at group home. For now start on 10 units daily. Atrial fibrillation: Currently rate controlled. Continue with home dose of amiodarone and Eliquis. Hypertension: Goal blood pressure less than 140/90 mmHg. Continue with home dose of Eliquis, amlodipine. Holding off on losartan for now. Sedation: Fentanyl and propofol Glycemic control:Sliding scale low-dose protocol every 6 hourly, Lantus 10 units nightly Nutrition: N.p.o. for now. Fluid: Normal saline at 75 cc/h CODE STATUS: Limited resuscitation. Okay for mechanical ventilation and pacemaker. confirms no CPR. PUD prophylaxis: Protonix DVT prophylaxis: Home dose of Eliquis Discharge planning: Back to group home for further rehabitation once patient is medically stable. Plan for the day: 03/22 Weaned off sedation. Patient woke up appropriately but seemed weak with increasing oral secretion hence decided not to extubate. Having few apneic episodes on SBT. Turn of fentanyl as well and see response. RT working with patient. Will re-assess. - If continues to not be able to spontaneously breath, may require MRI for further neurological prognostication. Will consult neuro in AM. no one funeral service practitioner/embalmer today. For further mgmt may require transfer to [facility] to facility with vent dep MRI capability. No further episodes of seizure. Continue to monitor. Continue with IV fluids. Strict input charting. Blood culture and sputum cultures so far negative. Repeat chest x-ray and ABG in AM. Appreciate ABG from today. Blood sugar stable. Continue with Lantus 10 units nightly and sliding scale every 6 hours. Blood pressure stable. Continue with home dose of amlodipine. Holding off on losartan for now. - Discussed with RN, RT. - Family not at bedside at this time. This documentation was created by [employer] waredresser software. Every effort was made to ensure accuracy of waredresser. Any obvious errors or omissions should be clarified with the author of the document. Attestations Medical Necessity Statement*: Requires further hospitalization for management of mechanical ventilation in a patient who was initially admitted for seizure and was intubated to protect airway ventilator was weaned off Critical Care Time: The high probability of a clinically significant, sudden or life threatening deterioration of the patient's [pulmonary, neurology] system(s) required my full and direct attention, intervention and personal management. The critical care time is as shown. This time is in addition to time spent performing any reported procedures but includes the following: [x] Data and vital sign review and interpretation [x] Patient assessment, examination and intervention [x] Documentation [x] Medication orders and management Critical Care Time (min): 60 Coding Level of Care Code Acute Code for Chg Fwd Diagnoses New onset seizure R56.9 History of cerebrovascular accident (CVA) due to ischemia Z86.73 Hypoxia R09.02
--- NOTE | 2024-03-22 15:38 | PC.SOCIAL ---
IMM Updated. IMM provided to pt & left at bedside for family to review. Pt is intubated & not expected to d/c within the next 24-48hrs. Initialed, dated, & timed a copy & placed in chart.
[2024-03-22] MEDS: sodium chloride 0.9% 1,000 ML 125 ML IV (17:13)
[2024-03-22 17:29] LABS: Glucose Point of Care 128 mg/dL (70-110)
--- NOTE | 2024-03-22 17:34 | PC.NURSE ---
SHift Summary: sedation has been off for over 24 hours now. Fentanyl turned off today for weaning trial. Patient will follow commands and makes needs known through finger squeezes to communicate, but he will not have spontaneous respirations. Will breathe 1-2 times per minute and only with persistent encouragement and stimulation from staff. Tried weaning trial twice and results were the same failed both time. 200mL of urine output, purulent, sediment, and brown.
[2024-03-22 20:15] LABS: Glucose Point of Care 130 mg/dL (70-110)
[2024-03-22] MEDS: insulin glargine 100 units/1 mL 10 UNIT SUBCUT (20:16)
--- NOTE | 2024-03-22 21:15 | PC.NURSE ---
Fentanyl titration: Patient was showing signs of pain and discomfort, he communicated he was in pain with hand squeezes to . Patient's fentanyl drip was increased to 50mcg/hr.
--- NOTE | 2024-03-22 23:15 | PC.NURSE ---
Addendum entered by Dalila Gastelum RN 03/22/24 23:16: Witnessed waste 71ml Propofol Original Note: Wasted Propofol: 71mL of propofol was wasted with SUE Gastelum.
[2024-03-22 23:22] LABS: Glucose Point of Care 118 mg/dL (70-110)
[2024-03-23] VITALS (106 sets, daily range): BP systolic 119–194; BP diastolic 52–123; PULSE 62–100; RESP 9–20; TEMP 36.7–37.9; O2SAT 93–100; BMI 32.3
[2024-03-23] MEDS: fentaNYL 1,000 MCG/100 ML BAG 7.5 MCG IV (00:16)
[2024-03-23] MEDS: sodium chloride 0.9% 1,000 ML 125 ML IV ×3 (00:33→16:37)
[2024-03-23] MEDS: piperacillin-tazobactam 3.375 GM in sodium chloride 0.9% (plus) 50 ML IV ×3 (03:24→20:36)
[2024-03-23 04:49] LABS: Basophils % 0.4 %; Eosinophils # 0.1 10^3/uL (0.0-0.8); Eosinophils % 1.1 %; Hematocrit 31.8 % (37-53); Lymphocytes # 1.2 10^3/uL (0.8-4.8); Lymphocytes % 11.5 %; Mean Corpuscular HGB Conc 32.7 g/dL (30-55); Mean Corpuscular Hemoglobin 28.8 pg (27-33); Mean Corpuscular Volume 88.1 fl (82-101); Mean Platelet Volume 9.4 fL (7.4-10.4); Monocytes # 0.8 10^3/uL (0.2-0.9); Monocytes % 7.7 %; Neutrophils % 78.8 %; Nucleated Red Blood Cells % 0 %; Platelet Count 281 10^3/cmm (157-399); Red Blood Count 3.61 10^6/uL (3.85-5.65); Red Cell Distribution Width 16.3 % (12.1-15.1); White Blood Count 10.65 10^3/uL (3.29-11.43)
[2024-03-23 05:11] LABS: Alanine Aminotransferase 10 U/L (0-41); Albumin Level 2.8 g/dL (3.5-5.2); Alkaline Phosphatase 80 U/L (40-130); Anion Gap 17.4 (5-19); Aspartate Amino Transferase 9 U/L (0-40); Blood Urea Nitrogen 10 mg/dL (8-23); Calcium 8.2 mg/dL (8.5-10.5); Carbon Dioxide 20 mmol/L (22-29); Chloride 106 mmol/L (98-107); Globulin 2.6 g/dL (1.3-4.6); Glomerular Filtration Rate 214.6 mL/min (90-130); Glucose 104 mg/dL (65-115); Magnesium 1.6 mg/dL (1.7-2.3); Osmolality Calculated 289 mOsm/kg (285-295); Phosphorus 3.4 mg/dL (2.5-4.5); Potassium 3.4 mmol/L (3.5-5.1); Sodium 140 mmol/L (136-145); Total Bilirubin 1.3 mg/dL (0.15-1.2); Total Protein 5.4 g/dL (6.6-8.7)
[2024-03-23 05:12] LABS: Creatinine Clr Calc Pharmacy 110.6786
[2024-03-23 05:29] LABS: Glucose Point of Care 90 mg/dL (70-110)
[2024-03-23] MEDS: aspirin 81 mg Chew Tablet NG-TUBE (08:37)
[2024-03-23] MEDS: atorvastatin 40 mg Tablet PO (08:38)
[2024-03-23] MEDS: apixaban 5 mg Tablet PO ×2 (08:38→18:10)
[2024-03-23] MEDS: amlodipine 10 mg Tablet PO (08:39)
[2024-03-23] MEDS: nystatin powder 15 gm Btl 1 APPLIC TOPICAL (08:40)
--- NOTE | 2024-03-23 09:16 | PC.NURSE ---
Sedation stopped. See DEC. Pt on weaning trial per RT.
--- NOTE | 2024-03-23 11:38 | PC.NURSE ---
Pt extubated 10:[address] Medina orders.
--- NOTE | 2024-03-23 11:40 | PC.NURSE ---
Fentanyl wasted, witnessed by SUE Mathis.
[2024-03-23 11:55] LABS: Glucose Point of Care 94 mg/dL (70-110)
[2024-03-23] MEDS: pantoprazole 40 mg SDV IVP (12:06)
--- NOTE | 2024-03-23 13:07 | P.PN_ITS ---
Subjective 2 Subjective: seen this morning awake alert and following commands, on breathing trial at this time. Vitals/I&O/Wt Last Vital Signs Temp 98.2 F 03/23/24 08:00 Pulse 70 03/23/24 12:15 Resp 20 H 03/23/24 09:52 BP 135/73 03/23/24 12:15 Pulse Ox 96 03/23/24 12:15 O2 Del Method Mechanical Ventilation 03/23/24 00:00 O2 Flow Rate 35 03/22/24 07:15 FiO2 30 03/23/24 09:52 03/22/24 03/23/24 03/23/24 22:59 06:59 14:59 Intake Total 412.00 / 5121.963 4259.250 / 2261.958 1056.25 / 1056.25 Output Total 100 / 200 350 / 550 Balance 312.00 / 948.708 763.250 / 3142.580 4756.25 / 1056.25 Weight last 48 hrs Weight 105.375 kg Weight 105.375 kg Physical Exam 2 Narrative: General: awake, follows simple commands, alert HEENT: PERRLA, pupils bilaterally equal and reactive Chest: Normal vesicular breath sounds, no added sounds, equal good air entry bilaterally CVS: S1-S2 regular, no murmurs, no tachycardia, no gallops, no rubs Abdomen: Soft, nontender, no organomegaly, bowel sounds present Neuro: No focal deficits, no facial deformity, able to move right arm and right leg. left hand swollen, unable to move left upper and lower extremities, able to track with eyes, Urinary Catheter Management: Vuong: Cath Placed During This Visit: yes Reason for Continuing Indwelling Catheter: Accurate Measurement of Urinary Output in Critically Ill Patients Urinary Catheter Date of Insertion: 03/20/24 Urinary Catheter Time of Insertion: 04:25 Data 03/23/24 04:09 03/23/24 04:09 Micro: Microbiology 03/21/24 16:47 Gram Stain - Final Sputum - Endotracheal Tube Aspirate Sputum Culture - Preliminary Pseudomonas aeruginosa Coag positive Staphylococcus 03/22/24 14:40 Urine Culture - Preliminary Urine Catheterized 03/20/24 10:45 Gram Stain - Final Sputum - Endotracheal Tube Aspirate Sputum Culture - Final 03/20/24 03:50 Blood Culture - Preliminary Blood Staphylococcus epidermidis 03/20/24 04:15 Blood Culture - Preliminary Blood Staphylococcus epidermidis A&P Assessment and plan (1) New onset seizure: No history of seizures in the past. Received Keppra 2 g in the ER. History of recent stroke. No acute abnormality on CT head. No electrolyte abnormality except mild hyponatremia with sodium down to 135. Currently intubated to protect airway. Keep sedated with propofol and fentanyl for now. Plan to wean sedation tomorrow and monitor mentation. Hold off on any further seizure medications for now. (2) History of cerebrovascular accident (CVA) due to ischemia: History of right MCA stroke. Undergoing physical therapy at group home. Continue with home dose of aspirin and Eliquis. (3) Hypoxia: In setting of postictal state. Currently mechanically ventilated. Oxygen supplementation keeping saturation over 90%. No concerns for pneumonia for now. Appreciate chest x-ray. Repeat ABG and chest x-ray in AM. Hold off on antibiotics for now. Follow-up sputum culture. Current sedation. Plan to wean tomorrow. Plan Type 2 diabetes mellitus: Appreciate recent A1c. Insulin sliding scale at low-dose protocol every 6 hours. Takes 36 units of Lantus at group home. For now start on 10 units daily. Atrial fibrillation: Currently rate controlled. Continue with home dose of amiodarone and Eliquis. Hypertension: Goal blood pressure less than 140/90 mmHg. Continue with home dose of Eliquis, amlodipine. Holding off on losartan for now. Sedation: Fentanyl and propofol Glycemic control:Sliding scale low-dose protocol every 6 hourly, Lantus 10 units nightly Nutrition: N.p.o. for now. Fluid: Normal saline at 75 cc/h CODE STATUS: Limited resuscitation. Okay for mechanical ventilation and pacemaker. confirms no CPR. PUD prophylaxis: Protonix DVT prophylaxis: Home dose of Eliquis Discharge planning: Back to group home for further rehabitation once patient is medically stable. Plan for the day: 03/23 Continue SBT, plan for extubation today No further episodes of seizure. Continue to monitor. Continue with IV fluids. Strict input charting. Blood culture cultures negative so far. Sputum positive for pseudomonas and coag + staph. Repeat chest x-ray and ABG in AM. Blood sugar stable. Continue with Lantus 10 units nightly and sliding scale every 6 hours. Blood pressure stable. Continue with home dose of amlodipine. Holding off on losartan for now. - Discussed with RN, RT. - Family not at bedside at this time. - PLan for extubation today - Continue zosyn at this time. Add vancomycin IV. - order PT/OT/Speech eval - start diet as per speech recs - Check phosphorus, mag, This documentation was created by [employer] research physicist software. Every effort was made to ensure accuracy of research physicist. Any obvious errors or omissions should be clarified with the author of the document. Attestations 2 Medical Necessity Statement*: intubated, Critical Care Time: The high probability of a clinically significant, sudden or life threatening deterioration of the patient's [pulmonary, neurology] system(s) required my full and direct attention, intervention and personal management. The critical care time is as shown. This time is in addition to time spent performing any reported procedures but includes the following: [x] Data and vital sign review and interpretation [x] Patient assessment, examination and intervention [x] Documentation [x] Medication orders and management Critical Care Time (min): 45 Coding Level of Care Code Acute Code for Chg Fwd Diagnoses New onset seizure R56.9 History of cerebrovascular accident (CVA) due to ischemia Z86.73 Hypoxia R09.02
[2024-03-23] MEDS: vancomycin 1,500 MG/300 ML PIGGYBACK 200 MG IV (13:57)
[2024-03-23 14:01] LABS: Procalcitonin 0.07 ng/mL (0-0.5)
[2024-03-23] MEDS: amiodarone 200 mg Tablet NG-TUBE (14:07)
--- NOTE | 2024-03-23 14:39 | PC.NURSE ---
Bedside swallow study attempted at aprox. 1400, 1 small bite of ice chips given to pt. Coughing evident after first bite. Notified Dr. Medina. Pt remains NPO. Use G-Tube for medications, see MAR.
[2024-03-23] MEDS: ipratropium-albuterol 3 mL Neb INHALATION ×2 (16:08→19:48)
--- NOTE | 2024-03-23 16:14 | PC.NUTR ---
-Inititiate enteral nutrition via PEG following RD recs below (provides 50% of EEN) -continuous: Glucerna 1.5 @ 30ml/hr x24hrs -bolus: Glucerna 1.5 @ 237ml for B, 237ml for L, 237ml for D -FWF: 100ml q6 See most recent RD assessment for details.
[2024-03-23 17:48] LABS: Glucose Point of Care 121 mg/dL (70-110)
[2024-03-23] MEDS: morphine 4 mg/mL SDV 1 mL 2 MG IVP (18:10)
[2024-03-23] MEDS: insulin glargine 100 units/1 mL 10 UNIT SUBCUT (20:41)
[2024-03-23 20:47] LABS: Glucose Point of Care 122 mg/dL (70-110)
[2024-03-24] VITALS (57 sets, daily range): BP systolic 81–178; BP diastolic 55–93; PULSE 56–85; RESP 16–18; TEMP 36.3–37.1; O2SAT 94–100
[2024-03-24] MEDS: sodium chloride 0.9% 1,000 ML 125 ML IV ×3 (00:45→18:32)
[2024-03-24] MEDS: acetaminophen 325 mg Tablet 650 MG PO ×2 (00:58→14:00)
[2024-03-24] MEDS: vancomycin 1,500 MG/300 ML PIGGYBACK 200 MG IV ×2 (02:15→14:36)
[2024-03-24] MEDS: piperacillin-tazobactam 3.375 GM in sodium chloride 0.9% (plus) 50 ML IV ×3 (03:53→20:39)
[2024-03-24 06:16] LABS: Basophils # 0.1 10^3/uL (0.0-0.1); Basophils % 0.6 %; Eosinophils # 0.3 10^3/uL (0.0-0.8); Eosinophils % 3.2 %; Hematocrit 30.1 % (37-53); Lymphocytes # 1.9 10^3/uL (0.8-4.8); Lymphocytes % 20.4 %; Mean Corpuscular HGB Conc 32.9 g/dL (30-55); Mean Corpuscular Hemoglobin 28.6 pg (27-33); Mean Platelet Volume 9.4 fL (7.4-10.4); Monocytes # 0.8 10^3/uL (0.2-0.9); Monocytes % 9.3 %; Neutrophils % 66.3 %; Nucleated Red Blood Cells % 0 %; Platelet Count 307 10^3/cmm (157-399); Red Blood Count 3.46 10^6/uL (3.85-5.65); Red Cell Distribution Width 16.1 % (12.1-15.1); White Blood Count 9.05 10^3/uL (3.29-11.43)
[2024-03-24 06:44] LABS: Alanine Aminotransferase 10 U/L (0-41); Albumin Level 2.7 g/dL (3.5-5.2); Alkaline Phosphatase 124 U/L (40-130); Anion Gap 14.3 (5-19); Aspartate Amino Transferase 12 U/L (0-40); Blood Urea Nitrogen 4 mg/dL (8-23); Calcium 8.2 mg/dL (8.5-10.5); Carbon Dioxide 21 mmol/L (22-29); Chloride 110 mmol/L (98-107); Creatinine Clr Calc Pharmacy 111.6875; Globulin 2.7 g/dL (1.3-4.6); Glomerular Filtration Rate 299.1 mL/min (90-130); Glucose 108 mg/dL (65-115); Magnesium 1.6 mg/dL (1.7-2.3); Osmolality Calculated 291 mOsm/kg (285-295); Potassium 3.3 mmol/L (3.5-5.1); Sodium 142 mmol/L (136-145); Total Protein 5.4 g/dL (6.6-8.7)
[2024-03-24] MEDS: ipratropium-albuterol 3 mL Neb INHALATION ×3 (07:48→21:40)
--- NOTE | 2024-03-24 08:00 | XRR_ITS ---
PROCEDURE INFORMATION: Exam: XR Chest Exam date and time: 03/24/2024 7:37 AM Age: 68 years old Clinical indication: Shortness of breath; Additional info: Pneumonia? TECHNIQUE: Imaging protocol: Radiologic exam of the chest. Views: 1 view. COMPARISON: CR XR chest 1V portable [id number] 03/22/2024 7:14 AM FINDINGS: Tubes, catheters and devices: Right IJ approach central line is in satisfactory position, with distal tip in the RA. Lungs: Low lung volumes. There are increased lung markings and haziness of the lungs, which in the setting of cardiomegaly is suggestive of pulmonary congestion. Pneumonia should be excluded clinically. Pleural spaces: Unremarkable. No pleural effusion. No pneumothorax. Heart/Mediastinum: Stable cardiomediastinal silhouette. Bones/joints: Unremarkable. XR/XR chest 1V portable [id number] IMPRESSION: Imaging findings suggestive of pulmonary congestion. Pneumonia should be excluded clinically.
[2024-03-24] MEDS: aspirin 81 mg Chew Tablet NG-TUBE (08:23)
[2024-03-24] MEDS: amlodipine 10 mg Tablet PO (08:23)
[2024-03-24] MEDS: apixaban 5 mg Tablet PO ×2 (08:23→18:32)
[2024-03-24] MEDS: atorvastatin 40 mg Tablet PO (08:23)
[2024-03-24 08:35] LABS: Glucose Point of Care 121 mg/dL (70-110)
[2024-03-24 08:35] LABS: Glucose Point of Care 106 mg/dL (70-110)
[2024-03-24] MEDS: magnesium sulfate premix 4 GM/100 ML PREMIX IV (09:28)
[2024-03-24] MEDS: potassium chloride premix 100 ML 25 MEQ IV (09:46)
[2024-03-24] MEDS: pantoprazole 40 mg SDV IVP (10:20)
[2024-03-24] MEDS: amiodarone 200 mg Tablet NG-TUBE (10:20)
--- NOTE | 2024-03-24 10:57 | USCV_ITS ---
Ulisses Bae Age: 68 Gender: M : 1955 Exam Date: 03/24/2024 16:33 Ordering Phys: Maria Luisa Medina MD Technologist: [place] [facility] [place]: [place] BP: 115 / 82 HR: 68 Rhythm: Sinus Technical Quality: Adequate MEASUREMENTS (Male / Female) Normal Values 2D ECHO LVOT Diameter 2.4 cm LV Ejection Fraction MOD 2C 72.6 % LV Ejection Fraction 2C AL 73.3 % LA Diameter 3.3 cm RA Systolic Volume 4C AL 51.4 ml RA Systolic Volume 4C MOD 47.2 ml LA Sys Volume AL 55.1 cm cubed LA Sys Volume Index AL 23.9 cm cubed/m squared Aorta at Sinotubular Diameter 2.7 cm IVC Diameter 2.4 cm M-MODE LA Ao Ratio MM 1.9 AV Cusp Separation MM 1.9 cm DOPPLER AV Peak Velocity 185.0 cm/s LVOT Peak Velocity 137.0 cm/s AV Area Cont Eq vti 4.1 cm squared AV Area Cont Eq pk 3.5 cm squared MV Peak Velocity 103.0 cm/s MV Area PHT 3.5 cm squared Mitral E to A Ratio 1.1 TR Peak Velocity 94.0 cm/s TR Peak Gradient 3.5 mmHg Right Atrial Pressure 3.0 mmHg Pulmonary Artery Systolic Pressu 6.5 mmHg PV Peak Velocity 114.5 cm/s FINDINGS Left Ventricle Normal left ventricular size, systolic function and wall thickness, with no regional wall motion abnormalities. Left ventricular ejection fraction is estimated at 60 %. Grade II/IV diastolic dysfunction, moderately elevated filling pressures. Right Ventricle The right ventricle is normal in size and function. Right Atrium The right atrium is normal in size. Left Atrium The left atrium is normal in size. Mitral Valve Structurally normal mitral valve without significant stenosis or prolapse. There is mild mitral regurgitation. Aortic Valve Moderate aortic valve calcification. No aortic valve stenosis. Mild aortic valve regurgitation. Tricuspid Valve Structurally normal tricuspid valve without significant stenosis, mild regurgitation. Pulmonary artery systolic pressure is normal. Pulmonic Valve Structurally normal pulmonic valve without significant stenosis. There is no pulmonic regurgitation. Pericardium Normal pericardium without effusion. Aorta Normal ascending aorta dimension. IVC The inferior vena cava appears normal. CONCLUSIONS 1-Normal left ventricular size, systolic function and wall thickness, with no regional wall motion abnormalities. Left ventricular ejection fraction is estimated at 60 %. Grade II/IV diastolic dysfunction, moderately elevated filling pressures. 2-Moderate aortic valve calcification. No aortic valve stenosis. Mild aortic valve regurgitation. 3-Structurally normal mitral valve without significant stenosis or prolapse. There is mild mitral regurgitation. 4-Structurally normal tricuspid valve without significant stenosis, mild regurgitation. Pulmonary artery systolic pressure is normal. 5-Right atrial pressure is around 5 mm of mercury. Hugh Everett MD (Electronically Signed) Final Date: 24 March 2024 21:32 S
[2024-03-24] MEDS: FUROsemide 10 mg/mL SDV 4mL 40 MG IVP (11:10)
[2024-03-24 11:29] LABS: Glucose Point of Care 124 mg/dL (70-110)
--- NOTE | 2024-03-24 12:32 | PM.PN ---
Subjective Subjective: Seen this morning. Doing well. Able to tolerate pur?ed diet. Hemoglobin 9.9. Chest x-ray does show possible pneumonia, pulmonary edema. Potassium 3.3 this morning. Extubated to nasal cannula yesterday and now on room air. Vitals/I&O/Wt Last Vital Signs Temp 97.9 F 03/24/24 07:58 Pulse 76 03/24/24 12:00 Resp 16 03/24/24 11:20 BP 149/72 03/24/24 12:00 Pulse Ox 96 03/24/24 12:00 O2 Del Method Room Air 03/24/24 11:20 O2 Flow Rate 2 03/24/24 07:35 FiO2 30 03/23/24 09:52 03/23/24 03/24/24 03/24/24 22:59 06:59 14:59 Intake Total 1410 / 2466.25 1050 / 3516.25 1524.167 / 1524.167 Output Total 650 / 650 850 / 1500 2250 / 2250 Balance 760 / 1816.25 / 2015. -725.833 / -725.833 Weight last 48 hrs Weight 107.365 kg Weight 105.375 kg Physical Exam Narrative: General: awake, follows simple commands, alert HEENT: PERRLA, pupils bilaterally equal and reactive Chest: Normal vesicular breath sounds, no added sounds, equal good air entry bilaterally CVS: S1-S2 regular, no murmurs, no tachycardia, no gallops, no rubs Abdomen: Soft, nontender, no organomegaly, bowel sounds present Neuro: No focal deficits, no facial deformity, able to move right arm and right leg. left hand swollen, unable to move left upper and lower extremities, able to track with eyes, Urinary Catheter Management: Vuong: Cath Placed During This Visit: yes Reason for Continuing Indwelling Catheter: Accurate Measurement of Urinary Output in Critically Ill Patients Urinary Catheter Date of Insertion: 03/20/24 Urinary Catheter Time of Insertion: 04:25 Data 03/24/24 05:49 03/24/24 05:49 Micro: Microbiology 03/22/24 14:40 Urine Culture - Final Urine Catheterized 03/21/24 16:47 Gram Stain - Final Sputum - Endotracheal Tube Aspirate Sputum Culture - Preliminary Pseudomonas aeruginosa Coag positive Staphylococcus A&P Assessment and plan (1) New onset seizure: No history of seizures in the past. Received Keppra 2 g in the ER. History of recent stroke. No acute abnormality on CT head. No electrolyte abnormality except mild hyponatremia with sodium down to 135. Currently intubated to protect airway. Keep sedated with propofol and fentanyl for now. Plan to wean sedation tomorrow and monitor mentation. Hold off on any further seizure medications for now. (2) History of cerebrovascular accident (CVA) due to ischemia: History of right MCA stroke. Undergoing physical therapy at snf. Continue with home dose of aspirin and Eliquis. (3) Hypoxia: In setting of postictal state. Currently mechanically ventilated. Oxygen supplementation keeping saturation over 90%. No concerns for pneumonia for now. Appreciate chest x-ray. Repeat ABG and chest x-ray in AM. Hold off on antibiotics for now. Follow-up sputum culture. Current sedation. Plan to wean tomorrow. Plan Type 2 diabetes mellitus: Appreciate recent A1c. Insulin sliding scale at low-dose protocol every 6 hours. Takes 36 units of Lantus at snf. For now start on 10 units daily. Atrial fibrillation: Currently rate controlled. Continue with home dose of amiodarone and Eliquis. Hypertension: Goal blood pressure less than 140/90 mmHg. Continue with home dose of Eliquis, amlodipine. Holding off on losartan for now. Sedation: Fentanyl and propofol Glycemic control:Sliding scale low-dose protocol every 6 hourly, Lantus 10 units nightly Nutrition: N.p.o. for now. Fluid: Normal saline at 75 cc/h CODE STATUS: Limited resuscitation. Okay for mechanical ventilation and pacemaker. confirms no CPR. PUD prophylaxis: Protonix DVT prophylaxis: Home dose of Eliquis Discharge planning: Back to snf for further rehabitation once patient is medically stable. Plan for the day: 03/24 No further episodes of seizure. Continue to monitor. Continue with IV fluids. Strict input charting. Blood culture cultures negative so far. Sputum positive for pseudomonas and coag + staph. Repeat chest x-ray and ABG in AM. Blood sugar stable. Continue with Lantus 10 units nightly and sliding scale every 6 hours. Blood pressure stable. Continue with home dose of amlodipine. Holding off on losartan for now. - Discussed with RN, RT. - Continue zosyn at this time. Continue vancomycin IV. - order PT/OT/Speech eval - start diet as per speech recs - Check phosphorus, mag, transfer to floor today This documentation was created by [employer] industrial safety and health manager software. Every effort was made to ensure accuracy of industrial safety and health manager. Any obvious errors or omissions should be clarified with the author of the document. Attestations Medical Necessity Statement*: stroke, pneumonia continue IV antiobiotics Diagnoses New onset seizure R56.9 History of cerebrovascular accident (CVA) due to ischemia Z86.73 Hypoxia R09.02
--- NOTE | 2024-03-24 13:13 | PC.SOCIAL ---
IMM Updated Updated pt on IMM. No questions voiced. Provided pt a copy. Initialed, dated, & timed copy in chart.
--- NOTE | 2024-03-24 14:08 | PC.NURSE ---
Patient moved to [place] at approximately 1405. Family bedside
[2024-03-24 17:33] LABS: Glucose Point of Care 223 mg/dL (70-110)
[2024-03-24] MEDS: docusate sodium 100 mg Capsule PO (18:32)
[2024-03-24] MEDS: insulin lispro 100 unit/1 mL SUBCUT (18:32)
[2024-03-24] MEDS: nystatin powder 15 gm Btl 1 APPLIC TOPICAL (18:33)
[2024-03-25] VITALS (13 sets, daily range): BP systolic 134–162; BP diastolic 70–88; PULSE 67–81; RESP 14–18; TEMP 36.9–37.3; O2SAT 90–98
[2024-03-25] LABS: Glucose Point of Care 158 mg/dL (70-110)
[2024-03-25] MEDS: acetaminophen 325 mg Tablet 650 MG PO ×2 (01:31→20:27)
[2024-03-25] MEDS: sodium chloride 0.9% 1,000 ML 125 ML IV ×3 (01:32→17:17)
[2024-03-25] MEDS: vancomycin 1,500 MG/300 ML PIGGYBACK 200 MG IV ×2 (02:56→14:37)
[2024-03-25] MEDS: piperacillin-tazobactam 3.375 GM in sodium chloride 0.9% (plus) 50 ML IV ×3 (04:40→21:00)
[2024-03-25 06:33] LABS: Glucose Point of Care 127 mg/dL (70-110)
[2024-03-25] MEDS: ipratropium-albuterol 3 mL Neb INHALATION ×4 (07:32→20:20)
[2024-03-25] MEDS: docusate sodium 100 mg Capsule PO ×2 (09:53→17:14)
[2024-03-25] MEDS: apixaban 5 mg Tablet PO ×2 (09:53→17:14)
[2024-03-25] MEDS: atorvastatin 40 mg Tablet PO (09:53)
[2024-03-25] MEDS: amlodipine 10 mg Tablet PO (09:53)
[2024-03-25] MEDS: aspirin 81 mg Chew Tablet NG-TUBE (09:53)
[2024-03-25] MEDS: nystatin powder 15 gm Btl 1 APPLIC TOPICAL ×2 (09:59→17:15)
[2024-03-25 11:50] LABS: Glucose Point of Care 163 mg/dL (70-110)
--- NOTE | 2024-03-25 12:24 | PM.PN ---
Subjective Subjective: head mri reviewed bx positive for staph homonis and staph epidermidis at admission. 3/4 bottles positive repeat cultures NTD but obtained 03/24 sputum culture positive for pseudomonas and staph aureus Vitals/I&O/Wt Last Vital Signs Temp 98.4 F 03/25/24 12:12 Pulse 78 03/25/24 12:12 Resp 16 03/25/24 12:12 BP 149/72 03/25/24 12:12 Pulse Ox 98 03/25/24 12:12 O2 Del Method Room Air 03/25/24 12:12 O2 Flow Rate 2 03/24/24 07:35 FiO2 21 03/25/24 11:21 03/24/24 03/25/24 03/25/24 22:59 06:59 14:59 Intake Total 1710 / 3334.167 1350 / 4684.167 1000 / 1000 Output Total 1800 / 4050 1400 / 5450 2100 / 2100 Balance -90 / -715.833 -50 / -765.833 -1100 / -1100 Weight last 48 hrs Weight 107.365 kg Weight 107.365 kg Physical Exam Narrative: General: awake, aox3 HEENT: PERRLA, pupils bilaterally equal and reactive Chest: Normal vesicular breath sounds, no added sounds, equal good air entry bilaterally CVS: S1-S2 regular, no murmurs, no tachycardia, no gallops, no rubs Abdomen: Soft, nontender, bowel sounds present Neuro: left sided hemiplegia Urinary Catheter Management: Vuong: Cath Placed During This Visit: yes Reason for Continuing Indwelling Catheter: Other Urinary Catheter Date of Insertion: 03/20/24 Urinary Catheter Time of Insertion: 04:25 Data 03/24/24 05:49 03/24/24 05:49 Micro: Microbiology 03/24/24 17:48 Blood Culture - Preliminary Blood SPECIMEN COLLECTED 03/24/24 17:40 Blood Culture - Preliminary Blood SPECIMEN COLLECTED 03/20/24 03:50 Blood Culture - Final Blood Staphylococcus epidermidis Staphylococcus hominis 03/20/24 04:15 Blood Culture - Final Blood Staphylococcus epidermidis Staphylococcus hominis 03/21/24 16:47 Gram Stain - Final Sputum - Endotracheal Tube Aspirate Sputum Culture - Final Pseudomonas aeruginosa Staphylococcus aureus 03/22/24 14:40 Urine Culture - Final Urine Catheterized A&P Assessment and plan (1) New onset seizure: No history of seizures in the past. Received Keppra 2 g in the ER. History of recent stroke. No acute abnormality on CT head. No electrolyte abnormality except mild hyponatremia with sodium down to 135. Currently intubated to protect airway. Keep sedated with propofol and fentanyl for now. Plan to wean sedation tomorrow and monitor mentation. Hold off on any further seizure medications for now. (2) History of cerebrovascular accident (CVA) due to ischemia: History of right MCA stroke. Undergoing physical therapy at [facility]. Continue with home dose of aspirin and Eliquis. (3) Hypoxia: In setting of postictal state. Currently mechanically ventilated. Oxygen supplementation keeping saturation over 90%. No concerns for pneumonia for now. Appreciate chest x-ray. Repeat ABG and chest x-ray in AM. Hold off on antibiotics for now. Follow-up sputum culture. Current sedation. Plan to wean tomorrow. Plan Type 2 diabetes mellitus: Appreciate recent A1c. Insulin sliding scale at low-dose protocol every 6 hours. Takes 36 units of Lantus at [facility]. For now start on 10 units daily. Atrial fibrillation: Currently rate controlled. Continue with home dose of amiodarone and Eliquis. Hypertension: Goal blood pressure less than 140/90 mmHg. Continue with home dose of Eliquis, amlodipine. Holding off on losartan for now. Sedation: Fentanyl and propofol Glycemic control:Sliding scale low-dose protocol every 6 hourly, Lantus 10 units nightly Nutrition: N.p.o. for now. Fluid: Normal saline at 75 cc/h CODE STATUS: Limited resuscitation. Okay for mechanical ventilation and pacemaker. confirms no CPR. PUD prophylaxis: Protonix DVT prophylaxis: Home dose of Eliquis Discharge planning: Back to [facility] for further rehabitation once patient is medically stable. Plan for the day: 03/25 No further episodes of seizure. Continue to monitor. Continue with IV fluids. Strict input charting. Blood culture cultures negative so far. Sputum positive for pseudomonas and coag + staph. Repeat chest x-ray and ABG in AM. Blood sugar stable. Continue with Lantus 10 units nightly and sliding scale every 6 hours. Blood pressure stable. Continue with home dose of amlodipine. Holding off on losartan for now. - Discussed with RN, RT. - Continue zosyn at this time. Continue vancomycin IV. - order PT/OT/Speech eval - appreciate recs - BCx positive for Staphylococcus homonymous, Staph epidermidis. Possibly contamination. Will discuss with ID ? Sputum culture positive for Pseudomonas and Staph aureus. Will plan to treat for total 14 days. ? Patient has been afebrile, WBC count is normal. ? Will discuss with infectious disease prior to discharge in regards to final antibiotic recommendations. This documentation was created by [employer] business analytics specialist software. Every effort was made to ensure accuracy of business analytics specialist. Any obvious errors or omissions should be clarified with the author of the document. Attestations Medical Necessity Statement*: stroke, pneumonia continue IV antiobiotics Diagnoses New onset seizure R56.9 History of cerebrovascular accident (CVA) due to ischemia Z86.73 Hypoxia R09.02
[2024-03-25] MEDS: pantoprazole 40 mg SDV IVP (12:25)
--- NOTE | 2024-03-25 12:37 | MR_ITS ---
WS: [id number] MRI HEAD WITHOUT CONTRAST TECHNIQUE: Sagittal T1, T2 axial, T2 axial FLAIR, axial and coronal T1 images, axial susceptibility w eighted imaging, axial diffusion weighted images, and coronal T2 images were obtained. CLINICAL INFORMATION: stroke, seizure COMPARISON: MRI 2022 FINDINGS: No evidence of restricted diffusion to suggest acute ischemia. Chronic RIGHT MCA territory infarct wi th encephalomalacia and gliosis. A few scattered foci of hemosiderin in the chronic infarct bed. Smal l vessel changes in the ashley. Moderate parenchymal volume loss. Wallerian degeneration in the RIGHT m idbrain extending into the medulla. Numerous tiny chronic lacunar infarcts in the cerebellum. Paranasal sinuses are well aerated. Mild mu cosal thickening in the RIGHT greater than LEFT mastoid air cells. Moderate to advanced atrophy tempo ral lobes and hippocampal formations. MR/MR head wo con* [id number] IMPRESSION: 1. No evidence of restricted diffusion to suggest acute ischemia 2. Previous RIGHT MCA territory infarct with encephalomalacia and gliosis. 3. Small vessel changes in the ashley. 4. A few scattered foci of hemosiderin in the prior RIGHT MCA infarct distribu tion.
[2024-03-25] MEDS: insulin lispro 100 unit/1 mL SUBCUT ×2 (12:46→17:14)
[2024-03-25] MEDS: amiodarone 200 mg Tablet NG-TUBE (12:46)
[2024-03-25 17:00] LABS: Glucose Point of Care 160 mg/dL (70-110)
[2024-03-25] MEDS: insulin glargine 100 units/1 mL 10 UNIT SUBCUT (21:03)
[2024-03-25 21:12] LABS: Glucose Point of Care 176 mg/dL (70-110)
[2024-03-26] VITALS (7 sets, daily range): BP systolic 115–133; BP diastolic 62–76; PULSE 62–77; RESP 14–19; TEMP 36.9–37.7; O2SAT 91–95
[2024-03-26 00:21] LABS: Glucose Point of Care 157 mg/dL (70-110)
[2024-03-26] MEDS: insulin lispro 100 unit/1 mL SUBCUT ×2 (00:27→12:26)
[2024-03-26] MEDS: vancomycin 1,500 MG/300 ML PIGGYBACK 200 MG IV (01:28)
[2024-03-26] MEDS: acetaminophen 325 mg Tablet 650 MG PO ×2 (03:57→10:52)
[2024-03-26] MEDS: piperacillin-tazobactam 3.375 GM in sodium chloride 0.9% (plus) 50 ML IV (03:57)
[2024-03-26 05:21] LABS: Basophils % 0.5 %; Eosinophils # 0.3 10^3/uL (0.0-0.8); Hematocrit 32.1 % (37-53); Lymphocytes # 1.7 10^3/uL (0.8-4.8); Lymphocytes % 20.5 %; Mean Corpuscular HGB Conc 33.6 g/dL (30-55); Mean Corpuscular Hemoglobin 28.3 pg (27-33); Mean Platelet Volume 8.7 fL (7.4-10.4); Monocytes # 0.8 10^3/uL (0.2-0.9); Neutrophils # 5.52 10^3/uL (1.8-7.7); Neutrophils % 66.6 %; Nucleated Red Blood Cells % 0 %; Platelet Count 386 10^3/cmm (157-399); Red Blood Count 3.82 10^6/uL (3.85-5.65); Red Cell Distribution Width 15.7 % (12.1-15.1); White Blood Count 8.29 10^3/uL (3.29-11.43)
[2024-03-26 05:46] LABS: Anion Gap 13.3 (5-19); Blood Urea Nitrogen 2 mg/dL (8-23); Calcium 8.3 mg/dL (8.5-10.5); Carbon Dioxide 26 mmol/L (22-29); Chloride 107 mmol/L (98-107); Glomerular Filtration Rate 299.1 mL/min (90-130); Glucose 146 mg/dL (65-115); Magnesium 1.7 mg/dL (1.7-2.3); Osmolality Calculated 295 mOsm/kg (285-295); Potassium 3.3 mmol/L (3.5-5.1); Sodium 143 mmol/L (136-145)
[2024-03-26 05:48] LABS: Creatinine Clr Calc Pharmacy 109.9172
[2024-03-26] MEDS: sodium chloride 0.9% 1,000 ML 125 ML IV (06:25)
[2024-03-26 06:27] LABS: Glucose Point of Care 135 mg/dL (70-110)
[2024-03-26] MEDS: ipratropium-albuterol 3 mL Neb INHALATION ×2 (07:44→11:09)
--- NOTE | 2024-03-26 09:00 | P.DS_ITS ---
Discharge Providers Date of Admission: 03/20/24 06:40 Date of Discharge: March 26, 2024 Attending Provider at Admission: Elvi Timmons MD Attending Provider at Discharge: Maria Luisa Medina MD Primary Care Provider: Prosper Deleon DO Diagnoses at Discharge Discharge Diagnosis (1) New onset seizure: Status: Resolved (2) History of cerebrovascular accident (CVA) due to ischemia: Status: Acute (3) Hypoxia: Status: Resolved Reason for Visit Reason for Visit: seizure Hospital Course Hospital Course Patient was admitted for new onset seizure and intubated upon arrival. Also found to have pneumonia with Pseudomonas and Staph aureus. Patient remained seizure-free during hospitalization. MRI was obtained which did not show a new stroke. Speech evaluation was obtained and patient was allowed to have pur?ed diet with mild advancement. He does have a PEG tube in place but it is not being used at this time. Patient to follow-up with general surgery as outpatient for possible removal of PEG tube if not being used anymore. He does have chronic left hemiplegia. Vuong to be removed at group home and voiding trial to begin. Patient was discharged home on linezolid x 12 days and levofloxacin x 3 more days to cover for pneumonia. He also had positive blood cultures however there were deemed to be contaminant. Repeat cultures were negative. Patient went home on aspirin and Eliquis. Physical Exam Narrative: General: awake, aox3 HEENT: PERRLA, pupils bilaterally equal and reactive Chest: Normal vesicular breath sounds, no added sounds, equal good air entry bilaterally CVS: S1-S2 regular, no murmurs, no tachycardia, no gallops, no rubs Abdomen: Soft, nontender, bowel sounds present Neuro: left sided hemiplegia Urinary Catheter Management: Vuong: Cath Placed During This Visit: yes Reason for Continuing Indwelling Catheter: Other Urinary Catheter Date of Insertion: 03/20/24 Urinary Catheter Time of Insertion: 04:25 Discharge Data Studies Completed and Pending Completed Studies During Hospitalization Category Date Time Status CT head wo con* [id number] Stat Cat Scan 03/20/24 04:12 Completed XR chest 1V portable [id number] QAM Exams 03/22/24 04:00 Completed XR chest 1V portable [id number] Routine Exams 03/21/24 10:26 Completed XR chest 1V portable [id number] Routine Exams 03/24/24 08:00 Completed XR chest 1V portable [id number] Stat Exams 03/20/24 04:12 Completed MR head wo con* [id number] Routine MRI 03/25/24 12:37 Completed CV. echo complete* [id number] Urgent Ultrasound 03/24/24 10:57 Completed Pending at discharge Category Date Time Status Blood Culture Stat Lab 03/24/24 17:48 Results Radiology Impressions Head CT 03/20/24 04:12 IMPRESSION: 1. No acute intracranial abnormality. 2. Extensive old right infarct. Chest X-Ray 03/24/24 08:00 IMPRESSION: Imaging findings suggestive of pulmonary congestion. Pneumonia should be excluded clinically. Head MRI 03/25/24 12:37 IMPRESSION: 1. No evidence of restricted diffusion to suggest acute ischemia 2. Previous RIGHT MCA territory infarct with encephalomalacia and gliosis. 3. Small vessel changes in the ashley. 4. A few scattered foci of hemosiderin in the prior RIGHT MCA infarct distribution. Laboratory Results WBC 8.29 10^3/uL (3.29-11.43) 03/26/24 05:09 RBC 3.82 10^6/uL (3.85-5.65) L 03/26/24 05:09 Hgb 10.80 g/dL (11.27-16.99) L 03/26/24 05:09 Hct 32.1 % (37-53) L 03/26/24 05:09 MCV 84.0 fl (82-101) 03/26/24 05:09 MCH 28.3 pg (27-33) 03/26/24 05:09 MCHC 33.6 g/dL (30-55) 03/26/24 05:09 RDW 15.7 % (12.1-15.1) H 03/26/24 05:09 Plt Count 386 10^3/cmm (157-399) 03/26/24 05:09 MPV 8.7 fL (7.4-10.4) 03/26/24 05:09 Neut % (Auto) 66.6 % 03/26/24 05:09 Lymph % (Auto) 20.5 % 03/26/24 05:09 [place] % (Auto) 9.0 % 03/26/24 05:09 Eos % (Auto) 3.0 % 03/26/24 05:09 Baso % (Auto) 0.5 % 03/26/24 05:09 Neut # (Auto) 5.52 10^3/uL (1.8-7.7) 03/26/24 05:09 Lymph # (Auto) 1.7 10^3/uL (0.8-4.8) 03/26/24 05:09 [place] # (Auto) 0.8 10^3/uL (0.2-0.9) 03/26/24 05:09 Eos # (Auto) 0.3 10^3/uL (0.0-0.8) 03/26/24 05:09 Baso # (Auto) 0.0 10^3/uL (0.0-0.1) 03/26/24 05:09 Nucleated RBC % (auto) 0 % 03/26/24 05:09 Nucleated RBCs # 0.0 /100WBC 03/26/24 05:09 PT 15.80 SECONDS (12.1-14.9) H 03/20/24 03:50 INR 1.22 (0.8-1.2) H 03/20/24 03:50 APTT 32.4 SECONDS (23.9-36.7) 03/20/24 03:50 Specimen Type Arterial 03/22/24 04:28 Sample Site Radial, right 03/22/24 04:28 ABG pH 7.45 (7.35-7.45) 03/22/24 04:28 ABG pCO2 30.2 mmHg (35-45) L 03/22/24 04:28 ABG pO2 93.2 mmHg (80.0-100.0) 03/22/24 04:28 ABG PO2/FiO2 Ratio 0 03/22/24 04:28 ABG HCO3 21.2 mmol/L (22-26) L 03/22/24 04:28 ABG O2 Saturation 98.7 03/22/24 04:28 ABG Base Excess -1.9 mmol/L (-2.0-2.0) 03/22/24 04:28 Magdiel Test Pos 03/22/24 04:28 A-a O2 Gradient 15.1 mmHg (5-10) H 03/22/24 04:28 Hematocrit 36.5 % (42-52) L 03/22/24 04:28 Hgb O2 Saturation 97.1 % (95-100) 03/22/24 04:28 Carboxyhemoglobin 1.1 %THgb (0.4-20.1) 03/22/24 04:28 Methemoglobin 0.6 % (0.4-1.5) 03/22/24 04:28 Total Hemoglobin 11.9 g/dL (14-18) L 03/22/24 04:28 Sodium 138.0 mmol/L (131-143) 03/22/24 04:28 Potassium 3.2 mmol/L (3.5-5.0) L 03/22/24 04:28 Glucose 128.0 mg/dL (70-115) H 03/22/24 04:28 Ionized Calcium 1.2 mmol/L (1.1-1.4) 03/22/24 04:28 O2 Delivery Device Vent 03/22/24 04:28 FiO2 35.0 % 03/22/24 04:28 Tidal Volume 0.50 03/22/24 04:28 PEEP 5.0 cmH20 03/22/24 04:28 Medical Referral Coordinator ID [email or web address] 03/22/24 04:28 Sodium 143 mmol/L (136-145) 03/26/24 05:09 Potassium 3.3 mmol/L (3.5-5.1) L 03/26/24 05:09 Chloride 107 mmol/L (98-107) 03/26/24 05:09 Carbon Dioxide 26 mmol/L (22-29) 03/26/24 05:09 Anion Gap 13.3 (5-19) 03/26/24 05:09 BUN 2 mg/dL (8-23) L 03/26/24 05:09 Creatinine 0.3 mg/dL (0.7-1.2) L 03/26/24 05:09 GFR Calculation 299.1 mL/min (90-130) H 03/26/24 05:09 Glucose 146 mg/dL (65-115) H 03/26/24 05:09 POC Glucose 135 mg/dL (70-110) H 03/26/24 06:06 Calculated Osmolality 295 mOsm/kg (285-295) 03/26/24 05:09 Lactic Acid 6.7 mmol/L (0.5-2.2) H* 03/20/24 03:50 Lactic Acid (Sepsis) 1.7 mmol/L (0.5-2.2) 03/20/24 11:22 Calcium 8.3 mg/dL (8.5-10.5) L 03/26/24 05:09 Phosphorus 3.0 mg/dL (2.5-4.5) 03/24/24 05:49 Magnesium 1.7 mg/dL (1.7-2.3) 03/26/24 05:09 Total Bilirubin 1.0 mg/dL (0.15-1.2) 03/24/24 05:49 AST 12 U/L (0-40) 03/24/24 05:49 ALT 10 U/L (0-41) 03/24/24 05:49 Alkaline Phosphatase 124 U/L (40-130) 03/24/24 05:49 Creatine Kinase 40 U/L (39-308) 03/20/24 03:50 Troponin T Baseline 30 ng/L (0-15) H 03/20/24 03:50 Troponin T 120 Minute 31.39 ng/L (0-15) H 03/20/24 06:12 Delta Troponin T 1.39 ABS# (0-10) 03/20/24 06:12 Troponin T Hi Sens 6Hr 26.99 ng/L (0-15) H 03/20/24 11:22 Troponin T Hi Sens 6Hr Delta -3.01 ng/L (0-12) L 03/20/24 11:22 C-Reactive Protein 3.0 mg/L (0.0-4.9) 03/20/24 03:50 NT-Pro-B Natriuret Pep < 36 pg/mL (0-125) 03/20/24 03:50 Total Protein 5.4 g/dL (6.6-8.7) L 03/24/24 05:49 Albumin 2.7 g/dL (3.5-5.2) L 03/24/24 05:49 Globulin 2.7 g/dL (1.3-4.6) 03/24/24 05:49 Procalcitonin 0.07 ng/mL (0-0.5) 03/23/24 04:09 Urine Color Yellow (Yellow) 03/20/24 04:36 Urine Appearance Clear (CLEAR) 03/20/24 04:36 Urine pH 6 (5-7) 03/20/24 04:36 Ur Specific [place] 1.010 (1.005-1.030) 03/20/24 04:36 Urine Protein 1+ (Negative) H 03/20/24 04:36 Urine Glucose (UA) Norm (Normal) 03/20/24 04:36 Urine Ketones 1+ (Negative) H 03/20/24 04:36 Urine Blood Neg (Negative) 03/20/24 04:36 Urine Nitrate Negative (Negative) 03/20/24 04:36 Urine Bilirubin Neg (Negative) 03/20/24 04:36 Urine Urobilinogen Neg mg/dL (Negative) 03/20/24 04:36 Ur Leukocyte Esterase Negative (Negative) 03/20/24 04:36 Urine RBC 0-4 /hpf (0-2) H 03/20/24 04:36 Urine WBC 0-4 /hpf (0-5) H 03/20/24 04:36 Ur Squamous Epith Cells 0-4 /hpf (0-5) H 03/20/24 04:36 Amorphous Sediment Not Reportable 03/20/24 04:36 Urine Bacteria Trace /hpf (NONE) 03/20/24 04:36 Vancomycin Trough 10.0 ug/mL (10-15) 03/25/24 01:29 Vitals Last Vital Signs Temp 98.4 F 03/26/24 07:53 Pulse 63 03/26/24 07:53 Resp 14 03/26/24 07:53 BP 133/68 03/26/24 07:53 Pulse Ox 92 03/26/24 07:53 O2 Del Method Room Air 03/26/24 07:53 O2 Flow Rate 2 03/24/24 07:35 FiO2 21 03/25/24 11:21 Discharge Plan Discharge Patient Disposition: Xfer SNF Condition: Stable Prescriptions: New docusate sodium 100 mg Capsule 100 mg PO BID Qty: 60 0RF linezolid 600 mg tablet 600 mg PO BID 11 Days Qty: 22 0RF levofloxacin 750 mg tablet 750 mg PO DAILY 3 Days Qty: 3 0RF Continued atorvastatin 40 mg tablet 40 mg PO DAILY Qty: 90 2RF duloxetine 20 mg capsule,delayed release(DR/EC) 30 mg PO 1XD Lantus Solostar U-100 Insulin 100 unit/mL (3 mL) insulin pen 36 unit SUBCUT DAILY losartan 50 mg tablet 50 mg PO 1XD meclizine 25 mg tablet 25 mg PO QID PRN (Reason: vertigo) Qty: 30 0RF amiodarone [Pacerone] 200 mg Tablet 200 mg ng-tube Q24H Qty: 30 0RF amlodipine 10 mg Tablet 10 mg PO DAILY Qty: 30 0RF aspirin 81 mg Tablet,Chewable 81 mg ng-tube DAILY Qty: 30 0RF Eliquis 5 mg tablet 5 mg PO BID Qty: 60 0RF pantoprazole [Protonix] 40 mg tablet,delayed release (DR/EC) 40 mg PO DAILY Qty: 30 0RF Discharge Orders: Discharge Order (Routine); Ordered 03/26/24 Ordered By: Maria Luisa Medina Other Ambulatory Orders: EEG amplitude integrated aEEG (Routine) Timeframe: 1 Day Facility: [facility] - Location: Neurology Ordered By: Maria Luisa Medina Referrals: Gloria Valencia MD [Physician] - 4-7 days (possible seizure) Juve Hernandez DO [Physician] - 4-7 days Discharge Diet: Cardiac and Diabetic Discharge Activity: Resume usual activity and As per PT/OT instructions Activity Restrictions/Additional Instructions: Please return to ER if pt experiences another seizure. Follow up with neurology as outpatient. Discharge Attestations Time Spent in Discharge Care*: greater than 30 min Quality Metrics Clinical Quality Measures [ No reported AMI, CVA or VTE this stay] Coding Level of Care Code Acute Code for Chg Fwd Diagnoses New onset seizure R56.9 History of cerebrovascular accident (CVA) due to ischemia Z86.73 Hypoxia R09.02
[2024-03-26] MEDS: atorvastatin 40 mg Tablet PO (09:29)
[2024-03-26] MEDS: aspirin 81 mg Chew Tablet NG-TUBE (09:29)
[2024-03-26] MEDS: docusate sodium 100 mg Capsule PO (09:29)
[2024-03-26] MEDS: amlodipine 10 mg Tablet PO (09:29)
[2024-03-26] MEDS: apixaban 5 mg Tablet PO (09:30)
[2024-03-26] MEDS: nystatin powder 15 gm Btl 1 APPLIC TOPICAL (09:30)
[2024-03-26] MEDS: pantoprazole 40 mg SDV IVP (10:52)
[2024-03-26] MEDS: amiodarone 200 mg Tablet NG-TUBE (10:52)
[2024-03-26 11:21] LABS: SARS Covid-2 Antigen negative (Negative)
[2024-03-26 11:46] LABS: Glucose Point of Care 150 mg/dL (70-110)
[2024-03-26] MEDS: potassium chloride ER 20 mEq Tablet 40 MEQ PO (12:26)
--- NOTE | 2024-03-26 14:39 | PC.SLP ---
Patient scheduled to be d/c. If patient remains in hospital, PROJECT MANAGEMENT services will resume.
== END 2024-03-26 15:00 | disposition skilled nursing facility (03) | DRG 100 ==
LOC: ER 06:40 → ICU 07:58 → MEDSURG 03-24 14:08
PROVIDERS: Student in an Organized Health Care Education/Training Program; Admitting Provider Student in an Organized Health Care Education/Training Program; Emergency Provider Emergency Medicine; PCP Internal Medicine; Visit Provider Internal Medicine
DX: R56.9 Unspecified convulsions (principal); J15.1 Pneumonia due to Pseudomonas; J15.211 Pneumonia due to Methicillin susceptible Staphylococcus aureus; I69.954 Hemiplegia and hemiparesis following unspecified cerebrovascular disease affecting left non-dominant side; I48.20 Chronic atrial fibrillation, unspecified; Z93.1 Gastrostomy status; E78.5 Hyperlipidemia, unspecified; I10 Essential (primary) hypertension; E11.9 Type 2 diabetes mellitus without complications; Z79.82 Long term (current) use of aspirin; Z79.01 Long term (current) use of anticoagulants; Z79.4 Long term (current) use of insulin
CPT/HCPCS: 36415; 36416; 36592; 36600; 51702; 70450; 70551; 71045; 80048; 80051; 80053; 80202; 81001; 82330; 82550; 82803; 82805; 82962; 83605; 83735; 83880; 84100; 84145; 84484; 85025; 85610; 85730; 86140; 87040; 87070; 87077; 87086; 87150; 87186; 87205; 87426; 92524; 92526; 92610; 93005; 93306; 94002; 94003; 94640; 94799; 96365; 96366; 96367; 96372; 96374; 96376; 97110; 97162; 97167; 97530; 97535; 99291; C9113; J0330; J1815; J1940; J1953; J2270; J2543; J2704; J3010; J3370; J3475; J3480; J3490; J7030

== ENCOUNTER 2024-08-04 10:19 | Observation (INO) | payer MEDICARE, SELFPAY ==
[2024-08-04] VITALS (23 sets, daily range): BP systolic 110–151; BP diastolic 60–84; PULSE 61–93; RESP 15–26; TEMP 36.6–36.7; O2SAT 96–100; BMI 30.8
[2024-08-04] MEDS: LORazepam 2 mg/mL INJ 1 mL IVP (10:30)
--- NOTE | 2024-08-04 10:38 | XRR_ITS ---
PROCEDURE INFORMATION: Exam: XR Chest Exam date and time: 08/04/2024 10:50 AM Age: 69 years old Clinical indication: Dyspnea; Additional info: Dyspnea seizure TECHNIQUE: Imaging protocol: Radiologic exam of the chest. Views: 1 view. COMPARISON: CR XR chest 1V portable [id number] 03/24/2024 7:37 AM FINDINGS: Lungs: There is mild central vascular congestion. No focal consolidation is appreciated. Overall there has been interval improvement when compared to prior exam. Pleural spaces: Unremarkable. No pleural effusion. No pneumothorax. Heart/Mediastinum: The heart is borderline enlarged. Bones/joints: Unremarkable. XR/XR chest 1V portable [id number] IMPRESSION: 1. Borderline cardiomegaly with probable mild vascular congestion.
--- NOTE | 2024-08-04 10:39 | ED_ITS ---
HPI - Seizure 2 General: Chief Complaint: Seizure Stated Complaint: SEIZURE Time Seen by Provider: 08/04/24 10:38 History of Present Illness: HPI Narrative: Patient brought in by EMS. Patient was on his way to be seen outpatient for PEG tube removal by Dr. Arndt When they noticed he was having a seizure. So they brought him to the ER for evaluation. Patient had another grand mal type seizure when he was here. He received 2 mg Ativan which sedated him he had to be placed on oxygen because he was apneic and hypoxic postictally. Patient does have a history of seizures. [facility] Related Data Home Medications Medication Instructions Recorded Confirmed duloxetine 20 mg capsule,delayed 30 mg PO 1XD 03/20/24 08/04/24 release insulin glargine 100 unit/mL (3 18 unit SUBCUT DAILY 03/20/24 08/04/24 mL) subcutaneous pen (Lantus Solostar U-100 Insulin) losartan 50 mg tablet 50 mg PO DAILY 03/20/24 08/04/24 acetaminophen 325 mg tablet 650 mg PO Q4H 08/04/24 08/04/24 acetaminophen 650 mg rectal 650 mg [place] Q4H PRN Pain 08/04/24 08/04/24 suppository baclofen 10 mg tablet 10 mg PO BID 08/04/24 08/04/24 bisacodyl 10 mg rectal suppository 10 mg [place] Q24H 08/04/24 08/04/24 (Dulcolax (bisacodyl)) cholecalciferol (vitamin D3) 50 50 mcg PO DAILY 08/04/24 08/04/24 mcg (2,000 unit) tablet (Vitamin D3) insulin aspart 8 unit SUBCUT TID 08/04/24 08/04/24 (niacinamide)(U-100) 100 unit/mL(3 mL) subcutaneous pen (Fiasp FlexTouch U-100 Insulin) magnesium hydroxide 400 mg/5 mL 30 ml PO DAILY PRN Constipation 08/04/24 08/04/24 oral suspension (Milk of Magnesia) ondansetron 4 mg disintegrating 4 mg PO Q4H 08/04/24 08/04/24 tablet Previous Rx's Medication Instructions Recorded atorvastatin 40 mg tablet 40 mg PO DAILY #90 tabs 10/23/22 meclizine 25 mg tablet 25 mg PO QID PRN vertigo #30 tabs 08/19/23 amiodarone 200 mg tablet (Pacerone) 200 mg ng-tube Q24H #30 tabs 09/04/23 amlodipine 10 mg tablet 10 mg PO DAILY #30 tabs 09/04/23 apixaban 5 mg tablet (Eliquis) 5 mg PO BID #60 tabs 09/04/23 aspirin 81 mg chewable tablet 81 mg ng-tube DAILY #30 tabs 09/04/23 pantoprazole 40 mg tablet,delayed 40 mg PO DAILY #30 tabs 09/04/23 release (Protonix) docusate sodium 100 mg capsule 100 mg PO BID #60 caps 03/26/24 Allergies Allergy/AdvReac Type Severity Reaction Status Date / Time No Known Allergies Allergy Verified 08/21/23 13:08 Review of Systems 2 General: Reports: ROS unobtainable due to mental status PFSH ED 2 PFSH: Medical History History of cerebrovascular accident (CVA) due to ischemia Atrial fibrillation with RVR Atrial fibrillation Acute right arterial ischemic stroke, middle cerebral artery (MCA) Mixed dyslipidemia Essential hypertension Diabetes Social History Smoking and tobacco/nicotine status: never used tobacco/nicotine Alcohol intake: never Substance/Drug Use: never Adopted: No Caregiver/support person: No Lives independently: No Household members: spouse Housing: House Marital status: service: No Physical Exam 2 Const: OTHER: Patient presents to the ER postictal HENMT: COMMON NORMALS: normocephalic, atraumatic, external ears normal, Normal external nose present and moist oral mucous membranes HEAD & SCALP: n ormocephalic and atraumatic NOSE: Normal external nose present EXTERNAL EAR: Yes external ears normal Neck/C-Spine: COMMON NORMALS: no JVD Chest: COMMONS NORMALS: normal inspection of the chest and normal palpation of entire chest wall Resp: COMMON NORMALS: normal respiratory effort, No retractions, No use of accessory muscles and clear to auscultation bilaterally AUSCULTATION: clear to auscultation bilaterally Cardio: COMMON NORMALS: no JVD, regular rate, regular rhythm, S1 normal heart sound present, S2 normal heart sound present, No gallops present (Cardio), No clicks present (Cardio), No murmurs present (Cardio) and No rub (Cardio) R ATE: regular rate RHYTHM: regular rhythm HEART SOUNDS: S1 normal heart sound present and S2 normal heart sound present GI: COMMON NORMALS: Normal to inspection, nondistended, normoactive bowel sounds present, Soft to palpation, non-tender, No hepatosplenomegaly present and no masses PALPATION: Yes Soft to palpation and Yes No hepatosplenomegaly present Course 2 Vital Signs: Vital signs: Vital Signs Temperature 98.1 F 08/04/24 10:23 Pulse Rate 69 08/04/24 14:00 Respiratory Rate 21 H 08/04/24 14:00 Blood Pressure 131/82 08/04/24 14:00 Pulse Oximetry 97 08/04/24 14:00 Oxygen Delivery Me thod Non-Rebreather 08/04/24 12:30 MDM - Seizure Lab Data 08/04/24 10:30 08/04/24 10:30 Labs: Radiology Impressions Chest X-Ray 08/04/24 10:38 IMPRESSION: 1. Borderline cardiomegaly with probable mild vascular congestion. Laboratory Results WBC 9.64 10^3/uL (3.29-11.43) 08/04/24 10:30 RBC 5.29 10^6/uL (3.85-5.65) 08/04/24 10:30 Hgb 15.40 g/dL (11.27-16.99) 08/04/24 10:30 Hct 49.5 % (37-53) 08/04/24 10:30 MCV 93.6 fl (82-101) 08/04/24 10:30 MCH 29.1 pg (27-33) 08/04/24 10:30 MCHC 31.1 g/dL (30-55) 08/04/24 10:30 RDW 12.6 % (12.1-15.1) 08/04/24 10:30 Plt Count 253 10^3/cmm (157-399) 08/04/24 10:30 MPV 9.8 fL (7.4-10.4) 08/04/24 10:30 Neut % (Auto) 38.0 % 08/04/24 10:30 Lymph % (Auto) 50.2 % 08/04/24 10:30 [place] % (Auto) 7.7 % 08/04/24 10:30 Eos % (Auto) 3.4 % 08/04/24 10:30 Baso % (Auto) 0.5 % 08/04/24 10:30 Neut # (Auto) 3.66 10^3/uL (1.8-7.7) 08/04/24 10:30 Lymph # (Auto) 4.8 10^3/uL (0.8-4.8) 08/04/24 10:30 [place] # (Auto) 0.7 10^3/uL (0.2-0.9) 08/04/24 10:30 Eos # (Auto) 0.3 10^3/uL (0.0-0.8) 08/04/24 10:30 Baso # (Auto) 0.1 10^3/uL (0.0-0.1) 08/04/24 10:30 Nucleated RBC % (auto) 0 % 08/04/24 10:30 Nucleated RBCs # 0.0 /100WBC 08/04/24 10:30 Specimen Type Arterial 08/04/24 13:44 Sample Site Radial, right 08/04/24 13:44 ABG pH 7.42 (7.35-7.45) 08/04/24 13:44 ABG pCO2 44.5 mmHg (35-45) 08/04/24 13:44 ABG pO2 93.0 mmHg (80.0-100.0) 08/04/24 13:44 ABG HCO3 28.8 mmol/L (22-26) H 08/04/24 13:44 ABG O2 Saturation 98.0 08/04/24 13:44 ABG Base Excess 3.6 mmol/L (-2.0-2.0) H 08/04/24 13:44 Magdiel Test Pos 08/04/24 13:44 A-a O2 Gradient 0.2 mmHg (5-10) L 08/04/24 13:44 Hematocrit 45.3 % (42-52) 08/04/24 13:44 Hgb O2 Saturation 96.4 % (95-100) 08/04/24 13:44 Carboxyhemoglobin 0.6 %THgb (0.4-20.1) 08/04/24 13:44 Methemoglobin 1.1 % (0.4-1.5) 08/04/24 13:44 Total Hemoglobin 14.8 g/dL (14-18) 08/04/24 13:44 Sodium 135.0 mmol/L (131-143) 08/04/24 13:44 Potassium 4.0 mmol/L (3.5-5.0) 08/04/24 13:44 Glucose 248.0 mg/dL (70-115) H 08/04/24 13:44 Ionized Calcium 1.2 mmol/L (1.1-1.4) 08/04/24 13:44 O2 Delivery Device Nc 08/04/24 13:44 O2 Liters/Min 3.0 % 08/04/24 13:44 Flume Worker ID [place] 08/04/24 13:44 Sodium 144 mmol/L (136-145) 08/04/24 10:30 Potassium 5.1 mmol/L (3.5-5.1) 08/04/24 10:30 Chloride 101 mmol/L (98-107) 08/04/24 10:30 Carbon Dioxide 25 mmol/L (22-29) 08/04/24 10:30 Anion Gap 23.1 (5-19) H 08/04/24 10:30 BUN 16 mg/dL (8-23) 08/04/24 10:30 Creatinine 0.5 mg/dL (0.7-1.2) L 08/04/24 10:30 GFR Calculation 165.4 mL/min (90-130) H 08/04/24 10:30 Glucose 242 mg/dL (65-115) H 08/04/24 10:30 Calculated Osmolality 307 mOsm/kg (285-295) H 08/04/24 10:30 Calcium 9.4 mg/dL (8.5-10.5) 08/04/24 10:30 Total Bilirubin 1.2 mg/dL (0.15-1.2) 08/04/24 10:30 AST 13 U/L (0-40) 08/04/24 10:30 ALT 17 U/L (0-41) 08/04/24 10:30 Alkaline Phosphatase 95 U/L (40-130) 08/04/24 10:30 Troponin T Baseline 19 ng/L (0-15) H 08/04/24 10:30 Troponin T 120 Minute 15.17 ng/L (0-15) H 08/04/24 12:06 Delta Troponin T -3.83 ABS# (0-10) L 08/04/24 12:06 Total Protein 7.0 g/dL (6.6-8.7) 08/04/24 10:30 Albumin 4.2 g/dL (3.5-5.2) 08/04/24 10:30 Globulin 2.8 g/dL (1.3-4.6) 08/04/24 10:30 All radiology interpretation(s) finalized by discharge ED provider radiology interpretation(s): Patient had seizure x 1 in the ER. Patient was given 2 mg Ativan during his postictal phase he became hypoxic and was placed on a nasal cannula which patient was a mouth breather with apnea then it was switched over to a nasal trumpet and eventually a nonrebreather. Eventually wean patient off nonrebreather back on her nasal cannula. Dr. Cortes was consulted who agreed to take the patient for observation on MedSurg if the ABG come back without hypercarbia. Discharge Plan Discharge Patient Disposition: Placed in Observation Clinical Impression: Epileptic seizure, Hypoxia Coding Level of Care Code ED Cert Occupational Therapy Asst for Chg Yuriy
--- NOTE | 2024-08-04 10:43 | ECG_ITS ---
[facility] Test Date: 2024-08-04 Pat Name: Ulisses Bae Department: Room: Gender: Male Gutter Mouth Cutter: : 1955 Requested By: Kd Cristina Order Number: [id number] Josh MD: Genevieve Sanchez M.D. Measurements Intervals [place] Rate: 70 P: 48 NC: 159 QRS: -14 QRSD: 117 T: 52 QT: 407 QTc: 440 Interpretive Statements SINUS RHYTHM INCOMPLETE RIGHT BUNDLE BRANCH BLOCK [ Compared to ECG 03/20/2024 14:19:58 Incomplete right bundle-branch block now present Electronically Signed On 08-04-2024 18:05:16 CDT by Genevieve Sanchez M.D. [id number]
[2024-08-04 10:46] LABS: Basophils # 0.1 10^3/uL (0.0-0.1); Basophils % 0.5 %; Eosinophils # 0.3 10^3/uL (0.0-0.8); Eosinophils % 3.4 %; Hematocrit 49.5 % (37-53); Lymphocytes # 4.8 10^3/uL (0.8-4.8); Lymphocytes % 50.2 %; Mean Corpuscular HGB Conc 31.1 g/dL (30-55); Mean Corpuscular Hemoglobin 29.1 pg (27-33); Mean Corpuscular Volume 93.6 fl (82-101); Mean Platelet Volume 9.8 fL (7.4-10.4); Monocytes # 0.7 10^3/uL (0.2-0.9); Monocytes % 7.7 %; Neutrophils # 3.66 10^3/uL (1.8-7.7); Nucleated Red Blood Cells % 0 %; Platelet Count 253 10^3/cmm (157-399); Red Blood Count 5.29 10^6/uL (3.85-5.65); Red Cell Distribution Width 12.6 % (12.1-15.1); White Blood Count 9.64 10^3/uL (3.29-11.43)
[2024-08-04 11:01] LABS: Troponin(5th) Baseline 19 ng/L (0-15)
[2024-08-04 11:11] LABS: Alanine Aminotransferase 17 U/L (0-41); Albumin Level 4.2 g/dL (3.5-5.2); Alkaline Phosphatase 95 U/L (40-130); Anion Gap 23.1 (5-19); Aspartate Amino Transferase 13 U/L (0-40); Blood Urea Nitrogen 16 mg/dL (8-23); Calcium 9.4 mg/dL (8.5-10.5); Carbon Dioxide 25 mmol/L (22-29); Chloride 101 mmol/L (98-107); Globulin 2.8 g/dL (1.3-4.6); Glomerular Filtration Rate 165.4 mL/min (90-130); Glucose 242 mg/dL (65-115); Osmolality Calculated 307 mOsm/kg (285-295); Potassium 5.1 mmol/L (3.5-5.1); Sodium 144 mmol/L (136-145); Total Bilirubin 1.2 mg/dL (0.15-1.2)
[2024-08-04 11:12] LABS: Creatinine Clr Calc Pharmacy 133.5855
--- NOTE | 2024-08-04 12:23 | PC.PHAR ---
RAQUEL RICHARDS PATIENT
--- NOTE | 2024-08-04 12:38 | ECG_ITS ---
[facility]: 2024-[facility]04 Pat Name: Ulisses Bae Department: Room: Gender: Male Hospitality Coordinator: : 1955 Requested By: Kd Cristina Order Number: [id number] Josh MD: Genevieve Sanchez M.D. Measurements Intervals [place] Rate: 69 P: 35 DE: 150 QRS: -2 QRSD: 113 T: 34 QT: 405 QTc: 435 Interpretive Statements SINUS RHYTHM POSSIBLE INFERIOR MYOCARDIAL INFARCTION , OF INDETERMINATE AGE [30 ms Q WAVE IN II/aVF] Compared to ECG 08/04/2024 10:43:00 Incomplete right bundle-branch block no longer present Electronically Signed On 08-04-2024 17:07:22 CDT by Genevieve Sanchez M.D. [id number]
[2024-08-04 13:04] LABS: Troponin 5 2HR 15.17 ng/L (0-15)
[2024-08-04 13:11] LABS: Troponin 5 2HR Delta -3.83 ABS# (0-10)
[2024-08-04 13:55] LABS: ABG PCO2 44.5 mmHg (35-45); ABG PH Result 7.42 (7.35-7.45); Alveolar-Arterial Oxygen Gradi 0.2 mmHg (5-10); Arterial Blood Gas Hematocrit 45.3 % (42-52); Base Excess ABG 3.6 mmol/L (-2.0-2.0); Blood Gas Allen Test Pos; Blood Gas Operator Identificat WALCI; Blood Gas Sample Site Radial, right; Blood Gas Sample Type Arterial; Carboxyhemoglobin 0.6 %THgb (0.4-20.1); HCO3 ABG 28.8 mmol/L (22-26); HGB O2 Sat 96.4 % (95-100); Ionized Calcium Level - ABG 1.2 mmol/L (1.1-1.4); Methemoglobin 1.1 % (0.4-1.5); Oxygen Device NC; Total Hemoglobin 14.8 g/dL (14-18)
--- NOTE | 2024-08-04 14:13 | PC.NURSE ---
Patient awake and talking with family at bedside. Pt is [place] speaking and mother is translating at bedside. She tells me that he is requesting tissue to wipe his eyes and that his bottom hurts. Mother reports he has a healing sore on buttock. Pt given tissues and turned to left-side lying position. Oxygen on nasal cannula turned from 3l down to 2L. Pt maintaining oxygen at 98% Dr Cristina has been notified.
--- NOTE | 2024-08-04 14:43 | CTR_ITS ---
PROCEDURE INFORMATION: Exam: CT Head Without Contrast Exam date and time: 08/04/2024 3:44 PM Age: 69 years old Clinical indication: Other: Seizure; Additional info: AMS TECHNIQUE: Imaging protocol: Computed tomography of the head without contrast. Radiation optimization: All CT scans at this facility use at least one of these dose optimization techniques: automated exposure control; mA and/or kV adjustment per patient size (includes targeted exams where dose is matched to clinical indication); or iterative reconstruction. COMPARISON: MR head wo con* [id number] 03/25/2024 8:26 AM RADIATION DOSE METRICS: Total DLP (mGy-cm): 1215.38 FINDINGS: Brain: Encephalomalacia in the right parietal lobe, right basal ganglia and frontal lobe.The knowles-white differentiation is maintained. Encephalomalacia in the right ashley. No hemorrhage. No edema.There are moderate periventricular and subcortical lucencies consistent with chronic microvascular ischemic changes. Cerebral ventricles: No ventriculomegaly. Paranasal sinuses: Visualized sinuses are unremarkable. No fluid levels. Mastoid air cells: Visualized mastoid air cells are well aerated. Bones: Unremarkable. No acute fracture. Soft tissues: Unremarkable. CT/CT head wo con* [id number] IMPRESSION: No acute intracranial abnormality. Chronic microvascular ischemic changes.
--- NOTE | 2024-08-04 14:46 | PM.HP ---
Providers/Chief Complaint Primary Care Provider: Prosper Deleon DO Chief Complaint: SEIZURE History of Present Illness Ulisses Bae is a 69 year old male with a past medical history of seizure, during his last hospitalization he was intubated to protect his airway due to a seizure, history of right MCA stroke, type 2 diabetes mellitus, atrial fibrillation, hypertension, history of PEG tube placement, currently at [facility] who presents to [facility] for a seizure. Currently patient is alert, to person, not to place, not to time, he does awaken, he is able to say a few words to his at bedside but falls back asleep. Upon arrival to the emergency room, patient had a grand mal type seizure, was seen by ER physician was given 2 mg Ativan, was postictal, was becoming hypoxic, so he was placed on a nonrebreather, nasal trumpet, eventually weaned off nonrebreather to nasal cannula, currently on 3 L. Currently blood pressure 130/82, pulse 69, respiratory 21, temperature 98.1, he is on 3 L, not in evidence of respiratory distress, no nasal flaring no intercostal retraction no suprasternal retractions, he does awaken to his name, biased to say a few words, but falls back asleep, he does withdraw from pain, he is able to mumble a few words to his at bedside, he is raising right extremities, moves right leg, he is G CS score is 10, according to at bedside, patient is at [place], he has had a stroke he has residual left-sided hemiplegia, he is a Ani dependent, he can feed himself with his right hand, he is normally alert oriented x 3, follows all commands, no cognitive impairment, this morning he was getting ready to be transported to [facility] to see Dr. Gordon, for removal of his PEG tube, as it bothers him and he is not using it anymore after his stroke. She was there when they had tried to load him up, he had a grand mall seizure, generalized tonic-clonic seizure,. She tells me that for the last few days he has been dealing with a sinus infection, he has had increased sinus complaints, has had a cough, she tells me that there is a bug going around [place], but no known outbreak of COVID or the flu, no recent falls, he has not had any specific complaints otherwise. He does have a DTI over his sacrum, which is looking better she tells me, no other diabetic ulcers, reports that whenever he gets infections, he will have breakthrough seizures she thinks that he is having a significant sinus infection, she tells me that that is what happened last time when he came to the hospital Review of Systems General: Reports: ROS unobtainable due to mental status Medications/Allergies Home Medications Medication Instructions Recorded Confirmed Last Taken Type atorvastatin 40 mg tablet 40 mg PO DAILY #90 tabs 10/23/22 08/04/24 08/03/24 Rx meclizine 25 mg tablet 25 mg PO QID PRN vertigo #30 tabs 08/19/23 08/04/24 Unknown Rx amiodarone 200 mg tablet (Pacerone) 200 mg ng-tube Q24H #30 tabs 09/04/23 08/04/24 08/04/24 Rx amlodipine 10 mg tablet 10 mg PO DAILY #30 tabs 09/04/23 08/04/24 08/04/24 Rx apixaban 5 mg tablet (Eliquis) 5 mg PO BID #60 tabs 09/04/23 08/04/24 08/03/24 Rx aspirin 81 mg chewable tablet 81 mg ng-tube DAILY #30 tabs 09/04/23 08/04/24 08/04/24 Rx pantoprazole 40 mg tablet,delayed 40 mg PO DAILY #30 tabs 09/04/23 08/04/24 08/04/24 Rx release (Protonix) duloxetine 20 mg capsule,delayed 30 mg PO 1XD 03/20/24 08/04/24 08/04/24 History release insulin glargine 100 unit/mL (3 18 unit SUBCUT DAILY 03/20/24 08/04/24 08/03/24 History mL) subcutaneous pen (Lantus Solostar U-100 Insulin) losartan 50 mg tablet 50 mg PO DAILY 03/20/24 08/04/24 08/04/24 History docusate sodium 100 mg capsule 100 mg PO BID #60 caps 03/26/24 08/04/24 Unknown Rx acetaminophen 325 mg tablet 650 mg PO Q4H 08/04/24 08/04/24 08/04/24 History acetaminophen 650 mg rectal 650 mg ND Q4H PRN Pain 08/04/24 08/04/24 Unknown History suppository baclofen 10 mg tablet 10 mg PO BID 08/04/24 08/04/24 08/04/24 History bisacodyl 10 mg rectal suppository 10 mg ND Q24H 08/04/24 08/04/24 Unknown History (Dulcolax (bisacodyl)) cholecalciferol (vitamin D3) 50 50 mcg PO DAILY 08/04/24 08/04/24 08/03/24 History mcg (2,000 unit) tablet (Vitamin D3) insulin aspart 8 unit SUBCUT TID 08/04/24 08/04/24 08/04/24 History (niacinamide)(U-100) 100 unit/mL(3 mL) subcutaneous pen (Fiasp FlexTouch U-100 Insulin) magnesium hydroxide 400 mg/5 mL 30 ml PO DAILY PRN Constipation 08/04/24 08/04/24 Unknown History oral suspension (Milk of Magnesia) ondansetron 4 mg disintegrating 4 mg PO Q4H 08/04/24 08/04/24 Unknown History tablet Allergies Allergy/AdvReac Type Severity Reaction Status Date / Time No Known Allergies Allergy Verified 08/21/23 13:08 PFSH Acute PFSH: Medical History History of cerebrovascular accident (CVA) due to ischemia Atrial fibrillation with RVR Atrial fibrillation Acute right arterial ischemic stroke, middle cerebral artery (MCA) Mixed dyslipidemia Essential hypertension Diabetes Surgical History Status post insertion of percutaneous endoscopic gastrostomy (PEG) tube Family History Mother Old age Father Old age Social History Smoking and tobacco/nicotine status: never used tobacco/nicotine Alcohol intake: never Substance/Drug Use: never Adopted: No Caregiver/support person: No Lives independently: No Household members: spouse Housing: House Marital status: service: No Vitals/I&O/Wt Last Vital Signs Temp 98.1 F 08/04/24 10:23 Pulse 69 08/04/24 14:00 Resp 21 H 08/04/24 14:00 BP 131/82 08/04/24 14:00 Pulse Ox 97 08/04/24 14:00 O2 Del Method Non-Rebreather 08/04/24 12:30 Weight last 48 hrs Weight 154.221 kg Physical Exam Const: COMMON NORMALS: no acute distress HENMT: COMMON NORMALS: normocephalic HEAD & SCALP: normocephalic Eye: COMMON NORMALS: Equal, round and reactive pupils present Neck/C-Spine: COMMON NORMALS: no JVD Lymph: LYMPHATIC: no lymphadenopathy noted Resp: COMMON NORMALS: normal respiratory effort, No retractions, No use of accessory muscles and clear to auscultation bilaterally AUSCULTATION: clear to auscultation bilaterally Cardio: COMMON NORMALS: regular rate, regular rhythm, S1 normal heart sound present and S2 normal heart sound present RATE: regular rate RHYTHM: regular rhythm HEART SOUNDS: S1 normal heart sound present and S2 normal heart sound present GI: COMMON NORMALS: Normal to inspection, nondistended, normoactive bowel sounds present, Soft to palpation and non-tender Extremity: COMMON NORMALS: no calf tenderness and no pedal edema Neuro: OTHER: Does not follow neurologic testing, does move right upper extremity, able to say a few words to his , he does withdraw from pain, does localize pain, he does try to say a couple words to me but falls back asleep Data 08/04/24 10:30 08/04/24 10:30 A&P Assessment and plan (1) Atrial fibrillation: (2) History of cerebrovascular accident (CVA) due to ischemia: (3) Seizure: Plan Seizure ? Received 2 mg Ativan, postictal ? On nonrebreather initially, now on 3 L ? Is becoming more alert awake, GCS is 10 ? Plan ? Obtain ABG, ? Seizure precautions ? Neurochecks ? NIH stroke scale ? Aspiration precautions ? Keep n.p.o. ? CT head ? Loading dose of Keppra 1000 mg, followed by 500 mg every 12 hours ? Continue home aspirin, statin, Eliquis ? Concerns for sinus infection 1 dose Rocephin, azithromycin ? Type 2 diabetes mellitus, moderate dose sliding scale # Monitor mentation, respiratory status closely # Full code # Eliquis for DVT prophylaxis Attestations Medical Necessity Statement*: Patient requires hospitalization, outpatient with observation, for seizure, postictal Diagnoses Atrial fibrillation I48.91 History of cerebrovascular accident (CVA) due to ischemia Z86.73 Seizure R56.9
[2024-08-04 15:14] LABS: Erythrocyte Sedimentation Rate 14 mm/hr (0-10)
[2024-08-04 15:35] LABS: Lactic Sepsis W/Reflex 11.7 mmol/L (0.5-2.2)
[2024-08-04 15:39] LABS: NT Pro B Type Natriuretic Pept 77 pg/mL (0-125); Procalcitonin 0.03 ng/mL (0-0.5)
[2024-08-04 16:44] LABS: Reflex Lactate Order REFLEX LACTIC ORDERD
--- NOTE | 2024-08-04 17:03 | ECG_ITS ---
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 Measurements Intervals [place] Rate: 62 P: -14 AK: 150 QRS: -31 QRSD: 107 T: 17 QT: 432 QTc: 441 Interpretive Statements SINUS RHYTHM LEFT AXIS DEVIATION [QRS AXIS < -30] Compared to ECG 08/04/2024 12:10:00 Left-axis deviation now present Myocardial infarct finding no longer present Electronically Signed On 08-05-2024 17:21:49 CDT by Genevieve Sanchez M.D. [id number]
[2024-08-04 17:05] LABS: Covid PCR NEGATIVE (Negative); Influenza A NEGATIVE (Negative); Influenza B NEGATIVE (Negative); Respiratory Syncytial Virus Ce NEGATIVE (Negative)
[2024-08-04 18:33] LABS: Glucose Point of Care 219 mg/dL (70-110)
[2024-08-04 18:33] LABS: Troponin 5 6HR 20.67 ng/L (0-15); Troponin 5 6HR Delta 1.67 ng/L (0-12)
[2024-08-04] MEDS: apixaban 5 mg Tablet PEG-TUBE (18:39)
[2024-08-04] MEDS: cefTRIAXone 1,000 mg SDV 1000 MG IVP (18:39)
[2024-08-04] MEDS: pantoprazole 40 mg SDV IVP (18:39)
[2024-08-04] MEDS: amiodarone 200 mg Tablet NG-TUBE (18:41)
[2024-08-04] MEDS: levETIRAcetam 1,000 MG/100 ML PREMIX 400 MG IV (19:04)
[2024-08-04] MEDS: AZITHROMYCIN ADD-Vantage 500 MG in 0.9% NaCl ADD-Vantage 250 ML 250 MG IV (19:08)
--- NOTE | 2024-08-04 20:52 | PC.NURSE ---
Day shift RN, Coby, stated that Dr. Tapia ordered for patient's oral medications to be given orally instead of via PEG. Family member at bedside was asked by me how patient takes his medications. She states whole with water. She states patient does not need his pills crushed.
[2024-08-04 21:13] LABS: Glucose Point of Care 203 mg/dL (70-110)
--- NOTE | 2024-08-04 21:20 | PC.NURSE ---
Day shift Coby ROGERS states that patient received 6 units of Humalog approximately 7 pm.
[2024-08-04] MEDS: acetaminophen 325 mg Tablet 650 MG PO (21:21)
[2024-08-04 22:07] LABS: Glucose Point of Care 190 mg/dL (70-110)
--- NOTE | 2024-08-04 22:10 | PC.NURSE ---
Patient incontinent. Unable to obtain urinalysis.
--- NOTE | 2024-08-04 22:55 | PC.NURSE ---
Family member at bedside states that patient blood sugars tend to get low at night. She states the detention stopped giving him insulin at night because his blood sugars would get low at night. She is refusing HS Humalog.
[2024-08-05] VITALS: BP 151/95; PULSE 61; RESP 16; TEMP 36.7; O2SAT 98
[2024-08-05] MEDS: levETIRAcetam 500 MG/100 ML PREMIX 400 MG IV (02:26)
[2024-08-05 04:00] VITALS: BP 124/69; PULSE 62; RESP 16; TEMP 36.7; O2SAT 96
[2024-08-05 05:59] LABS: Basophils % 0.4 %; Eosinophils # 0.1 10^3/uL (0.0-0.8); Eosinophils % 1.7 %; Hematocrit 40.3 % (37-53); Lymphocytes % 27.9 %; Mean Corpuscular HGB Conc 33.3 g/dL (30-55); Mean Corpuscular Hemoglobin 29.2 pg (27-33); Mean Corpuscular Volume 87.8 fl (82-101); Mean Platelet Volume 9.4 fL (7.4-10.4); Monocytes # 0.6 10^3/uL (0.2-0.9); Monocytes % 9.1 %; Neutrophils # 4.28 10^3/uL (1.8-7.7); Neutrophils % 60.6 %; Nucleated Red Blood Cells % 0 %; Platelet Count 216 10^3/cmm (157-399); Red Blood Count 4.59 10^6/uL (3.85-5.65); Red Cell Distribution Width 12.7 % (12.1-15.1); White Blood Count 7.06 10^3/uL (3.29-11.43)
[2024-08-05 06:00] VITALS: PULSE 58
[2024-08-05 06:21] LABS: Anion Gap 12.8 (5-19); Blood Urea Nitrogen 11 mg/dL (8-23); Calcium 8.3 mg/dL (8.5-10.5); Carbon Dioxide 26 mmol/L (22-29); Chloride 101 mmol/L (98-107); Creatinine Clr Calc Pharmacy 106.6255; Glomerular Filtration Rate 213.9 mL/min (90-130); Glucose 174 mg/dL (65-115); Osmolality Calculated 286 mOsm/kg (285-295); Potassium 3.8 mmol/L (3.5-5.1); Sodium 136 mmol/L (136-145)
[2024-08-05 06:36] LABS: Glucose Point of Care 158 mg/dL (70-110)
[2024-08-05 07:42] VITALS: BP 118/70; PULSE 66; RESP 15; TEMP 36.9; O2SAT 97
[2024-08-05] MEDS: duloxetine 20 mg Capsule 30 MG PO (08:53)
[2024-08-05] MEDS: atorvastatin 40 mg Tablet PO (08:53)
[2024-08-05] MEDS: insulin lispro 100 unit/1 mL SUBCUT (08:53)
[2024-08-05] MEDS: apixaban 5 mg Tablet PO (08:53)
[2024-08-05] MEDS: aspirin 81 mg Chew Tablet PO (08:53)
--- NOTE | 2024-08-05 11:35 | PM.DCS ---
Discharge Providers Date of Admission: 08/04/24 14:10 Date of Discharge: August 05, 2024 Attending Provider at Admission: Edgardo Tapia MD Attending Provider at Discharge: Edgardo Tapia MD Primary Care Provider: Prosper Deleon DO Diagnoses at Discharge Discharge Diagnosis (1) Atrial fibrillation: Status: Acute (2) History of cerebrovascular accident (CVA) due to ischemia: Status: Acute (3) Seizure: Status: Acute Reason for Visit Reason for Visit: SEIZURE Hospital Course Hospital Course Ulisses Bae is a 69 year old male with a past medical history of seizure, during his last hospitalization he was intubated to protect his airway due to a seizure, history of right MCA stroke, type 2 diabetes mellitus, atrial fibrillation, hypertension, history of PEG tube placement, currently at [facility] who presents to [facility] for a seizure. Currently patient is alert, to person, not to place, not to time, he does awaken, he is able to say a few words to his at bedside but falls back asleep. Upon arrival to the emergency room, patient had a grand mal type seizure, was seen by ER physician was given 2 mg Ativan, was postictal, was becoming hypoxic, so he was placed on a nonrebreather, nasal trumpet, eventually weaned off nonrebreather to nasal cannula, currently on 3 L. Currently blood pressure 130/82, pulse 69, respiratory 21, temperature 98.1, he is on 3 L, not in evidence of respiratory distress, no nasal flaring no intercostal retraction no suprasternal retractions, he does awaken to his name, biased to say a few words, but falls back asleep, he does withdraw from pain, he is able to mumble a few words to his at bedside, he is raising right extremities, moves right leg, he is G CS score is 10, according to at bedside, patient is at [place], he has had a stroke he has residual left-sided hemiplegia, he is a Ani dependent, he can feed himself with his right hand, he is normally alert oriented x 3, follows all commands, no cognitive impairment, this morning he was getting ready to be transported to [facility] to see Dr. Gordon, for removal of his PEG tube, as it bothers him and he is not using it anymore after his stroke. She was there when they had tried to load him up, he had a grand mall seizure, generalized tonic-clonic seizure,. She tells me that for the last few days he has been dealing with a sinus infection, he has had increased sinus complaints, has had a cough, she tells me that there is a bug going around [place], but no known outbreak of COVID or the flu, no recent falls, he has not had any specific complaints otherwise. He does have a DTI over his sacrum, which is looking better she tells me, no other diabetic ulcers, reports that whenever he gets infections, he will have breakthrough seizures she thinks that he is having a significant sinus infection, she tells me that that is what happened last time when he came to the hospital Patient was admitted to [facility] for acute seizure, received Ativan, was monitored as inpatient, was transitioned to Keppra, tolerated it well, no breakthrough seizures during his hospitalization, will be discharged on Keppra 500 mg twice daily with close follow-up with neurology as outpatient The morning of 08/05/2024 patient was alert to person, place, not to time he will follow commands, has left-sided hemiplegia can move his right upper right lower extremity, pupils equal round reactive to light, can follow commands, able to converse with his , converses with me, no slurring of his words, according to he is back to baseline he does have episodes of drowsiness which his tells me that that is usual for him For his sinus infection he did receive IV antibiotics during his hospitalization, discharged on Augmentin During his hospitalization patient did require nonrebreather initially when he was in the emergency room, transitioned to nasal cannula, on nasal cannula on discharge, on discharge he is on nasal cannula, no evidence of respiratory distress, no complaints of shortness of breath For his PEG tube, rescheduled appointment with Dr. Gordon for removal Complaints of left shoulder pain, x-ray shoulder no acute fracture Physical Exam Const: COMMON NORMALS: no acute distress ORIENTATION/CONSCIOUSNESS: Yes awake, Yes oriented to person and Yes oriented to place; not oriented to time Resp: COMMON NORMALS: normal respiratory effort, No retractions, No use of accessory muscles and clear to auscultation bilaterally AUSCULTATION: clear to auscultation bilaterally Cardio: COMMON NORMALS: regular rate, regular rhythm, S1 normal heart sound present and S2 normal heart sound present RATE: regular rate RHYTHM: regular rhythm HEART SOUNDS: S1 normal heart sound present and S2 normal heart sound present GI: COMMON NORMALS: Normal to inspection, nondistended, normoactive bowel sounds present and non-tender OTHER: PEG tube in place Extremity: COMMON NORMALS: no pedal edema Neuro: SENSORIUM/ORIENTATION: Yes oriented to person, Yes oriented to place and No oriented to time OTHER: Left-sided hemiplegia, chronic Psych: COMMON NORMALS: mental status grossly normal Discharge Data Studies Completed and Pending Completed Studies During Hospitalization Category Date Time Status CT head wo con* [id number] Stat Cat Scan 08/04/24 14:43 Completed XR chest 1V portable [id number] Stat Exams 08/04/24 10:38 Completed Pending at discharge Category Date Time Status XR KUB portable [id number] Routine Exams 08/05/24 10:25 Ordered XR shoulder LT min 2V* [id number] Routine Exams 08/05/24 10:25 Ordered Urinalysis Stat Lab 08/04/24 14:43 Uncollected Radiology Impressions Chest X-Ray 08/04/24 10:38 IMPRESSION: 1. Borderline cardiomegaly with probable mild vascular congestion. Head CT 08/04/24 14:43 IMPRESSION: No acute intracranial abnormality. Chronic microvascular ischemic changes. Laboratory Results WBC 7.06 10^3/uL (3.29-11.43) 08/05/24 05:30 RBC 4.59 10^6/uL (3.85-5.65) 08/05/24 05:30 Hgb 13.40 g/dL (11.27-16.99) 08/05/24 05:30 Hct 40.3 % (37-53) 08/05/24 05:30 MCV 87.8 fl (82-101) D 08/05/24 05:30 MCH 29.2 pg (27-33) 08/05/24 05:30 MCHC 33.3 g/dL (30-55) D 08/05/24 05:30 RDW 12.7 % (12.1-15.1) 08/05/24 05:30 Plt Count 216 10^3/cmm (157-399) 08/05/24 05:30 MPV 9.4 fL (7.4-10.4) 08/05/24 05:30 Neut % (Auto) 60.6 % 08/05/24 05:30 Lymph % (Auto) 27.9 % 08/05/24 05:30 [place] % (Auto) 9.1 % 08/05/24 05:30 Eos % (Auto) 1.7 % 08/05/24 05:30 Baso % (Auto) 0.4 % 08/05/24 05:30 Neut # (Auto) 4.28 10^3/uL (1.8-7.7) 08/05/24 05:30 Lymph # (Auto) 2.0 10^3/uL (0.8-4.8) 08/05/24 05:30 [place] # (Auto) 0.6 10^3/uL (0.2-0.9) 08/05/24 05:30 Eos # (Auto) 0.1 10^3/uL (0.0-0.8) 08/05/24 05:30 Baso # (Auto) 0.0 10^3/uL (0.0-0.1) 08/05/24 05:30 Nucleated RBC % (auto) 0 % 08/05/24 05:30 Nucleated RBCs # 0.0 /100WBC 08/05/24 05:30 ESR 14 mm/hr (0-10) H 08/04/24 10:30 Specimen Type Arterial 08/04/24 13:44 Sample Site Radial, right 08/04/24 13:44 ABG pH 7.42 (7.35-7.45) 08/04/24 13:44 ABG pCO2 44.5 mmHg (35-45) 08/04/24 13:44 ABG pO2 93.0 mmHg (80.0-100.0) 08/04/24 13:44 ABG HCO3 28.8 mmol/L (22-26) H 08/04/24 13:44 ABG O2 Saturation 98.0 08/04/24 13:44 ABG Base Excess 3.6 mmol/L (-2.0-2.0) H 08/04/24 13:44 Magdiel Test Pos 08/04/24 13:44 A-a O2 Gradient 0.2 mmHg (5-10) L 08/04/24 13:44 Hematocrit 45.3 % (42-52) 08/04/24 13:44 Hgb O2 Saturation 96.4 % (95-100) 08/04/24 13:44 Carboxyhemoglobin 0.6 %THgb (0.4-20.1) 08/04/24 13:44 Methemoglobin 1.1 % (0.4-1.5) 08/04/24 13:44 Total Hemoglobin 14.8 g/dL (14-18) 08/04/24 13:44 Sodium 135.0 mmol/L (131-143) 08/04/24 13:44 Potassium 4.0 mmol/L (3.5-5.0) 08/04/24 13:44 Glucose 248.0 mg/dL (70-115) H 08/04/24 13:44 Ionized Calcium 1.2 mmol/L (1.1-1.4) 08/04/24 13:44 O2 Delivery Device Nc 08/04/24 13:44 O2 Liters/Min 3.0 % 08/04/24 13:44 Grey Stock Recorder ID Walci 08/04/24 13:44 Sodium 136 mmol/L (136-145) 08/05/24 05:30 Potassium 3.8 mmol/L (3.5-5.1) 08/05/24 05:30 Chloride 101 mmol/L (98-107) 08/05/24 05:30 Carbon Dioxide 26 mmol/L (22-29) 08/05/24 05:30 Anion Gap 12.8 (5-19) 08/05/24 05:30 BUN 11 mg/dL (8-23) 08/05/24 05:30 Creatinine 0.4 mg/dL (0.7-1.2) L 08/05/24 05:30 GFR Calculation 213.9 mL/min (90-130) H 08/05/24 05:30 Glucose 174 mg/dL (65-115) H 08/05/24 05:30 POC Glucose 158 mg/dL (70-110) H 08/05/24 06:20 Calculated Osmolality 286 mOsm/kg (285-295) 08/05/24 05:30 Lactic Acid 11.7 mmol/L (0.5-2.2) H* 08/04/24 10:30 Lactic Acid (Sepsis) 1.0 mmol/L (0.5-2.2) 08/04/24 18:04 Calcium 8.3 mg/dL (8.5-10.5) L 08/05/24 05:30 Total Bilirubin 1.2 mg/dL (0.15-1.2) 08/04/24 10:30 AST 13 U/L (0-40) 08/04/24 10:30 ALT 17 U/L (0-41) 08/04/24 10:30 Alkaline Phosphatase 95 U/L (40-130) 08/04/24 10:30 Troponin T Baseline 19 ng/L (0-15) H 08/04/24 10:30 Troponin T 120 Minute 15.17 ng/L (0-15) H 08/04/24 12:06 Delta Troponin T -3.83 ABS# (0-10) L 08/04/24 12:06 Troponin T Hi Sens 6Hr 20.67 ng/L (0-15) H 08/04/24 18:04 Troponin T Hi Sens 6Hr Delta 1.67 ng/L (0-12) 08/04/24 18:04 C-Reactive Protein 3.0 mg/L (0.0-4.9) 08/04/24 10:30 NT-Pro-B Natriuret Pep 77 pg/mL (0-125) 08/04/24 10:30 Total Protein 7.0 g/dL (6.6-8.7) 08/04/24 10:30 Albumin 4.2 g/dL (3.5-5.2) 08/04/24 10:30 Globulin 2.8 g/dL (1.3-4.6) 08/04/24 10:30 Procalcitonin 0.03 ng/mL (0-0.5) 08/04/24 10:30 Coronavirus (PCR) Negative (Negative) 08/04/24 16:00 Influenza A (PCR) Negative (Negative) 08/04/24 16:00 Influenza Type B (PCR) Negative (Negative) 08/04/24 16:00 RSV (PCR) Negative (Negative) 08/04/24 16:00 Vitals Last Vital Signs Temp 98.5 F 08/05/24 07:42 Pulse 66 08/05/24 07:42 Resp 15 08/05/24 07:42 BP 118/70 08/05/24 07:42 Pulse Ox 97 08/05/24 07:42 O2 Del Method Nasal Cannula 08/05/24 07:42 Discharge Plan Discharge Patient Disposition: Xfer SNF Condition: Stable Prescriptions: New levetiracetam [Keppra] 500 mg tablet 500 mg PO BID 30 Days Qty: 60 0RF amoxicillin-pot clavulanate 875-125 mg tablet 1 tab PO BID 7 Days Qty: 14 0RF polyethylene glycol 3350 [Miralax] 17 gram powder in packet 17 g PO DAILY PRN (Reason: constipation) 30 Days Qty: 30 0RF Continued atorvastatin 40 mg tablet 40 mg PO DAILY Qty: 90 2RF duloxetine 20 mg capsule,delayed release(DR/EC) 30 mg PO 1XD losartan 50 mg tablet 50 mg PO DAILY docusate sodium 100 mg Capsule 100 mg PO BID Qty: 60 0RF meclizine 25 mg tablet 25 mg PO QID PRN (Reason: vertigo) Qty: 30 0RF amiodarone [Pacerone] 200 mg Tablet 200 mg ng-tube Q24H Qty: 30 0RF amlodipine 10 mg Tablet 10 mg PO DAILY Qty: 30 0RF aspirin 81 mg Tablet,Chewable 81 mg ng-tube DAILY Qty: 30 0RF Eliquis 5 mg tablet 5 mg PO BID Qty: 60 0RF pantoprazole [Protonix] 40 mg tablet,delayed release (DR/EC) 40 mg PO DAILY Qty: 30 0RF acetaminophen 325 mg Tablet 650 mg PO Q4H acetaminophen 650 mg Suppository 650 mg PA Q4H PRN (Reason: Pain) magnesium hydroxide [Milk of Magnesia] 400 mg/5 mL Suspension 30 ml PO DAILY PRN (Reason: Constipation) baclofen 10 mg Tablet 10 mg PO BID bisacodyl [Dulcolax (bisacodyl)] 10 mg Suppository 10 mg PA Q24H cholecalciferol (vitamin D3) [Vitamin D3] 50 mcg (2,000 unit) Tablet 50 mcg PO DAILY Changed insulin glargine [Lantus Solostar U-100 Insulin] 100 unit/mL (3 mL) insulin pen 10 unit SUBCUT DAILY Qty: 15 0RF Fiasp FlexTouch U-100 Insulin 100 unit/mL (3 mL) insulin pen See Rx Instructions .ROUTE .COMPLEX Qty: 15 0RF Rx Instructions: Inject, subcut, 3 times daily, after meals, based on sliding scale provided ondansetron 4 mg Tablet,Disintegrating 4 mg PO Q4H PRN (Reason: nausea and vommiting) Qty: 30 0RF Discharge Orders: Discharge Order (Routine); Ordered 08/05/24 Ordered By: Edgardo Tapia Referrals: [facility] [place] [Outside] Gloria Valencia MD [Physician] - 2 weeks (We have notified your physician's clinic of the need for a follow-up appointment to be scheduled. If you have not heard from them within the next 2 business days, please call them directly. ) Jasmeet Moncada MD [Physician] - 2 weeks (We have notified your physician's clinic of the need for a follow-up appointment to be scheduled. If you have not heard from them within the next 2 business days, please call them directly. ) Prosper Deleon DO [Primary Care Provider] - Discharge Diet: Cardiac Discharge Activity: Resume usual activity Patient Instructions: Amoxicillin/Clavulanate Potassium (By mouth), Levetiracetam (By mouth), Opioid Safety Activity Restrictions/Additional Instructions: - If you have any recurrent seizure-like episodes please immediately come to the emergency room -Please monitor your blood sugars closely -Monitor your blood sugars 3 times daily as after meals -Please record your blood sugars, and a blood sugar log -For your fiasp -Please inject blood sugar after meals based on sliding scale provided -Do not inject insulin if you do not eat as hypoglycemia kills -This is a fiasp sliding scale -Insulin sliding ?fingerstick? Insulin ?141-180?0 units/sq 181-220?2 units/sq ?221-260?4 units/sq ?261-300 6 units/sq ?301-350?8 units/sq ?351-400 10 units/sq ?401-450?12 units/sq >450? 14units/sq -If your blood sugar is greater than 500 go to the emergency room -If your blood sugar is less than 60 or at anytime you feel lightheaded or dizzy or diaphoretic or have chest palpitations check your blood sugar, and eat a hard candy or drink orange juice and go immediately to the emergency room -Remember hypoglycemia kills, so if his blood sugar is less than 60 we have to increase it by taking in a sugary meal such as a hard candy or orange juice and go to the emergency room -If you have any questions please call us where here to help -Follow-up with Dr. Gordon in 2 weeks for PEG tube removal Discharge Attestations Time Spent in Discharge Care*: greater than 30 min Quality Metrics Clinical Quality Measures [ No reported AMI, CVA or VTE this stay] Coding Level of Care Code 83144 Total time (in minutes) for Discharge: 45 Diagnoses Atrial fibrillation I48.91 History of cerebrovascular accident (CVA) due to ischemia Z86.73 Seizure R56.9
[2024-08-05 11:39] LABS: Glucose Point of Care 128 mg/dL (70-110)
[2024-08-05 11:47] VITALS: BP 124/68; PULSE 54; RESP 17; TEMP 36.7; O2SAT 97
--- NOTE | 2024-08-05 13:24 | PC.NURSE ---
Report attempted two separate times with no answer from [facility]. Will continue to try and get in contact.
--- NOTE | 2024-08-05 13:51 | XR_ITS ---
WS: [id number] Left shoulder, 2 views portable, 08/05/2024 Clinical Data: pain, seizure Comparison: None. Findings: No fractures or dislocations are seen. The left humeral head is elevated and this could be secondary to rotator cuff degeneration. The AC joint is normal. The adjacent left clavicle, left scapula and ri bs are normal. The soft tissues are unremarkable. XR/XR shoulder LT min 2V* [id number] Impression: Elevation of the left shoulder joint which can be result of rotator cuff degene ration.
--- NOTE | 2024-08-05 13:51 | XR_ITS ---
WS: [id number] KUB, AP portable, 08/05/2024 Clinical Data: peg Comparison: None. Findings: No abnormal intraabdominal masses or calcifications are seen. There is no dilatated small bowel or ev idence of obstruction. There is a large amount of fecal material throughout the colon. There is a fecal impaction. There is a catheter overlying the pelvis. The PEG tube ring overlies the left upper quadrant between the 11th and 12th ribs. XR/XR KUB portable [id number] Impression: 1. PEG tube probably overlies the stomach in the left upper quadrant. 2. Large amount of fecal material throughout the colon.
[2024-08-05 15:53] VITALS: BP 124/68; PULSE 54; RESP 16; TEMP 36.7; O2SAT 97
== END 2024-08-05 15:59 | disposition skilled nursing facility (03) ==
LOC: ER 13:59 → MEDSURG 16:08
PROVIDERS: Admitting Provider Family Medicine; Emergency Provider Emergency Medicine; PCP Internal Medicine; Visit Provider Family Medicine
DX: R56.9 Unspecified convulsions (principal); I48.91 Unspecified atrial fibrillation; E11.9 Type 2 diabetes mellitus without complications; I10 Essential (primary) hypertension; I69.354 Hemiplegia and hemiparesis following cerebral infarction affecting left non-dominant side; Z79.01 Long term (current) use of anticoagulants; E78.2 Mixed hyperlipidemia
CPT/HCPCS: 0241U; 36415; 36416; 36600; 70450; 71045; 73030; 74018; 80048; 80051; 80053; 82330; 82805; 82962; 83605; 83880; 84145; 84484; 85025; 85651; 86140; 92523; 92610; 93005; 94664; 96365; 96372; 96375; 99285; G0378; J0456; J0696; J1815; J1953; J2060; J2470; J7050

== ENCOUNTER → 2024-08-18 12:06 | Outpatient (BNVA) | payer MEDICARE, SELFPAY | PROVIDERS: PCP Internal Medicine; Visit Provider Surgery | DX: Z09 Encounter for follow-up examination after completed treatment for conditions other than malignant neoplasm (principal); Z86.73 Personal history of transient ischemic attack (TIA), and cerebral infarction without residual deficits; R41.82 Altered mental status, unspecified; R56.9 Unspecified convulsions | CPT/HCPCS: 99214 ==